=== PATIENT | male | born 1955 | race Caucasian/White ===

== ENCOUNTER → 2020-01-04 15:57 | Outpatient (BNVA) | payer BC, MEDICAID, SELFPAY | PROVIDERS: PCP Internal Medicine; Referring Provider Internal Medicine; Visit Provider Internal Medicine | DX: Z76.89 Persons encountering health services in other specified circumstances (principal) ==

== ENCOUNTER 2020-02-08 11:54 | Outpatient (REF) | payer BC, MEDICAID, SELFPAY ==
[2020-02-08 13:50] LABS: MANUAL DIFF FLAG NO
[2020-02-08 13:54] LABS: Eosinophils Percent Auto 0.4 % (0-4); Hematocrit 45.6 % (42-52); Hemoglobin 14.7 g/dl (14.0-18.0); Imm Gran Abs Auto 0.01 X10*3/uL (0.00-0.03); Imm Gran Pct Auto 0.2 % (0.0-0.4); Lymphocytes Absolute Auto 1.8 X10*3/uL (1.2-4.9); Lymphocytes Percent Auto 31.9 % (20-40); Mean Corpuscular HGB Conc 32.2 g/dl (31.0-36.0); Mean Corpuscular Hemoglobin 30.9 pg (27.0-33.0); Mean Corpuscular Volume 95.8 fL (80-98); Mean Platelet Volume 9.5 fL (9.4-12.4); Monocytes Absolute Auto 0.5 X10*3/uL (0.1-1.2); Neutrophils Absolute Auto 3.3 X10*3/uL (2.0-8.3); Neutrophils Percent Auto 58.5 % (45-73); Platelet Count 277 X10*3/uL (160-400); Red Blood Count 4.76 X10*6/uL (4.60-5.80); Red Cell Distribution Width 12.1 % (11.0-16.0); White Blood Count 5.6 X10*3/uL (4.8-10.8)
[2020-02-08 14:30] LABS: Alanine Aminotransferase 60 U/L (0-40); Albumin Level 3.8 g/dL (3.5-5.0); Alkaline Phosphatase 98 U/L (39-117); Anion Gap 10 (12-20); Aspartate Amino Transferase 35 U/L (5-37); Bilirubin Total 0.5 mg/dL (0.0-1.0); Blood Urea Nitrogen 17 mg/dL (9-16); Calcium 8.6 mg/dL (8.4-10.2); Carbon Dioxide 33 mmol/L (22-29); Chloride 102 mmol/L (96-108); Cholesterol 169 mg/dL; Estimated Glomerular Filt Rate > 60; Glucose Fasting 94 mg/dL (60-99); HDL Cholesterol 57 mg/dL; LDL Cholesterol Calculated 90 mg/dl; Lipase 32 U/L (8-78); Potassium 4.2 mmol/l (3.3-5.1); Sodium 141 mmol/L (135-145); Total Protein 6.3 g/dL (6.5-8.0); Triglycerides 112 mg/dL
[2020-02-09 21:48] LABS: Ceruloplasmin 18 mg/dL (18-36)
== END 2020-02-08 11:55 | disposition home or self-care (01) ==
LOC: HO.HMGCLDS 11:54
PROVIDERS: PCP Internal Medicine; Visit Provider Internal Medicine
DX: E83.01 Wilson's disease (principal); K21.9 Gastro-esophageal reflux disease without esophagitis; R35.0 Frequency of micturition
CPT/HCPCS: 36415; 80053; 80061; 82390; 82525; 83690; 84153; 85025

== ENCOUNTER 2020-02-22 12:42 | Outpatient (REF) | payer BC, MEDICAID, SELFPAY ==
[2020-02-26 15:07] LABS: Copper, serum 56 mcg/dL (70-175)
== END 2020-02-22 12:43 | disposition home or self-care (01) ==
LOC: HO.HMGCLDS 12:42
PROVIDERS: PCP Internal Medicine; Visit Provider Internal Medicine
DX: E83.01 Wilson's disease (principal); K21.9 Gastro-esophageal reflux disease without esophagitis; K86.2 Cyst of pancreas
CPT/HCPCS: 82525

== ENCOUNTER 2020-07-20 13:02 | Outpatient (REF) | payer BC, MEDICAID, SELFPAY ==
--- NOTE | 2020-07-20 16:53 | PFT_ITS ---
INDICATION: COPD. SPIROMETRY: The FEV1 to FVC 65% with an FEV1 of 2.97 L, which is 90% predicted, and an FVC of 4.59 L, which is 104% predicted. No significant response to bronchodilators noted. Maximum voluntary ventilation 78% predicted. LUNG VOLUMES: Total lung capacity 92% predicted with residual volume of 78% predicted. DIFFUSION CAPACITY: DLCO 82% predicted. COMPARISONS: None available. INTERPRETATION: There is an obstructive ventilatory defect consistent with mild COPD. No significant response to bronchodilators noted. There is a mild decrease in maximum voluntary ventilation secondary to deconditioning. Lung volumes within normal limits and also diffusion capacity within normal limits. Clinical correlation warranted. Ricki Escudero MD MR/MODL / [id number]
== END 2020-07-20 13:03 | disposition home or self-care (01) ==
LOC: HO.RESP 13:02
PROVIDERS: PCP Internal Medicine; Visit Provider Internal Medicine
DX: J44.9 Chronic obstructive pulmonary disease, unspecified (principal)
CPT/HCPCS: 94060; 94727; 94729

== ENCOUNTER 2020-10-02 11:55 | Outpatient (REF) | payer BC, MEDICAID, SELFPAY ==
[2020-10-02 13:12] LABS: MANUAL DIFF FLAG NO
[2020-10-02 13:15] LABS: Eosinophils Absolute Auto 0.1 X10*3/uL (0.0-0.4); Eosinophils Percent Auto 0.8 % (0-4); Hematocrit 43.6 % (42-52); Hemoglobin 14.8 g/dl (14.0-18.0); Imm Gran Abs Auto 0.02 X10*3/uL (0.00-0.03); Imm Gran Pct Auto 0.3 % (0.0-0.4); Lymphocytes Percent Auto 31.2 % (20-40); Mean Corpuscular HGB Conc 33.9 g/dl (31.0-36.0); Mean Corpuscular Hemoglobin 31.2 pg (27.0-33.0); Mean Platelet Volume 9.4 fL (9.4-12.4); Monocytes Absolute Auto 0.5 X10*3/uL (0.1-1.2); Monocytes Percent Auto 7.7 % (2-11); Neutrophils Absolute Auto 3.9 X10*3/uL (2.0-8.3); Platelet Count 257 X10*3/uL (160-400); Red Blood Count 4.74 X10*6/uL (4.60-5.80); Red Cell Distribution Width 12.7 % (11.0-16.0); White Blood Count 6.5 X10*3/uL (4.8-10.8)
[2020-10-02 13:46] LABS: Alanine Aminotransferase 31 U/L (0-40); Albumin Level 3.8 g/dL (3.5-5.0); Alkaline Phosphatase 109 U/L (39-117); Anion Gap 12 (12-20); Aspartate Amino Transferase 28 U/L (5-37); Bilirubin Total 0.8 mg/dL (0.0-1.0); Blood Urea Nitrogen 15 mg/dL (9-16); Calcium 9.2 mg/dL (8.4-10.2); Carbon Dioxide 27 mmol/L (22-29); Chloride 104 mmol/L (96-108); Cholesterol 162 mg/dL; Estimated Glomerular Filt Rate 59; Glucose Fasting 109 mg/dL (60-99); HDL Cholesterol 55 mg/dL; LDL Cholesterol Calculated 89 mg/dl; Potassium 4.4 mmol/L (3.3-5.1); Sodium 139 mmol/L (135-145); Total Protein 6.7 g/dL (6.5-8.0); Triglycerides 94 mg/dL
[2020-10-02 13:56] LABS: Glucose Urine UA NEG (NEG); Leukocyte Esterase Urine NEG (NEG); Nitrite Urine NEG (NEG); Specific Gravity - Urine <= 1.005 (1.005-1.025); Urine Blood NEG (NEG); Urine Ketones NEG (NEG); Urine Protein NEG (NEG-TRACE)
[2020-10-02 13:59] LABS: Appearance Urine CLEAR; Color Urine YELLOW
[2020-10-02 14:13] LABS: TSH reflex Free T4 1.03 uIU/mL (0.32-4.0); Vitamin D 25-OH Total 32.1 ng/mL (>30)
[2020-10-02 16:02] LABS: Prostate Specific Antigen 0.74 ng/mL (<0.05-4.0)
[2020-10-05 07:07] LABS: Copper, serum 72 mcg/dL (70-175)
[2020-10-05 22:11] LABS: Ceruloplasmin 19 mg/dL (18-36)
[2020-10-07 13:01] LABS: Copper RBC 0.67 mg/L (0.53-0.91)
[2020-10-13 16:26] LABS: Copper,Urine 24 Hr 275 mcg/24 h (15-60); Total Volume 24 Ur 2250 mL
== END 2020-10-02 11:56 | disposition home or self-care (01) ==
LOC: HO.LAB 11:55
PROVIDERS: PCP Internal Medicine; Visit Provider Internal Medicine
DX: E83.01 Wilson's disease (principal); J44.9 Chronic obstructive pulmonary disease, unspecified; R03.0 Elevated blood-pressure reading, without diagnosis of hypertension; R35.0 Frequency of micturition
CPT/HCPCS: 36415; 80053; 80061; 81003; 82306; 82390; 82525; 84153; 84443; 85025

== ENCOUNTER → 2021-01-23 13:25 | Outpatient (BNVA) | payer BC, MEDICAID, SELFPAY | PROVIDERS: PCP Internal Medicine; Visit Provider Internal Medicine ==

== ENCOUNTER 2021-05-07 10:57 | Outpatient (REF) | payer BC, MEDICAID, SELFPAY ==
[2021-05-07 13:44] LABS: MANUAL DIFF FLAG NO
[2021-05-07 13:48] LABS: Basophils Percent Auto 0.2 % (0-2); Eosinophils Absolute Auto 0.1 X10*3/uL (0.0-0.4); Eosinophils Percent Auto 2.1 % (0-4); Hematocrit 46.2 % (42.0-52.0); Hemoglobin 15.2 g/dl (14.0-18.0); Imm Gran Abs Auto 0.01 X10*3/uL (0.00-0.03); Imm Gran Pct Auto 0.2 % (0.0-0.4); Lymphocytes Absolute Auto 2.2 X10*3/uL (1.2-4.9); Lymphocytes Percent Auto 33.1 % (20-40); Mean Corpuscular HGB Conc 32.9 g/dl (31.0-36.0); Mean Corpuscular Hemoglobin 30.6 pg (27.0-33.0); Mean Corpuscular Volume 93.1 fL (80.0-98.0); Mean Platelet Volume 9.1 fL (9.4-12.4); Monocytes Absolute Auto 0.5 X10*3/uL (0.1-1.2); Monocytes Percent Auto 7.5 % (2-11); Neutrophils Absolute Auto 3.8 x10*3/uL (2.0-8.3); Neutrophils Percent Auto 56.9 % (45-73); Platelet Count 296 X10*3/uL (160-400); Red Blood Count 4.96 X10*6/uL (4.60-5.80); Red Cell Distribution Width 12.6 % (11.0-16.0); White Blood Count 6.7 X10*3/uL (4.8-10.8)
[2021-05-07 14:08] LABS: Alanine Aminotransferase 53 U/L (0-40); Alkaline Phosphatase 115 U/L (39-117); Anion Gap 12 (12-20); Aspartate Amino Transferase 39 U/L (5-37); Bilirubin Total 0.7 mg/dL (0.0-1.0); Blood Urea Nitrogen 15 mg/dL (9-16); Calcium 9.5 mg/dL (8.4-10.2); Carbon Dioxide 31 mmol/L (22-29); Chloride 103 mmol/L (96-108); Estimated Glomerular Filt Rate > 60; Glucose Fasting 102 mg/dL (60-99); Potassium 4.5 mmol/L (3.3-5.1); Sodium 141 mmol/L (135-145); Total Protein 7.1 g/dL (6.5-8.0)
[2021-05-08 11:36] LABS: Ceruloplasmin 17 mg/dL (18-36)
[2021-05-10 16:47] LABS: Copper, serum 59 mcg/dL (70-175)
== END 2021-05-07 10:58 | disposition home or self-care (01) ==
LOC: HO.HMGCLDS 10:57
PROVIDERS: Visit Provider Internal Medicine
DX: E83.01 Wilson's disease (principal); E78.00 Pure hypercholesterolemia, unspecified; I10 Essential (primary) hypertension
CPT/HCPCS: 36415; 80053; 82390; 82525; 85025

== ENCOUNTER → 2021-05-24 13:28 | Outpatient (BNVA) | payer BC, MEDICAID, SELFPAY | PROVIDERS: PCP Internal Medicine; Visit Provider Internal Medicine ==

== ENCOUNTER 2021-10-12 09:48 | Day surgery (SDC) | payer BC, MEDICAID, SELFPAY ==
--- NOTE | 2021-10-11 10:58 | P.CONAN_ITS ---
Documented by User: Linh Che NP 10/11/21 11:05 HPI - Anesthesia Eval Consult details Narrative: 66yo M for Upper Endoscopy and Colonoscopy Chronic opioids/Nucynta PMFSH Active Problems Active Problems: All Active Problems (Updated 05/24/21 @ 14:18 by Renata Francois MD) Benign essential hypertension (Acute) Annual physical exam (Acute) Urinary frequency (Acute) Anxiety (Acute) Pancreatic cyst (Acute) GERD without esophagitis (Acute) Primary osteoarthritis involving multiple joints (Acute) Lumbar degenerative disc disease (Acute) Tai's disease (Acute) COPD (chronic obstructive pulmonary disease) (Acute) Past Medical History Medical History Anxiety Benign essential hypertension COPD (chronic obstructive pulmonary disease) GERD without esophagitis Lumbar degenerative disc disease Pancreatic cyst Primary osteoarthritis involving multiple joints Urinary frequency Tai's disease Family History Family History Father No problems noted. Mother No problems noted. Surgical History Surgical History H/O hernia repair H/O nasal polypectomy H/O right knee surgery History of arthroscopy of left knee History of cholecystectomy History of right hip replacement History of tonsillectomy and adenoidectomy Social History Social History Housing: House Alcohol intake: never Patient Tobacco Use Status: Former Tobacco user e-Cigarette/Vaping Use: Never Used Second Hand Smoke Exposure: No Use of substances other than those prescribed or required for medical reasons: No Advance Directives: No Advance Directives Information Provided: Yes service: Yes ([employer]) Current occupational status: retired Cognitive needs: No Hearing needs: No Vision needs: No Meds Allergies Allergy/AdvReac Type Severity Reaction Status Date / Time duloxetine [From Cymbalta] Allergy Unknown increased Verified 05/24/21 13:57 hot flashes and leg cramps clavulanic acid [Augmentin] AdvReac Unknown upset Verified 05/24/21 13:41 stomach gabapentin AdvReac Unknown bilateral Verified 05/24/21 13:41 eye pains Home Medications Medication Instructions Recorded Confirmed Last Taken Type multivitamin (Daily Multi-Vitamin 1 tab PO DAILY 01/04/20 05/21/21 Unknown History tablet) pyridoxine (vitamin B6) 50 mg 25 mg PO DAILY 01/04/20 05/21/21 Unknown History tablet tiotropium bromide 2.5 2 puff inhalation DAILY 07/20/20 05/21/21 Unknown History mcg/actuation mist for inhalation losartan 25 mg tablet 25 mg PO DAILY 01/16/21 05/21/21 Unknown History amoxicillin 500 mg capsule 2,000 mg PO ONCE antibiotic 05/24/21 Unknown History prophylaxis Exam Exam Date and Time: October 11, 2021 1058 Pertinent Lab Results Pertinent Lab Results: Laboratory Tests 05/07/21 05/07/21 13:03 13:03 WBC 6.7 Hgb 15.2 Hct 46.2 Plt Count 296 Sodium 141 Potassium 4.5 Chloride 103 Carbon Dioxide 31 H BUN 15 Creatinine 1.17 Assessment and Plan Assessment Anesthesia Assessment: Chart Reviewed Documented by User: Veronica Eckert MD 10/12/21 10:29 [facility] Past Medical History Medical History Anxiety Benign essential hypertension COPD (chronic obstructive pulmonary disease) GERD without esophagitis Lumbar degenerative disc disease Pancreatic cyst Primary osteoarthritis involving multiple joints Urinary frequency Tai's disease Family History Family History Father No problems noted. Mother No problems noted. Family history of problems with anesthesia: No Surgical History Surgical History H/O hernia repair H/O nasal polypectomy H/O right knee surgery History of arthroscopy of left knee History of cholecystectomy History of right hip replacement History of tonsillectomy and adenoidectomy History of Problems with Anesthesia: No Social History Social History Housing: House Alcohol intake: never Patient Tobacco Use Status: Former Tobacco user e-Cigarette/Vaping Use: Never Used Second Hand Smoke Exposure: No Use of substances other than those prescribed or required for medical reasons: No Advance Directives: No Advance Directives Information Provided: Yes service: Yes ([employer]) Current occupational status: retired Cognitive needs: No Hearing needs: No Vision needs: No Meds Allergies Allergy/AdvReac Type Severity Reaction Status Date / Time duloxetine [From Cymbalta] Allergy Unknown increased Verified 05/24/21 13:57 hot flashes and leg cramps clavulanic acid [Augmentin] AdvReac Unknown upset Verified 05/24/21 13:41 stomach gabapentin AdvReac Unknown bilateral Verified 05/24/21 13:41 eye pains Home Medications Medication Instructions Recorded Confirmed Last Taken Type multivitamin (Daily Multi-Vitamin 1 tab PO DAILY 01/04/20 05/21/21 Unknown History tablet) pyridoxine (vitamin B6) 50 mg 25 mg PO DAILY 01/04/20 05/21/21 Unknown History tablet tiotropium bromide 2.5 2 puff inhalation DAILY 07/20/20 05/21/21 Unknown History mcg/actuation mist for inhalation losartan 25 mg tablet 25 mg PO DAILY 01/16/21 05/21/21 Unknown History amoxicillin 500 mg capsule 2,000 mg PO ONCE antibiotic 05/24/21 Unknown History prophylaxis Exam Height,Weight and Vital Signs: Height 5 ft 8 in Weight 68.039 kg Vital Signs Temp Pulse Resp BP Pulse Ox O2 Del Method 10/12/21 10:10 98.1 F 104 H 16 155/80 H 95 Room Air Airway Mallampati Class: II TM Dist: >3cm Neck ROM: Full Loose/Missing/Broken Teeth: Yes (Top front broken, small piece left in place. Some missing) Heart: RRR Lungs: Occasional wheeze Assessment and Plan Assessment Anesthesia Assessment: Anesthesia Plan Discussed Final Anesthetic Review Family History of Problems with Anesthesia: No History of Problems with Anesthesia: No NPO: Yes ASA Class: III Final Preanesthetic Review: No Changes in Pt Med Stat, Meds/Allgs Chart Reviewed, Consent Obtained/Reviewed and Anes Risks/Benef Reviewed Patient Risk: Intermediate Procedure Risk: Low Assessment/Block/Sedation in SS: Assess/Block/Sedation-SS Anesthetic Plan Anesthetic Plan: MAC: Disposition: Standard PACU
[2021-10-12 09:59] VITALS: BMI 22.8
[2021-10-12 10:10] VITALS: BP 155/80; PULSE 104; RESP 16; TEMP 36.7; O2SAT 95
--- NOTE | 2021-10-12 10:18 | MHC.SHP ---
Pre-Procedural Eval Section A Date of Service: 10/12/21 The patient is an INPATIENT: No Changes since office visit: No Cold of Flu in the past 2 weeks, No New Medical Problems, No Changes in Medication and No Patient answered all questions The History & Physical has been completed within 30 days and I have reviewed it.: Yes Section B Chief Complaint: screening,reflux,Epigastric pain Allergies: Allergies Allergy/AdvReac Type Severity Reaction Status Date / Time duloxetine [From Cymbalta] Allergy Unknown increased Verified 05/24/21 13:57 hot flashes and leg cramps clavulanic acid [Augmentin] AdvReac Unknown upset Verified 05/24/21 13:41 stomach gabapentin AdvReac Unknown bilateral Verified 05/24/21 13:41 eye pains Plan I have reviewed the history and physical and performed a pertinent physical examination on my patient. No changes have occurred unless specified.
[2021-10-12 11:05] VITALS: BP 89/48; PULSE 74; RESP 16; TEMP 36.6; O2SAT 95
--- NOTE | 2021-10-12 11:11 | P.BOP_ITS ---
Brief Operative Note Date of Service: 10/12/21 Pre-op diagnosis: epigastric pain, change in bowels Post-op diagnosis: same (gastritis, normal colonscopy) Procedure: egd, colonoscopy Surgeon: Juan Melara Anesthesia: MAC Was an Balance Wheel Arm Burnisher used for this Procedure?: No Estimated blood loss (mL): 2 Pathology: other Condition: stable Disposition: PACU
[2021-10-12 11:20] VITALS: BP 109/62; PULSE 80; RESP 16; O2SAT 97
[2021-10-12 11:35] VITALS: BP 116/67; PULSE 80; RESP 16; TEMP 36.6; O2SAT 97
--- NOTE | 2021-10-15 12:22 | OP_ITS ---
SURGEON: Juan Melara MD INDICATIONS: Epigastric pain and change in bowel habits. PREOPERATIVE DIAGNOSIS: POSTOPERATIVE DIAGNOSIS: PROCEDURE PERFORMED: ESTIMATED BLOOD LOSS: COMPLICATIONS: ANESTHESIA: ASSISTANTS: SPECIMENS: PROCEDURE: Upper endoscopy with biopsy, colonoscopy to the terminal ileum and biopsy. MEDICATIONS: Monitored anesthesia care. DESCRIPTION OF PROCEDURE: History and physical performed. The risks and benefits of the procedure were explained to the patient. Informed consent was obtained. The patient was placed in the left lateral decubitus position. The Olympus video gastroscope was introduced into the esophagus, stomach, and duodenum. Examination was performed. The scope was removed. He was repositioned for colonoscopy. A digital rectal exam was performed and was found to be normal. The Olympus pediatric video colonoscope was introduced into the rectum and advanced to the cecum without difficulty. The cecum was identified by transillumination, palpation, and identification of ileocecal valve. Examination was performed. The scope was removed. He tolerated both procedures well and was returned to recovery in stable condition. FINDINGS: Upper endoscopy: 1. Esophagus: Normal. There was no esophagitis. Biopsies were obtained from the EG junction. The upper esophageal sphincter seemed somewhat tight, but there was no mass lesion, and the scope passed into the esophagus with minimal resistance. 2. Stomach: Showed no evidence of masses or ulcers. There was gastritis with erythema throughout the body and antrum. Biopsies were obtained from the antrum. There were multiple benign-appearing less than 10 mm gastric polyps in the body and fundus consistent with fundic colon polyps. Two of these were biopsied. 3. Duodenum: The bulb and second portion were normal. Colonoscopy: The terminal ileum was examined and appeared normal. The visualized colonic mucosa was normal. There was a large amount of liquid stool and some small amounts formed stool that were present in the colon. This was washed and suctioned, but did limit sensitivity examination for detection of small polyps. No polyps were identified. Random sigmoid biopsies were obtained to rule out microscopic colitis. Retroflex examination showed moderately large internal hemorrhoids. IMPRESSION: 1. Gastritis. 2. Gastric polyps. 3. Normal colonoscopy. RECOMMENDATIONS: 1. Follow up the biopsy results. 2. Repeat colonoscopy is recommended in 10 years for average risk individuals. This would be optional based on the patient's age. MD RUCHI Herrera/JOHN / [id number]
== END 2021-10-12 12:22 | disposition home or self-care (01) ==
PROVIDERS: PCP Internal Medicine; Visit Provider Internal Medicine Gastroenterology
PROC: (CPT 45380; principal; 2021-10-12 11:20)
DX: Z12.11 Encounter for screening for malignant neoplasm of colon (principal); K21.9 Gastro-esophageal reflux disease without esophagitis; K29.70 Gastritis, unspecified, without bleeding; K31.7 Polyp of stomach and duodenum; E83.01 Wilson's disease; I10 Essential (primary) hypertension; J44.9 Chronic obstructive pulmonary disease, unspecified; M15.9 Polyosteoarthritis, unspecified; M51.36 Other intervertebral disc degeneration, lumbar region; F41.8 Other specified anxiety disorders; Z79.51 Long term (current) use of inhaled steroids; Z79.899 Other long term (current) drug therapy; Z90.49 Acquired absence of other specified parts of digestive tract; Z96.653 Presence of artificial knee joint, bilateral; Z96.641 Presence of right artificial hip joint; Z87.891 Personal history of nicotine dependence
CPT/HCPCS: 45380; 43239; 88305; 88342

== ENCOUNTER 2021-10-23 09:59 | Outpatient (REF) | payer BC, MEDICAID, SELFPAY ==
--- NOTE | ~2021-10-23 | US_ITS ---
EXAMINATION: US ABDOMEN COMPLETE CLINICAL INFORMATION: Tai's disease and epigastric pain. COMPARISON: Ultrasound abdomen complete 12/09/2018. CT abdomen 09/22/2013. TECHNIQUE: Real-time imaging of the abdominal viscera. FINDINGS: PANCREAS: A 6 mm cyst in the pancreatic uncinate process. Pancreatic duct is prominent measuring 3 mm. ABDOMINAL AORTA: Visualized portions of the aorta are normal in caliber. INFERIOR VENA CAVA: Visualized portions are normal. LIVER: The liver is normal in size. The liver contour is normal. Parenchymal echogenicity is normal. Few scattered benign-appearing hepatic cysts measuring up to 2.3 cm. Mild intrahepatic biliary duct dilatation. GALLBLADDER: Surgically absent. COMMON BILE DUCT: Dilated measuring 1.1 cm in diameter. RIGHT KIDNEY: 4 mm nonobstructing lower pole renal stone. A 2.7 cm left renal cyst with a thin internal septation, not significantly changed from 2019 where it measured 2.7 cm likely benign. No hydronephrosis The kidney measures 10.1 cm in maximum dimension. LEFT KIDNEY: A 8 mm echogenic focus in the left upper pole without shadowing or twinkle artifact may reflect a vascular reflector, with a stone considered less likely. No hydronephrosis or focal parenchymal lesions. The kidney measures 10.3 cm in maximum dimension. SPLEEN: Normal. The spleen measures 11.4 cm in maximum dimension. FREE FLUID: None. US/US abdomen complete IMPRESSION: Mild intrahepatic biliary duct dilatation and moderate extrahepatic biliary duct dilatation. Recommend further evaluation with contrast enhanced MR/MRCP abdomen. A 0.6 cm cystic lesion in the pancreatic uncinate process, with prominent pancreatic duct. As above, recommend contrast enhanced MR/MRCP for further evaluation. 4 mm nonobstructing right lower pole renal stone. An 8 mm echogenic focus in the left upper renal pole is favored to reflect a vascular reflector, with a stone considered less likely.
[2021-10-23 11:28] LABS: MANUAL DIFF FLAG NO
[2021-10-23 11:35] LABS: Eosinophils Absolute Auto 0.1 X10*3/uL (0.0-0.4); Eosinophils Percent Auto 1.4 % (0-4); Hematocrit 41.7 % (42.0-52.0); Hemoglobin 14.2 g/dl (14.0-18.0); Imm Gran Abs Auto 0.05 X10*3/uL (0.00-0.03); Imm Gran Pct Auto 0.6 % (0.0-0.4); Lymphocytes Absolute Auto 2.1 X10*3/uL (1.2-4.9); Lymphocytes Percent Auto 22.9 % (20-40); Mean Corpuscular HGB Conc 34.1 g/dl (31.0-36.0); Mean Corpuscular Hemoglobin 31.1 pg (27.0-33.0); Mean Corpuscular Volume 91.2 fL (80.0-98.0); Mean Platelet Volume 9.4 fL (9.4-12.4); Monocytes Absolute Auto 0.5 X10*3/uL (0.1-1.2); Monocytes Percent Auto 5.2 % (2-11); Neutrophils Absolute Auto 6.3 x10*3/uL (2.0-8.3); Neutrophils Percent Auto 69.9 % (45-73); Platelet Count 302 X10*3/uL (160-400); Red Blood Count 4.57 X10*6/uL (4.60-5.80); Red Cell Distribution Width 12.8 % (11.0-16.0)
[2021-10-23 11:47] LABS: Alanine Aminotransferase 38 U/L (0-40); Albumin Level 3.9 g/dL (3.5-5.0); Alkaline Phosphatase 120 U/L (39-117); Anion Gap 13 (12-20); Aspartate Amino Transferase 25 U/L (5-37); Bilirubin Total 0.7 mg/dL (0.0-1.0); Blood Urea Nitrogen 18 mg/dL (9-16); Carbon Dioxide 27 mmol/L (22-29); Chloride 104 mmol/L (96-108); Cholesterol 145 mg/dL; Estimated Glomerular Filt Rate 56; Glucose Fasting 111 mg/dL (60-99); HDL Cholesterol 51 mg/dL; LDL Cholesterol Calculated 77 mg/dl; Potassium 4.3 mmol/L (3.3-5.1); Sodium 140 mmol/L (135-145); Total Protein 6.8 g/dL (6.5-8.0); Triglycerides 89 mg/dL
[2021-10-23 12:14] LABS: TSH reflex Free T4 1.03 uIU/mL (0.32-4.0)
[2021-10-23 13:52] LABS: Appearance Urine CLEAR; Color Urine YELLOW; Glucose Urine UA NEG (NEG); Leukocyte Esterase Urine NEG (NEG); Nitrite Urine NEG (NEG); Specific Gravity - Urine 1.015 (1.005-1.025); Urine Blood NEG (NEG); Urine Ketones NEG (NEG); Urine Protein NEG (NEG-TRACE)
[2021-10-26 06:11] LABS: Copper, serum 66 mcg/dL (70-175)
== END 2021-10-23 10:00 | disposition home or self-care (01) ==
LOC: HO.HMGCX 09:59
PROVIDERS: PCP Internal Medicine; Visit Provider Internal Medicine Gastroenterology
DX: E83.01 Wilson's disease (principal); E78.00 Pure hypercholesterolemia, unspecified; I10 Essential (primary) hypertension
CPT/HCPCS: 36415; 76700; 80053; 80061; 81003; 82306; 82525; 84443; 85025

== ENCOUNTER → 2022-01-31 14:22 | Outpatient (BNVA) | payer BC, MEDICAID, SELFPAY | PROVIDERS: PCP Internal Medicine; Visit Provider Internal Medicine | DX: Z01.811 Encounter for preprocedural respiratory examination (principal); J44.9 Chronic obstructive pulmonary disease, unspecified; M16.12 Unilateral primary osteoarthritis, left hip; Z96.641 Presence of right artificial hip joint | CPT/HCPCS: 94010 ==

== ENCOUNTER → 2022-06-13 13:55 | Outpatient (BNVA) | payer BC, MEDICAID, SELFPAY | PROVIDERS: PCP Internal Medicine; Visit Provider Internal Medicine | DX: J44.9 Chronic obstructive pulmonary disease, unspecified (principal) ==

== ENCOUNTER 2022-10-08 14:03 | Outpatient (AMB) | payer BC, MEDICAID, SELFPAY ==
[2022-10-08 14:15] VITALS: BP 134/66; PULSE 82; O2SAT 94; BMI 24.1
--- NOTE | 2022-10-08 14:15 | A.OFFVIS_ITS ---
Intake Vital Signs 10/08/22 14:15 Height 5 ft 8 in Weight 158 lb 11.725 oz BMI 24.1 BP 134/66 Blood Pressure Location Rt brachial Position Sitting Pulse 82 Pulse Source Pulse Oximeter Pulse Oximetry (%) 94 Oxygen Delivery Method Room Air Intake Visit Reasons: COPD Intake Note: Pt presents for a f/u regardig his COPD. He reports everything is going the same, shortness of breathe on exertion. Meter Supervisor Required: No Allergies duloxetine [From Cymbalta] Allergy (Unknown, Verified 10/08/22 14:33) increased hot flashes and leg cramps clavulanic acid [Augmentin] Adverse Reaction (Unknown, Verified 10/08/22 14:33) upset stomach gabapentin Adverse Reaction (Unknown, Verified 10/08/22 14:33) bilateral eye pains Medication List - Last Reconciled 10/08/22 by Renata Francois MD albuterol sulfate 90 mcg/actuation 2 puffs inhalation Q6H PRN 30 days amoxicillin 2,000 mg (4 x 500 mg) PO ONCE losartan 25 mg PO DAILY multivitamin (Daily Multi-Vitamin tablet) 1 tab PO DAILY omeprazole 40 mg PO QAM PRN penicillamine 250 mg PO BID pyridoxine (vitamin B6) 25 mg PO DAILY Symbicort 160-4.5 mcg/actuation (budesonide-formoterol) 2 puffs inhalation BID 30 days NS tapentadol (Nucynta) 100 mg PO Q6H PRN 15 days Do you need a note to return to daycare/school/sports/work: No HPI COPD HPI Details 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 HE COMES FOR FOLLOW-UP AFTER 4 MONTHS. HIS BREATHING ISSUE IS UNDER CONTROL AND BACK TO HIS BASELINE. INFECT HE FREQUENTLY FORGETS TO USE SYMBICORT. HOWEVER HE DOES COMPLAIN OF GETTING SHORT OF BREATH ON EXERTION LIKE WALKING UP STAIRS, OR WALKING FAST OUTDOORS. HE ALSO HAS MILD INTERMITTENT COUGH. OVERALL HE FEELS BETTER THAN BEFORE. [facility] Medical History Anxiety Benign essential hypertension COPD (chronic obstructive pulmonary disease) GERD without esophagitis Lumbar degenerative disc disease Pancreatic cyst Primary osteoarthritis involving multiple joints Urinary frequency Tai's disease Surgical History H/O hernia repair H/O nasal polypectomy H/O right knee surgery History of arthroscopy of left knee History of cholecystectomy History of right hip replacement History of tonsillectomy and adenoidectomy Family History Father No problems noted. Mother No problems noted. Social History Housing: House Alcohol intake: never Patient Tobacco Use Status: Former Tobacco user e-Cigarette/Vaping Use: Never Used Second Hand Smoke Exposure: No service: Yes ([employer]) Current occupational status: retired Cognitive needs: No Hearing needs: No Vision needs: No Review of Systems Const Denies chills, Denies fatigue, Denies fever(s), Denies headache(s), Denies malaise and Denies weakness Eyes Denies blurry vision, Denies change in vision, Denies irritation and Denies itchy eyes ENT Denies dysphagia, Denies dizziness, Denies otalgia, Denies headache(s), Denies nasal congestion, Denies neck pain, Denies odynophagia and Denies sore throat Card Denies chest pain, Denies rapid heart rate, Denies irregular heart rhythm, Denies palpitations and Denies dyspnea Resp Denies chest congestion, Denies cough, Denies dyspnea and Denies wheezing GI Denies abdominal pain, Denies bloating, Denies constipation, Denies dysphagia, Denies heartburn, Denies diarrhea, Denies nausea, Denies odynophagia and Denies vomiting Denies hematuria, Denies difficulty urinating, Denies dysuria, Denies nocturia, Denies urinary frequency and Denies urinary urgency Musc Reports back pain (over the lower back - chronic), Reports arthralgias (involving multiple joints), Denies joint swelling, Denies muscle weakness and Denies neck pain Skin/Breast Denies change in pigmentation, Reports lesions (dark raised lesion on the left side of the neck), Denies rash and Denies unusual bruising Neuro Denies dizziness, Denies headache(s), Denies paresthesias and Denies weakness Endo Denies fatigue and Denies palpitations Aller/Immun Denies itchy eyes and Denies wheezing Physical Exam Vital Signs: Last Vital Signs Pulse 82 10/08/22 14:15 BP 134/66 10/08/22 14:15 Pulse Ox 94 10/08/22 14:15 Oxygen Delivery Method Room Air 10/08/22 14:15 BMI result Body Mass Index 24.1 Const General: comfortable (But short of breath during conversation), no acute distr ess, alert and awake Orientation/consciousness: patient oriented x3 HEENT Head: Yes normal to inspection General nose exam: No nasal polyps present and No nasal discharge present Face and sinus: Yes sinuses nontender Mouth: oropharynx normal Teeth and gingiva: other (Multiple decayed teeth) Throat: Yes posterior oropharynx normal Eyes General: appearance normal, both eyes and all related structures Neck Neck: Yes normal visual inspection, Yes no lymphadenopathy, Yes trachea midline and Yes no JVD Thyroid: Thyroid normal Chest Chest palpation & inspection: normal inspection of the chest, normal palpation of entire chest wall and no tenderness Resp Other: Percussion note is resonant, breath sounds are distant with prolonged expiratory phase but equal on both sides. No wheezes or crepitations are heard. Percussion: percussion normal Cardio Palpation: normal PMI Rate: regular rate Rhythm: regular rhythm Heart sounds: no gallops and no murmurs GI Palpation (GI): Soft to palpation, nontender, No hepatosplenomegaly present and no masses Auscultation: normal bowel sounds Back/Spine/Pelvis Thoracic/Lumbar Spine: thoracic and lumbar spine normal to inspection Skin General skin exam: no rashes or lesions noted Neuro General: patient oriented x3 and no focal motor deficits Cranial nerves: Yes CN's II-XII intact bilaterally Extrem General: Yes normal to inspection, Yes no clubbing, cyanosis or edema and Yes no calf tenderness Psych Appearance: grossly normal and well kempt Speech and movement: Normal speech and movement present Assessment & Plan Assessment & Plan (1) COPD (chronic obstructive pulmonary disease): Comment: CHRONIC OBSTRUCTIVE PULMONARY DISEASE, MILD TO MODERATE, WELL CONTROLLED AND STABLE, HE HAD INCREASED DYSPNEA ON EXERTION OR AFTER HIS HIP SURGERY, THAT HAS IMPROVED TO ALMOST HIS BASELINE. HE HAS MORE FREQUENT COUGH WHEN HE DOES NOT USE SYMBICORT, AND HE ADMITS THAT HE IS NOT USING SYMBICORT REGULARLY. TX: SPIRIVA RESPIMAT IS 2.5 MG 2 INHALATIONS DAILY. SYMBICORT 160-4.5 2 PUFFS B.I.D., DO USE IT REGULARLY , 2 PUFFS B.I.D.. ALSO ALBUTEROL HFA 2 PUFFS Q 6 HOURS ONLY P.R.N. ADVISED TO DO BREATHING EXERCISES DAILY THREE TIMES A DAY . Code(s): J44.9 - Chronic obstructive pulmonary disease, unspecified Qualifiers: COPD type: unspecified COPD Qualified Code(s): J44.9 - Chronic obstructive pulmonary disease, unspecified Coding Level of Care Code Est Pt Level 3 (73847) Diagnoses COPD (chronic obstructive pulmonary disease) J44.9 COPD type: unspecified COPD
== END 2022-10-08 14:46 | disposition home or self-care (01) ==
PROVIDERS: PCP Internal Medicine; Visit Provider Internal Medicine
DX: J44.9 Chronic obstructive pulmonary disease, unspecified (principal)
CPT/HCPCS: 99213

== ENCOUNTER → 2022-10-08 14:03 | Outpatient (BNVA) | payer BC, MEDICAID, SELFPAY | PROVIDERS: PCP Internal Medicine; Visit Provider Internal Medicine | DX: J44.9 Chronic obstructive pulmonary disease, unspecified (principal) ==

== ENCOUNTER 2022-10-14 11:20 | Outpatient (REF) | payer BC, MEDICAID, SELFPAY ==
[2022-10-14 12:20] LABS: MANUAL DIFF FLAG NO
[2022-10-14 14:10] LABS: Basophils Percent Auto 0.1 % (0-2); Eosinophils Absolute Auto 0.2 X10*3/uL (0.0-0.4); Hematocrit 43.4 % (42.0-52.0); Hemoglobin 14.1 g/dl (14.0-18.0); Imm Gran Abs Auto 0.02 X10*3/uL (0.00-0.03); Imm Gran Pct Auto 0.2 % (0.0-0.4); Lymphocytes Absolute Auto 1.9 X10*3/uL (1.2-4.9); Lymphocytes Percent Auto 22.3 % (20-40); Mean Corpuscular HGB Conc 32.5 g/dl (31.0-36.0); Mean Corpuscular Hemoglobin 30.3 pg (27.0-33.0); Mean Corpuscular Volume 93.3 fL (80.0-98.0); Mean Platelet Volume 9.2 fL (9.4-12.4); Monocytes Absolute Auto 0.5 X10*3/uL (0.1-1.2); Monocytes Percent Auto 6.4 % (2-11); Neutrophils Absolute Auto 5.8 x10*3/uL (2.0-8.3); Platelet Count 282 X10*3/uL (160-400); Red Blood Count 4.65 X10*6/uL (4.60-5.80); Red Cell Distribution Width 13.2 % (11.0-16.0); White Blood Count 8.4 X10*3/uL (4.8-10.8)
[2022-10-14 14:46] LABS: Appearance Urine Clear; Color Urine Yellow; Glucose Urine UA Negative (Negative); Leukocyte Esterase Urine Negative (Negative); Nitrite Urine Negative (Negative); PH 7.5 (5.0-9.0); Urine Blood Negative (Negative); Urine Ketones Negative (Negative); Urine Protein Negative (Neg-Trace)
[2022-10-14 14:52] LABS: Estimated Average Glucose 103 mg/dL; Hemoglobin A1c % 5.2 %
[2022-10-14 15:07] LABS: Alanine Aminotransferase 38 U/L (0-40); Albumin Level 3.5 g/dL (3.5-5.0); Alkaline Phosphatase 102 U/L (39-117); Anion Gap 15 (12-20); Aspartate Amino Transferase 28 U/L (5-37); Bilirubin Total 0.8 mg/dL (0.0-1.0); Blood Urea Nitrogen 19 mg/dL (9-16); Calcium 9.1 mg/dL (8.4-10.2); Carbon Dioxide 25 mmol/L (22-29); Chloride 107 mmol/L (96-108); Cholesterol 147 mg/dL; Estimated Glomerular Filt Rate > 60; Glucose Fasting 93 mg/dL (60-99); Glucose Random 92 mg/dL (60-115); HDL Cholesterol 53 mg/dL; LDL Cholesterol Calculated 73 mg/dl; Potassium 4.5 mmol/L (3.3-5.1); Sodium 142 mmol/L (135-145); Total Protein 6.6 g/dL (6.5-8.0); Triglycerides 107 mg/dL
[2022-10-14 15:13] LABS: TSH reflex Free T4 0.95 uIU/mL (0.32-4.0); Thyroid Stimulating Hormone 0.95 uIU/mL (0.32-4.0); Vitamin D 25-OH Total 48.8 ng/mL (>30)
[2022-10-14 15:20] LABS: Free T4 (Free Thyroxine) 0.91 ng/dL (0.71-1.85)
[2022-10-14 15:30] LABS: Folate 16.2 ng/mL (> or = 4.0); Prostate Specific Antigen Scr 1.07 ng/mL (<0.05-4.0); Vitamin B12 599 pg/mL (200-900)
[2022-10-17 01:58] LABS: Copper, serum 68 mcg/dL (70-175)
[2022-10-20 20:23] LABS: Ceruloplasmin 18 mg/dL (18-36)
== END 2022-10-14 11:21 | disposition home or self-care (01) ==
LOC: HO.HMGCLDS 11:20
PROVIDERS: Absent Provider Internal Medicine; PCP Internal Medicine; Visit Provider Internal Medicine
DX: Z12.5 Encounter for screening for malignant neoplasm of prostate (principal); E78.00 Pure hypercholesterolemia, unspecified; I10 Essential (primary) hypertension; E11.9 Type 2 diabetes mellitus without complications; R30.0 Dysuria; E55.9 Vitamin D deficiency, unspecified
CPT/HCPCS: 36415; 80053; 80061; 81003; 82306; 82390; 82525; 82607; 82746; 83036; 84153; 84439; 84443; 85025

== ENCOUNTER 2022-10-16 14:18 | Outpatient (REF) | payer BC, MEDICAID, SELFPAY ==
[2022-10-23 17:18] LABS: Copper,Urine 24 Hr 252 mcg/24 h (15-60); Total Volume 24 Ur 2250 mL
== END 2022-10-16 14:19 | disposition home or self-care (01) ==
LOC: HO.LNP 14:18
PROVIDERS: Visit Provider Internal Medicine
DX: I10 Essential (primary) hypertension (principal)
CPT/HCPCS: 82525

== ENCOUNTER 2022-12-11 13:09 | Outpatient (AMB) | payer BC, MEDICAID, SELFPAY ==
[2022-12-11 13:10] VITALS: BP 122/90; PULSE 83; O2SAT 95; BMI 24.3
--- NOTE | 2022-12-11 13:10 | MHC.PC.OV ---
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 Required: No Accompanied by: Self / Same As Patient Allergies duloxetine [From Cymbalta] Allergy (Unknown, Verified 12/11/22 13:44) increased hot flashes and leg cramps clavulanic acid [Augmentin] Adverse Reaction (Unknown, Verified 12/11/22 13:44) upset stomach gabapentin Adverse Reaction (Unknown, Verified 12/11/22 13:44) bilateral eye pains Medication List - Last Reconciled 12/11/22 by Brody Donohue MD albuterol sulfate 90 mcg/actuation 2 puffs inhalation Q6H PRN 30 days amoxicillin 2,000 mg (4 x 500 mg) PO ONCE losartan 25 mg PO DAILY multivitamin (Daily Multi-Vitamin tablet) 1 tab PO DAILY omeprazole 40 mg PO QAM PRN penicillamine 250 mg PO BID pyridoxine (vitamin B6) 25 mg PO DAILY Symbicort 160-4.5 mcg/actuation (budesonide-formoterol) 2 puffs inhalation BID 30 days NS tapentadol (Nucynta) 100 mg PO Q6H PRN 15 days Tobacco use date assessed: 12/11/22 Fall risk assessment: 1 Fall in past year Last assessed Fall Risk: 12/11/22 Dental Screening Dental Screen Date: 12/11/22 Did you have a dental visit in the last 12 months?: Yes Did you have a dental problem in the last 6 months where you did not have access to dental care?: No Was dental information given to patient?: Patient has dentist HPI 4 MONTH F/U HPI Details Patient comes in today for his follow up visit States that he still has increased pain over his lower back and multiple joints (chronic) due to his arthritis, but otherwise feels okay States that his current Rx help him manage his pain and thinks that his Nucynta will be requiring a PA to be done again sometime soon He denies any headaches or dizziness Denies any chest pains, no increased SOB - he continues to follow up with Dr. Francois regularly for his COPD management No nausea/vomiting, no abdominal pain No change in bowel habits noted Adds that he was recently diagnosed with basal cell carcinoma by [facility] when they took out the lesion from the side of his neck Will be seeing them in a week or two for follow up and to discuss further management of this Would like to know how he did on his labs done at the end of September 2022 [facility] Medical History (Updated 12/11/22 @ 14:45 by Brody Donohue MD) Benign essential hypertension Urinary frequency Anxiety Pancreatic cyst GERD without esophagitis Primary osteoarthritis involving multiple joints Lumbar degenerative disc disease Tai's disease COPD (chronic obstructive pulmonary disease) Surgical History (Updated 12/11/22 @ 14:48 by Brody Donohue MD) History of total left hip arthroplasty (~02/25/22) H/O right knee surgery History of arthroscopy of left knee History of right hip replacement History of tonsillectomy and adenoidectomy H/O hernia repair H/O nasal polypectomy History of cholecystectomy Family History Father No problems noted. Mother No problems noted. Social History Housing: House Alcohol intake: never Patient Tobacco Use Status: Former Tobacco user e-Cigarette/Vaping Use: Never Used Second Hand Smoke Exposure: No service: Yes ([employer] Current occupational status: retired Cognitive needs: No Hearing needs: No Vision needs: No Questionnaire PHQ-9 Over the last 2 weeks, how often have you been bothered by any of the following problems? 1. Little interest or pleasure in doing things: not at all 2. Feeling down, depressed, or hopeless: not at all 3. Trouble falling or staying asleep, or sleeping too much: not at all 4. Feeling tired or having little energy: not at all 5. Poor appetite or overeating: not at all 6. Feeling bad about yourself - or that you are a failure or have let yourself or your family down: not at all 7. Trouble concentrating on things, such as reading the newspaper or watching television: not at all 8. Moving or speaking so slowly that other people could have noticed. Or the opposite - being so fidgety or restless that you have been moving around a lot more than usual: not at all 9. Thoughts that you would be better off or of hurting yourself in some way: not at all Total score: 0 Depression Screening Interpretation: Negative [id number] - PHQ-9 Billing: Yes Source: Developed by Drs. Jacinto Fields, Abbie Villanueva, Reji Xavier and colleagues, with an educational celio from [employer]. Thrive Questionnaire Date Thrive assessed: 12/11/22 I am a: Patient What is your living situation today?: I have a steady place to live Within the past 12 months, did the food you bought not last and you didn't have the money to get more?: Never true Within the past 12 months, did you worry whether your food would run out before you got money to buy more?: Never true Do you have trouble paying for medicines?: No Do you have trouble getting transportation to medical appointments?: No Do you have trouble paying your heating and electricity bill?: No Do you have trouble taking care of your child, family member or friend?: No Do you have trouble with day-to-day activities such as bathing, preparing meals, shopping, managing finances, etc.?: No Are you currently unemployed and looking for a job?: No Are you interested in more education?: No Please select the resources that you would like help with: None Currently or been in a relationship where the following occur: no concerns reported AUDIT C Alcohol Use Questionnaire (AUDIT-C) 1. How often do you have a drink containing alcohol?: Never 3. How often do you have six or more drinks on one occasion?: Never Total Score: 0 Score Reviewed/Action Taken: Yes HARITHA-7 AMB Questionnaire HARITHA-7 Date HARITHA - 7 assessed: 12/11/22 Feeling nervous, anxious, or on edge: 0 = Not at all Not being able to stop or control worryin = Not at all Worrying too much about different things: 0 = Not at all Trouble relaxin = Not at all Being so restless that it is hard to sit still: 0 = Not at all Becoming easily annoyed or irritable: 0 = Not at all Feeling afraid as if something awful might happen: 0 = Not at all Total HARITHA-7 score (0-4 normal; 5-9 mild; 10-14 moderate; 15-21 severe): 0 Source: Developed by Drs. Jacinto Fields, Abbie Villanueva, Reji Xavier and colleagues, with an educational celio from [employer]. Review of Systems Const Denies chills, Denies fatigue, Denies fever(s) and Denies headache(s) ENT Denies dysphagia, Denies dizziness, Denies otalgia, Denies headache(s), Denies neck pain, Denies odynophagia and Denies sore throat Card Denies chest pain, Denies rapid heart rate, Denies irregular heart rhythm, Denies palpitations and Reports dyspnea on exertion (mild) Resp Denies chest congestion, Denies cough, Reports dyspnea on exertion (mild) and Denies wheezing GI Denies abdominal pain, Denies constipation, Denies dysphagia, Denies heartburn, Denies diarrhea, Denies nausea, Denies odynophagia and Denies vomiting Denies hematuria, Denies difficulty urinating, Denies dysuria, Denies nocturia and Denies urinary frequency Musc Reports back pain (over the lower back - chronic), Reports arthralgias (involving multiple joints), Denies joint swelling and Denies neck pain Skin/Breast Denies change in pigmentation and Denies rash Neuro Denies dizziness, Denies headache(s) and Denies paresthesias Endo Denies fatigue and Denies palpitations Aller/Immun Denies wheezing Physical exam (Primary Care) Vital Signs: Last Vital Signs Pulse 83 12/11/22 13:10 BP 122/90 H 12/11/22 13:10 Pulse Ox 95 12/11/22 13:10 Oxygen Delivery Method Room Air 12/11/22 13:10 BMI result Body Mass Index 24.3 Tobacco/Smoking Status: Tobacco use Status Tobacco use date assessed 12/11/22 12/11/22 13:17 Patient Tobacco Use Status Former Tobacco user 12/11/22 13:17 e-Cigarette/Vaping Use Never Used 12/11/22 13:17 PHQ-9: PHQ-9 Score PHQ-9: Total score 0 12/11/22 13:48 Depression Screening Interpretation: Negative Thrive Assessment: Date of Thrive Assessment Date Thrive assessed 12/11/22 12/11/22 13:17 Currently or been in a relationship where the following occur: no concerns reported Const General: no acute distress and alert HENMT Ears: TM's normal bilaterally and EAC's normal Throat: Yes posterior oropharynx normal and Yes tonsils normal (no TP congestion) Neck Neck: Yes no lymphadenopathy and Yes supple Thyroid: Thyroid normal Resp Auscultation: clear to auscultation bilaterally, no rales and no wheezes Cardio Rate: regular rate Rhythm: regular rhythm Heart sounds: no murmurs GI Palpation (GI): Soft to palpation and nontender Auscultation: normal bowel sounds Back/Spine/Pelvis Thoracic/Lumbar Spine: lumbar spinal tenderness Skin Rashes: no rashes Extrem General: Yes no clubbing, cyanosis or edema Results Reviewed Results Reviewed: Laboratory Tests 10/14/22 10/14/22 10/14/22 12:18 12:18 12:20 WBC 8.4 Hgb 14.1 Hct 43.4 Plt Count 282 Sodium 142 Potassium 4.5 Creatinine 1.20 Estimated GFR > 60 Fasting Glucose 93 Hemoglobin A1c % 5.2 Calcium 9.1 AST 28 ALT 38 Ceruloplasmin 18 Triglycerides 107 Cholesterol 147 LDL Cholesterol, Calc 73 HDL Cholesterol 53 PSA Screen 1.07 Vitamin B12 599 25-OH Vitamin D Total 48.8 TSH 0.95 Free T4 0.91 Ur Specific [place] 1.010 Urine Protein Negative Urine Glucose (UA) Negative Urine Blood Negative Serum Copper 68 L Ur Copper 24 Hr 10/16/22 Unknown WBC Hgb Hct Plt Count Sodium Potassium Creatinine Estimated GFR Fasting Glucose Hemoglobin A1c % Calcium AST ALT Ceruloplasmin Triglycerides Cholesterol LDL Cholesterol, Calc HDL Cholesterol PSA Screen Vitamin B12 25-OH Vitamin D Total TSH Free T4 Ur Specific [place] Urine Protein Urine Glucose (UA) Urine Blood Serum Copper Ur Copper 24 Hr 252 H Assessment and Plan Assessment & Plan (1) 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 HE HAS MORE FREQUENT COUGH WHEN HE DOES NOT USE SYMBICORT, AND HE ADMITS THAT HE IS NOT USING SYMBICORT REGULARLY. TX: SPIRIVA RESPIMAT IS 2.5 MG 2 INHALATIONS DAILY. SYMBICORT 160-4.5 2 PUFFS B.I.D., DO USE IT REGULARLY , 2 PUFFS B.I.D.. ALSO ALBUTEROL HFA 2 PUFFS Q 6 HOURS ONLY P.R.N. ADVISED TO DO BREATHING EXERCISES DAILY THREE TIMES A DAY . Code(s): J44.9 - Chronic obstructive pulmonary disease, unspecified Qualifiers: COPD type: unspecified COPD Qualified Code(s): J44.9 - Chronic obstructive pulmonary disease, unspecified Plan: Chest CT done on 06/10/2017 showed findings consistent with pulmonary emphysema Continue Spiriva Respimat Aerosol Solution, 2.5 mcg, 2 puffs Once a day, Symbicort Aerosol, 160-4.5 MCG/ACT, 2 inhalations Twice a day and ProAir HFA Aerosol Solution, 108 (90 Base) MCG/ACT, 2 puffs four times a day NEEDED Follow up with pulmonary (Dr. Francois) as scheduled (3) Lumbar degenerative disc disease: Comment: Has received lumbar spine injections from [facility] in the past with little relief Code(s): M51.36 - Other intervertebral disc degeneration, lumbar region Plan: Reinforced activity and weight lifting restrictions Continue Lidoderm Patch, 5 %, 1 patch to intact skin remove after 12 hours, Externally, Once a day as needed and Nucynta Tablet, 100 MG, 1 tablet, Orally, every 6 hrs as needed for pain, 15 days, # 60 Tablets Follow-up with [facility] (Dr. Woo) as scheduled Has been presented with options of a spinal cord stimulation, an intrathecal drug delivery system as well as a genicular block and radiofrequency ablation for pain relief (4) Primary osteoarthritis involving multiple joints: Code(s): M89.49 - Other hypertrophic osteoarthropathy, multiple sites Plan: Follow up with [facility] as scheduled (5) Benign essential hypertension: Code(s): I10 - Essential (primary) hypertension Plan: Reinforced low sodium diet Continue Losartan 25 mg QD Patient is reminded to continue monitoring his blood pressure regularly (6) GERD without esophagitis: Code(s): K21.9 - Gastro-esophageal reflux disease without esophagitis Plan: DIetary restrictions reinforced Continue Dexilant capsules 60 mg QD (7) Urinary frequency: Code(s): R35.0 - Frequency of micturition Plan: Follow up with urology as scheduled PSA was normal on his labs done back in September 2022 (8) Basal cell carcinoma (BCC): Code(s): C44.91 - Basal cell carcinoma of skin, unspecified Qualifiers: Basal cell carcinoma location: neck Qualified Code(s): C44.41 - Basal cell carcinoma of skin of scalp and neck Plan: States that he was just informed that the lesion dermatology removed from the left side of his neck was a basal cell carcinoma lesion but the margins were reportedly clear Follow up with [facility] as scheduled for further management/treatment (9) Anxiety: Code(s): F41.9 - Anxiety disorder, unspecified Plan: Continue Lorazepam 1 mg TID PRN (10) Glaucoma: Code(s): H40.9 - Unspecified glaucoma Qualifiers: Glaucoma type: unspecified Laterality: unspecified laterality Qualified Code(s): H40.9 - Unspecified glaucoma Plan: Follow up with ophthalmology as scheduled Plan Follow up in 4 months Orders: Orders Complete Blood Count Auto Diff 4 Months E83.01 - Tai's disease Comprehensive Met. Panel 4 Months E83.01 - Tai's disease Ceruloplasmin 4 Months E83.01 - Tai's disease Copper, Urine 4 Months E83.01 - Tai's disease Copper, serum 4 Months E83.01 - Tai's disease Coding Level of Care Code Est Pt Level 4 (47887) Diagnoses Tai's disease E83.01 Chronic obstructive pulmonary disease, unspecified COPD type J44.9 COPD type: unspecified COPD Lumbar degenerative disc disease M51.36 Primary osteoarthritis involving multiple joints M89.49 Benign essential hypertension I10 GERD without esophagitis K21.9 Urinary frequency R35.0 Basal cell carcinoma (BCC) of skin of neck C44.41 Basal cell carcinoma location: neck Anxiety F41.9 Glaucoma, unspecified glaucoma type, unspecified laterality H40.9 Glaucoma type: unspecified Laterality: unspecified laterality
== END 2022-12-11 14:04 | disposition home or self-care (01) ==
PROVIDERS: Visit Provider Internal Medicine
DX: E83.01 Wilson's disease (principal); J44.9 Chronic obstructive pulmonary disease, unspecified; M51.36 Other intervertebral disc degeneration, lumbar region; M89.49 Other hypertrophic osteoarthropathy, multiple sites; I10 Essential (primary) hypertension; K21.9 Gastro-esophageal reflux disease without esophagitis; R35.0 Frequency of micturition; C44.41 Basal cell carcinoma of skin of scalp and neck; F41.9 Anxiety disorder, unspecified; H40.9 Unspecified glaucoma
CPT/HCPCS: 99214

== ENCOUNTER 2023-01-23 14:51 | Outpatient (AMB) | payer BC, MEDICAID, SELFPAY ==
[2023-01-23 14:56] VITALS: BP 138/80; PULSE 98; TEMP 36.7; O2SAT 92; BMI 24.2
--- NOTE | 2023-01-23 14:56 | AM.OFFWIN_ITS ---
Intake Vital Signs 01/23/23 14:56 Height 5 ft 8 in Weight 159 lb BMI 24.2 BP 138/80 Blood Pressure Location Rt brachial Position Sitting Pulse 98 Pulse Source Pulse Oximeter Temp 98.0 F Temp Source Temporal Artery Scan Pulse Oximetry (%) 92 Oxygen Delivery Method Room Air Intake Visit Reasons: EST/chest congestion(lobby masked) Intake Note: pt is here for c/o chest congestion Patient Tobacco Use Status: Former Tobacco user Allergies duloxetine [From Cymbalta] Allergy (Unknown, Verified 01/23/23 14:57) increased hot flashes and leg cramps clavulanic acid [Augmentin] Adverse Reaction (Unknown, Verified 01/23/23 14:57) upset stomach gabapentin Adverse Reaction (Unknown, Verified 01/23/23 14:57) bilateral eye pains Do you need a note to return to daycare/school/sports/work: Yes HPI HPI Comments History of Present Illness Details the patient presents to urgent care for evaluation of cough and shortness of breath. His adds that he has been suffering with this for about 3 weeks since he had a cold. He has not had any fever chills but the cough seems to be getting much worse over the past week. He is having trouble coughing any sputum up. He denies chest pain but does admit to some shortness of breath no fever chills no nausea vomiting. [facility] Medical History (Updated 01/23/23 @ 15:17 by Winifred Yin DO) Cough Benign essential hypertension Urinary frequency Anxiety Pancreatic cyst GERD without esophagitis Primary osteoarthritis involving multiple joints Lumbar degenerative disc disease Tai's disease COPD (chronic obstructive pulmonary disease) Surgical History (Updated 12/11/22 @ 14:48 by Brody Donohue MD) History of total left hip arthroplasty (~02/25/22) H/O right knee surgery History of arthroscopy of left knee History of right hip replacement History of tonsillectomy and adenoidectomy H/O hernia repair H/O nasal polypectomy History of cholecystectomy Family History Father No problems noted. Mother No problems noted. Social History Housing: House Alcohol intake: never Patient Tobacco Use Status: Former Tobacco user e-Cigarette/Vaping Use: Never Used Second Hand Smoke Exposure: No service: Yes ([employer]) Current occupational status: retired Cognitive needs: No Hearing needs: No Vision needs: No Physical Exam Vital Signs: Last Vital Signs Temp 98.0 F 01/23/23 14:56 Pulse 98 01/23/23 14:56 BP 138/80 01/23/23 14:56 Pulse Ox 92 01/23/23 14:56 Oxygen Delivery Method Room Air 01/23/23 14:56 BMI result Body Mass Index 24.2 Const General: healthy appearing and no acute distress HEENT Mouth: Normal oral and palatal mucosa present Resp Other: Diminished air entry bilaterally with a slight expiratory wheeze bilaterally Effort & Inspection: normal respiratory effort and able to speak in complete sentences Cardio Rate: regular rate Rhythm: regular rhythm Assessment & Plan Assessment & Plan (1) Cough: Code(s): R05.9 - Cough, unspecified (2) COPD (chronic obstructive pulmonary disease): Comment: CHRONIC OBSTRUCTIVE PULMONARY DISEASE, MILD TO MODERATE, WELL CONTROLLED AND STABLE, HE HAD INCREASED DYSPNEA ON EXERTION OR AFTER HIS HIP SURGERY, THAT HAS IMPROVED TO ALMOST HIS BASELINE. HE HAS MORE FREQUENT COUGH WHEN HE DOES NOT USE SYMBICORT, AND HE ADMITS THAT HE IS NOT USING SYMBICORT REGULARLY. TX: SPIRIVA RESPIMAT IS 2.5 MG 2 INHALATIONS DAILY. SYMBICORT 160-4.5 2 PUFFS B.I.D., DO USE IT REGULARLY , 2 PUFFS B.I.D.. ALSO ALBUTEROL HFA 2 PUFFS Q 6 HOURS ONLY P.R.N. ADVISED TO DO BREATHING EXERCISES DAILY THREE TIMES A DAY . Code(s): J44.9 - Chronic obstructive pulmonary disease, unspecified Qualifiers: COPD type: unspecified COPD Qualified Code(s): J44.9 - Chronic obstructive pulmonary disease, unspecified Plan the patient presents to urgent care for evaluation cough and COPD exacerbation. Chest x-ray as interpreted by me appears to have a possible left lower lobe i nfiltrate. Patient will be started on azithromycin. In addition he will be treated for his COPD flare-up with prednisone and albuterol. He reports that he has a nebulizer machine at home and I think it is reasonable for him to use albuterol solution in the machine. In addition his request a cough suppressant which I will provide for him. Patient was instructed to follow up closely with his PCP or go to the ER if symptoms change or worsen in any way. Orders: Orders XR chest 2V Today J44.9 - Chronic obstructive pulmonary disease, unspecified, R05.9 - Cough, unspecified, R07.81 - Pleurodynia Medications: New azithromycin For 250 mg dose pack: take 500 mg today (day 1), then 250 mg for 4 days (days 2-5) PO 6 tabs 0RF prednisone 40 mg (2 x 20 mg) PO DAILY 8 tabs 0RF albuterol sulfate 0.63 mg (3 mL) inhalation QID PRN 75 mL 0RF shortness of breath or wheezing codeine-guaifenesin 10-100 mg/5 mL 5 mL PO Q6H PRN 120 mL 0RF allergy symptoms Coding Level of Care Code Est Pt Level 3 (89949) Diagnoses Cough R05.9 Chronic obstructive pulmonary disease, unspecified COPD type J44.9 COPD type: unspecified COPD
== END 2023-01-23 15:38 | disposition home or self-care (01) ==
PROVIDERS: PCP Internal Medicine; Visit Provider Emergency Medicine
DX: R05.9 Cough, unspecified (principal); J44.9 Chronic obstructive pulmonary disease, unspecified
CPT/HCPCS: 99213

== ENCOUNTER 2023-01-23 15:17 | Outpatient (REF) | payer BC, MEDICAID, SELFPAY ==
--- NOTE | ~2023-01-23 | XR_ITS ---
EXAMINATION: XR CHEST CLINICAL INFORMATION: Pleurodynia. COMPARISON: CT chest June 09, 2012 TECHNIQUE: 2 views of the chest were obtained. FINDINGS: Emphysematous change of lungs. No acute airspace disease. No focal consolidation. No pulmonary vascular congestion. There is no pleural effusion or pneumothorax. Heart size is normal. Cardiac mediastinal contours are normal. Multiple old healed right-sided rib fractures. No acute osseous abnormality. Surgical clips right upper quadrant of abdomen. XR/XR chest 2V IMPRESSION: No acute abnormality of the chest.
== END 2023-01-23 15:18 | disposition home or self-care (01) ==
LOC: HO.HMGCX 15:17
PROVIDERS: PCP Internal Medicine; Visit Provider Emergency Medicine
DX: R07.81 Pleurodynia (principal); R05.9 Cough, unspecified; J44.9 Chronic obstructive pulmonary disease, unspecified
CPT/HCPCS: 71046

== ENCOUNTER 2023-01-29 14:04 | Outpatient (AMB) | payer BC, MEDICAID, SELFPAY ==
--- NOTE | 2023-01-29 14:19 | A.OFFVIS_ITS ---
Intake Vital Signs 01/29/23 14:20 Height 5 ft 8 in Weight 156 lb 0.5 oz BMI 23.7 BP 120/62 Blood Pressure Location Lt brachial Position Sitting Pulse 117 H Pulse Source Pulse Oximeter Pulse Oximetry (%) 92 Oxygen Delivery Method Room Air Intake Visit Reasons: Sick visit (adolescent/adult) Intake Note: pt is here for sick visit, had urgent care visit last , this started about a month ago, but worsened the past 2 weeks, with shortness of breath and O2 up and down. Feels like a tickle in the chest, lightheaded. covid negative x2, but he has no taste and smell. And also frequent urination. His pulse has also been running high. 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 Allergies duloxetine [From Cymbalta] Allergy (Unknown, Verified 01/29/23 14:54) increased hot flashes and leg cramps clavulanic acid [Augmentin] Adverse Reaction (Unknown, Verified 01/29/23 14:54) upset stomach gabapentin Adverse Reaction (Unknown, Verified 01/29/23 14:54) bilateral eye pains Medication List - Last Reconciled 01/29/23 by Renata Francois MD albuterol sulfate 0.63 mg (3 mL) inhalation QID PRN albuterol sulfate 90 mcg/actuation 2 puffs inhalation Q6H PRN 30 days amlodipine 2.5 mg PO DAILY codeine-guaifenesin 10-100 mg/5 mL 5 mL PO Q6H PRN lorazepam 1 mg PO TID PRN 30 days losartan 25 mg PO DAILY losartan 50 mg PO BID multivitamin (Daily Multi-Vitamin tablet) 1 tab PO DAILY omeprazole 40 mg PO QAM PRN pyridoxine (vitamin B6) 25 mg PO DAILY Symbicort 160-4.5 mcg/actuation (budesonide-formoterol) 2 puffs inhalation BID 30 days NS tapentadol (Nucynta) 100 mg PO Q6H PRN 15 days Do you need a note to return to daycare/school/sports/work: No HPI Sick visit (adolescent/adult) HPI Details THIS 67 YEARS OLD VERY PLEASANT. 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 HAD CHEST X-RAY WHICH DID NOT SHOW ANY. IN PNEUMONIA HE WAS TREATED WITH A COURSE OF PREDNISONE 20 MG B.I.D. FOR 5 DAYS AND ALSO WITH Z-CHAKA. STILL HAVING LOT OF TICKLISH FEELING IN THE THROAT WHICH PRODUCES COUGH, HE STILL HAVING SHORTNESS, OF BREATH HAS INTERMITTENT SWEATING. HEART RATE TENDS. TO BE FAST. [facility] Medical History (Updated 01/29/23 @ 15:01 by Renata Francois MD) COPD exacerbation Bronchitis Cough Benign essential hypertension Urinary frequency Anxiety Pancreatic cyst GERD without esophagitis Primary osteoarthritis involving multiple joints Lumbar degenerative disc disease Tai's disease COPD (chronic obstructive pulmonary disease) Surgical History History of total left hip arthroplasty (~02/25/22) H/O right knee surgery History of arthroscopy of left knee History of right hip replacement History of tonsillectomy and adenoidectomy H/O hernia repair H/O nasal polypectomy History of cholecystectomy Family History Father No problems noted. Mother No problems noted. Social History Housing: House Alcohol intake: never Patient Tobacco Use Status: Former Tobacco user e-Cigarette/Vaping Use: Never Used Second Hand Smoke Exposure: No service: Yes ([employer]) Current occupational status: retired Cognitive needs: No Hearing needs: No Vision needs: No Review of Systems Const Denies chills, Denies fatigue, Denies fever(s), Denies headache(s), Denies malaise and Denies weakness Eyes Denies blurry vision, Denies change in vision, Denies irritation and Denies itchy eyes ENT Denies dysphagia, Denies dizziness, Denies otalgia, Denies headache(s), Denies nasal congestion, Denies neck pain, Denies odynophagia and Denies sore throat Card Denies chest pain, Denies rapid heart rate, Denies irregular heart rhythm, Denies palpitations and Denies dyspnea Resp Denies chest congestion, Denies cough, Denies dyspnea and Denies wheezing GI Denies abdominal pain, Denies bloating, Denies constipation, Denies dysphagia, Denies heartburn, Denies diarrhea, Denies nausea, Denies odynophagia and Denies vomiting Denies hematuria, Denies difficulty urinating, Denies dysuria, Denies nocturia, Denies urinary frequency and Denies urinary urgency Musc Reports back pain (over the lower back - chronic), Reports arthralgias (involving multiple joints), Denies joint swelling, Denies muscle weakness and Denies neck pain Skin/Breast Denies change in pigmentation, Reports lesions (dark raised lesion on the left side of the neck), Denies rash and Denies unusual bruising Neuro Denies dizziness, Denies headache(s), Denies paresthesias and Denies weakness Endo Denies fatigue and Denies palpitations Aller/Immun Denies itchy eyes and Denies wheezing Physical Exam Vital Signs: Last Vital Signs Pulse 117 H 01/29/23 14:20 BP 120/62 01/29/23 14:20 Pulse Ox 92 01/29/23 14:20 Oxygen Delivery Method Room Air 01/29/23 14:20 BMI result Body Mass Index 23.7 Const General: comfortable (But short of breath during conversation), no acute distress, alert and awake Orientation/consciousness: patient oriented x3 HEENT Head: Yes normal to inspection General nose exam: No nasal polyps present and No nasal discharge present Face and sinus: Yes sinuses nontender Mouth: oropharynx normal Teeth and gingiva: other (Multiple decayed teeth) Throat: Yes posterior oropharynx normal Eyes General: appearance normal, both eyes and all related structures Neck Neck: Yes normal visual inspection, Yes no lymphadenopathy, Yes trachea midline and Yes no JVD Thyroid: Thyroid normal Chest Chest palpation & inspection: normal inspection of the chest, normal palpation of entire chest wall and no tenderness Resp Other: Percussion note is resonant, breath sounds are distant with prolonged expiratory phase but equal on both sides. THE BREATH SOUNDS ARE HARSH, BUT HE DOES NOT HAVE ANY WHEEZES OR CREPITATIONS. Percussion: percussion normal Cardio Palpation: normal PMI Rate: regular rate Rhythm: regular rhythm Heart sounds: no gallops and no murmurs GI Palpation (GI): Soft to palpation, nontender, No hepatosplenomegaly present and no masses Auscultation: normal bowel sounds Back/Spine/Pelvis Thoracic/Lumbar Spine: thoracic and lumbar spine normal to inspection Skin General skin exam: no rashes or lesions noted Neuro General: patient oriented x3 and no focal motor deficits Cranial nerves: Yes CN's II-XII intact bilaterally Extrem General: Yes normal to inspection, Yes no clubbing, cyanosis or edema and Yes no calf tenderness Psych Appearance: grossly normal and well kempt Speech and movement: Normal speech and movement present Results Reviewed Results Reviewed: CHEST X-RAY REVIEWED AND IT DOES SHOW HYPERINFLATED, LUNGS ON BOTH SIDES BUT NO EVIDENCE OF PNEUMONIA. Assessment & Plan Assessment & Plan (1) COPD (chronic obstructive pulmonary disease): Comment: CHRONIC OBSTRUCTIVE PULMONARY DISEASE, MILD TO MODERATE, HAS BEEN STABLE UP UNTILL LAST WEEK . TX : SPIRIVA RESPIMAT IS 2.5 MG 2 INHALATIONS DAILY. SYMBICORT 160-4.5 2 PUFFS B.I.D., DO USE IT REGULARLY , 2 PUFFS B.I.D.. ALSO ALBUTEROL HFA 2 PUFFS Q 6 HOURS ONLY P.R.N. ADVISED TO DO BREATHING EXERCISES DAILY THREE TIMES A DAY . Code(s): J44.9 - Chronic obstructive pulmonary disease, unspecified Qualifiers: COPD type: unspecified COPD Qualified Code(s): J44.9 - Chronic obstructive pulmonary disease, unspecified (2) Bronchitis: Comment: HE HAS THE ACUTE BRONCHITIS STATUS POST ACUTE VIRAL ILLNESS. AND CONTINUES TO HAVE LOT OF COUGH WITH WHEEZING AND SHORTNESS OF BREATH. Code(s): J40 - Bronchitis, not specified as acute or chronic (3) COPD exacerbation: Comment: HE IS RECOVERING FROM ACUTE RESPIRATORY INFECTION, STILL HAS MODERATE DEGREE OF COPD EXACERBATION. TX: ADVISED PREDNISONE 5 MG 2 TABLETS A DAY FOR 1 WEEK AND THEN 1 TABLET A DAY FOR 2 MORE WEEKS. ALSO PRESCRIBED DOXYCYCLINE 100 B.I.D. FOR 10 DAYS. MAY USE ROBITUSSIN 2 TSP T.I.D. OF OR MUCINEX 600 MG B.I.D. FOR COUGH. Code(s): J44.1 - Chronic obstructive pulmonary disease with (acute) exacerbation Medications: New prednisone 5 mg PO BID 2 weeks 28 tabs 0RF COPD EXCERBATION doxycycline hyclate 100 mg PO BID 10 days 20 tabs 0RF BRONCHITIS Coding Level of Care Code Est Pt Level 3 (31145) Diagnoses Chronic obstructive pulmonary disease, unspecified COPD type J44.9 COPD type: unspecified COPD Bronchitis J40 COPD exacerbation J44.1
[2023-01-29 14:20] VITALS: BP 120/62; PULSE 117; O2SAT 92; BMI 23.7
== END 2023-01-29 14:55 | disposition home or self-care (01) ==
PROVIDERS: PCP Internal Medicine; Visit Provider Internal Medicine
DX: J44.9 Chronic obstructive pulmonary disease, unspecified (principal); J40 Bronchitis, not specified as acute or chronic; J44.1 Chronic obstructive pulmonary disease with (acute) exacerbation
CPT/HCPCS: 99213

== ENCOUNTER → 2023-01-29 14:04 | Outpatient (BNVA) | payer BC, MEDICAID, SELFPAY | PROVIDERS: PCP Internal Medicine; Visit Provider Internal Medicine ==

== ENCOUNTER 2023-02-13 15:07 | Outpatient (AMB) | payer BC, MEDICAID, SELFPAY ==
--- NOTE | 2023-02-13 15:15 | MHC.OFFVIS ---
Intake Vital Signs 02/13/23 15:17 Height 5 ft 8 in Weight 156 lb BMI 23.7 BP 124/58 L Blood Pressure Location Lt brachial Position Sitting Pulse 98 Pulse Source Pulse Oximeter Pulse Oximetry (%) 95 Oxygen Delivery Method Room Air Intake Visit Reasons: Sick visit (adolescent/adult) Intake Note: pt is here for follow up and states he is doing better than last visit. Allergies duloxetine [From Cymbalta] Allergy (Unknown, Verified 02/13/23 15:42) increased hot flashes and leg cramps clavulanic acid [Augmentin] Adverse Reaction (Unknown, Verified 02/13/23 15:42) upset stomach gabapentin Adverse Reaction (Unknown, Verified 02/13/23 15:42) bilateral eye pains Medication List - Last Reconciled 02/13/23 by Renata Francois MD albuterol sulfate 0.63 mg (3 mL) inhalation QID PRN albuterol sulfate 90 mcg/actuation 2 puffs inhalation Q6H PRN 30 days amlodipine 2.5 mg PO DAILY lorazepam 1 mg PO TID PRN 30 days losartan 25 mg PO DAILY losartan 50 mg PO BID multivitamin (Daily Multi-Vitamin tablet) 1 tab PO DAILY omeprazole 40 mg PO QAM PRN prednisone 5 mg PO DAILY pyridoxine (vitamin B6) 25 mg PO DAILY Symbicort 160-4.5 mcg/actuation (budesonide-formoterol) 2 puffs inhalation BID 30 days NS tapentadol (Nucynta) 100 mg PO Q6H PRN 15 days Do you need a note to return to daycare/school/sports/work: No HPI Sick visit (adolescent/adult) HPI Details 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 HE FEELS MUCH BETTER THAN HIS LAST VISIT 2 WEEKS AGO. HE IS STILL ON TAPERING SCHEDULE OF PREDNISONE NOW 5 MG A DAY, HE HAS MILD INTERMITTENT COUGH. HE GETS SHORT OF BREATH EASILY. ON WALKING AROUND EVEN IN THE HOUSE HE CHECKS HIS O2 SATS QUITE FREQUENTLY AND SOMETIMES O2 SAT IS DOWN TO 92 % . HE ALWAYS HAS MILD SINUS TACHYCARDIA [facility] Medical History (Updated 02/13/23 @ 15:48 by Renata Francois MD) COPD exacerbation Bronchitis Cough Benign essential hypertension Urinary frequency Anxiety Pancreatic cyst GERD without esophagitis Primary osteoarthritis involving multiple joints Lumbar degenerative disc disease Tai's disease COPD (chronic obstructive pulmonary disease) Surgical History History of total left hip arthroplasty (~02/25/22) H/O right knee surgery History of arthroscopy of left knee History of right hip replacement History of tonsillectomy and adenoidectomy H/O hernia repair H/O nasal polypectomy History of cholecystectomy Family History Father No problems noted. Mother No problems noted. Social History Housing: House Alcohol intake: never Patient Tobacco Use Status: Former Tobacco user e-Cigarette/Vaping Use: Never Used Second Hand Smoke Exposure: No service: Yes ([employer]) Current occupational status: retired Cognitive needs: No Hearing needs: No Vision needs: No Review of Systems Const Denies chills, Denies fatigue, Denies fever(s), Denies headache(s), Denies malaise and Denies weakness Eyes Denies blurry vision, Denies change in vision, Denies irritation and Denies itchy eyes ENT Denies dysphagia, Denies dizziness, Denies otalgia, Denies headache(s), Denies nasal congestion, Denies neck pain, Denies odynophagia and Denies sore throat Card Denies chest pain, Denies rapid heart rate, Denies irregular heart rhythm, Denies palpitations and Denies dyspnea Resp Denies chest congestion, Denies cough, Denies dyspnea and Denies wheezing GI Denies abdominal pain, Denies bloating, Denies constipation, Denies dysphagia, Denies heartburn, Denies diarrhea, Denies nausea, Denies odynophagia and Denies vomiting Denies hematuria, Denies difficulty urinating, Denies dysuria, Denies nocturia, Denies urinary frequency and Denies urinary urgency Musc Reports back pain (over the lower back - chronic), Reports arthralgias (involving multiple joints), Denies joint swelling, Denies muscle weakness and Denies neck pain Skin/Breast Denies change in pigmentation, Reports lesions (dark raised lesion on the left side of the neck), Denies rash and Denies unusual bruising Neuro Denies dizziness, Denies headache(s), Denies paresthesias and Denies weakness Endo Denies fatigue and Denies palpitations Aller/Immun Denies itchy eyes and Denies wheezing Physical Exam Vital Signs: Last Vital Signs Pulse 98 02/13/23 15:17 BP 124/58 L 02/13/23 15:17 Pulse Ox 95 02/13/23 15:17 Oxygen Delivery Method Room Air 02/13/23 15:17 BMI result Body Mass Index 23.7 Const General: comfortable (But short of breath during conversation), no acute distress, alert and awake Orientation/consciousness: patient oriented x3 HEENT Head: Yes normal to inspection General nose exam: No nasal polyps present and No nasal discharge present Face and sinus: Yes sinuses nontender Mouth: oropharynx normal Teeth and gingiva: other (Multiple decayed teeth) Throat: Yes posterior oropharynx normal Eyes General: appearance normal, both eyes and all related structures Neck Neck: Yes normal visual inspection, Yes no lymphadenopathy, Yes trachea midline and Yes no JVD Thyroid: Thyroid normal Chest Chest palpation & inspection: normal inspection of the chest, normal palpation of entire chest wall and no tenderness Resp Other: Percussion note is resonant, breath sounds are distant with prolonged expiratory phase but equal on both sides. Today he does not have any wheezes or rhonchi Cardio Palpation: normal PMI Rate: regular rate Rhythm: regular rhythm Heart sounds: no gallops and no murmurs GI Palpation (GI): Soft to palpation, nontender, No hepatosplenomegaly present and no masses Auscultation: normal bowel sounds Back/Spine/Pelvis Thoracic/Lumbar Spine: thoracic and lumbar spine normal to inspection Skin General skin exam: no rashes or lesions noted Neuro General: patient oriented x3 and no focal motor deficits Cranial nerves: Yes CN's II-XII intact bilaterally Extrem General: Yes normal to inspection, Yes no clubbing, cyanosis or edema and Yes no calf tenderness Psych Appearance: grossly normal and well kempt Speech and movement: Normal speech and movement present Assessment & Plan Assessment & Plan (1) COPD exacerbation: Comment: HE IS RECOVERING FROM ACUTE RESPIRATORY INFECTION, STILL HAS MODERATE DEGREE OF COPD EXACERBATION. TX: ADVISED PREDNISONE 5 MG 2 TABLETS A DAY FOR 1 WEEK AND THEN 1 TABLET A DAY FOR 2 MORE WEEKS. Code(s): J44.1 - Chronic obstructive pulmonary disease with (acute) exacerbation Plan: . He is better but not completely recovered TX : Advise that he should continue prednisone 5 mg on alternate days for the next 4 weeks. Continue Symbicort 160-4.52 puffs b.i.d.. Use albuterol HFA 2 puffs Q 4-6 hours p.r.n. or albuterol sulfate 0.63 mg Q 4 hours p.r.n.. ( half does because of his mild tachycardia ) (2) Bronchitis: Comment: HE HAS THE ACUTE BRONCHITIS STATUS POST ACUTE VIRAL ILLNESS. Finally he does not seem to have any active respiratory infection at this time. Code(s): J40 - Bronchitis, not specified as acute or chronic Plan: Use Robitussin 2 tsp t.i.d. p.r.n. Coding Level of Care Code Est Pt Level 3 (08817) Diagnoses COPD exacerbation J44.1 Bronchitis J40
[2023-02-13 15:17] VITALS: BP 124/58; PULSE 98; O2SAT 95; BMI 23.7
== END 2023-02-13 15:53 | disposition home or self-care (01) ==
PROVIDERS: PCP Internal Medicine; Visit Provider Internal Medicine
DX: J44.1 Chronic obstructive pulmonary disease with (acute) exacerbation (principal); J40 Bronchitis, not specified as acute or chronic
CPT/HCPCS: 99213

== ENCOUNTER → 2023-02-13 15:07 | Outpatient (BNVA) | payer BC, MEDICAID, SELFPAY | PROVIDERS: PCP Internal Medicine; Visit Provider Internal Medicine ==

== ENCOUNTER 2023-03-28 11:17 | Outpatient (REF) | payer BC, MEDICAID, SELFPAY ==
[2023-03-28 11:35] LABS: MANUAL DIFF FLAG NO
[2023-03-28 13:31] LABS: Eosinophils Absolute Auto 0.1 X10*3/uL (0.0-0.4); Eosinophils Percent Auto 1.5 % (0-4); Hematocrit 46.6 % (42.0-52.0); Hemoglobin 15.3 g/dl (14.0-18.0); Imm Gran Abs Auto 0.02 X10*3/uL (0.00-0.03); Imm Gran Pct Auto 0.3 % (0.0-0.4); Lymphocytes Absolute Auto 1.7 X10*3/uL (1.2-4.9); Lymphocytes Percent Auto 25.3 % (20-40); Mean Corpuscular HGB Conc 32.8 g/dl (31.0-36.0); Mean Corpuscular Hemoglobin 30.7 pg (27.0-33.0); Mean Corpuscular Volume 93.6 fL (80.0-98.0); Mean Platelet Volume 9.4 fL (9.4-12.4); Monocytes Absolute Auto 0.5 X10*3/uL (0.1-1.2); Monocytes Percent Auto 6.9 % (2-11); Neutrophils Absolute Auto 4.4 x10*3/uL (2.0-8.3); Platelet Count 307 X10*3/uL (160-400); Red Blood Count 4.98 X10*6/uL (4.60-5.80); White Blood Count 6.7 X10*3/uL (4.8-10.8)
[2023-03-28 14:37] LABS: Alanine Aminotransferase 45 U/L (0-40); Albumin Level 3.8 g/dL (3.5-5.0); Alkaline Phosphatase 98 U/L (39-117); Anion Gap 12 (12-20); Aspartate Amino Transferase 32 U/L (5-37); Bilirubin Total 0.5 mg/dL (0.0-1.0); Blood Urea Nitrogen 18 mg/dL (9-16); Calcium 9.3 mg/dL (8.4-10.2); Carbon Dioxide 28 mmol/L (22-29); Chloride 103 mmol/L (96-108); Estimated Glomerular Filt Rate 56; Glucose Random 123 mg/dL (60-115); Potassium 3.9 mmol/L (3.3-5.1); Sodium 139 mmol/L (135-145); Total Protein 7.2 g/dL (6.5-8.0)
[2023-03-31 15:49] LABS: Ceruloplasmin 18 mg/dL (18-36)
[2023-04-01 02:24] LABS: Copper, serum 74 mcg/dL (70-175)
== END 2023-03-28 11:18 | disposition home or self-care (01) ==
LOC: HO.LAB 11:17
PROVIDERS: PCP Internal Medicine; Visit Provider Internal Medicine
DX: E83.01 Wilson's disease (principal)
CPT/HCPCS: 36415; 80053; 82390; 82525; 85025

== ENCOUNTER 2023-04-02 11:57 | Outpatient (REF) | payer BC, MEDICAID, SELFPAY | END 2023-04-02 11:58 | disposition home or self-care (01) | LOC: HO.LNP 11:57 | PROVIDERS: Visit Provider Internal Medicine | DX: Z13.89 Encounter for screening for other disorder (principal) ==

== ENCOUNTER 2023-04-22 14:21 | Outpatient (AMB) | payer BC, MEDICAID, SELFPAY ==
[2023-04-22 14:35] VITALS: BP 110/70; PULSE 82; O2SAT 97; BMI 24.3
--- NOTE | 2023-04-22 14:35 | MHC.OFFVIS ---
Intake Vital Signs 04/22/23 14:35 Height 5 ft 8 in Weight 160 lb 0.94 oz BMI 24.3 BP 110/70 Blood Pressure Location Lt brachial Position Sitting Pulse 82 Pulse Source Pulse Oximeter Pulse Oximetry (%) 97 Oxygen Delivery Method Room Air Intake Visit Reasons: COPD Intake Note: pt is here for follow up and states he is feeling better and doing okay, sitting is okay but exerting is difficult. 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 Allergies duloxetine [From Cymbalta] Allergy (Unknown, Verified 04/22/23 15:17) increased hot flashes and leg cramps clavulanic acid [Augmentin] Adverse Reaction (Unknown, Verified 04/22/23 15:17) upset stomach gabapentin Adverse Reaction (Unknown, Verified 04/22/23 15:17) bilateral eye pains Medication List - Last Reconciled 04/22/23 by Renata Francois MD albuterol sulfate 0.63 mg (3 mL) inhalation QID PRN albuterol sulfate 90 mcg/actuation 2 puffs inhalation Q6H PRN 30 days amoxicillin 875 mg PO BID 10 days lorazepam 1 mg PO TID PRN 30 days losartan 50 mg PO BID multivitamin (Daily Multi-Vitamin tablet) 1 tab PO DAILY omeprazole 40 mg PO QAM PRN penicillamine 250 mg PO BID 90 days pyridoxine (vitamin B6) 25 mg PO DAILY Symbicort 160-4.5 mcg/actuation (budesonide-formoterol) 2 puffs inhalation BID 30 days NS tapentadol (Nucynta) 100 mg PO Q6H PRN 15 days Do you need a note to return to daycare/school/sports/work: No HPI COPD HPI Details MR. 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 CURRENTLY HE IS DOING VERY WELL WITH SYMBICORT 2 PUFFS B.I.D. AND USES VENTOLIN ONLY ONCE IN A WHILE. HE DOES GET SHORT OF BREATH IF HE WALKS UP HILL OR CLIMBS STAIRS BUT NOT ON LEVEL GROUND. HE HAS ONLY MINIMAL COUGH. HAD A LONG DISCUSSION ABOUT THE SYMBICORT, WHICH WILL NOT BE COVERED BY HIS INSURANCE. [facility] Medical History COPD exacerbation Bronchitis Cough Benign essential hypertension Urinary frequency Anxiety Pancreatic cyst GERD without esophagitis Primary osteoarthritis involving multiple joints Lumbar degenerative disc disease Tai's disease COPD (chronic obstructive pulmonary disease) Surgical History History of total left hip arthroplasty (~02/25/22) H/O right knee surgery History of arthroscopy of left knee History of right hip replacement History of tonsillectomy and adenoidectomy H/O hernia repair H/O nasal polypectomy History of cholecystectomy Family History Father No problems noted. Mother No problems noted. Social History Housing: House Alcohol intake: never Patient Tobacco Use Status: Former Tobacco user e-Cigarette/Vaping Use: Never Used Second Hand Smoke Exposure: No service: Yes ([employer]) Current occupational status: retired Cognitive needs: No Hearing needs: No Vision needs: No Review of Systems Const Denies chills, Denies fatigue, Denies fever(s), Denies headache(s), Denies malaise and Denies weakness Eyes Denies blurry vision, Denies change in vision, Denies irritation and Denies itchy eyes ENT Denies dysphagia, Denies dizziness, Denies otalgia, Denies headache(s), Denies nasal congestion, Denies neck pain, Denies odynophagia and Denies sore throat Card Denies chest pain, Denies rapid heart rate, Denies irregular heart rhythm, Denies palpitations and Denies dyspnea Resp Denies chest congestion, Denies cough, Denies dyspnea and Denies wheezing GI Denies abdominal pain, Denies bloating, Denies constipation, Denies dysphagia, Denies heartburn, Denies diarrhea, Denies nausea, Denies odynophagia and Denies vomiting Denies hematuria, Denies difficulty urinating, Denies dysuria, Denies nocturia, Denies urinary frequency and Denies urinary urgency Musc Reports back pain (over the lower back - chronic), Reports arthralgias (involving multiple joints), Denies joint swelling, Denies muscle weakness and Denies neck pain Skin/Breast Denies change in pigmentation, Reports lesions (dark raised lesion on the left side of the neck), Denies rash and Denies unusual bruising Neuro Denies dizziness, Denies headache(s), Denies paresthesias and Denies weakness Endo Denies fatigue and Denies palpitations Aller/Immun Denies itchy eyes and Denies wheezing Physical Exam Vital Signs: Last Vital Signs Pulse 82 04/22/23 14:35 BP 110/70 04/22/23 14:35 Pulse Ox 97 04/22/23 14:35 Oxygen Delivery Method Room Air 04/22/23 14:35 BMI result Body Mass Index 24.3 Const General: comfortable (But short of breath during conversation), no acute distress, alert and awake Orientation/consciousness: patient oriented x3 HEENT Head: Yes normal to inspection General nose exam: No nasal polyps present and No nasal discharge present Face and sinus: Yes sinuses nontender Mouth: oropharynx normal Teeth and gingiva: other (Multiple decayed teeth) Throat: Yes posterior oropharynx normal Eyes General: appearance normal, both eyes and all related structures Neck Neck: Yes normal visual inspection, Yes no lymphadenopathy, Yes trachea midline and Yes no JVD Thyroid: Thyroid normal Chest Chest palpation & inspection: normal inspection of the chest, normal palpation of entire chest wall and no tenderness Resp Other: Percussion note is resonant, breath sounds are distant with prolonged expiratory phase but equal on both sides. No wheezes rhonchi or crepitations are heard today. Cardio Palpation: normal PMI Rate: regular rate Rhythm: regular rhythm Heart sounds: no gallops and no murmurs GI Palpation (GI): Soft to palpation, nontender, No hepatosplenomegaly present and no masses Auscultation: normal bowel sounds Back/Spine/Pelvis Thoracic/Lumbar Spine: thoracic and lumbar spine normal to inspection Skin General skin exam: no rashes or lesions noted Neuro General: patient oriented x3 and no focal motor deficits Cranial nerves: Yes CN's II-XII intact bilaterally Extrem General: Yes normal to inspection, Yes no clubbing, cyanosis or edema and Yes no calf tenderness Psych Appearance: grossly normal and well kempt Speech and movement: Normal speech and movement present Assessment & Plan Assessment & Plan (1) COPD (chronic obstructive pulmonary disease): Comment: CHRONIC OBSTRUCTIVE PULMONARY DISEASE, MILD TO MODERATE, IS STABLE AT PRESENT. ACUTE BRONCHITIS AND ACUTE EXACERBATION FOR WHICH HE WAS SEEN LAST TIME COMPLETELY RESOLVED. HE WILL CONTINUE HIS MAINTENANCE TREATMENT. ADVISED TO DO BREATHING EXERCISES DAILY THREE TIMES A DAY . Code(s): J44.9 - Chronic obstructive pulmonary disease, unspecified Qualifiers: COPD type: unspecified COPD Qualified Code(s): J44.9 - Chronic obstructive pulmonary disease, unspecified Plan: SPIRIVA RESPIMAT IS 2.5 MG 2 INHALATIONS DAILY. SYMBICORT WILL BE CHANGED TO DULERA 200-5 2 PUFFS BID . ALSO ALBUTEROL HFA 2 PUFFS Q 6 HOURS ONLY P.R.N. * ADD A GOOD DISCUSSION TO EXPLAIN TO HIM ABOUT THE CHANGE IN MED DID. REASSURED THAT DULERA 200-5 2 PUFFS BID BE GOOD SYMBICORT. * SIN WOULD LIKE TO HAVE A REPEAT SAYS SPIROMETRY ON HIS NEXT VISIT. Coding Level of Care Code Est Pt Level 3 (13543) Diagnoses Chronic obstructive pulmonary disease, unspecified COPD type J44.9 COPD type: unspecified COPD
== END 2023-04-22 15:18 | disposition home or self-care (01) ==
PROVIDERS: PCP Internal Medicine; Referring Provider Internal Medicine; Visit Provider Internal Medicine
DX: J44.9 Chronic obstructive pulmonary disease, unspecified (principal)
CPT/HCPCS: 99213

== ENCOUNTER → 2023-04-22 14:21 | Outpatient (BNVA) | payer BC, MEDICAID, SELFPAY | PROVIDERS: PCP Internal Medicine; Visit Provider Internal Medicine | DX: J44.9 Chronic obstructive pulmonary disease, unspecified (principal) ==

== ENCOUNTER 2023-05-23 15:44 | Outpatient (AMB) | payer BC, MEDICAID, SELFPAY ==
--- NOTE | 2023-05-23 15:45 | A.OFFPC_ITS ---
Vital Signs 05/23/23 15:47 Height 5 ft 8 in Weight 164 lb 2 oz BMI 25.0 BP 130/62 Blood Pressure Location Lt brachial Position Sitting Pulse 95 Pulse Source Pulse Oximeter Pulse Oximetry (%) 92 Oxygen Delivery Method Room Air Intake Visit Reasons: Tai's disease, COPD, OA, lumbar DDD Intake Note: Patient is here to follow up on Tai's disease, COPD, OA, LDDD. 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 Reservation Manager: Not Required per policy Accompanied by: Self / Same As Patient Allergies duloxetine [From Cymbalta] Allergy (Unknown, Verified 05/23/23 16:09) increased hot flashes and leg cramps clavulanic acid [Augmentin] Adverse Reaction (Unknown, Verified 05/23/23 16:09) upset stomach gabapentin Adverse Reaction (Unknown, Verified 05/23/23 16:09) bilateral eye pains Medication List - Last Reconciled 05/23/23 by Brody Donohue MD albuterol sulfate 0.63 mg (3 mL) inhalation QID PRN albuterol sulfate 90 mcg/actuation 2 puffs inhalation Q6H PRN 30 days lorazepam 1 mg PO TID PRN 30 days losartan 50 mg PO BID multivitamin (Daily Multi-Vitamin tablet) 1 tab PO DAILY penicillamine 250 mg PO BID 90 days pyridoxine (vitamin B6) 25 mg PO DAILY Symbicort 160-4.5 mcg/actuation (budesonide-formoterol) 2 puffs inhalation BID 30 days NS tapentadol (Nucynta) 100 mg PO Q6H PRN 15 days Tobacco use date assessed: 05/23/23 Fall risk assessment: No Falls in past year Last assessed Fall Risk: 05/23/23 Dental Screening Dental Screen Date: 05/23/23 Did you have a dental visit in the last 12 months?: Yes Did you have a dental problem in the last 6 months where you did not have access to dental care?: No Was dental information given to patient?: Patient has dentist HPI Tai's disease, COPD, OA, lumbar DDD HPI Details Patient comes in today for his follow up visit States that he feels okay He denies any headaches or dizziness Denies any chest pains, no increased SOB No nausea/vomiting, no abdominal pain No change in bowel habits noted States that he still has increased pain over his lower back and multiple joints (chronic) due to his arthritis, but his current Rx help him manage his pain adequately Would like to know how he did on some labs that he had done back in March 2023 States that he was also supposed to get a 24 hour urine test done to check his copper level and he did his urine collection but for unclear reasons, the lab did not do the test and he would like to get this reordered right away [facility] Medical History COPD exacerbation Bronchitis Cough Benign essential hypertension Urinary frequency Anxiety Pancreatic cyst GERD without esophagitis Primary osteoarthritis involving multiple joints Lumbar degenerative disc disease Tai's disease COPD (chronic obstructive pulmonary disease) Surgical History History of total left hip arthroplasty (~02/25/22) H/O right knee surgery History of arthroscopy of left knee History of right hip replacement History of tonsillectomy and adenoidectomy H/O hernia repair H/O nasal polypectomy History of cholecystectomy Family History Father No problems noted. Mother No problems noted. Social History Housing: House Alcohol intake: never Patient Tobacco Use Status: Former Tobacco user e-Cigarette/Vaping Use: Never Used Second Hand Smoke Exposure: No service: Yes ([employer]) Current occupational status: retired Cognitive needs: No Hearing needs: Yes (hearing aide) Vision needs: Yes (Glasses) Questionnaire PHQ-9 Over the last 2 weeks, how often have you been bothered by any of the following problems? 1. Little interest or pleasure in doing things: not at all 2. Feeling down, depressed, or hopeless: not at all 3. Trouble falling or staying asleep, or sleeping too much: not at all 4. Feeling tired or having little energy: not at all 5. Poor appetite or overeating: not at all 6. Feeling bad about yourself - or that you are a failure or have let yourself or your family down: not at all 7. Trouble concentrating on things, such as reading the newspaper or watching television: not at all 8. Moving or speaking so slowly that other people could have noticed. Or the opposite - being so fidgety or restless that you have been moving around a lot more than usual: not at all 9. Thoughts that you would be better off or of hurting yourself in some way: not at all Total score: 0 Depression Screening Interpretation: Negative Depression Screening Done: Yes [id number] - PHQ-9 Billing: Yes Source: Developed by Drs. Jacinto Fields, Abbie Villanueva, Reji Xavier and colleagues, with an educational celio from [employer]. Thrive Questionnaire Date Thrive assessed: 05/23/23 I am a: Patient What is your living situation today?: I have a steady place to live Within the past 12 months, did the food you bought not last and you didn't have the money to get more?: Never true Within the past 12 months, did you worry whether your food would run out before you got money to buy more?: Never true Do you have trouble paying for medicines?: No Do you have trouble getting transportation to medical appointments?: No Do you have trouble paying your heating and electricity bill?: No Do you have trouble taking care of your child, family member or friend?: No Do you have trouble with day-to-day activities such as bathing, preparing meals, shopping, managing finances, etc.?: No Are you currently unemployed and looking for a job?: No Are you interested in more education?: No Currently or been in a relationship where the following occur: no concerns reported THRIVE Score: 0 AUDIT C Alcohol Use Questionnaire (AUDIT-C) 1. How often do you have a drink containing alcohol?: Never Total Score: 0 Score Reviewed/Action Taken: Yes HARITHA-7 AMB Questionnaire HARITHA-7 Date HARITHA - 7 assessed: 05/23/23 Feeling nervous, anxious, or on edge: 0 = Not at all Not being able to stop or control worryin = Not at all Worrying too much about different things: 0 = Not at all Trouble relaxin = Not at all Being so restless that it is hard to sit still: 0 = Not at all Becoming easily annoyed or irritable: 0 = Not at all Feeling afraid as if something awful might happen: 0 = Not at all Total HARITHA-7 score (0-4 normal; 5-9 mild; 10-14 moderate; 15-21 severe): 0 Source: Developed by Drs. Jacinto Fields, Abbie Villanueva, Reji Xavier and colleagues, with an educational celio from [employer]. Review of Systems Const Denies chills, Denies fatigue, Denies fever(s) and Denies headache(s) ENT Denies dysphagia, Denies dizziness, Denies otalgia, Denies headache(s), Denies neck pain, Denies odynophagia and Denies sore throat Card Denies chest pain, Denies rapid heart rate, Denies irregular heart rhythm, Denies palpitations and Reports dyspnea on exertion (mild) Resp Denies chest congestion, Denies cough, Reports dyspnea on exertion (mild) and Denies wheezing GI Denies abdominal pain, Denies constipation, Denies dysphagia, Denies heartburn, Denies diarrhea, Denies nausea, Denies odynophagia and Denies vomiting Denies hematuria, Denies difficulty urinating, Denies dysuria, Denies nocturia and Denies urinary frequency Musc Reports back pain (over the lower back - chronic), Reports arthralgias (involving multiple joints), Denies joint swelling and Denies neck pain Skin/Breast Denies rash Neuro Denies dizziness, Denies headache(s) and Denies paresthesias Endo Denies fatigue and Denies palpitations Aller/Immun Denies wheezing Physical exam (Primary Care) Vital Signs: Last Vital Signs Pulse 95 05/23/23 15:47 BP 130/62 05/23/23 15:47 Pulse Ox 92 05/23/23 15:47 Oxygen Delivery Method Room Air 05/23/23 15:47 BMI result Body Mass Index 25.0 Tobacco/Smoking Status: Tobacco use Status Tobacco use date assessed 05/23/23 05/23/23 15:53 Patient Tobacco Use Status Former Tobacco user 05/23/23 15:53 e-Cigarette/Vaping Use Never Used 05/23/23 15:53 PHQ-9: PHQ-9 Score PHQ-9: Total score 0 05/23/23 15:53 Depression Screening Interpretation: Negative Thrive Assessment: Date of Thrive Assessment Date Thrive assessed 05/23/23 05/23/23 15:53 Currently or been in a relationship where the following occur: no concerns repo rted Const General: no acute distress and alert HENMT Ears: TM's normal bilaterally and EAC's normal Throat: Yes posterior oropharynx normal and Yes tonsils normal (no TP congestion) Neck Neck: Yes no lymphadenopathy and Yes supple Thyroid: Thyroid normal Resp Auscultation: clear to auscultation bilaterally, no rales and no wheezes Cardio Rate: regular rate Rhythm: regular rhythm Heart sounds: no murmurs GI Palpation (GI): Soft to palpation and nontender Auscultation: normal bowel sounds Back/Spine/Pelvis Cervical Spine: Cervical spine tenderness Thoracic/Lumbar Spine: lumbar spinal tenderness Skin Rashes: no rashes Extrem General: Yes no clubbing, cyanosis or edema Results Reviewed Results Reviewed: Laboratory Tests 03/28/23 11:33 WBC 6.7 Hgb 15.3 Hct 46.6 Plt Count 307 Sodium 139 Potassium 3.9 Creatinine 1.28 Estimated GFR 56 Random Glucose 123 H Calcium 9.3 AST 32 ALT 45 H Ceruloplasmin 18 Assessment and Plan Assessment & Plan (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 ACUTE BRONCHITIS AND ACUTE EXACERBATION FOR WHICH HE WAS SEEN LAST TIME COMPLETELY RESOLVED. HE WILL CONTINUE HIS MAINTENANCE TREATMENT. ADVISED TO DO BREATHING EXERCISES DAILY THREE TIMES A DAY . Code(s): J44.9 - Chronic obstructive pulmonary disease, unspecified Qualifiers: COPD type: unspecified COPD Qualified Code(s): J44.9 - Chronic obstructive pulmonary disease, unspecified Plan: Chest CT done on 06/10/2017 showed findings consistent with pulmonary emphysema Continue Spiriva Respimat Aerosol Solution, 2.5 mcg, 2 puffs Once a day, Symbicort Aerosol, 160-4.5 MCG/ACT, 2 inhalations Twice a day and ProAir HFA Aerosol Solution, 108 (90 Base) MCG/ACT, 2 puffs four times a day NEEDED Follow up with pulmonary (Dr. Francois) as scheduled (3) Lumbar degenerative disc disease: Comment: Has received lumbar spine injections from [facility] in the past with little relief Code(s): M51.36 - Other intervertebral disc degeneration, lumbar region Plan: Reinforced activity and weight lifting restrictions Continue Lidoderm Patch, 5 %, 1 patch to intact skin remove after 12 hours, Externally, Once a day as needed and Nucynta Tablet, 100 MG, 1 tablet, Orally, every 6 hrs as needed for pain, 15 days, # 60 Tablets Follow-up with [facility] (Dr. Woo) as scheduled - he has been presented with the options of a spinal cord stimulation, an intrathecal drug delivery system as well as a genicular block and radiofrequency ablation for pain relief (4) Primary osteoarthritis involving multiple joints: Code(s): M89.49 - Other hypertrophic osteoarthropathy, multiple sites Plan: Follow up with [facility] as scheduled (5) Benign essential hypertension: Code(s): I10 - Essential (primary) hypertension Plan: Reinforced low sodium diet Continue Losartan 25 mg QD Patient is reminded to continue monitoring his blood pressure regularly (6) GERD without esophagitis: Code(s): K21.9 - Gastro-esophageal reflux disease without esophagitis Plan: DIetary restrictions reinforced Continue Dexilant capsules 60 mg QD (7) Urinary frequency: Code(s): R35.0 - Frequency of micturition Plan: Follow up with urology as scheduled PSA was normal on his labs done back in September 2022; will recheck again in 4 months for follow up (8) Basal cell carcinoma (BCC): Code(s): C44.91 - Basal cell carcinoma of skin, unspecified Qualifiers: Basal cell carcinoma location: neck Qualified Code(s): C44.41 - Basal cell carcinoma of skin of scalp and neck Plan: States that he was just informed that the lesion dermatology removed from the left side of his neck was a basal cell carcinoma lesion but the margins were reportedly clear Follow up with [facility] as scheduled for further management/treatment (9) Anxiety: Code(s): F41.9 - Anxiety disorder, unspecified Plan: Continue Lorazepam 1 mg TID PRN (10) Glaucoma: Code(s): H40.9 - Unspecified glaucoma Qualifiers: Glaucoma type: unspecified Laterality: unspecified laterality Qualified Code(s): H40.9 - Unspecified glaucoma Plan: Follow up with ophthalmology as scheduled Plan To return in 4 months for his annual physical examination Orders: Orders Complete Blood Count Auto Diff 09/15/23 D64.9 - Anemia, unspecified Prostate Specific Antigen 09/15/23 N40.0 - Benign prostatic hyperplasia without lower urinary tract symptoms Vitamin D 25-OH Total 09/15/23 E55.9 - Vitamin D deficiency, unspecified UA CC w/rflx Micro + Cult 09/15/23 R30.0 - Dysuria Lipid Panel 09/15/23 E78.00 - Pure hypercholesterolemia, unspecified Comprehensive [place]. Panel Fast 09/15/23 E78.00 - Pure hypercholesterolemia, unspecified Vitamin B12 and Folate 09/15/23 E53.8 - Deficiency of other specified B group vitamins TSH reflex Free T4 09/15/23 E78.00 - Pure hypercholesterolemia, unspecified Copper, serum 09/15/23 E83.01 - Tai's disease Ceruloplasmin 09/15/23 E83.01 - Tai's disease Coding Level of Care Code Est Pt Level 4 (07272) Diagnoses Tia's disease E83.01 Chronic obstructive pulmonary disease, unspecified COPD type J44.9 COPD type: unspecified COPD Lumbar degenerative disc disease M51.36 Primary osteoarthritis involving multiple joints M89.49 Benign essential hypertension I10 GERD without esophagitis K21.9 Urinary frequency R35.0 Basal cell carcinoma (BCC) of skin of neck C44.41 Basal cell carcinoma location: neck Anxiety F41.9 Glaucoma, unspecified glaucoma type, unspecified laterality H40.9 Glaucoma type: unspecified Laterality: unspecified laterality
[2023-05-23 15:47] VITALS: BP 130/62; PULSE 95; O2SAT 92; BMI 25.0
== END 2023-05-23 16:26 | disposition home or self-care (01) ==
PROVIDERS: PCP Internal Medicine; Visit Provider Internal Medicine
DX: E83.01 Wilson's disease (principal); J44.9 Chronic obstructive pulmonary disease, unspecified; M51.36 Other intervertebral disc degeneration, lumbar region; M89.49 Other hypertrophic osteoarthropathy, multiple sites; I10 Essential (primary) hypertension; K21.9 Gastro-esophageal reflux disease without esophagitis; R35.0 Frequency of micturition; C44.41 Basal cell carcinoma of skin of scalp and neck; F41.9 Anxiety disorder, unspecified; H40.9 Unspecified glaucoma
CPT/HCPCS: 99214

== ENCOUNTER 2023-09-09 12:18 | Outpatient (REF) | payer MEDICARE, SELFPAY ==
[2023-09-09 12:53] LABS: MANUAL DIFF FLAG NO
[2023-09-09 13:23] LABS: Eosinophils Percent Auto 0.5 % (0-4); Hematocrit 43.3 % (42.0-52.0); Hemoglobin 14.6 g/dl (14.0-18.0); Imm Gran Abs Auto 0.01 X10*3/uL (0.00-0.03); Imm Gran Pct Auto 0.2 % (0.0-0.4); Lymphocytes Percent Auto 33.8 % (20-40); Mean Corpuscular HGB Conc 33.7 g/dl (31.0-36.0); Mean Corpuscular Hemoglobin 31.3 pg (27.0-33.0); Mean Corpuscular Volume 92.7 fL (80.0-98.0); Mean Platelet Volume 9.1 fL (9.4-12.4); Monocytes Absolute Auto 0.5 X10*3/uL (0.1-1.2); Monocytes Percent Auto 8.1 % (2-11); Neutrophils Absolute Auto 3.3 x10*3/uL (2.0-8.3); Neutrophils Percent Auto 57.4 % (45-73); Platelet Count 261 X10*3/uL (160-400); Red Blood Count 4.67 X10*6/uL (4.60-5.80); Red Cell Distribution Width 13.2 % (11.0-16.0); White Blood Count 5.8 X10*3/uL (4.8-10.8)
[2023-09-09 13:46] LABS: Folate 11.2 ng/mL (> or = 4.0); Prostate Specific Antigen 1.34 ng/mL (<0.05-4.0); Vitamin B12 543 pg/mL (200-900)
[2023-09-09 14:39] LABS: Alanine Aminotransferase 67 U/L (0-40); Albumin Level 3.9 g/dL (3.5-5.0); Alkaline Phosphatase 102 U/L (39-117); Anion Gap 12 (12-20); Aspartate Amino Transferase 44 U/L (5-37); Bilirubin Total 0.6 mg/dL (0.0-1.0); Blood Urea Nitrogen 15 mg/dL (9-16); Calcium 9.4 mg/dL (8.4-10.2); Carbon Dioxide 28 mmol/L (22-29); Chloride 107 mmol/L (96-108); Cholesterol 150 mg/dL (<200); Estimated Glomerular Filt Rate 58; Glucose Fasting 99 mg/dL (60-99); HDL Cholesterol 54 mg/dL (>40); LDL Cholesterol Calculated 75 mg/dL (<100); Potassium 4.2 mmol/L (3.3-5.1); Sodium 143 mmol/L (135-145); Total Protein 7.1 g/dL (6.5-8.0); Triglycerides 106 mg/dL (<150)
[2023-09-09 14:53] LABS: Vitamin D 25-OH Total 47.1 ng/mL (>30)
[2023-09-11 08:57] LABS: Ceruloplasmin 14 mg/dL (14-30)
[2023-09-13 01:14] LABS: Copper, serum 63 mcg/dL (70-175)
[2023-09-13 17:53] LABS: Copper,Urine 24 Hr 377 mcg/24 h (15-60); Total Volume 24 Ur 1500 mL
== END 2023-09-09 12:19 | disposition home or self-care (01) ==
LOC: HO.LAB 12:18
PROVIDERS: Internal Medicine; PCP Internal Medicine; Referring Provider Family Medicine; Visit Provider Internal Medicine
DX: E78.00 Pure hypercholesterolemia, unspecified (principal); E83.01 Wilson's disease; Z12.5 Encounter for screening for malignant neoplasm of prostate; E55.9 Vitamin D deficiency, unspecified; D64.9 Anemia, unspecified; N40.0 Benign prostatic hyperplasia without lower urinary tract symptoms; E53.8 Deficiency of other specified B group vitamins; I10 Essential (primary) hypertension
CPT/HCPCS: 36415; 80053; 80061; 82306; 82390; 82525; 82607; 82746; 84153; 84443; 85025

== ENCOUNTER 2023-09-23 12:57 | Outpatient (AMB) | payer MEDICARE, MEDICAID, SELFPAY ==
[2023-09-23 13:00] VITALS: BP 158/72; PULSE 98; O2SAT 95; BMI 24.0
--- NOTE | 2023-09-23 13:00 | MHC.PC.OV ---
Vital Signs 09/23/23 13:00 Height 5 ft 8 in Weight 158 lb 0.8 oz BMI 24.0 BP 158/72 H Blood Pressure Location Lt brachial Position Sitting Pulse 98 Pulse Source Pulse Oximeter Pulse Oximetry (%) 95 Oxygen Delivery Method Room Air Intake Visit Reasons: Physical Allergies duloxetine [From Cymbalta] Allergy (Unknown, Verified 09/23/23 13:25) increased hot flashes and leg cramps clavulanic acid [Augmentin] Adverse Reaction (Unknown, Verified 09/23/23 13:25) upset stomach gabapentin Adverse Reaction (Unknown, Verified 09/23/23 13:25) bilateral eye pains Medication List - Last Reconciled 09/23/23 by Brody Donohue MD albuterol sulfate 0.63 mg (3 mL) inhalation QID PRN albuterol sulfate 90 mcg/actuation 2 puffs inhalation Q6H PRN 30 days lorazepam 1 mg PO TID PRN 30 days losartan 50 mg PO BID multivitamin (Daily Multi-Vitamin tablet) 1 tab PO DAILY penicillamine 250 mg PO BID 90 days pyridoxine (vitamin B6) 25 mg PO DAILY Symbicort 160-4.5 mcg/actuation (budesonide-formoterol) 2 puffs inhalation BID 30 days NS tapentadol (Nucynta) 100 mg PO Q6H PRN 15 days tizanidine 4 mg PO Q8H PRN 10 days Tobacco use date assessed: 05/23/23 Fall risk assessment: No Falls in past year Last assessed Fall Risk: 09/23/23 Dental Screening Dental Screen Date: 05/23/23 Did you have a dental visit in the last 12 months?: Yes Did you have a dental problem in the last 6 months where you did not have access to dental care?: No Was dental information given to patient?: Patient has dentist HPI Physical HPI Details Patient comes in today for his annual physical examination States that he feels okay He denies any headaches or dizziness Denies any chest pains, no increased SOB No nausea/vomiting, no abdominal pain No change in bowel habits noted He denies any acute urinary symptoms States that his chronic low back pain and joint pains remain adequately controlled on his current Rx Will need his Nucynta and Lorazepam Rx refilled He had his follow up labs done a couple of weeks ago - to discuss his results He had his screening colonoscopy (normal) last done on 10/15/[address] Melara - was advised that he will need repeat colonoscopy in 10 years (2031) [facility] Medical History (Updated 09/23/23 @ 13:36 by Brody Donohue MD) COPD exacerbation Bronchitis Cough Benign essential hypertension Urinary frequency Anxiety Pancreatic cyst GERD without esophagitis Primary osteoarthritis involving multiple joints Lumbar degenerative disc disease Tai's disease COPD (chronic obstructive pulmonary disease) Surgical History (Updated 09/23/23 @ 13:30 by Brody Donohue MD) Hx of colonoscopy History of total left hip arthroplasty (~02/25/22) H/O right knee surgery History of arthroscopy of left knee History of right hip replacement History of tonsillectomy and adenoidectomy H/O hernia repair H/O nasal polypectomy History of cholecystectomy Family History Father No problems noted. Mother No problems noted. Social History Housing: House Alcohol intake: never Patient Tobacco Use Status: Former Tobacco user e-Cigarette/Vaping Use: Never Used Second Hand Smoke Exposure: No service: Yes ([employer]) Current occupational status: retired Cognitive needs: No Hearing needs: Yes (hearing aide) Vision needs: Yes (Glasses) Questionnaire PHQ-9 Over the last 2 weeks, how often have you been bothered by any of the following problems? 1. Little interest or pleasure in doing things: not at all 2. Feeling down, depressed, or hopeless: not at all 3. Trouble falling or staying asleep, or sleeping too much: not at all 4. Feeling tired or having little energy: not at all 5. Poor appetite or overeating: not at all 6. Feeling bad about yourself - or that you are a failure or have let yourself or your family down: not at all 7. Trouble concentrating on things, such as reading the newspaper or watching television: not at all 8. Moving or speaking so slowly that other people could have noticed. Or the opposite - being so fidgety or restless that you have been moving around a lot more than usual: not at all 9. Thoughts that you would be better off or of hurting yourself in some way: not at all Total score: 0 Depression Screening Interpretation: Negative Depression Screening Done: Yes 58237 - PHQ-9 Billing: Yes Source: Developed by Drs. Jacinto Fields, Reji Severino and colleagues, with an educational celio from [employer]. Thrive Questionnaire Date Thrive assessed: 05/23/23 AUDIT C Alcohol Use Questionnaire (AUDIT-C) 1. How often do you have a drink containing alcohol?: Never 3. How often do you have six or more drinks on one occasion?: Never Total Score: 0 Score Reviewed/Action Taken: Yes HARITHA-7 AMB Questionnaire HARITHA-7 Date HARITHA - 7 assessed: 09/23/23 Feeling nervous, anxious, or on edge: 0 = Not at all Not being able to stop or control worryin = Not at all Worrying too much about different things: 0 = Not at all Trouble relaxin = Not at all Being so restless that it is hard to sit still: 0 = Not at all Becoming easily annoyed or irritable: 0 = Not at all Feeling afraid as if something awful might happen: 0 = Not at all Total HARITHA-7 score (0-4 normal; 5-9 mild; 10-14 moderate; 15-21 severe): 0 Source: Developed by Drs. Jacinto Fields, Abbie Villanueva, Reji Xavier and colleagues, with an educational celio from [employer]. Review of Systems Const Denies chills, Denies fatigue, Denies fever(s), Denies headache(s), Denies malaise and Denies weakness Eyes Denies blurry vision, Denies change in vision, Denies irritation and Denies itchy eyes ENT Denies dysphagia, Denies dizziness, Denies otalgia, Denies headache(s), Denies nasal congestion, Denies neck pain, Denies odynophagia and Denies sore throat Card Denies chest pain, Denies rapid heart rate, Denies irregular heart rhythm, Denies palpitations and Denies dyspnea Resp Denies chest congestion, Denies cough, Denies dyspnea and Denies wheezing GI Denies abdominal pain, Denies bloating, Denies constipation, Denies dysphagia, Denies heartburn, Denies diarrhea, Denies nausea, Denies odynophagia and Denies vomiting Denies hematuria, Denies difficulty urinating, Denies dysuria, Denies urinary frequency and Denies urinary urgency Musc Reports back pain (over the lower back - chronic), Reports arthralgias (involving multiple joints), Denies joint swelling, Denies muscle weakness and Denies neck pain Skin/Breast Denies change in pigmentation, Denies lesions, Denies rash and Denies unusual bruising Neuro Denies dizziness, Denies headache(s), Denies paresthesias and Denies weakness Endo Denies fatigue and Denies palpitations Aller/Immun Denies itchy eyes and Denies wheezing Physical exam (Primary Care) Vital Signs: Last Vital Signs Pulse 98 09/23/23 13:00 BP 158/72 H 09/23/23 13:00 Pulse Ox 95 09/23/23 13:00 Oxygen Delivery Method Room Air 09/23/23 13:00 BMI result Body Mass Index 24.0 Tobacco/Smoking Status: Tobacco use Status Tobacco use date assessed 05/23/23 09/23/23 13:00 Patient Tobacco Use Status Former Tobacco user 09/23/23 13:00 e-Cigarette/Vaping Use Never Used 09/23/23 13:00 PHQ-9: PHQ-9 Score PHQ-9: Total score 0 09/23/23 13:11 Depression Screening Interpretation: Negative Thrive Assessment: Date of Thrive Assessment Date Thrive assessed 05/23/23 09/23/23 13:00 Const General: no acute distress, alert and awake Orientation/consciousness: patient oriented x3 HENMT Head: Yes normocephalic and Yes atraumatic Ears: external ears normal, TM's normal bilaterally and EAC's normal General nose exam: No nasal discharge present Face and sinus: Yes normal facial exam and Yes sinuses nontender Teeth and gingiva: dentition normal Throat: Yes posterior oropharynx normal and Yes tonsils normal (no TP congestion) Eyes Eyelids: Yes eyelids normal Conjunctivae: conjunctivae normal Pupils: Equal, round and reactive pupils present EOM: EOMs intact bilaterally Neck Neck: Yes no lymphadenopathy and Yes tender Thyroid: Thyroid normal Resp Auscultation: clear to auscultation bilaterally, no rales and no wheezes Cardio Rate: regular rate Rhythm: regular rhythm Heart sounds: no murmurs GI Palpation (GI): Soft to palpation, nontender and No hepatosplenomegaly present Auscultation: normal bowel sounds General: Yes no CVA tenderness Back/Spine/Pelvis Back: no CVA tenderness Cervical Spine: Cervical spine tenderness Thoracic/Lumbar Spine: lumbar spinal tenderness Skin Lesions: no lesions Rashes: no rashes Neuro General: patient oriented x3, moves all extremities, no focal motor deficits and CN's II-XI intact bilaterally Cranial nerves: Yes Equal, round and reactive pupils present Cognition (Neuro): normal cognition Gait exam (Neuro): Normal gait present Extrem General: Yes no clubbing, cyanosis or edema Results Reviewed Results Reviewed: Laboratory Tests 09/09/23 09/09/23 06:00 12:50 WBC 5.8 Hgb 14.6 Hct 43.3 Plt Count 261 Sodium 143 Potassium 4.2 Creatinine 1.24 Estimated GFR 58 Fasting Glucose 99 Calcium 9.4 AST 44 H ALT 67 H Ceruloplasmin 14 Triglycerides 106 Cholesterol 150 LDL Cholesterol, Calc 75 HDL Cholesterol 54 Prostate Specific Ag 1.34 Vitamin B12 543 25-OH Vitamin D Total 47.1 TSH 1.40 Serum Copper 63 L Ur Copper 24 Hr 377 H Assessment and Plan Assessment & Plan (1) Annual physical exam: Code(s): Z00.00 - Encounter for general adult medical examination without abnormal findings Plan: Results of his labs done a couple of weeks ago reviewed and discussed with patient He is up-to-date with his screening colonoscopy - is not due for repeat colonoscopy until 2031 (2) Benign essential hypertension: Code(s): I10 - Essential (primary) hypertension Plan: Reinforced low sodium diet Continue Losartan 25 mg QD Patient is reminded to continue monitoring his blood pressure regularly (3) 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 Plan: Results of his labs done last week reviewed and discussed with patient Continue Cuprimine Capsule 250 MG 1 capsule on an empty stomach BID Follow up with GI / hepatology as scheduled Will recheck his labs in 4 months for follow up (4) Elevated LFTs: Code(s): R79.89 - Other specified abnormal findings of blood chemistry Plan: He is advised that his LFTs were elevated on his recent labs They were slightly elevated a few months ago but have increased slightly since Will send him for abdominal US for further evaluation (5) COPD (chronic obstructive pulmonary disease): Comment: CHRONIC OBSTRUCTIVE PULMONARY DISEASE, MILD TO MODERATE, IS STABLE AT PRESENT. ACUTE BRONCHITIS AND ACUTE EXACERBATION FOR WHICH HE WAS SEEN LAST TIME COMPLETELY RESOLVED. HE WILL CONTINUE HIS MAINTENANCE TREATMENT. ADVISED TO DO BREATHING EXERCISES DAILY THREE TIMES A DAY . Code(s): J44.9 - Chronic obstructive pulmonary disease, unspecified Qualifiers: COPD type: unspecified COPD Qualified Code(s): J44.9 - Chronic obstructive pulmonary disease, unspecified Plan: Chest CT done on 06/10/2017 showed findings consistent with pulmonary emphysema Continue Spiriva Respimat Aerosol Solution, 2.5 mcg, 2 puffs Once a day, Symbicort Aerosol, 160-4.5 MCG/ACT, 2 inhalations Twice a day and ProAir HFA Aerosol Solution, 108 (90 Base) MCG/ACT, 2 puffs four times a day NEEDED Follow up with pulmonary (Dr. Francois) as scheduled (6) Lumbar degenerative disc disease: Comment: Has received lumbar spine injections from [facility] in the past with little relief Code(s): M51.36 - Other intervertebral disc degeneration, lumbar region Plan: Reinforced activity and weight lifting restrictions Continue Lidoderm Patch, 5 %, 1 patch to intact skin remove after 12 hours, Externally, Once a day as needed and Nucynta Tablet, 100 MG, 1 tablet, Orally, every 6 hrs as needed for pain, 15 days, # 60 Tablets Follow[place] [facility] [place] [place] [facility] (Dr. Woo) as scheduled - he has been presented with the options of a spinal cord stimulation, an intrathecal drug delivery system as well as a genicular block and radiofrequency ablation for pain relief (7) Primary osteoarthritis involving multiple joints: Code(s): M89.49 - Other hypertrophic osteoarthropathy, multiple sites Plan: Follow up with [facility] as scheduled (8) GERD without esophagitis: Code(s): K21.9 - Gastro-esophageal reflux disease without esophagitis Plan: DIetary restrictions reinforced Continue Dexilant capsules 60 mg QD (9) Urinary frequency: Code(s): R35.0 - Frequency of micturition Plan: PSA was normal on his labs done a couple of weeks ago Follow up with urology as scheduled (10) Basal cell carcinoma (BCC): Code(s): C44.91 - Basal cell carcinoma of skin, unspecified Qualifiers: Basal cell carcinoma location: neck Qualified Code(s): C44.41 - Basal cell carcinoma of skin of scalp and neck Plan: States that he was informed by dermatology that the lesion they removed from the left side of his neck was a basal cell carcinoma lesion but the margins were reportedly clear Follow up with [facility] as scheduled for further management/treatment (11) Anxiety: Code(s): F41.9 - Anxiety disorder, unspecified Plan: Continue Lorazepam 1 mg TID PRN (12) Glaucoma: Code(s): H40.9 - Unspecified glaucoma Qualifiers: Glaucoma type: unspecified Laterality: unspecified laterality Qualified Code(s): H40.9 - Unspecified glaucoma Plan: Follow up with ophthalmology as scheduled Plan Follow up in 4 months Orders: Orders US abdomen complete Today E83.01 - Tai's disease, R79.89 - Other specified abnormal findings of blood chemistry Lipid Panel 4 Months E78.00 - Pure hypercholesterolemia, unspecified Comprehensive [place]. Panel Fast 4 Months E78.00 - Pure hypercholesterolemia, unspecified UA CC w/rflx Micro + Cult 4 Months E83.01 - Tai's disease, R30.0 - Dysuria Complete Blood Count Auto Diff 4 Months D64.9 - Anemia, unspecified Ceruloplasmin 4 Months E83.01 - Tai's disease Copper, serum 4 Months E83.01 - Tai's disease Medications: Refilled tapentadol (Nucynta) 100 mg PO Q6H 15 days PRN 60 tabs 0RF pain M51.36 - Other intervertebral disc degeneration, lumbar region, M89.49 - Other hypertrophic osteoarthropathy, multiple sites lorazepam 1 mg PO TID 30 days PRN 90 tabs 1RF anxiety Coding Level of Care Code Est Pt Prev Care 40-64y(07707) Diagnoses Annual physical exam Z00.00 Benign essential hypertension I10 Tai's disease E83.01 Elevated LFTs R79.89 Chronic obstructive pulmonary disease, unspecified COPD type J44.9 COPD type: unspecified COPD Lumbar degenerative disc disease M51.36 Primary osteoarthritis involving multiple joints M89.49 GERD without esophagitis K21.9 Urinary frequency R35.0 Basal cell carcinoma (BCC) of skin of neck C44.41 Basal cell carcinoma location: neck Anxiety F41.9 Glaucoma, unspecified glaucoma type, unspecified laterality H40.9 Glaucoma type: unspecified Laterality: unspecified laterality
== END 2023-09-23 13:55 | disposition home or self-care (01) ==
PROVIDERS: PCP Internal Medicine; Visit Provider Internal Medicine
DX: Z00.00 Encounter for general adult medical examination without abnormal findings (principal); E83.01 Wilson's disease; J44.9 Chronic obstructive pulmonary disease, unspecified; I10 Essential (primary) hypertension; R79.89 Other specified abnormal findings of blood chemistry; M51.36 Other intervertebral disc degeneration, lumbar region; M89.49 Other hypertrophic osteoarthropathy, multiple sites; K21.9 Gastro-esophageal reflux disease without esophagitis; R35.0 Frequency of micturition; C44.41 Basal cell carcinoma of skin of scalp and neck; F41.9 Anxiety disorder, unspecified; H40.9 Unspecified glaucoma
CPT/HCPCS: 99397

== ENCOUNTER 2023-09-25 09:59 | Outpatient (REF) | payer MEDICARE, MEDICAID, SELFPAY ==
--- NOTE | ~2023-09-25 | US_ITS ---
EXAMINATION: US ABDOMEN COMPLETE CLINICAL INFORMATION: Other specified abnormal findings of blood chemistry. COMPARISON: MRI abdomen without and with contrast 10/30/2021. Ultrasound abdomen complete 10/23/2021 and 12/09/2018. CT abdomen without and with contrast 09/22/2013. TECHNIQUE: Real-time imaging of the abdominal viscera. Technically limited study secondary to bowel gas. FINDINGS: PANCREAS: Limited visualization. Pancreas appears mildly heterogeneous where imaged. Pancreatic duct measures 0.3 cm in diameter were imaged in the body of the pancreas. Previously identified 6 mm cyst in the uncinate process of the pancreas noted on exam of 10/23/2021 cannot be evaluated due to visualization. ABDOMINAL AORTA: Limited visualization. INFERIOR VENA CAVA: Visualized portions are normal. LIVER: Borderline mildly increased hepatic parenchymal heterogeneity and echogenicity could be associated with hepatocellular disease/hepatic steatosis and substantially limits visualization. Limited visualization. Previously identified hepatic cysts and mild intrahepatic biliary ductal dilatation are less well characterized on the current exam due to limited visualization. GALLBLADDER: Surgically absent. COMMON BILE DUCT: Common duct measures 1.2 cm in diameter, previously 1.1 cm on 10/23/2021 ultrasound. RIGHT KIDNEY: 0.8 cm upper pole cyst with benign features. There is no indication for follow-up imaging. Limited visualization. No hydronephrosis or focal parenchymal lesions. The kidney measures 9.2 cm in maximum dimension. LEFT KIDNEY: No hydronephrosis. No renal calculi. Limited visualization. The kidney measures 8.6 cm in maximum dimension. SPLEEN: Normal. The spleen measures 10.0 cm in maximum dimension. FREE FLUID: Possible trace amount of free fluid adjacent to the substantial superior aspect of the left hepatic lobe. US/US abdomen complete IMPRESSION: 1. Borderline mildly increased hepatic parenchymal heterogeneity and echogenicity could be associated with hepatocellular disease/hepatic steatosis and substantially limits visualization. 2. Previously identified hepatic cysts and mild intrahepatic biliary ductal dilatation are less well characterized on the current exam due to limited visualization. 3. Gallbladder surgically absent. Common duct measures 1.2 cm in diameter, previously 1.1 cm on 10/23/2021 ultrasound. 4. Pancreas appears mildly heterogeneous where imaged. Pancreatic duct measures 0.3 cm in diameter were imaged in the body of the pancreas. Previously identified 6 mm cyst in the uncinate process of the pancreas noted on exam of 10/23/2021 cannot be evaluated due to visualization. 5. Possible trace amount of free fluid adjacent to the substantial superior aspect of the left hepatic lobe.
== END 2023-09-25 10:00 | disposition home or self-care (01) ==
LOC: HO.HMGCX 09:59
PROVIDERS: PCP Internal Medicine; Visit Provider Internal Medicine
DX: R79.89 Other specified abnormal findings of blood chemistry (principal); E83.01 Wilson's disease
CPT/HCPCS: 76700

== ENCOUNTER 2023-10-28 13:54 | Outpatient (AMB) | payer MEDICARE, MEDICAID, SELFPAY ==
--- NOTE | 2023-10-28 14:05 | MHC.OFFVIS ---
Vital Signs 10/28/23 14:07 Height 5 ft 8 in Weight 159 lb 13.362 oz BMI 24.3 BP 134/62 Blood Pressure Location Lt brachial Position Sitting Respiration 14 Pulse 102 H Pulse Source Pulse Oximeter Pulse Oximetry (%) 95 Oxygen Delivery Method Room Air Intake Visit Reasons: COPD Intake Note: Patient comes in for COPD follow up. Allergies duloxetine [From Cymbalta] Allergy (Unknown, Verified 10/28/23 14:23) increased hot flashes and leg cramps clavulanic acid [Augmentin] Adverse Reaction (Unknown, Verified 10/28/23 14:23) upset stomach gabapentin Adverse Reaction (Unknown, Verified 10/28/23 14:23) bilateral eye pains Medication List - Last Reconciled 10/28/23 by Renata Francois MD albuterol sulfate 0.63 mg (3 mL) inhalation QID PRN albuterol sulfate 90 mcg/actuation 2 puffs inhalation Q6H PRN 30 days lorazepam 1 mg PO TID PRN 30 days losartan 50 mg PO BID mometasone-formoterol 200-5 mcg/actuation (Dulera) 2 puffs inhalation BID 30 days multivitamin (Daily Multi-Vitamin tablet) 1 tab PO DAILY penicillamine 250 mg PO BID 90 days pyridoxine (vitamin B6) 25 mg PO DAILY tapentadol (Nucynta) 100 mg PO Q6H PRN 15 days tizanidine 4 mg PO Q8H PRN 10 days Do you need a note to return to daycare/school/sports/work: No HPI HPI COPD: Details: MR. SNOWDEN IS HERE FOR HIS 6 MONTHS FOLLOW-UP. HIS BREATHING REMAINS STABLE BUT HE DOES COMPLAIN OF GETTING SHORT OF BREATH ON MINIMAL EXERTION. HE REMAINS AMBITIOUS AND WANTS TO DO LOT OF WORK IN AND AROUND THE HOUSE . ON A DAILY BASIS HE HAS VERY LITTLE COUGH OR WHEEZING. CONTINUES TO USE HIS INHALERS REGULARLY PFSH Medical History COPD exacerbation Bronchitis Cough Benign essential hypertension Urinary frequency Anxiety Pancreatic cyst GERD without esophagitis Primary osteoarthritis involving multiple joints Lumbar degenerative disc disease Tai's disease COPD (chronic obstructive pulmonary disease) Surgical History Hx of colonoscopy History of total left hip arthroplasty (~12/12/22) H/O right knee surgery History of arthroscopy of left knee History of right hip replacement History of tonsillectomy and adenoidectomy H/O hernia repair H/O nasal polypectomy History of cholecystectomy Family History Father No problems noted. Mother No problems noted. Social History Housing: House Alcohol intake: never Patient Tobacco Use Status: Former Tobacco user e-Cigarette/Vaping Use: Never Used Second Hand Smoke Exposure: No service: Yes ([employer]) Current occupational status: retired Cognitive needs: No Hearing needs: Yes (hearing aide) Vision needs: Yes (Glasses) Review of Systems Const Denies chills, Denies fatigue, Denies fever(s), Denies headache(s), Denies malaise and Denies weakness Eyes Denies blurry vision, Denies change in vision, Denies irritation and Denies itchy eyes ENT Denies dysphagia, Denies dizziness, Denies otalgia, Denies headache(s), Denies nasal congestion, Denies neck pain, Denies odynophagia and Denies sore throat Card Denies chest pain, Denies rapid heart rate, Denies irregular heart rhythm, Denies palpitations and Denies dyspnea Resp Denies chest congestion, Denies cough, Denies dyspnea and Denies wheezing GI Denies abdominal pain, Denies bloating, Denies constipation, Denies dysphagia, Denies heartburn, Denies diarrhea, Denies nausea, Denies odynophagia and Denies vomiting Denies hematuria, Denies difficulty urinating, Denies dysuria, Denies nocturia, Denies urinary frequency and Denies urinary urgency Musc Reports back pain (over the lower back - chronic), Reports arthralgias (involving multiple joints), Denies joint swelling, Denies muscle weakness and Denies neck pain Skin/Breast Denies change in pigmentation, Reports lesions (dark raised lesion on the left side of the neck), Denies rash and Denies unusual bruising Neuro Denies dizziness, Denies headache(s), Denies paresthesias and Denies weakness Endo Denies fatigue and Denies palpitations Aller/Immun Denies itchy eyes and Denies wheezing Physical Exam Vital Signs: Last Vital Signs Pulse 102 H 10/28/23 14:07 Resp 14 10/28/23 14:07 BP 134/62 10/28/23 14:07 Pulse Ox 95 10/28/23 14:07 Oxygen Delivery Method Room Air 10/28/23 14:07 BMI result Body Mass Index 24.3 Const General: comfortable (But short of breath during conversation), no acute distress, alert and awake Orientation/consciousness: patient oriented x3 HEENT Head: Yes normal to inspection General nose exam: No nasal polyps present and No nasal discharge present Face and sinus: Yes sinuses nontender Mouth: oropharynx normal Teeth and gingiva: other (Multiple decayed teeth) Throat: Yes posterior oropharynx normal Eyes General: appearance normal, both eyes and all related structures Neck Neck: Yes normal visual inspection, Yes no lymphadenopathy, Yes trachea midline and Yes no JVD Thyroid: Thyroid normal Chest Chest palpation & inspection: normal inspection of the chest, normal palpation of entire chest wall and no tenderness Resp Other: Percussion note is resonant, breath sounds are distant with prolonged expiratory phase but equal on both sides. No wheezes rhonchi or crepitations are heard today. Cardio Palpation: normal PMI Rate: regular rate Rhythm: regular rhythm Heart sounds: no gallops and no murmurs GI Palpation (GI): Soft to palpation, nontender, No hepatosplenomegaly present and no masses Auscultation: normal bowel sounds Back/Spine/Pelvis Thoracic/Lumbar Spine: thoracic and lumbar spine normal to inspection Skin General skin exam: no rashes or lesions noted Neuro General: patient oriented x3 and no focal motor deficits Cranial nerves: Yes CN's II-XII intact bilaterally Extrem General: Yes normal to inspection, Yes no clubbing, cyanosis or edema and Yes no calf tenderness Psych Appearance: grossly normal and well kempt Speech and movement: Normal speech and movement present Assessment & Plan Assessment & Plan (1) COPD (chronic obstructive pulmonary disease): Comment: CHRONIC OBSTRUCTIVE PULMONARY DISEASE, MILD TO MODERATE, IS STABLE AT PRESENT. Code(s): J44.9 - Chronic obstructive pulmonary disease, unspecified Category: Medical Qualifiers: COPD type: unspecified COPD Qualified Code(s): J44.9 - Chronic obstructive pulmonary disease, unspecified Plan: HE IS ADVISED TO CONTINUE PRESENT MEDICAL REGIMEN WHICH IS FOLLOWS: DULERA 200-5 2 PUFFS B.I.D.. ALBUTEROL INHALATION SOLUTION 0.63 MG IN NEBULIZER Q 4-6 HOURS P.R.N. ALTERNATIVELY MAY USE ALBUTEROL HFA 2 PUFFS Q 4-6 HOURS P.R.N. WHEN OUTDOORS Coding Level of Care Code Est Pt Level 3 (73039) Diagnoses Chronic obstructive pulmonary disease, unspecified COPD type J44.9 COPD type: unspecified COPD
[2023-10-28 14:07] VITALS: BP 134/62; PULSE 102; RESP 14; O2SAT 95; BMI 24.3
== END 2023-10-28 14:25 | disposition home or self-care (01) ==
PROVIDERS: PCP Internal Medicine; Visit Provider Internal Medicine
DX: J44.9 Chronic obstructive pulmonary disease, unspecified (principal)
CPT/HCPCS: 99213

== ENCOUNTER → 2023-10-28 13:54 | Outpatient (BNVA) | payer MEDICARE, SELFPAY | PROVIDERS: PCP Internal Medicine; Visit Provider Internal Medicine | DX: J44.9 Chronic obstructive pulmonary disease, unspecified (principal) | CPT/HCPCS: 99212 ==

== ENCOUNTER 2024-01-19 11:56 | Outpatient (REF) | payer MEDICARE, MEDICAID, SELFPAY ==
[2024-01-19 13:35] LABS: MANUAL DIFF FLAG NO
[2024-01-19 13:51] LABS: Eosinophils Percent Auto 0.8 % (0-4); Hematocrit 43.2 % (42.0-52.0); Hemoglobin 14.1 g/dl (14.0-18.0); Imm Gran Abs Auto 0.02 X10*3/uL (0.00-0.03); Imm Gran Pct Auto 0.4 % (0.0-0.4); Lymphocytes Absolute Auto 1.6 X10*3/uL (1.2-4.9); Lymphocytes Percent Auto 32.2 % (20-40); Mean Corpuscular HGB Conc 32.6 g/dl (31.0-36.0); Mean Corpuscular Hemoglobin 30.9 pg (27.0-33.0); Mean Corpuscular Volume 94.7 fL (80.0-98.0); Mean Platelet Volume 9.5 fL (9.4-12.4); Monocytes Absolute Auto 0.4 X10*3/uL (0.1-1.2); Monocytes Percent Auto 8.2 % (2-11); Neutrophils Percent Auto 58.4 % (45-73); Platelet Count 247 X10*3/uL (160-400); Red Blood Count 4.56 X10*6/uL (4.60-5.80); Red Cell Distribution Width 12.6 % (11.0-16.0); White Blood Count 5.1 X10*3/uL (4.8-10.8)
[2024-01-19 14:15] LABS: Appearance Urine Clear; Color Urine Yellow; Glucose Urine UA Negative (Negative); Leukocyte Esterase Urine Negative (Negative); Nitrite Urine Negative (Negative); PH 5.5 (5.0-9.0); Specific Gravity - Urine 1.025 (1.005-1.025); Urine Blood Negative (Negative); Urine Ketones Negative (Negative); Urine Protein Trace mg/dL (Neg-Trace)
[2024-01-19 14:38] LABS: Alanine Aminotransferase 71 U/L (0-40); Albumin Level 3.6 g/dL (3.5-5.0); Anion Gap 11 (12-20); Aspartate Amino Transferase 52 U/L (5-37); Bilirubin Total 0.6 mg/dL (0.0-1.0); Blood Urea Nitrogen 22 mg/dL (9-16); Calcium 9.2 mg/dL (8.4-10.2); Carbon Dioxide 26 mmol/L (22-29); Chloride 109 mmol/L (96-108); Cholesterol 132 mg/dL (<200); Estimated Glomerular Filt Rate > 60; Glucose Fasting 98 mg/dL (60-99); HDL Cholesterol 50 mg/dL (>40); LDL Cholesterol Calculated 61 mg/dL (<100); Potassium 4.4 mmol/L (3.3-5.1); Sodium 142 mmol/L (135-145); Total Protein 6.6 g/dL (6.5-8.0); Triglycerides 108 mg/dL (<150)
[2024-01-19 14:58] LABS: Alkaline Phosphatase 97 U/L (39-117)
[2024-01-20 11:24] LABS: Ceruloplasmin 14 mg/dL (14-30)
[2024-01-23 00:18] LABS: Copper, serum 57 mcg/dL (70-175)
== END 2024-01-19 11:57 | disposition home or self-care (01) ==
LOC: HO.HMGCLDS 11:56
PROVIDERS: PCP Internal Medicine; Visit Provider Internal Medicine
DX: R30.0 Dysuria (principal); E83.01 Wilson's disease; E78.00 Pure hypercholesterolemia, unspecified; D64.9 Anemia, unspecified
CPT/HCPCS: 36415; 80053; 80061; 81003; 82390; 82525; 85025

== ENCOUNTER 2024-01-26 13:09 | Outpatient (AMB) | payer MEDICARE, MEDICAID, SELFPAY ==
[2024-01-26 13:12] VITALS: BP 150/70; PULSE 84; O2SAT 95; BMI 24.5
--- NOTE | 2024-01-26 13:12 | MHC.PC.OV ---
Vital Signs 01/26/24 13:12 Height 5 ft 8 in Weight 161 lb BMI 24.5 BP 150/70 H Blood Pressure Location Lt brachial Position Sitting Pulse 84 Pulse Source Pulse Oximeter Pulse Oximetry (%) 95 Oxygen Delivery Method Room Air Intake Visit Reasons: Tai's disease, hyperlipidemia, HTN, lumbar DDD [employer] Required: No Accompanied by: Self / Same As Patient Allergies duloxetine [From Cymbalta] Allergy (Unknown, Verified 02/02/24 03:01) increased hot flashes and leg cramps clavulanic acid [Augmentin] Adverse Reaction (Unknown, Verified 02/02/24 03:01) upset stomach gabapentin Adverse Reaction (Unknown, Verified 02/02/24 03:01) bilateral eye pains Medication List - Last Reconciled 01/26/24 by Brody Donohue MD albuterol sulfate 0.63 mg (3 mL) inhalation QID PRN albuterol sulfate 90 mcg/actuation 2 puffs inhalation Q6H PRN 30 days lorazepam 1 mg PO TID PRN 30 days losartan 50 mg PO BID mometasone-formoterol 200-5 mcg/actuation (Dulera) 2 puffs inhalation BID 30 days multivitamin (Daily Multi-Vitamin tablet) 1 tab PO DAILY penicillamine 250 mg PO BID 90 days pyridoxine (vitamin B6) 25 mg PO DAILY tapentadol (Nucynta) 100 mg PO Q6H PRN 15 days tizanidine 4 mg PO Q8H PRN 10 days Tobacco use date assessed: 01/26/24 Fall risk assessment: 1 Fall in past year Last assessed Fall Risk: 01/26/24 Dental Screening Dental Screen Date: 01/26/24 Did you have a dental visit in the last 12 months?: No Did you have a dental problem in the last 6 months where you did not have access to dental care?: No Was dental information given to patient?: Patient has dentist HPI Tai's disease, hyperlipidemia, HTN, lumbar DDD HPI Details Patient comes in today for his follow up visit States that he feels okay He denies any headaches or dizziness Denies any chest pains, no increased SOB No nausea/vomiting, no abdominal pain but relates (+) on and off burning sensation in his stomach (epigastric area) for years States that this is not associated with oral intake / eating or drinking No change in bowel habits noted He had his follow up labs done last week - to discuss his results [facility] Medical History COPD exacerbation Bronchitis Cough Benign essential hypertension Urinary frequency Anxiety Pancreatic cyst GERD without esophagitis Primary osteoarthritis involving multiple joints Lumbar degenerative disc disease Tai's disease COPD (chronic obstructive pulmonary disease) Surgical History Hx of colonoscopy History of total left hip arthroplasty (~02/25/22) H/O right knee surgery History of arthroscopy of left knee History of right hip replacement History of tonsillectomy and adenoidectomy H/O hernia repair H/O nasal polypectomy History of cholecystectomy Family History Father No problems noted. Mother No problems noted. Social History Housing: House Alcohol intake: never Patient Tobacco Use Status: Former Tobacco user e-Cigarette/Vaping Use: Never Used Second Hand Smoke Exposure: No service: Yes ([employer]) Current occupational status: retired Cognitive needs: No Hearing needs: Yes (hearing aide) Vision needs: Yes (Glasses) Questionnaire PHQ-9 Over the last 2 weeks, how often have you been bothered by any of the following problems? 1. Little interest or pleasure in doing things: not at all 2. Feeling down, depressed, or hopeless: not at all 3. Trouble falling or staying asleep, or sleeping too much: not at all 4. Feeling tired or having little energy: not at all 5. Poor appetite or overeating: not at all 6. Feeling bad about yourself - or that you are a failure or have let yourself or your family down: not at all 7. Trouble concentrating on things, such as reading the newspaper or watching television: not at all 8. Moving or speaking so slowly that other people could have noticed. Or the opposite - being so fidgety or restless that you have been moving around a lot more than usual: not at all 9. Thoughts that you would be better off or of hurting yourself in some way: not at all Total score: 0 Depression Screening Interpretation: Negative Depression Screening Done: Yes 11381 - PHQ-9 Billing: Yes Source: Developed by Drs. Jacinto Fields, Abbie Villanueva, Reji Xavier and colleagues, with an educational celio from [employer]. Thrive Questionnaire Date Thrive assessed: 01/26/24 I am a: Patient What is your living situation today?: I have a steady place to live Within the past 12 months, did the food you bought not last and you didn't have the money to get more?: Never true Within the past 12 months, did you worry whether your food would run out before you got money to buy more?: Never true Do you have trouble paying for medicines?: No Do you have trouble getting transportation to medical appointments?: No Do you have trouble paying your heating and electricity bill?: No Do you have trouble taking care of your child, family member or friend?: No Do you have trouble with day-to-day activities such as bathing, preparing meals, shopping, managing finances, etc.?: No Are you currently unemployed and looking for a job?: No Are you interested in more education?: No Please select the resources that you would like help with: None Currently or been in a relationship where the following occur: No concerns reported THRIVE Score: 0 AUDIT C Alcohol Use Questionnaire (AUDIT-C) 1. How often do you have a drink containing alcohol?: Never 3. How often do you have six or more drinks on one occasion?: Never Total Score: 0 Score Reviewed/Action Taken: Yes HARITHA-7 AMB Questionnaire HARITHA-7 Date HARITHA - 7 assessed: 01/26/24 Feeling nervous, anxious, or on edge: 0 = Not at all Not being able to stop or control worryin = Not at all Worrying too much about different things: 0 = Not at all Trouble relaxin = Not at all Being so restless that it is hard to sit still: 0 = Not at all Becoming easily annoyed or irritable: 0 = Not at all Feeling afraid as if something awful might happen: 0 = Not at all Total HARITHA-7 score (0-4 normal; 5-9 mild; 10-14 moderate; 15-21 severe): 0 Source: Developed by Abbie RiosW. Rich, Reji Xavier and colleagues, with an educational celio from [employer]. Review of Systems Const Denies chills, Denies difficulty sleeping, Reports fatigue (at times), Denies fever(s) and Denies headache(s) ENT Denies dysphagia, Denies dizziness, Denies otalgia, Denies headache(s), Denies neck pain, Denies odynophagia and Denies sore throat Card Denies chest pain, Denies irregular heart rhythm, Denies palpitations and Denies dyspnea Resp Denies chest congestion, Denies cough and Denies dyspnea GI Denies abdominal pain, Denies constipation, Denies dysphagia, Denies heartburn, Denies diarrhea, Denies nausea, Denies odynophagia and Denies vomiting Denies difficulty urinating, Denies dysuria and Denies urinary frequency Musc Reports back pain (over the lower back - chronic), Reports arthralgias (involving multiple joints) and Denies neck pain Skin/Breast Denies rash Neuro Denies dizziness, Denies headache(s) and Denies paresthesias Endo Reports fatigue (at times) and Denies palpitations Physical exam (Primary Care) Vital Signs: Last Vital Signs Pulse 84 01/26/24 13:12 BP 150/70 H 01/26/24 13:12 Pulse Ox 95 01/26/24 13:12 Oxygen Delivery Method Room Air 01/26/24 13:12 BMI result Body Mass Index 24.5 Tobacco/Smoking Status: Tobacco use Status Tobacco use date assessed 01/26/24 01/26/24 13:13 Patient Tobacco Use Status Former Tobacco user 01/26/24 13:13 e-Cigarette/Vaping Use Never Used 01/26/24 13:13 PHQ-9: PHQ-9 Score PHQ-9: Total score 0 01/26/24 13:59 Depression Screening Interpretation: Negative Thrive Assessment: Date of Thrive Assessment Date Thrive assessed 01/26/24 01/26/24 13:13 Currently or been in a relationship where the following occur: No concerns reported Const General: no acute distress and alert HENMT Ears: TM's normal bilaterally and EAC's normal Throat: Yes posterior oropharynx normal and Yes tonsils normal (no TP congestion) Neck Neck: Yes no lymphadenopathy and Yes tender Thyroid: Thyroid normal Resp Auscultation: clear to auscultation bilaterally, no rales and no wheezes Cardio Rate: regular rate Rhythm: regular rhythm Heart sounds: no murmurs GI Palpation (GI): Soft to palpation and nontender Auscultation: normal bowel sounds General: Yes no CVA tenderness Back/Spine/Pelvis Back: no CVA tenderness Cervical Spine: Cervical spine tenderness Thoracic/Lumbar Spine: lumbar spinal tenderness Skin Rashes: no rashes Extrem General: Yes no clubbing, cyanosis or edema Results Reviewed Results Reviewed: Laboratory Tests 09/09/23 01/19/24 01/19/24 06:00 12:09 12:15 WBC 5.1 Hgb 14.1 Hct 43.2 Plt Count 247 Sodium 142 Potassium 4.4 Creatinine 1.16 Estimated GFR > 60 Fasting Glucose 98 Calcium 9.2 AST 52 H ALT 71 H Ceruloplasmin 14 Triglycerides 108 Cholesterol 132 LDL Cholesterol, Calc 61 HDL Cholesterol 50 Ur Specific [place] 1.025 Urine Protein Trace Urine Glucose (UA) Negative Urine Blood Negative Urine Nitrite Negative Ur Leukocyte Esterase Negative Serum Copper 57 L Ur Copper 24 Hr 377 H Coding Level of Care Code Est Pt Level 4 (95423) Diagnoses Benign essential hypertension I10 Tai's disease E83.01 Elevated LFTs R79.89 Chronic obstructive pulmonary disease, unspecified COPD type J44.9 COPD type: unspecified COPD Degeneration of intervertebral disc of lumbar region with discogenic back pain M51.360 Disc-related pain type: discogenic back pain only Primary osteoarthritis involving multiple joints M89.49 GERD without esophagitis K21.9 Urinary frequency R35.0 Basal cell carcinoma (BCC) of skin of neck C44.41 Basal cell carcinoma location: neck Glaucoma, unspecified glaucoma type, unspecified laterality H40.9 Glaucoma type: unspecified Laterality: unspecified laterality Anxiety F41.9 Additional Codes PHQ-9 - 02208 - PHQ-9 Billing: Yes ([id number]) Assessment & Plan Assessment & Plan (1) Benign essential hypertension: Code(s): I10 - Essential (primary) hypertension Category: Medical Plan: Reinforced low sodium diet Continue Losartan 50 mg BID Patient is reminded to continue monitoring his blood pressure regularly (2) 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 Melara for GI/hepatology follow up but has not seen him in a while now - will refer him back to Dr. Melara for continuing follow up and management Will recheck his labs in 4 months for follow up (3) Elevated LFTs: Code(s): R79.89 - Other specified abnormal findings of blood chemistry Category: Medical Plan: He is advised that his LFTs remain elevated on his recent labs and have increased slightly from previous Abdominal US done back in September 2023 revealed borderline mildly increased hepatic parenchymal heterogeneity and echogenicity could be associated with hepatocellular disease/hepatic steatosis and substantially limits visualization The gall bladder is surgically absent and the pancreas appears mildly heterogeneous and the pancreatic duct measures 0.3 cm in diameter. There is also possible trace amount of free fluid adjacent to the substantial superior aspect of the left hepatic lobe Will continue to monitor his LFTs regularly He is also currently being referred back to Dr. Melara (4) COPD (chronic obstructive pulmonary disease): Comment: CHRONIC OBSTRUCTIVE PULMONARY DISEASE, MILD TO MODERATE, IS STABLE AT PRESENT. Code(s): J44.9 - Chronic obstructive pulmonary disease, unspecified Category: Medical Qualifiers: COPD type: unspecified COPD Qualified Code(s): J44.9 - Chronic obstructive pulmonary disease, unspecified Plan: Chest CT done on 06/10/2017 showed findings consistent with pulmonary emphysema Continue Spiriva Respimat Aerosol Solution, 2.5 mcg, 2 puffs Once a day, Symbicort Aerosol, 160-4.5 MCG/ACT, 2 inhalations Twice a day and ProAir HFA Aerosol Solution, 108 (90 Base) MCG/ACT, 2 puffs four times a day NEEDED Follow up with pulmonary (Dr. Francois) as scheduled (5) Lumbar degenerative disc disease: Comment: Has received lumbar spine injections from [facility] in the past with little relief Code(s): M51.36 - Other intervertebral disc degeneration, lumbar region Category: Medical Qualifiers: Disc-related pain type: discogenic back pain only Qualified Code(s): M51.360 - Other intervertebral disc degeneration, lumbar region with discogenic back pain only Plan: Reinforced activity and weight lifting restrictions Continue Lidoderm Patch, 5 %, 1 patch to intact skin remove after 12 hours, Externally, Once a day as needed and Nucynta Tablet, 100 MG, 1 tablet, Orally, every 6 hrs as needed for pain, 15 days, # 60 Tablets Follow-up with [facility] Pain Management (Dr. Woo) as scheduled - he has been presented with the options of a spinal cord stimulation, an intrathecal drug delivery system as well as a genicular block and radiofrequency ablation for pain relief (6) Primary osteoarthritis involving multiple joints: Code(s): M89.49 - Other hypertrophic osteoarthropathy, multiple sites Category: Medical Plan: Follow up with [facility] as scheduled (7) GERD without esophagitis: Code(s): K21.9 - Gastro-esophageal reflux disease without esophagitis Category: Medical Plan: Dietary restrictions reinforced Continue Dexilant capsules 60 mg QD (8) Urinary frequency: Code(s): R35.0 - Frequency of micturition Category: Medical Plan: His PSA was normal on his labs done a few months ago Follow up with urology as scheduled (9) Basal cell carcinoma (BCC): Code(s): C44.91 - Basal cell carcinoma of skin, unspecified Category: Medical Qualifiers: Basal cell carcinoma location: neck Qualified Code(s): C44.41 - Basal cell carcinoma of skin of scalp and neck Plan: He was supposedly informed by dermatology that the lesion they removed from the left side of his neck a few months ago was a basal cell carcinoma lesion but the margins were reportedly clear Follow up with [facility] as scheduled for further management/treatment (10) Glaucoma: Code(s): H40.9 - Unspecified glaucoma Category: Medical Qualifiers: Glaucoma type: unspecified Laterality: unspecified laterality Qualified Code(s): H40.9 - Unspecified glaucoma Plan: Follow up with ophthalmology as scheduled (11) Anxiety: Code(s): F41.9 - Anxiety disorder, unspecified Category: Medical Plan: Continue Lorazepam 1 mg TID PRN Plan Follow up in 4 months Orders: Orders UA CC w/rflx Micro + Cult 4 Months R30.0 - Dysuria Complete Blood Count Auto Diff 4 Months D64.9 - Anemia, unspecified Comprehensive [place]. Panel Fast 4 Months E78.00 - Pure hypercholesterolemia, unspecified Lipid Panel 4 Months E78.00 - Pure hypercholesterolemia, unspecified TSH reflex Free T4 4 Months E78.00 - Pure hypercholesterolemia, unspecified Vitamin D 25-OH Total 4 Months E55.9 - Vitamin D deficiency, unspecified Copper, serum 4 Months E83.01 - Tai's disease Referrals Gastroenterology Referral E83.01 - Tai's disease, R79.89 - Other specified abnormal findings of blood chemistry
== END 2024-01-26 14:18 | disposition home or self-care (01) ==
PROVIDERS: PCP Internal Medicine; Visit Provider Internal Medicine
DX: I10 Essential (primary) hypertension (principal); E83.01 Wilson's disease; R79.89 Other specified abnormal findings of blood chemistry; J44.9 Chronic obstructive pulmonary disease, unspecified; M51.360 Other intervertebral disc degeneration, lumbar region with discogenic back pain only; M89.49 Other hypertrophic osteoarthropathy, multiple sites; K21.9 Gastro-esophageal reflux disease without esophagitis; R35.0 Frequency of micturition; C44.41 Basal cell carcinoma of skin of scalp and neck; H40.9 Unspecified glaucoma; F41.9 Anxiety disorder, unspecified

== ENCOUNTER → 2024-01-26 13:09 | Outpatient (BNVA) | payer MEDICARE, MEDICAID, SELFPAY | PROVIDERS: PCP Internal Medicine; Visit Provider Internal Medicine | DX: I10 Essential (primary) hypertension (principal); E83.01 Wilson's disease; R79.89 Other specified abnormal findings of blood chemistry; J44.9 Chronic obstructive pulmonary disease, unspecified; M51.360 Other intervertebral disc degeneration, lumbar region with discogenic back pain only; M89.49 Other hypertrophic osteoarthropathy, multiple sites; K21.9 Gastro-esophageal reflux disease without esophagitis; R35.0 Frequency of micturition; C44.41 Basal cell carcinoma of skin of scalp and neck; H40.9 Unspecified glaucoma; F41.9 Anxiety disorder, unspecified | CPT/HCPCS: 96127; 99212 ==

== ENCOUNTER 2024-04-27 13:59 | Outpatient (AMB) | payer MEDICARE, MEDICAID, SELFPAY ==
--- NOTE | 2024-04-27 14:09 | MHC.OFFVIS ---
Vital Signs 04/27/24 14:10 Height 5 ft 8 in Weight 160 lb 14.999 oz BMI 24.5 BP 120/70 Blood Pressure Location Lt brachial Position Sitting Pulse 92 Pulse Source Pulse Oximeter Pulse Oximetry (%) 96 Oxygen Delivery Method Room Air Intake Visit Reasons: COPD Intake Note: pt is here for follow up and states he does have the bad short of breath with any exertion, congestion, even getting into bed at night he has a hard time catching his breath. he notices not much of a change with dulura, pt would like his own nebulizer and needs a refill on albuterol. 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 Allergies duloxetine [From Cymbalta] Allergy (Unknown, Verified 04/27/24 14:18) increased hot flashes and leg cramps clavulanic acid [Augmentin] Adverse Reaction (Unknown, Verified 04/27/24 14:18) upset stomach gabapentin Adverse Reaction (Unknown, Verified 04/27/24 14:18) bilateral eye pains Medication List - Last Reconciled 04/27/24 by Renata Francois MD albuterol sulfate 0.63 mg (3 mL) inhalation QID PRN albuterol sulfate 90 mcg/actuation 2 puffs inhalation Q6H PRN 30 days lorazepam 1 mg PO TID PRN 30 days losartan 50 mg PO BID mometasone-formoterol 200-5 mcg/actuation (Dulera) 2 puffs inhalation BID 30 days multivitamin (Daily Multi-Vitamin tablet) 1 tab PO DAILY penicillamine 250 mg PO BID 90 days pyridoxine (vitamin B6) 25 mg PO DAILY tapentadol (Nucynta) 100 mg PO Q6H PRN 15 days tizanidine 4 mg PO Q8H PRN 10 days Do you need a note to return to daycare/school/sports/work: No HPI HPI COPD: Details: Mr. Lewis, 68 years old gentleman is here for his 6 months follow-up for COPD. He has been using Dulera 2 puffs in the morning 2 in the evening., after further conversation he express that may be sometime he uses only 1 puff in the morning. He has had no recent respiratory infection. He complains that now by doing some work at home, or walking outside he gets short of breath more easily than before. Then he has to stop and use albuterol quite frequently. I made him walk in the hallway with me and he was visibly short of breath after walking a few minutes, but O2 sat did not drop below 93%. [facility] Medical History COPD exacerbation Bronchitis Cough Benign essential hypertension Urinary frequency Anxiety Pancreatic cyst GERD without esophagitis Primary osteoarthritis involving multiple joints Lumbar degenerative disc disease Tai's disease COPD (chronic obstructive pulmonary disease) Surgical History Hx of colonoscopy History of total left hip arthroplasty (~02/25/22) H/O right knee surgery History of arthroscopy of left knee History of right hip replacement History of tonsillectomy and adenoidectomy H/O hernia repair H/O nasal polypectomy History of cholecystectomy Family History Father No problems noted. Mother No problems noted. Social History Housing: House Alcohol intake: never Patient Tobacco Use Status: Former Tobacco user e-Cigarette/Vaping Use: Never Used Second Hand Smoke Exposure: No service: Yes ([employer]) Current occupational status: retired Cognitive needs: No Hearing needs: Yes (hearing aide) Vision needs: Yes (Glasses) Review of Systems Const All systems reviewed & are unremarkable except as noted in HPI and below Denies body aches, Reports fatigue (Mild generalized), Denies headache(s) and Denies snoring Eyes Reports no additional complaints ENT Reports no additional complaints, Denies headache(s), Denies nasal discharge and Denies post nasal drip Card Denies chest pain, Denies syncope, Denies pedal edema, Denies irregular heart rhythm and Reports dyspnea on exertion Resp Denies cough, Denies hemoptysis, Denies excessive phlegm production, Reports dyspnea on exertion, Denies snoring and Denies stridor GI Reports no additional complaints Reports no additional complaints Musc Reports back pain (over the lower back - chronic) and Reports arthralgias (involving multiple joints) Skin/Breast Reports system reviewed and no additional complaints, except as documented Neuro Reports no additional complaints, Denies syncope and Denies headache(s) Psych Reports anxiety (Mild off and on) Endo Reports no additional complaints and Reports fatigue (Mild generalized) West/Lymph Reports no additional complaints Physical Exam Vital Signs: Last Vital Signs Pulse 92 04/27/24 14:10 BP 120/70 04/27/24 14:10 Pulse Ox 96 04/27/24 14:10 Oxygen Delivery Method Room Air 04/27/24 14:10 BMI result Body Mass Index 24.5 Const General: comfortable (But short of breath during conversation), no acute distress, alert and awake Orientation/consciousness: patient oriented x3 HEENT Head: Yes normal to inspection General nose exam: No nasal polyps present and No nasal discharge present Face and sinus: Yes sinuses nontender Mouth: oropharynx normal Teeth and gingiva: other (Multiple decayed teeth) Throat: Yes posterior oropharynx normal Eyes General: appearance normal, both eyes and all related structures Neck Neck: Yes normal visual inspection, Yes no lymphadenopathy, Yes trachea midline and Yes no JVD Thyroid: Thyroid normal Chest Chest palpation & inspection: normal inspection of the chest, normal palpation of entire chest wall and no tenderness Resp Other: Percussion note is resonant, breath sounds are distant with prolonged expiratory phase but equal on both sides. No wheezes rhonchi or crepitations are heard today. Cardio Palpation: normal PMI Rate: regular rate Rhythm: regular rhythm Heart sounds: no gallops and no murmurs GI Palpation (GI): Soft to palpation, nontender, No hepatosplenomegaly present and no masses Auscultation: normal bowel sounds Back/Spine/Pelvis Thoracic/Lumbar Spine: thoracic and lumbar spine normal to inspection Skin General skin exam: no rashes or lesions noted Neuro General: patient oriented x3 and no focal motor deficits Cranial nerves: Yes CN's II-XII intact bilaterally Extrem General: Yes normal to inspection, Yes no clubbing, cyanosis or edema and Yes no calf tenderness Psych Appearance: grossly normal and well kempt Speech and movement: Normal speech and movement present Assessment & Plan Assessment & Plan (1) COPD (chronic obstructive pulmonary disease): Comment: CHRONIC OBSTRUCTIVE PULMONARY DISEASE, MILD TO MODERATE, IS GETTING SOMEWHAT WORSE. THE SPIROMETRY IS INDICATING THAT THE FLOW VOLUMES HAVE DECREASED COMPARED TO SPIROMETRY IN 2021. Code(s): J44.9 - Chronic obstructive pulmonary disease, unspecified Category: Medical Qualifiers: COPD type: unspecified COPD Qualified Code(s): J44.9 - Chronic obstructive pulmonary disease, unspecified Plan: EXPLAINED THE FINDINGS OF SPIROMETRY TO THE PATIENT AND HIS . WALKED IN THE HALLWAY AND THE O2 SAT REMAINED ABOVE 93%. Plan CONTINUE TO USE DULERA 200-5 2 PUFFS B.I.D. REGULARLY. ADD SPIRIVA RESPIMAT 2.5 2 INHALATIONS DAILY. ADVISED TO DO SOME BREATHING EXERCISES . 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 HE WILL BE CHECKED IN 2 MONTHS. Medications: New tiotropium bromide 2.5 mcg/actuation (Spiriva Respimat) 2 puffs inhalation QAM 30 days 4 grams 4RF COPD Coding Level of Care Code Est Pt Level 4 (58049) Diagnoses Chronic obstructive pulmonary disease, unspecified COPD type J44.9 COPD type: unspecified COPD
[2024-04-27 14:10] VITALS: BP 120/70; PULSE 92; O2SAT 96; BMI 24.5
== END 2024-04-27 15:09 | disposition home or self-care (01) ==
PROVIDERS: PCP Internal Medicine; Visit Provider Internal Medicine
DX: J44.9 Chronic obstructive pulmonary disease, unspecified (principal)
CPT/HCPCS: 99214

== ENCOUNTER → 2024-04-27 13:59 | Outpatient (BNVA) | payer MEDICARE, MEDICAID, SELFPAY | PROVIDERS: PCP Internal Medicine; Visit Provider Internal Medicine | DX: J44.9 Chronic obstructive pulmonary disease, unspecified (principal); Z87.891 Personal history of nicotine dependence | CPT/HCPCS: 99212 ==

== ENCOUNTER 2024-05-10 11:15 | Outpatient (REF) | payer MEDICARE, MEDICAID, SELFPAY ==
--- OUTSIDE RECORDS SUMMARY | 2024-05-10 12:56 | XMS_ITS | Clinical Summary ---
Author Organization [address] [address] Care Team Providers Care Orthotist Name Role Phone Unavailable Primary Care Provider Unavailabl e Encounters Date Type Department Care Team Description 03/15/2024 Scanned Document Transplantation & Immunology at [address] [place] [id number] Provider, Historical from Last 3 Months Social History Tobacco Use Types Packs/Day Years Used Date Smoking Tobacco: Never Assessed Sex and Gender Information Value Date Recorded Sex Assigned at Not on file Legal Sex Male 7:02 AM EST Gender Identity Not on file Sexual Orientation Not on file Last Filed Vital Signs Vital Sign Reading Time Taken Comments Blood Pressure - - Pulse - - Temperature - - Respiratory Rate - - Oxygen Saturation - - Inhaled Oxygen Concentration - - Weight 69.8 kg (153 lb 13 oz) 12/06/2009 12:01 A M EDT Height 172.7 cm (5' 8 ) 12/06/2009 12:01 AM EDT Body Mass Index 23.39 12/06/2009 12:01 AM EDT Plan of Treatment Upcoming Encounters Date Type Department Care Team (Late st Contact Info) Description 05/18/2024 11:30 AM EST Initial consult Transplantation & Immunology at [address] [place] [address], [place] [address] Bryon Mayorga MD [address] [place] [phone] Health Maintenance Due Date Last Done Comments HIV screening 06/05/1967 Hepatitis C screening 1972 Tetanus adult (Td q 10,TDAP once) 1974 Lipid disorder screening 1994 Colon cancer screening, Colonoscopy 06/05/1999 Diabetes screening 06/05/1999 Shingles vaccine (Shingrix) (1 of 2 - Shingrix (RZV) 2 Dose Standard Series) 2004 Pneumococcal Vaccine (50+ ye ars) (1 of 1 - PCV) 06/05/2019 Influenza vaccine 10/16/2023 Covid-19 vaccine series (1 - 2023- season) 2023 RSV Discussion (1 - 1-dose 7 5+ series) 2029 Meningococcal Vaccine Aged Out No daniel zeus eligible based on patient's age to complete this topic Procedures Procedure Name Priority Date/Time Associated Diagnosis Comments US ABDOMEN COMPLETE Routine 03/15/2024 10:01 AM EST LAB SCAN Routine 03/15/2024 9:59 AM EST from Last 3 Months Results * US Abdomen Complete (03/15/2024 10:01 AM EST) Anatomical Region Laterality Modality Abdomen, RCC Abdomen/Pelvis Ultr asound Historical Provider IMG US ORDERABLES Final Resu lt * Lab Scan (03/15/2024 9:59 AM EST) Historical Provider LAB BLOOD ORDERABLES Final R esult from Last 3 Months Insurance MEDICARE MEDICARE MEDICARE
--- OUTSIDE RECORDS SUMMARY | 2024-05-10 12:56 | XMS_ITS | Clinical Summary ---
Author Organization [employer] Address [address] [facility] 7 [place] [address] Care Team Providers Care Magnetic Tape Typewriter Operator Name Role Phone Unavailable Primary Care Provider Unavailabl e Encounters Date Type Department Care Team Description 03/11/2024 Telephone [facility] [address] [place] [address] [phone] Kasandra Alvarez BDS from Last 3 Months Social History Tobacco Use Types Packs/Day Years Used Date Smoking Tobacco: Never Assessed Sex and Gender Information Value Date Recorded Sex Assigned at Male 03/11/2024 2:34 PM EST Legal Sex Male 2:21 PM EST Gender Identity Male 03/11/2024 2:34 PM EST Sexual Orientation Straight 03/11/2024 2: 34 PM EST Plan of Treatment Health Maintenance Due Date Last Done Comments CT Colonography 1954 Colonoscopy 1954 Colorectal Cancer Screening 1954 Depression Screening 1954 FIT DNA/Cologuard 1954 FIT 1954 FOBT 1954 Lipid Panel 1954 SDOH Screening 1954 Sigmoidoscopy 1954 Alcohol/Substance Use Screening 1966 Tobacco Screening 1966 Hepatitis C Screening 1972 DTaP/Tdap/Td Vaccines (1 - Tdap) 1973 Pneumococcal Vaccine: 50+ Ye ars (1 of 1 - PCV) 2004 Zoster Vaccines (1 of 2) 2004 COVID-19 Vaccine (2023-2 5 season) 2023 Influenza Vaccine (#1) 2023 RSV Patients and Pa tients Aged 60 years or older (1 - 1-dose 75+ series) 2029 HIB Vaccines Aged Out No longer eligi ble based on patient's age to complete this topic HPV Vaccines Aged Out No longer eligi ble based on patient's age to complete this topic Hepatitis A Vaccines Aged Out No long er eligible based on patient's age to complete this topic Hepatitis B Vaccines Aged Out No long er eligible based on patient's age to complete this topic IPV Vaccines Aged Out No longer eligi ble based on patient's age to complete this topic Meningococcal Vaccine Aged Out No daniel zeus eligible based on patient's age to complete this topic RSV under 20 months Aged Out No longe r eligible based on patient's age to complete this topic Rotavirus Vaccines Aged Out No longer eligible based on patient's age to complete this topic Insurance [facility] MEDICAID STAND ADULT
--- OUTSIDE RECORDS SUMMARY | 2024-05-10 12:56 | XMS_ITS | Encounter Summary ---
Author Organization [facility] Address [address] [place] [phone] Care Team Providers Care Internet Sales Manager Name Role Phone Unavailable Primary Care Provider Unavailabl e Encounter Details Date Type Department Care Team (Late st Contact Info) Description 04/03/2012 Abstract [facility] Health Information Management [address] [place] [phone] [place], Primary Care [address] [place] [address] [place] [address] Social History Tobacco Use Types Packs/Day Years Used Date Smoking Tobacco: Never Assessed Sex and Gender Information Value Date Recorded Sex Assigned at Not on file Legal Sex Male 7:02 AM EST Gender Identity Not on file Sexual Orientation Not on file documented as of this encounter Last Filed Vital Signs Vital Sign Reading Time Taken Comments Blood Pressure - - Pulse - - Temperature - - Respiratory Rate - - Oxygen Saturation - - Inhaled Oxygen Concentration - - Weight 69.8 kg (153 lb 13 oz) 12/06/2009 12:01 A M EDT Height 172.7 cm (5' 8 ) 12/06/2009 12:01 AM EDT Body Mass Index 23.39 12/06/2009 12:01 AM EDT documented in this encounter Plan of Treatment Upcoming Encounters Date Type Department Care Team (Late st Contact Info) Description 05/18/2024 11:30 AM EST Initial consult [facility] at [address] [place] [address] Bryon Mayorga MD [address] [place], [place] [address]j[address] [address] [phone] documented as of this encounter Visit Diagnoses Not on filedocumented in this encounter
--- OUTSIDE RECORDS SUMMARY | 2024-05-10 12:56 | XMS_ITS | Patient Health Record ---
Author Organization [facility] Address [address] [place] [address] Care Team Providers Care Trim Mechanic Name Role Phone Deven Donohue MDneth Primary Care Provider Chasity borja Dalia Mcclendon Unavailable [phone] Allergies Allergen (clinical drug ingredient) Drug/Non Drug Allergy documented on EMR Reaction Allergy Type Onset Date Status Aleve burning in stomach Drug Allergy Active Ceftin upset stomach Drug Allergy Act joel ciprofloxacin Cipro upset stomach Drug Allergy Active erythromycin Erythromycin upset stomach Drug Allergy Active Levaquin Unknown Drug Allergy Active Motrin burning in stomach Drug Allergy Active Reason For Referral No Information Medications Medication SIG (Take, Route, Frequency, Duration) Notes Start Date End Date Status Dexilant 60 MG 1 capsule Orally Onc e a day Not-Taking Ventolin HFA 108 (90 Base) MCG/ACT 2 puffs as needed Inhalation every 6 hrs Active Vitamin B6 50 1 tablet Orally Once a day Active Nucynta 100 MG Orally Activ e Symbicort 160-4.5 MCG/ACT 2 puffs Inhalation Twice a day Active Cuprimine 250 MG 1 capsule on an empt y stomach Orally Once a day Active LORazepam 1 MG 1 tablet at bedtime as needed Orally Once a day Active Social History Tobacco Use: Social History Observation Description Date Details (start date - stop date) Former Smoker NA - NA Tobacco Use/Smoking Question Answer Notes Are you a: former smoker Additional Findings: Tobacco Non-User Current no n-smoker Alcohol Screen Question Answer Notes Did you have a drink containing alcohol in the p ast year? No Points 0 Interpretation Negative Tobacco use other than smoking: Question Answer Notes Are you an other tobacco user? No Problems Problem Type SNOMED Code ICD Code Onset Dates Problem Status W/U Status Risk Notes Problem Localized, primary osteoarthritis of the ankle and/or foot (046749634) Primary osteoarthrit is, left ankle and foot (M19.072) Active confirmed Problem Acquired hammer toe of right foot (1492772891654598) Other hammer toe(s) (acquired), right foot (M20.41) Active confirmed Problem Acquired hammer toe of left foot (0881058389521819) Other hammer toe(s) (acquired), left foot (M20.42) Active confirmed Plan Of Treatment Pending Test Test Name Order Date [id number] Destruction, 03-3005/03/2021 [id number]-Qcel Destruction, 03-3005/31/2021 [id number]-Hhfrkvzv Plate 10/18/2019 [id number] Plate 05/26/2017 [id number] Plate 06/19/2017 11255- Debride <25 sq cm 06/19/2017 87628 I&D ABSCESS- SIMPLE,SINGLE 020 17344, G1534-OINFC/INJECT, JOINT/BURSA 0 05/31/2021 Insurance Providers Payer Name Payer Address Payer Phone Subscriber Number Group Number Insured Name Patient Relationship to Insured Coverage Start Date Coverage End Date [employer] [address] [place] [address] [id number] Seb Lewis Self - patient is the insured Medical (General) History Medical History History ICD Code Anxiety Arthritis Back,Hip,and Knee pain Broken bones Sinus headaches COPD Reflux ( GERD) chronic sinusitis Stomach ulcer Measles Chicken pox Joint implants/screws Transfusions Tai's Disease Surgical History Surgery Date(Month/Year) sinus surgery x2 gall bladder left knee - total joint replacement right hip - total joint replacement
--- OUTSIDE RECORDS SUMMARY | 2024-05-10 12:56 | XMS_ITS | Clinical Summary ---
Author Organization [facility] Address [address] [place] [address] Care Team Providers Care Wood Veneer Taper Name Role Phone Unavailable Primary Care Provider Unavailabl e Social History Tobacco Use Types Packs/Day Years Used Date Smoking Tobacco: Never Assessed Sex and Gender Information Value Date Recorded Sex Assigned at Not on file Legal Sex Male 6:40 PM EST Gender Identity Not on file Sexual Orientation Not on file Plan of Treatment Health Maintenance Due Date Last Done Comments DTaP,Tdap,and Td Vaccines (1 - Tdap) 1973 Pneumococcal Vaccine: 50+ Ye ars (1 of 1 - PCV) 2004 Zoster Vaccines (1 of 2) 2004 COVID-19 Vaccine ( - 2023-2 5 season) 2023 Influenza Vaccine (#1) 2023 RSV Immunization Patients 60 + Years Old (1 - 1-dose 75+ series) 2029 HIB [...] on patient's age to complete this topic MMR Vaccines Aged Out No longer eligi ble based on patient's age to complete this topic Meningococcal ACWY Vaccine Aged Out N o longer eligible based on patient's age to complete this topic Meningococcal B Vacine Aged Out No lo nger eligible based on patient's age to complete this topic RSV Immunization Patients Un flory 20 months Aged Out No longer eligible b ased on patient's age to complete this topic Varicella Vaccines Aged Out No longer eligible based on patient's age to complete this topic
--- OUTSIDE RECORDS SUMMARY | 2024-05-10 12:56 | XMS_ITS | Encounter Summary ---
Author Organization [facility] Address [address] [place] [phone] Care Team Providers Care Carbon Rod Inserter Name Role Phone Unavailable Primary Care Provider Unavailabl e Encounter Details Date Type Department Care Team (Late st Contact Info) Description 10/02/2023 Scanned Document [facility] at [address] [address] Provider, Historical . Social History Tobacco Use Types Packs/Day Years Used Date Smoking Tobacco: Never Assessed Sex and Gender Information Value Date Recorded Sex Assigned at Not on file Legal Sex Male 7:02 AM EST Gender Identity Not on file Sexual Orientation Not on file documented as of this encounter Plan of Treatment Upcoming Encounters Date Type Department Care Team (Late st Contact Info) Description 05/18/2024 11:30 AM EST Initial consult Transplantation & Immunology at [address] [address] Bryon Mayorga MD [address] [phone] documented as of this encounter Procedures Procedure Name Priority Date/Time Associated Diagnosis Comments LAB SCAN Routine 09/09/2023 2:53 PM EDT documented in this encounter Results * Lab Scan (09/09/2023 2:53 PM EDT) us Historical Provider LAB BLOOD ORDERABLES Final R esult documented in this encounter Visit Diagnoses Not on filedocumented in this encounter
--- OUTSIDE RECORDS SUMMARY | 2024-05-10 12:56 | XMS_ITS | Encounter Summary ---
Author Organization [facility] Address [address] [place] [phone] Care Team Providers Care Manufacturing Mechanic Name Role Phone Unavailable Primary Care Provider Unavailabl e Reason for Referral * Imaging (Routine) - Authorized Specialty Diagnoses / Procedures Referred By Contact Referred To Contact Diagnostic Radiology Procedures US Abdomen Complete Transplantation & Immunology at [address] [address] Phone: tel: fax: Referral ID Status Reason Start Date Expiration Date V isits Requested Visits Authorized [id number] Authorized 03/15/2024 03/15/2025 1 1 Encounter Details Date Type Department Care Team (Late st Contact Info) Description 03/15/2024 Scanned Document [facility] at [address] [address] ProviderDaisy . Social History Tobacco Use Types Packs/Day [...] consult [facility] at [address] [address] Bryon Mayorga MD [address] [phone] documented as of this encounter Procedures Procedure Name Priority Date/Time Associated Diagnosis Comments US ABDOMEN COMPLETE Routine 03/15/2024 10:01 AM EST LAB SCAN Routine 03/15/2024 9:59 AM EST documented in this encounter Results * US Abdomen Complete (03/15/2024 10:01 AM EST) Anatomical Region Laterality Modality Abdomen, RCC Abdomen/Pelvis Ultr asound us Historical Provider IMG US ORDERABLES Final Resu lt * Lab Scan (03/15/2024 9:59 AM EST) us Historical Provider LAB BLOOD ORDERABLES Final R esult documented in this encounter Visit Diagnoses Not on filedocumented in this encounter
--- OUTSIDE RECORDS SUMMARY | 2024-05-10 12:56 | XMS_ITS ---
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 Inhalation for 25 as needed Active LORazepam 1 MG Oral for 30 as needed Act joel Cuprimine 250 MG 1 capsule on an empt y stomach Orally Once a day for 30 day(s) Active Vitamin B6 50 MG 1 tablet Orally for 30 day(s) Active Ventolin HFA 108 (90 Base) MCG/ACT 1 puff as needed Inhalation every 4 hrs Active Losartan Potassium 100 MG 1 tablet Orally Once a day Active Nucynta 100 MG Oral for 15 Act joel IMMUNIZATIONS Vaccine Route Administration Date Status Comme nts Influenza Unknown 04/26/2024 Refused SOCIAL HISTORY Tobacco Use: Social History Observation Description Date Details (start date - stop date) Never Smoker NA - NA Sex Assigned At : Social History Observation Description Sex Assigned At Unknown Tobacco Use/Smoking Question Answer Notes Patient is a nonsmoker Alcohol Screen Question Answer Notes Did you have a drink containing alcohol in the p ast year? No Points 0 Interpretation Negative PROBLEMS Problem Type ICD Code Onset Dates Problem Status W/U Status Risk SNOMED Code Notes Problem Pancreatic cyst (K86.2) Active confirmed 29165038 Problem Elevated LFTs (R79.89) Active confirmed 884692859 VITAL SIGNS Temperature 97.9 degrees Fahrenheit 04/26/19 25 Blood pressure systolic 000 mm Hg 04/26/19 25 Blood pressure diastolic 00 mm Hg 025 Height 66 in 04/26/2024 Weight 160 lbs 04/26/2024 BMI 25.82 kg/m2 04/26/2024 Encounters Encounter Location Date Provider Diagnosis [facility] [address] [place] [address] 04/26/2024 Juan Melara Jr Pancreatic cyst K86.2 ; Elevated LFTs R79.89 ; Change in bowel function R19.8 and 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 ASSESSMENTS Encounter Date Diagnosis Assessment Notes Treatment Notes Treatment Clinical Notes 04/26/2024 Pancreatic cyst (ICD-10 - K86.2) 04/26/2024 Elevated LFTs (ICD-10 - R79.89) 04/26/2024 Change in bowel function (ICD-10 - R19.8) 04/26/2024 Wilsons disease (ICD-10 - E83.01) PLAN OF TREATMENT Pending Test Test Name Order Date LIVER PROFILE 04/26/2024 CBC w/o DIFF 04/26/2024 HEPATITIS A,B,C PROFILE 04/26/2024 CERULOPLASMIN 04/26/2024 MITOCHONDRIAL AB 04/26/2024 SMOOTH MUSCLE ANTIBODIES 04/26/2024 MRI ABD W&WO CONTRAST 04/26/2024 Liver Fibrosis Pnl 04/26/2024 SAMANTHA Reflex Titer and Pattern 04/26/2024 Next Appt Details Follow Up: 1 Year, Reason: Provider Name:Juan hickman Jr, 04/28/2025 01:15:00 PM, [address], [address], [place], [address],
--- OUTSIDE RECORDS SUMMARY | 2024-05-10 12:57 | XMS_ITS | Patient Health Record ---
Author Organization [facility] Address [address] [place] [address] Care Team Providers Care Wardrobe Coordinator Name Role Phone Charanjit MONROE, [place] Primary Care Provider Juan Kraus Jr Unavailable [phone] ALLERGIES Allergen (clinical drug ingredient) Drug/Non Drug Allergy documented on EMR Reaction Allergy Type Onset Date Status Non-steroidal anti-inflammatory agent (FN) NSAIDs sensitvity to stomach Drug Allergy Active ciprofloxacin Cipro sensitivity to stomach Drug Allergy Active REASON FOR REFERRAL No Information MEDICATIONS Medication SIG (Take, Route, Frequency, Duration) Notes Start Date End Date Status Cuprimine 250 MG 1 capsule on an empt y stomach Orally Once a day for 30 day(s) Active Vitamin B6 50 MG 1 tablet Orally for 30 day(s) Active Ventolin HFA 108 (90 Base) MCG/ACT 1 puff as needed Inhalation every 4 hrs Active Albuterol Sulfate HFA 108 (90 Base) MCG/ACT INHALE 2 PUFFS INTO THE LUNGS EVERY 6 HOURS NEEDED FOR SHORTNESS OF BREATH OR WHEEZING. Inhalation for 25 as needed Active LORazepam 1 MG Oral for 30 as needed Act joel Losartan Potassium 100 MG 1 tablet Orally Once a day Active Nucynta 100 MG Oral for 15 Act joel IMMUNIZATIONS Vaccine Route Administration Date Status Comme nts Influenza Unknown 09/20/2021 Refused Influenza Unknown 04/26/2024 Refused SOCIAL HISTORY Tobacco [...] W/U Status Risk SNOMED Code Notes Problem Epigastric pain (R10.13) Active confirmed 00867446 Problem Elevated LFTs (R79.89) Active confirmed 104139970 Problem Gastric polyps (K31.7) Active confirmed Benign neoplasm of stomach (32827478) Problem Pancreatic cyst (K86.2) Active confirmed 40000642 Problem Gastritis (K29.70) Active confirmed Gastritis (5211675) Problem Change in bowel function (R19.8) Active confirmed 35063531 Problem 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 85781951 VITAL SIGNS Temperature 97.9 degrees Fahrenheit 04/26/2024 Blood pressure diastolic 00 mm Hg 04/26/2024 Height 66 in 04/26/2024 Blood pressure systolic 000 mm Hg 04/26/2024 Weight 160 lbs 04/26/2024 BMI 25.82 kg/m2 04/26/2024 Encounters Encounter Location Date Provider Diagnosis [facility] [address] [place] [address] 04/26/2024 Juan Melara Jr Pancreatic cyst K86.2 ; Elevated LFTs R79.89 ; Change in bowel function R19.8 and 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 ASSESSMENTS Encounter Date Diagnosis Assessment Notes Treatment Notes Treatment Clinical Notes 04/26/2024 Elevated LFTs (ICD-10 - R79.89) 04/26/2024 Pancreatic cyst (ICD-10 - K86.2) 04/26/2024 Change in bowel function (ICD-10 - R19.8) 04/26/2024 Wilsons disease (ICD-10 - E83.01) PLAN OF TREATMENT Pending Test Test Name Order Date LIVER PROFILE 04/26/2024 CBC w/o DIFF 04/26/2024 HEPATITIS A,B,C PROFILE 04/26/2024 CERULOPLASMIN 04/26/2024 MITOCHONDRIAL AB 04/26/2024 SMOOTH MUSCLE ANTIBODIES 04/26/2024 MRI ABD W&WO CONTRAST 10/25/2021 MRI ABD W&WO CONTRAST 04/26/2024 US ABD 09/20/2021 Liver Fibrosis Pnl 04/26/2024 SAMANTHA Reflex Titer and Pattern 04/26/2024 Future Test Test Name Order Date UPPER GI ENDOSCOPY 09/20/2021 COLONOSCOPY 09/20/2021 Next Appt Details Provider Name:Juan Elizabeth hickman Jr, 04/28/2025 01:15:00 PM, [address] [facility], [address], [place], [address], Insurance Providers Payer Name Payer Address Payer Phone Subscriber Number Group Number Insured Name Patient Relationship to Insured Coverage Start Date Coverage End Date MEDICARE OF [place] [address] [place] [id number] [place] Self - patient is the insured MED[employer] ATT[employer] CLAIMS [address] [place] [address] [phone] [id number] [place] Self - patient is the insured MEDICAID OF [facility] [address] [place] [phone] [id number] [place] Self - patient is the insured MEDICAL (GENERAL) HISTORY Medical History History ICD Code hypertension Pneumothorax COPD Anxiety/depression Gastroesophageal reflux dise ase, EGD 11/05, no Cortes's esophagus or H. pylori Disc disease/osteoarthritis Colonoscopy 11/05, normal including biops ies, ten-year followup Surgical History Surgery Date(Month/Year) T&A Left inguinal hernia repair x2 cholecystectomy Sinus surgery total right hip replacement total left and right knee replacements basal cell removal
[2024-05-10 13:46] LABS: MANUAL DIFF FLAG NO
[2024-05-10 13:58] LABS: Eosinophils Absolute Auto 0.1 X10*3/uL (0.0-0.4); Eosinophils Percent Auto 1.4 % (0-4); Hematocrit 43.4 % (42.0-52.0); Hemoglobin 14.4 g/dl (14.0-18.0); Imm Gran Abs Auto 0.02 X10*3/uL (0.00-0.03); Imm Gran Pct Auto 0.3 % (0.0-0.4); Lymphocytes Absolute Auto 1.8 X10*3/uL (1.2-4.9); Mean Corpuscular HGB Conc 33.2 g/dl (31.0-36.0); Mean Corpuscular Hemoglobin 31.2 pg (27.0-33.0); Mean Corpuscular Volume 93.9 fL (80.0-98.0); Mean Platelet Volume 9.5 fL (9.4-12.4); Monocytes Absolute Auto 0.6 X10*3/uL (0.1-1.2); Monocytes Percent Auto 8.8 % (2-11); Neutrophils Absolute Auto 3.8 x10*3/uL (2.0-8.3); Neutrophils Percent Auto 60.5 % (45-73); Platelet Count 262 X10*3/uL (160-400); Red Blood Count 4.62 X10*6/uL (4.60-5.80); Red Cell Distribution Width 13.2 % (11.0-16.0); White Blood Count 6.2 X10*3/uL (4.8-10.8)
[2024-05-10 14:01] LABS: Appearance Urine Clear; Color Urine Yellow; Glucose Urine UA Negative (Negative); Leukocyte Esterase Urine Negative (Negative); Nitrite Urine Negative (Negative); Urine Blood Negative (Negative); Urine Ketones Negative (Negative); Urine Protein Trace mg/dL (Neg-Trace)
[2024-05-10 14:23] LABS: TSH reflex Free T4 1.21 uIU/mL (0.32-4.0); Vitamin D 25-OH Total 60.7 ng/mL (>30)
[2024-05-10 14:27] LABS: HBc Num1 0.46 S/CO (0.00-0.79); HBsAGNum1 0.42 S/CO (0.00-0.99); Hepatitis A Antibody IgM 0.22 Index (0-0.79); Hepatitis B Core Antibody Nonreactive (Nonreactive); Hepatitis B Surface Antigen Negative (Negative); ~HepC Num1 0.36 S/CO (0.00-0.79); ~Hepatitis A Antibody IgM Nonreactive (Nonreactive); ~Hepatitis B Surface Antibody NONREACTIVE (Nonreactive); ~Hepatitis C Antibody Nonreactive (Nonreactive)
[2024-05-10 17:11] LABS: Alanine Aminotransferase 64 U/L (0-40); Albumin Level 3.7 g/dL (3.5-5.0); Anion Gap 11 (12-20); Aspartate Amino Transferase 42 U/L (5-37); Bilirubin Direct 0.2 mg/dL (0.0-0.5); Bilirubin Total 0.7 mg/dL (0.0-1.0); Blood Urea Nitrogen 22 mg/dL (9-16); Calcium 9.2 mg/dL (8.4-10.2); Carbon Dioxide 27 mmol/L (22-29); Chloride 108 mmol/L (96-108); Cholesterol 143 mg/dL (<200); Estimated Glomerular Filt Rate 53; Glucose Fasting 101 mg/dL (60-99); HDL Cholesterol 53 mg/dL (>40); LDL Cholesterol Calculated 72 mg/dL (<100); Potassium 4.4 mmol/L (3.3-5.1); Sodium 142 mmol/L (135-145); Total Protein 7.2 g/dL (6.5-8.0); Triglycerides 91 mg/dL (<150)
[2024-05-10 17:12] LABS: Alkaline Phosphatase 101 U/L (39-117)
[2024-05-11 10:04] LABS: Ceruloplasmin 14 mg/dL (14-30)
[2024-05-12 22:49] LABS: Smooth Muscle Antibody <20 U (<20)
[2024-05-12 23:03] LABS: Copper, serum 68 mcg/dL (70-175)
[2024-05-13 10:58] LABS: Anti Nuclear Antibody Screen NEGATIVE (NEGATIVE)
[2024-05-13 12:13] LABS: Mitochondrial Antibodies NEGATIVE (NEGATIVE)
[2024-05-15 20:49] LABS: FIB-ALT 42 U/L (9-46); FIB-Alpha-2-Macroglobulin 387 mg/dL (106-279); FIB-Apolipoprotein A1 162 mg/dL (94-176); FIB-GGT 61 U/L (3-70); FIB-Haptoglobin 139 mg/dL (43-212); FIB-Total Bilirubin 0.6 mg/dL (0.2-1.2); Liver Fibrosis Score 0.69; Liver Fibrosis Stage F3; Nec Inflam Act Grade A1; Nec Inflam Act Score 0.36; Reference ID 5361894
== END 2024-05-10 11:16 | disposition home or self-care (01) ==
LOC: HO.HMGCLDS 11:15
PROVIDERS: PCP Internal Medicine; Referring Provider Internal Medicine Gastroenterology; Visit Provider Internal Medicine
DX: R30.0 Dysuria (principal); E78.00 Pure hypercholesterolemia, unspecified; E55.9 Vitamin D deficiency, unspecified; E83.01 Wilson's disease; K86.2 Cyst of pancreas; R79.89 Other specified abnormal findings of blood chemistry
CPT/HCPCS: 36415; 80053; 80061; 80076; 81003; 81596; 82248; 82306; 82390; 82525; 84443; 85025; 86015; 86038; 86381; 86704; 86706; 86709; 86803; 87340

== ENCOUNTER 2024-05-31 15:56 | Outpatient (AMB) | payer MEDICARE, MEDICAID, SELFPAY ==
[2024-05-31 15:57] VITALS: BP 126/84; PULSE 92; O2SAT 92; BMI 24.2
--- NOTE | 2024-05-31 15:57 | A.OFFPC_ITS ---
Vital Signs 05/31/24 15:57 Height 5 ft 8 in Weight 159 lb 4 oz BMI 24.2 BP 126/84 Blood Pressure Location Lt brachial Position Sitting Pulse 92 Pulse Source Pulse Oximeter Pulse Oximetry (%) 92 Oxygen Delivery Method Room Air Intake Visit Reasons: Tai's Disease, COPD, OA Sidehand Required: No Accompanied by: Self / Same As Patient Allergies duloxetine [From Cymbalta] Allergy (Unknown, Verified 05/31/24 16:17) increased hot flashes and leg cramps clavulanic acid [Augmentin] Adverse Reaction (Unknown, Verified 05/31/24 16:17) upset stomach gabapentin Adverse Reaction (Unknown, Verified 05/31/24 16:17) bilateral eye pains Medication List - Last Reconciled 05/31/24 by VIGNESH Potter albuterol sulfate 0.63 mg (3 mL) inhalation QID PRN albuterol sulfate 90 mcg/actuation 2 puffs inhalation Q6H PRN 30 days lorazepam 1 mg PO TID PRN 30 days losartan 50 mg PO BID mometasone-formoterol 200-5 mcg/actuation (Dulera) 2 puffs inhalation BID 30 days multivitamin (Daily Multi-Vitamin tablet) 1 tab PO DAILY penicillamine 250 mg PO BID 90 days pyridoxine (vitamin B6) 25 mg PO DAILY tapentadol (Nucynta) 100 mg PO Q6H PRN 15 days tiotropium bromide 2.5 mcg/actuation (Spiriva Respimat) 2 puffs inhalation QAM 30 days tizanidine 4 mg PO Q8H PRN 10 days Tobacco use date assessed: 05/31/24 Fall risk assessment: No Falls in past year Last assessed Fall Risk: 05/31/24 Dental Screening Dental Screen Date: 05/31/24 Did you have a dental visit in the last 12 months?: Yes Did you have a dental problem in the last 6 months where you did not have access to dental care?: No Was dental information given to patient?: Patient has dentist HPI Tai's Disease, COPD, OA HPI Details The patient is a 68-year-old male is presenting follow up of chronic conditions Patient reports that overall he is feeling okay Reports that he would like his right ear checked because he lost the tip of his hearing aide and after going to the urgent care for ear impaction and they used a Q-tip in his ears, he wants to make sure that the tip of his hearing aide was not stuck in his ear-and was pushed in farther The patient reports that he is seeing a specialist in [facility] for his Tai's Disease and is requesting that the labs that this specialist recommended be ordered due to insurance constraints-theses labs might not be able to be ordered in [place] The patient reports that the tip of his left nipple feels like a paper cut sensation . Reports that he had this in the past a long time ago and they did a mammogram with benign findings but he is not sure of what they said the diagnosis was-historical visits are not loading at the time The patient also reports that he went to [facility] and they found basal cell carcinoma on his right mid back and left neck area-these areas were removed. Recent labs were reviewed with patient. Reports ongoing shortness of breath but no different from his regular COPD He denies chest pain, heart palpitation, or dizziness He denies any change in his bowels habits or urinary symptoms [facility] Medical History COPD exacerbation Bronchitis Cough Benign essential hypertension Urinary frequency Anxiety Pancreatic cyst GERD without esophagitis Primary osteoarthritis involving multiple joints Lumbar degenerative disc disease Tai's disease COPD (chronic obstructive pulmonary disease) Surgical History Hx of colonoscopy History of total left hip arthroplasty (~02/25/22) H/O right knee surgery History of arthroscopy of left knee History of right hip replacement History of tonsillectomy and adenoidectomy H/O hernia repair H/O nasal polypectomy History of cholecystectomy Family History Father No problems noted. Mother No problems noted. Social History Housing: House Alcohol intake: never Patient Tobacco Use Status: Former Tobacco user e-Cigarette/Vaping Use: Never Used Second Hand Smoke Exposure: No service: Yes ([employer]) Current occupational status: retired Cognitive needs: No Hearing needs: Yes (hearing aide) Vision needs: Yes (Glasses) Questionnaire PHQ-9 Over the last 2 weeks, how often have you been bothered by any of the following problems? 1. Little interest or pleasure in doing things: not at all 2. Feeling down, depressed, or hopeless: not at all 3. Trouble falling or staying asleep, or sleeping too much: not at all 4. Feeling tired or having little energy: not at all 5. Poor appetite or overeating: not at all 6. Feeling bad about yourself - or that you are a failure or have let yourself or your family down: not at all 7. Trouble concentrating on things, such as reading the newspaper or watching television: not at all 8. Moving or speaking so slowly that other people could have noticed. Or the opposite - being so fidgety or restless that you have been moving around a lot more than usual: not at all 9. Thoughts that you would be better off or of hurting yourself in some way: not at all Total score: 0 Depression Screening Interpretation: Negative Depression Screening Done: Yes 95460 - PHQ-9 Billing: Yes Source: Developed by Drs. Jacinto Fields, Abbie Villanueva, Reji Xavier and colleagues, with an educational celio from [employer]. Thrive Questionnaire Date Thrive assessed: 05/31/24 I am a: Patient What is your living situation today?: I have a steady place to live Within the past 12 months, did the food you bought not last and you didn't have the money to get more?: Never true Within the past 12 months, did you worry whether your food would run out before you got money to buy more?: Never true Do you have trouble paying for medicines?: No Do you have trouble getting transportation to medical appointments?: No Do you have trouble paying your heating and electricity bill?: No Do you have trouble taking care of your child, family member or friend?: No Do you have trouble with day-to-day activities such as bathing, preparing meals, shopping, managing finances, etc.?: No Are you currently unemployed and looking for a job?: No Are you interested in more education?: No Please select the resources that you would like help with: None Currently or been in a relationship where the following occur: No concerns reported THRIVE Score: 0 AUDIT C Alcohol Use Questionnaire (AUDIT-C) 1. How often do you have a drink containing alcohol?: Never 3. How often do you have six or more drinks on one occasion?: Never Total Score: 0 Score Reviewed/Action Taken: Yes HARITHA-7 AMB Questionnaire HARITHA-7 Date HARITHA - 7 assessed: 05/31/24 Feeling nervous, anxious, or on edge: 0 = Not at all Not being able to stop or control worryin = Not at all Worrying too much about different things: 0 = Not at all Trouble relaxin = Not at all Being so restless that it is hard to sit still: 0 = Not at all Becoming easily annoyed or irritable: 0 = Not at all Feeling afraid as if something awful might happen: 0 = Not at all Total HARITHA-7 score (0-4 normal; 5-9 mild; 10-14 moderate; 15-21 severe): 0 Source: Developed by Drs. Jacinto Fields, Abbie Villanueva, Reji Xavier and colleagues, with an educational celio from [employer]. HARITHA-7 Assessment Billing HARITHA-7 Assessment Tool: HARITHA-7 Assessment 19839 Review of Systems Const Denies headache(s) Eyes Denies loss of vision ENT Denies vertigo, Denies dizziness, Denies headache(s) and Denies sore throat Card Denies chest pain, Denies leg edema, Denies lightheadedness and Reports dyspnea on exertion (chronic) Resp Denies cough, Denies hemoptysis, Reports dyspnea on exertion (chronic) and Denies wheezing GI Denies abdominal pain, Denies melena, Denies constipation, Denies diarrhea and Denies vomiting Denies dysuria, Denies urinary frequency and Denies urinary urgency Musc Reports back pain, Reports arthralgias (multiple joints), Denies joint swelling, Denies numbness and Denies tingling Neuro Denies Abnormal speech present, Denies behavioral changes, Denies vertigo, Denies dizziness, Denies headache(s), Denies loss of vision, Denies memory loss, Denies numbness and Denies tingling Psych Denies anxiety, Denies behavioral changes, Denies depression, Denies memory loss and Denies panic attacks West/Lymph Denies easy bleeding and Denies easy bruising Aller/Immun Denies wheezing Physical exam (Primary Care) Vital Signs: Last Vital Signs Pulse 92 05/31/24 15:57 BP 126/84 05/31/24 15:57 Pulse Ox 92 05/31/24 15:57 Oxygen Delivery Method Room Air 05/31/24 15:57 BMI result Body Mass Index 24.2 Tobacco/Smoking Status: Tobacco use Status Tobacco use date assessed 05/31/24 05/31/24 16:07 Patient Tobacco Use Status Former Tobacco user 05/31/24 16:07 e-Cigarette/Vaping Use Never Used 05/31/24 16:07 PHQ-9: PHQ-9 Score PHQ-9: Total score 0 05/31/24 16:35 Depression Screening Interpretation: Negative Thrive Assessment: Date of Thrive Assessment Date Thrive assessed 05/31/24 05/31/24 16:07 Currently or been in a relationship where the following occur: No concerns reported Const General: healthy appearing, no acute distress, alert and awake Nutritional Appearance: well nourished Orientation/consciousness: oriented to person, oriented to place and oriented to time HENMT Ears: TM's normal bilaterally General nose exam: Normal nasal mucous membranes and turbinates present Eyes Conjunctivae: conjunctivae normal Sclerae: sclerae normal Pupils: Equal, round and reactive pupils present Neck Neck: Yes no lymphadenopathy and Yes no JVD Thyroid: Thyroid normal Carotids: no bruits Resp Effort & Inspection: normal respiratory effort and not tachypneic Auscultation: no crackles, no rales, no rhonchi and no wheezes Cardio Rate: regular rate Rhythm: regular rhythm Heart sounds: no murmurs and normal S1 and S2 GI Palpation (GI): Soft to palpation, nontender, no hepatomegaly and no splenomegaly Auscultation: normal bowel sounds Back/Spine/Pelvis Cervical Spine: Cervical spine tenderness Thoracic/Lumbar Spine: lumbar spinal tenderness Skin General skin exam: no rashes or lesions noted and dry skin Neuro General: oriented to person, oriented to place and oriented to time Cranial nerves: Yes Equal, round and reactive pupils present Speech: No Abnormal speech present Gait exam (Neuro): Normal gait present Motor exam (neuro): no tremor noted Extrem Right upper extremity: full ROM Left upper extremity: full ROM Right lower extremity: full ROM; no edema Left lower extremity: full ROM; no edema Psych Mental Status: mental status grossly normal Speech and movement: Normal speech and movement present Affect: normal affect Attitude: cooperative Thought process: Normal thought process present Results Reviewed Results Reviewed: Laboratory Tests 05/10/24 05/10/24 05/10/24 11:25 11:28 11:38 WBC 6.2 RBC 4.62 Hgb 14.4 Hct 43.4 Plt Count 262 Sodium 142 Potassium 4.4 Chloride 108 BUN 22 H Creatinine 1.33 Estimated GFR 53 Fasting Glucose 101 H Total Bilirubin 0.7 Direct Bilirubin 0.2 AST 42 H ALT 64 H Alkaline Phosphatase 101 Liver GGT 61 Liver Total Bilirubin 0.6 Liver Apolipoprotein A1 162 Liver Fibrosis ALT 42 Liver x-4-[id number] 387 H Liver Haptoglobin 139 Liver Fibrosis Score 0.69 Ceruloplasmin 14 Triglycerides 91 Cholesterol 143 LDL Cholesterol, Calc 72 HDL Cholesterol 53 25-OH Vitamin D Total 60.7 TSH 1.21 Urine Color Yellow Urine Appearance Clear Urine pH 6.0 Ur Specific [place] 1.020 Urine Protein Trace Urine Glucose (UA) Negative Urine Ketones Negative Urine Blood Negative Urine Nitrite Negative Ur Leukocyte Esterase Negative Coding Level of Care Code Est Pt Level 4 (78148) Diagnoses Elevated LFTs R79.89 Basal cell carcinoma (BCC) of skin of neck C44.41 Basal cell carcinoma location: neck Benign essential hypertension I10 GERD without esophagitis K21.9 Primary osteoarthritis involving multiple joints M89.49 Degeneration of intervertebral disc of lumbar region with discogenic back pain M51.360 Disc-related pain type: discogenic back pain only Tai's disease E83.01 Chronic obstructive pulmonary disease, unspecified COPD type J44.9 COPD type: unspecified COPD Additional Codes PHQ-9 - 53250 - PHQ-9 Billing: Yes ([id number]) HARITHA-7 Assessment Billing - HARITHA-7 Assessment Tool: HARITHA-7 Assessment 30687 ([id number]) Time Spent (min) 45 Assessment & Plan Assessment & Plan (1) Elevated LFTs: Code(s): R79.89 - Other specified abnormal findings of blood chemistry Category: Medical Plan: Discussed the patient the slightly elevated liver enzymes. Reinforced the patient to stay away from things that are going to add more stress to the liver, Alcohol, tylenol etc,. Will recheck LFTs in 3 months (2) Basal cell carcinoma (BCC): Code(s): C44.91 - Basal cell carcinoma of skin, unspecified Category: Medical Qualifiers: Basal cell carcinoma location: neck Qualified Code(s): C44.41 - Basal cell carcinoma of skin of scalp and neck Plan: Reports that basal cell carcinoma was found on his right mid back and left neck area. These areas were removed at [facility]. Follow up with Dermatology as scheduled (3) Benign essential hypertension: Code(s): I10 - Essential (primary) hypertension Category: Medical Plan: Encouraged DASH diet and activity as tolerated. Refrain from alcohol use and if you smoke, smoking cessation is strongly advised Continue on Losartan 50 bid (4) GERD without esophagitis: Code(s): K21.9 - Gastro-esophageal reflux disease without esophagitis Category: Medical Plan: Do not eat meals or drink carbonated beverages within 3 hr of bedtime Decrease the amount of fried, fatty, and spicy foods to decrease gastric acid production Raise the head of the bed using 4 to 6-inch blocks, especially if nocturnal symptoms are present Lose weight if indicated; avoid tight-fitting clothing, especially around the waist Avoid foods that relax the Lower esophageal sphincter (chocolate, peppermint, high-fat foods etc.,) (5) Primary osteoarthritis involving multiple joints: Code(s): M89.49 - Other hypertrophic osteoarthropathy, multiple sites Category: Medical Plan: Set realistic goals (e.g., start walking 10 min 3 times a wk with eventual goal to be 30 min 3 times a wk Weight loss of at 10%, if indicated Rest joint 12 to 24 hr with acute pain, then resume ROM and exercise (especially aquatic exercise) Consider PT for suggestion of specific aerobic and strengthening exercises and OT for help with ADLs May use of items such as cane, knee brace, thumb splint (6) Lumbar degenerative disc disease: Comment: Has received lumbar spine injections from [facility] in the past with little relief Code(s): M51.36 - Other intervertebral disc degeneration, lumbar region Category: Medical Qualifiers: Disc-related pain type: discogenic back pain only Qualified Code(s): M51.360 - Other intervertebral disc degeneration, lumbar region with discogenic back pain only Plan: Reinforced activity and weight-lifting restrictions Avoid aggravating activities that worsens symptoms Balance activity with rest to allow the spine to heal Apply heat or cold pack to reduce pain and inflammation (7) 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 Reports that he is seeing a specialist in [facility]. He requested for the labs the specialist recommended be ordered. (8) COPD (chronic obstructive pulmonary disease): Comment: CHRONIC OBSTRUCTIVE PULMONARY DISEASE, MILD TO MODERATE, IS GETTING SOMEWHAT WORSE. THE SPIROMETRY IS INDICATING THAT THE FLOW VOLUMES HAVE DECREASED COMPARED TO SPIROMETRY IN 2021. Code(s): J44.9 - Chronic obstructive pulmonary disease, unspecified Category: Medical Qualifiers: COPD type: unspecified COPD Qualified Code(s): J44.9 - Chronic obstructive pulmonary disease, unspecified Plan: Lifestyle modifications like smoking cessation. Wear a mask when around irritants, fumes, or particulate matter (e.g., painting, lawn mowing). Increase humidification at home, especially in the winter. Annual flu shots and the p neumonia shot can mitigate exacerbation. Increase fluids if not contraindicated because of heart failure. continues albuterol sulfate 0.63 mg inhalation q.i.d. p.r.n., albuterol sulfate 90 mcg/actuation 2 puffs inhalation q.6H p.r.n., Mometasone-Formoterol 200- 5mcg/actuation 2 puffs inhalation BID, tiotropium bromide 2.5 mcg/actuation 2 puffs inhalation Qam Plan Patient follow up in 4 months. Labs were ordered for 3 months in order to be completed in time before his appt with the specialist Orders: Orders Ceruloplasmin 3 Months E83.01 - Tai's disease, F41.9 - Anxiety disorder, unspecified, H40.9 - Unspecified glaucoma, J44.1 - Chronic obstructive pulmonary disease with (acute) exacerbation, K21.9 - Gastro-esophageal reflux disease without esophagitis, R79.89 - Other specified abnormal findings of blood chemistry Copper, serum 3 Months E83.01 - Tai's disease, F41.9 - Anxiety disorder, unspecified, H40.9 - Unspecified glaucoma, J44.1 - Chronic obstructive pulmonary disease with (acute) exacerbation, K21.9 - Gastro-esophageal reflux disease without esophagitis, R79.89 - Other specified abnormal findings of blood chemistry PSA,Total (Free>4and<10) 3 Months Z00.00 - Encounter for general adult medical examination without abnormal findings Copper, 24hr Urine Today E83.01 - Tai's disease Complete Blood Count Auto Diff 3 Months E83.01 - Tai's disease, F41.9 - Anxiety disorder, unspecified, H40.9 - Unspecified glaucoma, J44.1 - Chronic obstructive pulmonary disease with (acute) exacerbation, K21.9 - Gastro- esophageal reflux disease without esophagitis, R79.89 - Other specified abnormal findings of blood chemistry Comprehensive [place]. Panel Fast 3 Months E83.01 - Tai's disease, F41.9 - Anxiety disorder, unspecified, H40.9 - Unspecified glaucoma, J44.1 - Chronic obstructive pulmonary disease with (acute) exacerbation, K21.9 - Gastro- esophageal reflux disease without esophagitis, R79.89 - Other specified abnormal findings of blood chemistry Lipid Panel 3 Months E83.01 - Tai's disease, F41.9 - Anxiety disorder, unspecified, H40.9 - Unspecified glaucoma, J44.1 - Chronic obstructive pulmonary disease with (acute) exacerbation, K21.9 - Gastro-esophageal reflux disease without esophagitis, R79.89 - Other specified abnormal findings of blood chemistry UA CC w/rflx Micro + Cult 3 Months E83.01 - Tai's disease, F41.9 - Anxiety disorder, unspecified, H40.9 - Unspecified glaucoma, J44.1 - Chronic obstructive pulmonary disease with (acute) exacerbation, K21.9 - Gastro-esophageal reflux disease without esophagitis, R79.89 - Other specified abnormal findings of blood chemistry TSH reflex Free T4 3 Months E83.01 - Tai's disease, F41.9 - Anxiety disorder, unspecified, H40.9 - Unspecified glaucoma, J44.1 - Chronic obstructive pulmonary disease with (acute) exacerbation, K21.9 - Gastro-esophageal reflux disease without esophagitis, R79.89 - Other specified abnormal findings of blood chemistry Vitamin D 25-OH Total 3 Months E83.01 - Tai's disease, F41.9 - Anxiety disorder, unspecified, H40.9 - Unspecified glaucoma, J44.1 - Chronic obstructive pulmonary disease with (acute) exacerbation, K21.9 - Gastro-esophageal reflux disease without esophagitis, R79.89 - Other specified abnormal findings of blood chemistry Prothrombin Time INR 3 Months E83.01 - Tai's disease
--- OUTSIDE RECORDS SUMMARY | 2024-05-31 18:19 | XMS_ITS | Encounter Summary ---
Author Organization [facility] and [facility] Address [address] [place] [address] Care Team Providers Care Collection Systems Modeler Name Role Phone Unavailable Primary Care Provider Unavailabl e Encounter Details Date Type Department Care Team (Late st Contact Info) Description 10/02/2023 Scanned Document [facility] at [address] [place] [id number] Provider, [facility] . Social History Tobacco Use Types Packs/Day Years Used Date Smoking Tobacco: Never Assessed Sex and Gender Information Value Date Recorded Sex Assigned at Not on file Legal Sex Male 7:02 AM EST Gender Identity Not on file Sexual Orientation Not on file documented as of this encounter Plan of Treatment Upcoming Encounters Date Type Department Care Team (Late st Contact Info) Description 11/23/2024 1:30 PM EDT Office Visit [facility] at [address] [place] [id number] Bryon Mayorga MD [address] [place] [phone] documented as of this encounter Procedures Procedure Name Priority Date/Time Associated Diagnosis Comments LAB SCAN Routine 09/09/2023 2:53 PM EDT documented in this encounter Results * Lab Scan (09/09/2023 2:53 PM EDT) us Historical Provider LAB BLOOD ORDERABLES Final R esult documented in this encounter Visit Diagnoses Not on filedocumented in this encounter
--- OUTSIDE RECORDS SUMMARY | 2024-05-31 18:19 | XMS_ITS | Clinical Summary ---
Author Organization [address] Address [address] [place] [phone] Care Team Providers Care Alignment Technician Name Role Phone Unavailable Primary Care Provider Unavailabl e Medications pyridoxine, vitamin B6, (VITAMIN B-6) 50 mg tablet Take 1 tablet (50 mg total) by mouth daily. Active NUCYNTA 100 mg tablet TAKE 1 TABLET ORALLY EVERY 6 HOURS NEEDED FOR PAIN FOR 15 DAYS Active DULERA 200-5 mcg/actuation inhaler Inhale 2 puffs into the lungs. 11/21/2023 Active albuterol sulfate 90 mcg/actuation HFA aerosol inhaler Inhale 2 puffs into the lungs every 6 (six) hours as needed. Active penicillAMINE (CUPRIMINE) 250 mg capsule Take 1 capsule (250 mg total) by mouth daily. Active SPIRIVA RESPIMAT 2.5 mcg/actuation mist for inhalation INHALE 2 PUFFS EVERY MORNING FOR COPD FOR 30 DAYS 05/05/2024 Active losartan (COZAAR) 50 mg tablet Take 1 tablet (50 mg total) by mouth. 02/16/2024 Active Encounters Date Type Department Care Team Description 05/18/2024 11:30 AM EST Initial consult Trans[facility] & [facility]ology at [address] [place] [address], [place] [address] Bryon Mayorga MD Tai's disease (HC Code) (Primary Dx); Disorder of copper metabolism, unspecified (HC Code) 03/15/2024 Scanned Document [facility] at [address] [place] [id number] Provider, Historical from Last 3 Months Social History Tobacco Use Types Packs/Day Years Used Date Smoking Tobacco: Former Pipe Smokeless Tobacco: Never Alcohol Use Standard Drinks/Week Comments Never 0 (1 standard drink = 0.6 oz pur e alcohol) Interpersonal Safety Answer Date Record ed Is there anyone in your life that is hurting or threatening you in anyway? Not on file 05/18/2024 Physical Indicators of Abuse No evidence of phys ical abuse 05/18/2024 Sex and Gender Information Value Date Recorded Sex Assigned at Not on file Legal Sex Male 7:02 AM EST Gender Identity Not on file Sexual Orientation Not on file Last Filed Vital Signs Vital Sign Reading Time Taken Comments Blood Pressure 177/77 05/18/2024 11:20 AM EST Pulse 86 05/18/2024 11:20 AM EST Temperature 36.1 ??C (97 ??F) 05/18/2024 11: 20 AM EST Respiratory Rate 18 05/18/2024 11:2 0 AM EST Oxygen Saturation 97% 05/18/2024 11: 20 AM EST Inhaled Oxygen Concentration - - Weight 72.9 kg (160 lb 11.5 oz) 025 11:20 AM EST Height 172.7 cm (5' 8 ) 12/06/2009 12:0 1 AM EDT Body Mass Index - - Plan of Treatment Upcoming Encounters Date Type Department Care Team (Late st Contact Info) Description 11/23/2024 1:30 PM EDT Office Visit [facility] at [address] [place] [address] Bryon Mayorga MD [address] [place] [phone] Health Maintenance Due Date Last Done Comments HIV screening 06/05/1967 Hepatitis C screening 1972 Tetanus adult (Td q 10,TDAP once) 1974 Lipid disorder screening 1994 Colon cancer screening, Colonoscopy 06/05/1999 Diabetes screening 06/05/1999 Shingles vaccine (Shingrix) (1 of 2 - Shingrix (RZV) 2 Dose Standard Series) 2004 Pneumococcal Vaccine (50+ ye ars) (2 of 2 - PCV) 06/05/2019 01/27/2017 Influenza vaccine 10/16/2023 01/27/2017 Covid-19 vaccine series (2 - 2023- season) 2023 06/07/2020 RSV Discussion (1 - 1-dose 7 5+ [...]
--- OUTSIDE RECORDS SUMMARY | 2024-05-31 18:19 | XMS_ITS | Patient Health Record ---
[facility] Organization [facility] Address [address] [place] [address] Care Team Providers Care Event Crew Technician Name Role Phone Deven Donohue MDneth Primary Care Provider Chasity borja Dalia Mcclendon Unavailable [phone] Allergies Allergen (clinical drug ingredient) Drug/Non Drug [...] primary osteoarthritis of the ankle and/or foot (608943064) Primary osteoarthrit is, left ankle and foot (M19.072) Active confirmed Problem Acquired hammer toe of right foot (4800082271337067) Other hammer toe(s) (acquired), right foot (M20.41) Active confirmed Problem Acquired hammer toe of left foot (6564960441652115) Other hammer toe(s) (acquired), left foot (M20.42) Active confirmed Plan Of Treatment Pending Test Test Name Order Date [id number] Destruction, 03-3005/03/2021 98037-Wvkz Destruction, 03-3005/31/2021 53916-Jtwxdnir Plate 10/18/2019 32773-Wdagmbfp Plate 05/26/2017 78525-Bztrmsxi Plate 06/19/2017 35848- Debride <25 sq cm 06/19/2017 74021 I&D ABSCESS- SIMPLE,SINGLE 020 07671, J6713-YTVOL/INJECT, JOINT/BURSA 0 05/31/2021 Insurance Providers Payer Name Payer Address Payer Phone Subscriber Number Group Number Insured Name Patient Relationship to Insured Coverage Start Date Coverage End Date [facility] [address] [place] [address] [id number] Seb Lewis Self - patient is [...]
--- OUTSIDE RECORDS SUMMARY | 2024-05-31 18:19 | XMS_ITS | Encounter Summary ---
Author Organization [facility] Address [address] [place] [phone] Care Team Providers Care Customer Service Technician Name Role Phone Unavailable Primary Care Provider Unavailabl e Reason for Visit * Reason Comments Follow-up Tai's Disease Encounter Details Date Type Department Care Team (Latest Contact Info) Description 05/18/2024 11:30 AM EST Initial consult [facility] [address] [place] [address] Bryon Mayorga MD [address] [phone] Tai's disease (HC Code) (Primary Dx); Disorder of copper metabolism, unspecified (HC Code) Social History Tobacco Use Types Packs/Day Years [...] 11.5 oz) 025 11:20 AM EST Height - - Body Mass Index - - documented in this encounter Progress Notes * Bryon Mayorga MD - 05/18/2024 11:30 AM EST [facility] HPI: The patient is a 68 y.o. 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 His initial presentation was neurological, bad tremors and dysarthria. 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 He was treated with d-penicillamine from the time of diagnosis. He has remained on the medication throughout. He had tried zinc at one time but did not tolerate this treatment due to dyspepsia. No complications from the d penicillamine other than some progeric change. Other medical issues: Nephritis, sinusitis, joint replacements, back problems due to disc disease and spinal stenosis, HTN, arthritis hands and shoulders (also past bursitis and rotator cuff tear) Surgery for left inguinal hernia, basal cell cancer removed back and neck. Patient History Problem List: He does not have a problem list on file. Past Surgical History: He has no past surgical history on file. Past Medical History: He has no past medical history on file. Allergies: He has no allergies on file. Medications: No current outpatient medications on file. Social History: He Review of Systems: Review of Systems See HPI BP (!) 177/77 (Site: r a, Position: Sitting, Cuff Size: Medium) Pulse 86 Temp 97 ??F (36.1 ??C)(Temporal) Resp 18 Wt 72.9 kg SpO2 97% Wt Readings from Last 3 Encounters: 05/18/24 72.9 kg 12/06/09 69.8 kg Physical Exam Constitutional: Appearance: He is well-developed. HENT: Head: Normocephalic and atraumatic. Eyes: Conjunctiva/sclera: Conjunctivae normal. Pupils: Pupils are equal, round, and reactive to light. Cardiovascular: Rate and Rhythm: Normal rate and regular rhythm. Heart sounds: Normal heart sounds. Pulmonary: Effort: Pulmonary effort is normal. Breath sounds: Normal breath sounds. Abdominal: General: Bowel sounds are normal. Palpations: Abdomen is soft. There is splenomegaly. There is no fluid wave. Musculoskeletal: General: Normal range of motion. Cervical back: Normal range of motion and neck supple. Skin: General: Skin is warm and dry. Comments: Progeric change skin on neck Tubbs angiomata Neurological: Mental Status: He is alert and oriented to person, place, and time. Cranial Nerves: No cranial nerve deficit. Gait: Gait abnormal (tandem gait mildly abnormal). Deep Tendon Reflexes: Reflexes are normal and symmetric. Comments: Mild tremor on finger to nose bilateral Mild abnormal fine motor for both hands, good strength Romberg normal Tandem gain with mild abnormality Psychiatric: Behavior: Behavior normal. Thought Content: Thought content normal. Judgment: Judgment normal. Immunization History Administered Date(s) Administered COVID-19, MODERNA 12Y+, 0.5 mL 06/07/2020 05/10/24 Na 142 K 4.4 BUN 22 Cr 1.33 T bili 0.7 AST 42 ALT 64 TP 7.2 alb 3.7 alk phos 101 Chol 143 LKD 72 TG 91 WBC 6.2 HgB 14.4 plt 262k MCV 93.9 HBsAB non reactive HBsAg negative HCV negative HAV IgM non reactive March 2023 Ceruloplasmin 18 serum copper January Ceruloplasmin 14 serum copper 63 24 h urine for copper Ultrasound 10/13/23 Some hepatic heterogeneity Gallbladder surgically absent Pancreas with mild heterogeneity, unable to visualize cyst seen before Assessment / Plan: The patient is a 68 y.o. male with Tai disease with initial neurologic symptomatology that responded to treatment with d penicillamine. Over the years his dosages were adjusted and other than a brief trial of zinc that was not tolerated, he has remained on this medication. Other than the progeric skin change, he has not had significant long-term issues with the treatment. Recently he did have some mild elevation in his aminotransferases after he has reduced the dosage of the d-penicillamine to 250 mg daily. He is cognizant of the high copper foods and for the most part is careful with dietary copper intake and also water supply and copper. Recommend: Tai disease - continue penicillamine but change to 500 mg daily and stay at this dosage pending repeat 24 h urine copper on this higher dosage Continue measured intake of copper in diet and water Await MRI results to review changes in liver and pancreas where cysts were noted. Patient Education: Barriers to learning:none identified Specific topics reviewed: disease diagnosis and management, monitoring and adjustment in therapy Follow-Up: Follow-Up in 6 months. documented in this encounter Plan of Treatment Upcoming Encounters Date Type Department Care Team (Late st Contact Info) Description 11/23/2024 1:30 PM EDT Office Visit [facility] [address] [place] [address] Bryon Mayorga MD [address] [phone] Scheduled Orders Name Type Priority Associated Diagnoses Orde r Schedule Copper, timed urine Lab Routine Tai's disease (HC Code) Disorder of copper metabolism, unspecified (HC Code) Expected: 05/18/2024, Expires: 07/18/2025 documented as of this encounter Visit Diagnoses Diagnosis Tai's disease (HC Code)- Primary 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
--- OUTSIDE RECORDS SUMMARY | 2024-05-31 18:19 | XMS_ITS | Clinical Summary ---
Author Organization [facility] Address [address] [place] [address] Care Team Providers Care Payloader Operator Name Role Phone Unavailable Primary Care [...]
--- OUTSIDE RECORDS SUMMARY | 2024-05-31 18:19 | XMS_ITS | Clinical Summary ---
Author Organization [employer] Address [address] [facility] 7 [place] [address] Care Team Providers Care Cover Marker Name Role Phone Unavailable Primary Care Provider Unavailabl e Encounters Date Type Department Care Team Description 03/11/[address] [facility] [address] [place] [address] [phone] Kasandra Alvarez BDLaney from Last 3 Months Social History Tobacco [...] patient's age to complete this topic Insurance [facility] MEDICAID STAND ADULT
--- OUTSIDE RECORDS SUMMARY | 2024-05-31 18:19 | XMS_ITS ---
Author Organization [facility] Address [address] [place] [address] Care Team Providers Care Crusher Assembler Name Role Phone Charanjit MONROE [place] Primary Care Provider Unava ilmadalyn Melara Jr, Juan Wiseman REASON FOR VISIT results Encounters Encounter Location Date Provider Diagnosis [facility] [address] [place] [address] 05/27/2024 Juan Melara Jr Plan Of Treatment Next Appt Details Provider Name:Juan hickman Jr, 04/28/2025 01:15:00 PM, [address] [facility], [address], [place], [address], Progress Notes * SIN SNOWDENDOB: (68 yo M)Acc No.[id number]:05/27/2024 Patient:?SIN SNOWDEN :1955???Age:68 Y???Sex:Male Address:[address] [place], [place] [address] [address] * true * Date:? Generated for Debbie spring/Rafa/eTransmitting on:?05/31/2024 06:19 PM EDT
--- OUTSIDE RECORDS SUMMARY | 2024-05-31 18:19 | XMS_ITS | Encounter Summary ---
Author Organization [facility] Address [address] [place] [address] Care Team Providers Care Process Coordinator Name Role Phone Unavailable Primary Care Provider Unavailabl e Reason for Referral * Imaging (Routine) - Authorized Specialty Diagnoses / Procedures Referred By Contact Referred To Contact Diagnostic Radiology Procedures US Abdomen [facility] at [address] [place] [address] Phone: tel: fax: Referral ID Status Reason Start Date Expiration Date V isits Requested Visits Authorized [id number] Authorized 03/15/2024 03/15/2025 1 1 Encounter Details Date Type Department Care Team (Late st Contact Info) Description 03/15/2024 Scanned Document [facility] at [address] [place] [phone] ProviderDaisy . Social History Tobacco Use Types [...] Visit [facility] [address] [address] Bryon Mayorga MD [address] [place] [address] [place] [phone] documented as of this encounter Procedures Procedure [...]
--- OUTSIDE RECORDS SUMMARY | 2024-05-31 18:19 | XMS_ITS | Encounter Summary ---
Author Organization [facility] Address [address] [place] [phone] Care Team Providers Care Commercial Manager Name Role Phone Unavailable Primary Care Provider Unavailabl e Encounter Details Date Type Department Care Team (Late st Contact Info) Description 04/03/2012 Abstract [facility] Health Information Management [address] [place] [phone] [place], Primary Care [address] [place] [id number] Social History Tobacco Use Types Packs/Day Years [...] Visit [facility] [address] [place] [address] Bryon Mayorga MD [address] [place] [phone] documented as of this encounter Visit Diagnoses Not on filedocumented in this encounter
--- OUTSIDE RECORDS SUMMARY | 2024-05-31 18:19 | XMS_ITS ---
Author Organization [facility] Address [address] [place] [address] Care Team Providers Care Director Of Corporate Real Estate Name Role Phone Charanjit MONROE [place] Primary Care Provider Unava ilmadalyn Melara Jr, Juan Wiseman Encounters Encounter Location Date Provider Diagnosis [facility] [address] [place] [address] 05/12/2024 Juan Melara Jr Plan Of Treatment Next Appt Details Provider Name:Juan hickman Jr, 04/28/2025 01:15:00 PM, [address], [address], [place], [address], Progress Notes * SIN SNOWDENDOB: (68 yo M)Acc No.[id number]:05/12/2024 Patient:?SIN SNOWDEN :1955???Age:68 Y???Sex:Male Address:[address] [place], [place] [address] [address] * true * Date:? Generated for Justini clementine/Rafa/eTransmitting on:?05/31/2024 06:18 PM EDT
--- OUTSIDE RECORDS SUMMARY | 2024-05-31 18:20 | XMS_ITS | Patient Health Record ---
Author Organization [facility] Address [address] [place] [address] Care Team Providers Care Inspector Experimental Assembly Name Role Phone Charanjit MONROE, [place] Primary Care Provider Juan Kraus Jr Unavailable [phone] Allergies Allergen (clinical drug ingredient) Drug/Non Drug Allergy documented on EMR Reaction Allergy Type Onset Date Status Non-steroidal anti-inflammatory agent (FN) NSAIDs sensitvity to stomach Drug Allergy Active ciprofloxacin Cipro sensitivity to stomach Drug Allergy Active Results Component Value Reference Range Notes Complete Blood Count Auto Di ff Reviewed date:05/11/2024 08:33:02 PM Interpretation: Performing Lab:[facility], [address] [place] [phone] Notes/Report: White Blood Count 6.2 4.8-10.8 X10*3/uL Red Blood Count 4.62 4.60-5.80 X10*6/uL Hemoglobin 14.4 14.0-18.0 g/dl Hematocrit 43.4 42.0-52.0 % Mean Corpuscular Volume 93.9 80.0-98.0 fL Mean Corpuscular Hemoglobin 31.2 27.0-33.0 pg Mean Corpuscular HGB Conc 33.2 31.0-36.0 g/dl Red Cell Distribution Width 13.2 11.0-16.0 % Platelet Count 262 160-400 X10*3/uL Mean Platelet Volume 9.5 9.4-12.4 fL Neutrophils Percent Auto 60.5 45-73 % Imm Gran Pct Auto 0.3 0.0-0.4 % Lymphocytes Percent Auto 29.0 20-40 % Monocytes Percent Auto 8.8 2-11 % Eosinophils Percent Auto 1.4 0-4 % Basophils Percent Auto 0.0 0-2 % NRBC Pct Auto 0.0 0.0-0.2 /100WBC Neutrophils Absolute Auto 3.8 2.0-8.3 x10*3/u L Imm Gran Abs Auto 0.02 0.00-0.03 X10*3/uL Lymphocytes Absolute Auto 1.8 1.2-4.9 X10*3/u L Monocytes Absolute Auto 0.6 0.1-1.2 X10*3/uL Eosinophils Absolute Auto 0.1 0.0-0.4 X10*3/u L Basophils Absolute Auto 0.0 0.0-0.2 X10*3/uL NRBC Abs Auto 0.000 0.0-0.012 X10*3/uL Comprehensive [place]. Panel Fa st Reviewed date:05/11/2024 08:33:33 PM Interpretation: Performing Lab:[address] [phone] Notes/Report: Sodium 142 135-145 mmol/L Potassium 4.4 3.3-5.1 mmol/L Chloride 108 96-108 mmol/L Carbon Dioxide 27 22-29 mmol/L Anion Gap 11 12-20 Blood Urea Nitrogen 22 9-16 mg/dL Creatinine 1.33 0.5-1.4 mg/dL Estimated Glomerular Filt Rate 53 Chronic Kidney Disease: Estimated GFR < 60 mL/min/1.73m2 Severe Kidney Disease: Estimated GFR < 15 mL/min/1.73m2 Glucose Fasting 101 60-99 mg/dL A fasting glucose from 100-125 mg/dl is considered impaired (pre-diabetes). Calcium 9.2 8.4-10.2 mg/dL Bilirubin Total 0.7 0.0-1.0 mg/dL Aspartate Amino Transferase 42 5-37 U/L Alanine Aminotransferase 64 0-40 U/L Total Protein 7.2 6.5-8.0 g/dL Albumin Level 3.7 3.5-5.0 g/dL Alkaline Phosphatase 101 39-117 U/L Liver Panel Reviewed date:05/11/2024 08:33:19 PM Interpretation: Performing Lab:[address] [place] [address] Notes/Report: Bilirubin Direct 0.2 0.0-0.5 mg/dL Lipid Panel Reviewed date:05/11/2024 08:33:10 PM Interpretation: Performing Lab:[facility], [address] [place] [phone] Notes/Report: Triglycerides 91 <150 mg/dL Desirable Triglyceride: less than 150 mg/dL Borderline High Triglyceride 150-199 mg/dL High Triglyceride: 200-499 mg/dL Very High Triglyceride: greater than or equal to 5OO mg/dL Cholesterol 143 <200 mg/dL Desirable Cholesterol: less than 200 mg/dL Borderline High Cholesterol: 200-239 mg/dL High Cholesterol: greater than 239 mg/dL LDL Cholesterol Calculated 72 <100 mg/dL Desirable LDL: less than 100 mg/dL Near Optimal/Above Optimal LDL: 110-129 mg/dL Borderline High LDL: 130-159 mg/dL High LDL: 160-189 mg/dL Very High LDL: greater than or equal to 190 mg/dL HDL Cholesterol 53 >40 mg/dL Desirable HDL: greater than 40 mg/dL Note: This HDL assay may give artificially low results in patients with liver disease. SAMANTHA Reflex Titer and Pattern Reviewed date:05/26/2024 11:10:55 PM Interpretation: Performing Lab:[facility], [address] [place] [phone] Notes/Report: Anti Nuclear Antibody Screen NEGATIVE NEGATIVE SAMANTHA IFA is a first line screen for detecting the presence of up to approximately 150 autoantibodies in various autoimmune diseases. A negative SAMANTHA IFA result suggests an SAMANTHA-associated autoimmune disease is not present at this time, but is not definitive. If there is high clinical suspicion for Sjogren's syndrome, testing for anti-SS-A/Ro antibody should be considered. Anti-Kaitlyn-1 antibody should be considered for clinically suspected inflammatory myopathies. AC-0: Negative International Consensus on SAMANTHA Patterns (https://doi.org/10.1515/c kkx-3641-3229) For additional information, please refer to http://education.Positive Networks.Do It Original/faq/VBN236 (This link is being provided for informational/ educational purposes only.) THIS TEST WAS PERFORMED AT: [facility] [address] [place] [phone] PAT STILES MD Anti Nuclear Antibody Titer TNP Anti Nuclear Antibody Pattern TNP SAMANTHA Titer 2 TNP SAMANTHA Pattern 2 TNP SAMANTHA Titer 3 TNP SAMANTHA Pattern 3 TNP Mitochondrial Antibody Reviewed date:05/26/2024 04:43:55 PM Interpretation: Performing Lab:[address] [phone] Notes/Report: Mitochondrial Antibodies NEGATIVE NEGATIVE THIS TEST WAS PERFORMED AT: [facility] [address] [phone] PAT STILES MD Mitochondrial Ab Titer TNP Smooth Muscle Antibody Reviewed date:05/26/2024 04:43:43 PM Interpretation: Performing Lab:[address] [phone] Notes/Report: Smooth Muscle Antibody <20 <20 U Reference Range: <20 U: Negative >or=20 U: Positive Antibodies recognizing actin are the main component of smooth muscle antibodies associated with auto- immune liver disease. Actin antibodies are found in approximately 75% of patients with autoimmune hepatitis (AIH) type 1, approximately 65% of patients with autoimmune cholangitis, approximately 30% of patients with primary biliary cirrhosis and approximately 2% of healthy controls. High values are closely correlated with AIH type 1. THIS TEST WAS PERFORMED AT: [facility]/[address] [phone] SAVANNA MORRISON MD,PHD Hepatitis A,B,C Profile Reviewed date:05/11/2024 08:33:43 PM Interpretation: Performing Lab:[address] [phone] Notes/Report: Hepatitis A Antibody IgM Nonreactive Nonreactive IgM antibodies to HAV not detected; does not exclude early acute or recovered HAV infection. Hepatitis B Surface Antibody NONREACTIVE Nonreactive Nonreactive: < 8.00 mIU/mL Hepatitis B Core Antibody Nonreactive Nonreactive Hepatitis C Antibody Nonreactive Nonreactive Antibodies to HCV not detected; does not exclude early acute HCV infection. Hepatitis B Surface Antigen Negative Negative Reason For Referral No Information Medications Medication [...] 100 MG Oral for 15 Act joel Immunizations Vaccine Route Administration Date Status Comme nts Influenza Unknown 09/20/2021 Refused Influenza Unknown 04/26/2024 Refused Social History Tobacco Use: Social History Observation Description Date Details (start date - stop date) Never Smoker NA - NA Tobacco Use/Smoking Question Answer Notes Patient is a nonsmoker Alcohol Screen Question Answer Notes Did you have a drink containing alcohol in the p ast year? 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 Vital Signs Temperature 97.9 degrees Fahrenheit 04/26/2024 Blood pressure diastolic 00 mm Hg 04/26/2024 Height 66 in 04/26/2024 Blood pressure systolic 000 mm Hg 04/26/2024 Weight 160 lbs 04/26/2024 BMI 25.82 kg/m2 04/26/2024 Encounters Encounter Location Date Provider Diagnosis [facility] [address] [place] [address] 04/26/2024 Juan Melara Jr Pancreatic cyst K86.2 ; Elevated LFTs R79.89 ; Change in bowel function R19.8 and 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 [facility] [address] [place] [address] 05/11/2024 Juan Melara Jr Elevated liver enzymes R74.8 [facility] [address] [place] [address] 05/12/2024 Juan Melara Jr [facility] [address] [place] [address] 05/27/2024 Juan Melara Jr Assessments Encounter Date Diagnosis (ICD Code) Assessment Notes Treatment Notes Treatment Clinical Notes Section Notes 04/26/2024 Elevated LFTs (ICD-10 - R79.89) We reviewed his endoscopy and colonoscopy reports, biopsy reports, and clinical course in detail today. We reviewed his recent laboratory studies, and ultrasound report. We recommended further evaluation. MRI will be scheduled for further evaluation of his liver and pancreatic cysts. Autoimmune and metabolic testing will be obtained for his elevated liver function tests. We recommended fiber supplementation and anti-gas agents for his abdominal complaints. Followup will be in 6-12 months. He requested a prescription for Magic mouthwash which has helped him in the past with some of his upper GI complaints. Today's visit was 40 minutes. 04/26/2024 Pancreatic cyst (ICD-10 - K86.2) We reviewed his endoscopy and colonoscopy reports, biopsy reports, and clinical course in detail today. We reviewed his recent laboratory studies, and ultrasound report. We recommended further evaluation. MRI will be scheduled for further evaluation of his liver and pancreatic cysts. Autoimmune and metabolic testing will be obtained for his elevated liver function tests. We recommended fiber supplementation and anti-gas agents for his abdominal complaints. Followup will be in 6-12 months. He requested a prescription for Magic mouthwash which has helped him in the past with some of his upper GI complaints. Today's visit was 40 minutes. 05/11/2024 Elevated liver enzymes (ICD-10 - R74.8) 04/26/2024 Change in bowel function (ICD-10 - R19.8) We reviewed his endoscopy and colonoscopy reports, biopsy reports, and clinical course in detail today. We reviewed his recent laboratory studies, and ultrasound report. We recommended further evaluation. MRI will be scheduled for further evaluation of his liver and pancreatic cysts. Autoimmune and metabolic testing will be obtained for his elevated liver function tests. We recommended fiber supplementation and anti-gas agents for his abdominal complaints. Followup will be in 6-12 months. He requested a prescription for Magic mouthwash which has helped him in the past with some of his upper GI complaints. Today's visit was 40 minutes. 04/26/2024 Wilsons disease (ICD-10 - E83.01) We reviewed his endoscopy and colonoscopy reports, biopsy reports, and clinical course in detail today. We reviewed his recent laboratory studies, and ultrasound report. We recommended further evaluation. MRI will be scheduled for further evaluation of his liver and pancreatic cysts. Autoimmune and metabolic testing will be obtained for his elevated liver function tests. We recommended fiber supplementation and anti-gas agents for his abdominal complaints. Followup will be in 6-12 months. He requested a prescription for Magic mouthwash which has helped him in the past with some of his upper GI complaints. Today's visit was 40 minutes. Plan Of Treatment Pending Test Test Name Order Date LIVER PROFILE 04/26/2024 LIVER PROFILE 05/11/2024 CBC w/o DIFF 04/26/2024 HEPATITIS A,B,C PROFILE 04/26/2024 CERULOPLASMIN 04/26/2024 MITOCHONDRIAL AB 04/26/2024 SMOOTH MUSCLE ANTIBODIES 04/26/2024 MRI ABD W&WO CONTRAST 10/25/2021 MRI ABD W&WO CONTRAST 04/26/2024 US ABD 09/20/2021 Liver Fibrosis Pnl 04/26/2024 SAMANTHA Reflex Titer and Pattern 04/26/2024 Future Test Test Name Order Date UPPER GI ENDOSCOPY 09/20/2021 COLONOSCOPY 09/20/2021 Next Appt Details Provider Name:Juan hickman , 04/28/2025 01:15:00 PM, [address] [place] [address], [address], [place], [address], Insurance Providers Payer Name Payer Address Payer Phone Subscriber Number Group Number Insured Name Patient Relationship to Insured Coverage Start Date Coverage End Date MEDICARE OF [place] [address] [place] [id number] SIN SNOWDEN Self - patient is the insured MEDEX ATTN CLAIMS [address] [place] [phone] [id number] SIN SNOWDEN Self - patient is the insured MEDICAID OF [facility] [address] [place] [address] [id number] SIN SNOWDEN Self - patient is the insured Medical (General) History Medical History History ICD Code hypertension Pneumothorax [...]
--- OUTSIDE RECORDS SUMMARY | 2024-05-31 18:20 | XMS_ITS ---
Author Organization [facility] Address [address] [place] [address] Care Team Providers Care Spanish Speaking Babysitter Name Role Phone Charanjit MONROE [place] Primary Care Provider Unava jonh Melara Jr, Juan Wiseman [phone] REASON FOR VISIT labs Encounters Encounter Location Date Provider Diagnosis [facility] [address] [facility] [address] [place] [address] 05/11/2024 Juan Melara Jr Elevated liver enzymes R74.8 Assessments Encounter Date Diagnosis (ICD Code) Assessment Notes Treatment Notes Treatment Clinical Notes Section Notes 05/11/2024 Elevated liver enzymes (ICD-10 - R74.8) Plan Of Treatment Pending Test Test Name Order Date LIVER PROFILE 05/11/2024 Next Appt Details Provider Name:Juan hickman Jr, 04/28/2025 01:15:00 PM, [address] [facility], [address], [place], [address], Progress Notes * SIN SNOWDENDOB: 5 (68 yo M)Acc No.[id number]:05/11/2024 Patient:?SIN SNOWDEN :1955???Age:68 Y???Sex:Male Address:[address] [place] [address] [place] [address] Subjective: * Chief Complaints: * ???Labs * Medical History:? * Surgical History:? * Hospitalization/Major Diagno stic Procedure:? * Medications:? Objective: Assessment: * Assessment: 1.?Elevated liver enzymes - R74.8 (Primary)? Plan: * Treatment: * Procedure Codes:? * true * Date:? Generated for Debbie spring/Rafa/Keisha on:?05/31/2024 06:19 PM EDT
== END 2024-05-31 17:04 | disposition home or self-care (01) ==
LOC: HO.HMCH 15:56
PROVIDERS: PCP Internal Medicine
DX: R79.89 Other specified abnormal findings of blood chemistry (principal); J44.9 Chronic obstructive pulmonary disease, unspecified; E83.01 Wilson's disease; C44.41 Basal cell carcinoma of skin of scalp and neck; I10 Essential (primary) hypertension; K21.9 Gastro-esophageal reflux disease without esophagitis; M89.49 Other hypertrophic osteoarthropathy, multiple sites; M51.360 Other intervertebral disc degeneration, lumbar region with discogenic back pain only

== ENCOUNTER → 2024-05-31 15:56 | Outpatient (BNVA) | payer MEDICARE, MEDICAID, SELFPAY | PROVIDERS: PCP Internal Medicine | DX: R79.89 Other specified abnormal findings of blood chemistry (principal); C44.41 Basal cell carcinoma of skin of scalp and neck; I10 Essential (primary) hypertension; K21.9 Gastro-esophageal reflux disease without esophagitis; M89.49 Other hypertrophic osteoarthropathy, multiple sites; M51.360 Other intervertebral disc degeneration, lumbar region with discogenic back pain only; E83.01 Wilson's disease; J44.9 Chronic obstructive pulmonary disease, unspecified | CPT/HCPCS: 96127; 99212 ==

== ENCOUNTER 2024-06-24 14:08 | Outpatient (AMB) | payer MEDICARE, MEDICAID, SELFPAY ==
--- NOTE | 2024-06-24 14:14 | MHC.OFFVIS ---
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 Assistant Athletic Trainer Required: No Allergies duloxetine [From Cymbalta] Allergy (Unknown, Verified 06/24/24 14:47) increased hot flashes and leg cramps clavulanic acid [Augmentin] Adverse Reaction (Unknown, Verified 06/24/24 14:47) upset stomach gabapentin Adverse Reaction (Unknown, Verified 06/24/24 14:47) bilateral eye pains Medication List - Last Reconciled 06/24/24 by Renata Francois MD albuterol sulfate 0.63 mg (3 mL) inhalation QID PRN albuterol sulfate 90 mcg/actuation (Ventolin HFA) 2 puffs PO Q6H PRN lorazepam 1 mg PO TID PRN 30 days losartan 50 mg PO BID mometasone-formoterol 200-5 mcg/actuation (Dulera) 2 puffs inhalation BID 30 days multivitamin (Daily Multi-Vitamin tablet) 1 tab PO DAILY penicillamine 250 mg PO BID 90 days pyridoxine (vitamin B6) 25 mg PO DAILY tapentadol (Nucynta) 100 mg PO Q6H PRN 15 days tiotropium bromide 2.5 mcg/actuation (Spiriva Respimat) 2 puffs inhalation QAM 30 days tizanidine 4 mg PO Q8H PRN 10 days Do you need a note to return to daycare/school/sports/work: No HPI HPI COPD: Details: THIS 69 YEARS OLD GENTLEMAN WITH CHRONIC OBSTRUCTIVE PULMONARY DISEASE IS HERE FOR FOLLOW-UP. WITH THE ADDITION OF SPIRIVA RESPIMAT HIS BREATHING HAS BEEN BETTER THAN BEFORE. HE HAS MILD INTERMITTENT COUGH, AND ACCORDING TO HIS HE HAS SOME SNORING. HE REMAINS PHYSICALLY ACTIVE AND DENIES ANY EXCESSIVE SHORTNESS OF BREATH. HE ALSO DENIES DAYTIME SLEEPINESS. HIS BODY HABITUS IS NORMAL WITH BMI OF 24 , AND DOES NOT HAVE FEATURES OF SLEEP APNEA. [facility] Medical History COPD exacerbation Bronchitis Cough Benign essential hypertension Urinary frequency Anxiety Pancreatic cyst GERD without esophagitis Primary osteoarthritis involving multiple joints Lumbar degenerative disc disease Tai's disease COPD (chronic obstructive pulmonary disease) Surgical History Hx of colonoscopy History of total left hip arthroplasty (~02/25/22) H/O right knee surgery History of arthroscopy of left knee History of right hip replacement History of tonsillectomy and adenoidectomy H/O hernia repair H/O nasal polypectomy History of cholecystectomy Family History Father No problems noted. Mother No problems noted. Social History Housing: House Alcohol intake: never Patient Tobacco Use Status: Former Tobacco user e-Cigarette/Vaping Use: Never Used Second Hand Smoke Exposure: No service: Yes ([employer]) Current occupational status: retired Cognitive needs: No Hearing needs: Yes (hearing aide) Vision needs: Yes (Glasses) Review of Systems Const All systems reviewed & are unremarkable except as noted in HPI and below Denies body aches, Reports fatigue (Mild generalized), Denies headache(s) and Denies snoring Eyes Reports no additional complaints ENT Reports no additional complaints, Denies headache(s), Denies nasal discharge and Denies post nasal drip Card Denies chest pain, Denies syncope, Denies pedal edema, Denies irregular heart rhythm and Reports dyspnea on exertion Resp Denies cough, Denies hemoptysis, Denies excessive phlegm production, Reports dyspnea on exertion, Denies snoring and Denies stridor GI Reports no additional complaints Reports no additional complaints Musc Reports back pain (over the lower back - chronic) and Reports arthralgias (involving multiple joints) Skin/Breast Reports system reviewed and no additional complaints, except as documented Neuro Reports no additional complaints, Denies syncope and Denies headache(s) Psych Reports anxiety (Mild off and on) Endo Reports no additional complaints and Reports fatigue (Mild generalized) West/Lymph Reports no additional complaints Physical Exam Vital Signs: Last Vital Signs Pulse 97 06/24/24 14:15 BP 130/70 06/24/24 14:15 Pulse Ox 94 06/24/24 14:15 Oxygen Delivery Method Room Air 06/24/24 14:15 BMI result Body Mass Index 24.5 Const General: comfortable (But short of breath during conversation), no acute distress, alert and awake Orientation/consciousness: patient oriented x3 HEENT Head: Yes normal to inspection General nose exam: No nasal polyps present and No nasal discharge present Face and sinus: Yes sinuses nontender Mouth: oropharynx normal Teeth and gingiva: other (Multiple decayed teeth) Throat: Yes posterior oropharynx normal Eyes General: appearance normal, both eyes and all related structures Neck Neck: Yes normal visual inspection, Yes no lymphadenopathy, Yes trachea midline and Yes no JVD Thyroid: Thyroid normal Chest Chest palpation & inspection: normal inspection of the chest, normal palpation of entire chest wall and no tenderness Resp Other: Percussion note is resonant, breath sounds are distant with prolonged expiratory phase but equal on both sides. No wheezes rhonchi or crepitations are heard today. Cardio Palpation: normal PMI Rate: regular rate Rhythm: regular rhythm Heart sounds: no gallops and no murmurs GI Palpation (GI): Soft to palpation, nontender, No hepatosplenomegaly present and no masses Auscultation: normal bowel sounds Back/Spine/Pelvis Thoracic/Lumbar Spine: thoracic and lumbar spine normal to inspection Skin General skin exam: no rashes or lesions noted Neuro General: patient oriented x3 and no focal motor deficits Cranial nerves: Yes CN's II-XII intact bilaterally Extrem General: Yes normal to inspection, Yes no clubbing, cyanosis or edema and Yes no calf tenderness Psych Appearance: grossly normal and well kempt Speech and movement: Normal speech and movement present Assessment & Plan Assessment & Plan (1) COPD (chronic obstructive pulmonary disease): Comment: CHRONIC OBSTRUCTIVE PULMONARY DISEASE, MILD TO MODERATE, IS GETTING SOMEWHAT WORSE. THE SPIROMETRY ON THE LAST VISIT INDICATED THAT THE FLOW VOLUMES HAVE DECREASED COMPARED TO SPIROMETRY IN 2021. SO SPIRIVA RESPIMAT WAS ADDED, AND HE DEFINITELY FEELS BETTER WITH THAT. Code(s): J44.9 - Chronic obstructive pulmonary disease, unspecified Category: Medical Qualifiers: COPD type: unspecified COPD Qualified Code(s): J44.9 - Chronic obstructive pulmonary disease, unspecified Plan: CONTINUE TO USE DULERA 200-5 2 PUFFS B.I.D. SPIRIVA RESPIMAT 2.5 MG 2 INHALATIONS DAILY ALBUTEROL HFA 2 PUFFS Q 6 HOURS P.R.N.. REVISIT Q 6 MONTHS AND NEEDED. Coding Level of Care Code Est Pt Level 3 (07204) Diagnoses Chronic obstructive pulmonary disease, unspecified COPD type J44.9 COPD type: unspecified COPD
[2024-06-24 14:15] VITALS: BP 130/70; PULSE 97; O2SAT 94; BMI 24.5
--- OUTSIDE RECORDS SUMMARY | 2024-06-24 16:55 | XMS_ITS | Clinical Summary ---
Author Organization [facility] Address [address] [place] [address] Care Team Providers Care Sheetmetal Worker Name Role Phone Unavailable Primary Care Provider [...] - 2023-2 5 season) 2023 Influenza Vaccine (Season Ended) 2024 RSV Immunization Adult Patie nts (1 - 1-dose 75+ series) 2029 HIB [...] age to complete this topic Meningococcal B Vaccine Aged Out No l onger eligible based on patient's age to complete this topic RSV Immunization Patients Un flory 20 months Aged Out No longer eligible b ased on patient's age to complete this topic Varicella Vaccines Aged Out No longer eligible based on patient's age to complete this topic
--- OUTSIDE RECORDS SUMMARY | 2024-06-24 16:55 | XMS_ITS | Clinical Summary ---
Author Organization [address] Address [address] [place] [address] Care Team Providers Care Silk Screen Processor Name Role Phone Unavailable Primary Care Provider [...] Initial consult [facility] at [address] [place] [address] [address] [place] [address] Bryon Mayorga MD Tai's disease (HC Code) (Primary Dx); Disorder of copper metabolism, unspecified (HC Code) from Last 3 Months Social History Tobacco [...] Visit [facility] at [address] [place] [address] Bryon Mayorga MD [address] [place] [phone] Health Maintenance Due Date Last Done Comments HIV screening 06/05/1967 Hepatitis C screening 1972 Tetanus adult (Td q 10,TDAP once) 1974 Lipid disorder screening 1994 Colon cancer screening, Colonoscopy 06/05/1999 Diabetes screening 06/05/1999 Shingles vaccine (Shingrix) (1 of 2 - Shingrix (RZV) 2 Dose Standard Series) 2004 Pneumococcal Vaccine (50+ ye ars) (2 of 2 - PCV) 01/27/2018 01/27/2017 Covid-19 vaccine series (2 - season) 2023 06/07/2020 Influenza vaccine 11/15/2024 01/27/2017 RSV Immunization (1 - 1-dose 75+ series) 2029 Meningococcal Vaccine Aged Out No daniel zeus eligible based on patient's age to complete this topic Insurance MEDICARE [facility] [id number] MEDICAID MEDICARE [facility] [id number] MEDICAID MEDICARE [facility] [id number] MEDICAID
--- OUTSIDE RECORDS SUMMARY | 2024-06-24 16:55 | XMS_ITS ---
Author Organization [facility] Address [address] [place] [address] Care Team Providers Care Rawhide Trimmer Name Role Phone Charanjit MONROE [place] Primary Care Provider Unava ilmadalyn Melara Jr, Juan Wiseman Encounters Encounter Location Date Provider Diagnosis [facility] [address] [place] [address] 05/12/2024 Juan Melara Jr Plan Of Treatment Next Appt Details Provider Name:Juan hickman Jr, 04/28/2025 01:15:00 PM, [address], [address], [place], [address], Progress Notes * SIN SNOWDENDOB: (68 yo M)Acc No.[id number]:05/12/2024 Patient:?SIN SNOWDEN :1955???Age:68 Y???Sex:Male Address:[address] [place], [place] [address] [address] * true * Date:? Generated for Justini clementine/Rafa/eTransmitting on:?06/24/2024 04:54 PM EDT
--- OUTSIDE RECORDS SUMMARY | 2024-06-24 16:55 | XMS_ITS | Clinical Summary ---
Author Organization [facility] Address [address] 7t [place] [address] Care Team Providers Care Residential Housekeeper Name Role Phone Unavailable Primary Care Provider [...] patient's age to complete this topic Insurance [facility] MEDICAID STAND ADULT
--- OUTSIDE RECORDS SUMMARY | 2024-06-24 16:55 | XMS_ITS | Patient Health Record ---
Author Organization [facility] [place] Address [address] [place] [address] Care Team Providers Care Mental Health Program Manager Name Role Phone Deven Donohue MDneth Primary Care Provider Chasity borja Dalia Mcclendon Unavailable [phone] Allergies Allergen (clinical drug ingredient) Drug/Non Drug [...] primary osteoarthritis of the ankle and/or foot (819326262) Primary osteoarthrit is, left ankle and foot (M19.072) Active confirmed Problem Acquired hammer toe of right foot (8577550397940854) Other hammer toe(s) (acquired), right foot (M20.41) Active confirmed Problem Acquired hammer toe of left foot (6910324991697559) Other hammer toe(s) (acquired), left foot (M20.42) Active confirmed Plan Of Treatment Pending Test Test Name Order Date 25638-Pxnm Destruction, 03-3005/03/2021 75275-Qfmf Destruction, 03-3005/31/2021 53639-Bnbfpttq Plate 10/18/2019 66817-Cemdkutw Plate 05/26/2017 80175-Tvsfzncc Plate 06/19/2017 75867- Debride <25 sq cm 06/19/2017 82456 I&D ABSCESS- SIMPLE,SINGLE 020 70304, K5331-IYUCB/INJECT, JOINT/BURSA 0 05/31/2021 Insurance Providers Payer Name Payer Address Payer Phone Subscriber Number Group Number Insured Name Patient Relationship to Insured Coverage Start Date Coverage End Date [employer] [address] [place] [address] [phone] [id number] 5 Seb Lewis Self - patient is [...]
--- OUTSIDE RECORDS SUMMARY | 2024-06-24 16:55 | XMS_ITS | Encounter Summary ---
Author Organization [facility] Address [address] [place] [address] Care Team Providers Care Store Cashier Name Role Phone Unavailable Primary Care Provider Unavailabl e Reason for Referral * Imaging (Routine) - Pending Review Specialty Diagnoses / Procedures Referred By Contact Referred To Contact Diagnostic Radiology Procedures US Abdomen Complete [facility] [address] [place] [address] Phone: tel: fax: Referral ID Status Reason Start Date Expiration Date V isits Requested Visits Authorized [id number] Pending Review 03/15/2024 03/15/2025 1 1 Encounter Details Date Type Department Care Team (Late st Contact Info) Description 03/15/2024 Scanned Document [facility] [address] [place] [address] Daisy Ryan . Social History Tobacco Use Types Packs/Day [...] Office Visit [facility] [address] [place] [address] Bryon Mayorga MD [address] [place], [place] [address]e [address] [place] [phone] documented as of this encounter Procedures Procedure [...]
--- OUTSIDE RECORDS SUMMARY | 2024-06-24 16:55 | XMS_ITS | Encounter Summary ---
Author Organization [facility] Address [address] [place] [address] Care Team Providers Care Pond Scaler Name Role Phone Unavailable Primary Care Provider Unavailabl e Encounter Details Date Type Department Care Team (Late st Contact Info) Description 04/03/2012 Abstract [facility] Information Management [address] [place] [address] [place], Primary Care [address] [place] [address] Social History Tobacco Use Types Packs/Day Years [...] Visit [facility] [address] 4th [place] [address] Bryon Mayorga MD [address] [place] [phone] documented as of this encounter Visit Diagnoses Not on filedocumented in this encounter
--- OUTSIDE RECORDS SUMMARY | 2024-06-24 16:55 | XMS_ITS | Patient Health Record ---
Author Organization [facility] Address [address] [place] [address] Care Team Providers Care Manager Personal Name Role Phone Charanjit MONROE, [place] Primary Care Provider Juan Kraus Jr Unavailable Allergies Allergen (clinical drug ingredient) Drug/Non Drug Allergy documented on EMR Reaction Allergy Type Onset Date Status Non-steroidal anti-inflammatory agent (FN) NSAIDs sensitvity to stomach Drug Allergy Active ciprofloxacin Cipro sensitivity to stomach Drug Allergy Active Results Component Value Reference Range Notes Complete Blood Count Auto Di ff Reviewed date:05/11/2024 08:33:02 PM Interpretation: Performing Lab:[facility], [address] [place] [address] Notes/Report: White Blood Count 6.2 4.8-10.8 X10*3/uL [...] NRBC Abs Auto 0.000 0.0-0.012 X10*3/uL Comprehensive [place]. Panel Fa st Reviewed date:05/11/2024 08:33:33 PM Interpretation: Performing Lab:[address] [address] Notes/Report: Sodium 142 135-145 mmol/L Potassium 4.4 [...] Panel Reviewed date:05/11/2024 08:33:19 PM Interpretation: Performing Lab:[address] [place] [address] Notes/Report: Bilirubin Direct 0.2 0.0-0.5 mg/dL Lipid Panel Reviewed date:05/11/2024 08:33:10 PM Interpretation: Performing Lab:[facility], [address] [place] [phone] Notes/Report: Triglycerides 91 <150 mg/dL Desirable Triglyceride: [...] Pattern Reviewed date:05/26/2024 11:10:55 PM Interpretation: Performing Lab:[facility], [address] [place] [address] Notes/Report: Anti Nuclear Antibody Screen NEGATIVE NEGATIVE [...] Negative International Consensus on SAMANTHA Patterns (https://doi.org/10.1515/c ieo-7538-1429) For additional information, please refer to http://education.Schmoozer.Biometric Security/faq/CYX318 (This link is being provided for informational/ educational purposes only.) THIS TEST WAS PERFORMED AT: [employer] [address] [place] [address] PAT STILES MD Anti Nuclear Antibody Titer TNP Anti Nuclear Antibody Pattern TNP SAMANTHA Titer 2 TNP SAMANTHA Pattern 2 TNP SAMANTHA Titer 3 TNP SAMANTHA Pattern 3 TNP Mitochondrial Antibody Reviewed date:05/26/2024 04:43:55 PM Interpretation: Performing Lab:[address] [address] Notes/Report: Mitochondrial Antibodies NEGATIVE NEGATIVE THIS TEST WAS PERFORMED AT: [facility] [address] [address] PAT STILES MD Mitochondrial Ab Titer TNP Smooth Muscle Antibody Reviewed date:05/26/2024 04:43:43 PM Interpretation: Performing Lab:[address] [address] Notes/Report: Smooth Muscle Antibody <20 <20 U [...] type 1. 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) Active confirmed Problem 61498009 Pancreatic cyst (K86.2) Active confirmed Problem Gastritis (1519449) Gastritis (K29.70) Active confirmed Problem 47361097 Change in bowel function (R19.8) Active confirmed Problem 01098246 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 Vital Signs Temperature 97.9 degrees Fahrenheit 04/26/2024 Blood pressure diastolic 00 mm Hg 04/26/2024 Height 66 in 04/26/2024 Blood pressure systolic 000 mm Hg 04/26/2024 Weight 160 lbs 04/26/2024 BMI 25.82 kg/m2 04/26/2024 Encounters Encounter Location Date Provider Diagnosis [facility] [address] [place] [address] 04/26/2024 Juan Melara Jr Pancreatic cyst K86.2 ; Elevated LFTs R79.89 ; Change in bowel function R19.8 and 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 [facility] [address] [place] [address] 05/11/2024 Juan Melara Jr Elevated liver enzymes R74.8 [facility] [address] [place] [address] 05/12/2024 Juan Melara Jr [facility] [address] [place] [address] 05/27/2024 Juan Melara Jr Assessments Encounter Date [...] Provider Name:Juan hickman , 04/28/2025 01:15:00 PM, [address] [place] [address], [address], [place], [address], Insurance Providers Payer Name Payer Address Payer Phone Subscriber Number Group Number Insured Name Patient Relationship to Insured Coverage Start Date Coverage End Date [place] [address] [place] [id number] [phone] [id number] SIN SNOWDEN Self - patient is the insured MEDEX ATTN CLAIMS [address] [place] [phone] [id number] SIN SNOWDEN Self - patient is the insured MEDICAID OF [facility] [address] [place] [address] [id number] SIN SNOWDEN Self - patient is the [...]
--- OUTSIDE RECORDS SUMMARY | 2024-06-24 16:55 | XMS_ITS ---
Author Organization [facility] Address [address] [place] [address] Care Team Providers Care Blade Operator Name Role Phone Charanjit MONROE [place] Primary Care Provider Unava ilmadalyn Melara Jr, Juan Wiseman [phone] REASON FOR VISIT results Encounters Encounter Location Date Provider Diagnosis [facility] [address] [place] [address] 05/27/2024 Juan Mealra Jr Plan Of Treatment Next Appt Details Provider Name:Juan hickman Jr, 04/28/2025 01:15:00 PM, [address], [address], [place], [address], Progress Notes * SIN SNOWDENDOB: (68 yo M)Acc No.[id number]:05/27/2024 Patient:?SIN SNOWDEN :1955???Age:68 Y???Sex:Male Address:[address] [place], [place] [address] [address] * true * Date:? Generated for Debbie spring/Rafa/eTransmitting on:?06/24/2024 04:55 PM EDT
--- OUTSIDE RECORDS SUMMARY | 2024-06-24 16:55 | XMS_ITS ---
Author Organization [facility] Address [address] [place] [address] Care Team Providers Care Slat Grader Name Role Phone Charanjit MONROE [place] Primary Care Provider Unava jonh Melara Jr, Juan Wiseman [phone] REASON FOR VISIT labs Encounters Encounter Location Date Provider Diagnosis [facility] [address] [place] [address] 05/11/2024 Juan Melara Jr Elevated liver enzymes R74.8 Assessments Encounter Date Diagnosis (ICD Code) Assessment Notes Treatment Notes Treatment Clinical Notes Section Notes 05/11/2024 Elevated liver enzymes (ICD-10 - R74.8) Plan Of Treatment Pending Test Test Name Order Date LIVER PROFILE 05/11/2024 Next Appt Details Provider Name:Juan hickman Jr, 04/28/2025 01:15:00 PM, [address] [facility], [address], [place], [address], Progress Notes * SIN SNOWDENDOB: 5 (68 yo M)Acc No.[id number]:05/11/2024 Patient:?SIN SNOWDEN :1955???Age:68 Y???Sex:Male Address:[address] [place] [address] [place] [address] Subjective: * Chief Complaints: * ???Labs * Medical History:? * Surgical History:? * Hospitalization/Major Diagno stic Procedure:? * Medications:? Objective: Assessment: * Assessment: 1.?Elevated liver enzymes - R74.8 (Primary)? Plan: * Treatment: * Procedure Codes:? * true * Date:? Generated for Debbie spring/Rafa/Keisha on:?06/24/2024 04:55 PM EDT
--- OUTSIDE RECORDS SUMMARY | 2024-06-24 16:55 | XMS_ITS | Encounter Summary ---
Author Organization [facility] Address [address] [place] [address] Care Team Providers Care Wood Floor Refinisher Name Role Phone Unavailable Primary Care Provider Unavailabl e Encounter Details Date Type Department Care Team (Late st Contact Info) Description 10/02/2023 Scanned Document [facility] [address] [place] [address] Provider, [facility] . Social History Tobacco Use Types Packs/Day [...] EDT Office Visit Transplantation & Immunology at [address] [place] [address] Bryon Mayorga MD [address] [place] [phone] documented as of this encounter Procedures Procedure Name Priority Date/Time Associated Diagnosis Comments LAB SCAN Routine 09/09/2023 2:53 PM EDT documented in this encounter Results * Lab Scan (09/09/2023 2:53 PM EDT) us Historical Provider LAB BLOOD ORDERABLES Final R esult documented in this encounter Visit Diagnoses Not on filedocumented in this encounter
== END 2024-06-24 14:51 | disposition home or self-care (01) ==
LOC: HO.HPS 14:09
PROVIDERS: PCP Internal Medicine; Visit Provider Internal Medicine
DX: J44.9 Chronic obstructive pulmonary disease, unspecified (principal)
CPT/HCPCS: 99213

== ENCOUNTER → 2024-06-24 14:08 | Outpatient (BNVA) | payer MEDICARE, MEDICAID, SELFPAY | PROVIDERS: PCP Internal Medicine; Visit Provider Internal Medicine | DX: J44.9 Chronic obstructive pulmonary disease, unspecified (principal); Z79.899 Other long term (current) drug therapy | CPT/HCPCS: 99212 ==

== ENCOUNTER 2024-09-21 11:56 | Outpatient (REF) | payer MEDICARE, MEDICAID, SELFPAY ==
[2024-09-21 12:39] LABS: INTERNATIONAL NORM RATIO 1.0 (0.9-1.1); Prothrombin Time 11.4 SEC (10.9-12.4)
[2024-09-21 12:40] LABS: Appearance Urine Clear; Glucose Urine UA Negative (Negative); PH 7.0 (5.0-9.0); Specific Gravity - Urine 1.010 (1.005-1.025)
--- OUTSIDE RECORDS SUMMARY | 2024-09-21 12:54 | XMS_ITS | Clinical Summary ---
Author Organization [facility] Address [address] [place] [address] Care Team Providers Care Mortician Supplies Sales Representative Name Role Phone Unavailable Primary Care Provider [...] Vaccines (1 of 2) 2004 COVID-19 Vaccine (1 - 2023-2 5 season) 2023 Influenza Vaccine (#1) 2024 RSV Immunization Adult Patie nts (1 [...]
--- OUTSIDE RECORDS SUMMARY | 2024-09-21 12:54 | XMS_ITS | Encounter Summary ---
Author Organization [facility] Address [address] [place] [address] Care Team Providers Care Ammonium Hydroxide Operator Name Role Phone Unavailable Primary Care Provider Unavailabl e Reason for Referral * Imaging (Routine) - Pending Review Specialty Diagnoses / Procedures Referred By Contact Referred To Contact Diagnostic Radiology Procedures US Abdomen Complete [facility] [address] [place] [address] Phone: tel: fax: Referral ID Status Reason Start Date Expiration Date V isits Requested Visits Authorized [id number] Pending Review 03/15/2024 03/15/2025 1 1 Encounter Details Date Type Department Care Team (Late st Contact Info) Description 03/15/2024 Scanned Document [facility] [address] [place] [address] Daisy Ryan . Social History Tobacco Use [...] Office Visit [facility] [address] [place] [address] Bryon Mayorga MD [address] [place], [place] [address] [address] [place] [address] documented as of this encounter Procedures Procedure [...]
--- OUTSIDE RECORDS SUMMARY | 2024-09-21 12:54 | XMS_ITS | Patient Health Record ---
Author Organization [facility] Address [address] [place] [address] Care Team Providers Care Wildlife Conservation Officer Name Role Phone Charanjit MONROE, [place] Primary Care Provider Juan Kraus Jr Unavailable Allergies Allergen (clinical drug ingredient) Drug/Non Drug Allergy documented on EMR Reaction Allergy Type Onset Date Status Non-steroidal anti-inflammatory agent (FN) NSAIDs sensitvity to stomach Drug Allergy Active ciprofloxacin Cipro sensitivity to stomach Drug Allergy Active Results Component Value Reference Range Notes Complete Blood Count Auto Di ff Reviewed date:05/11/2024 08:33:02 PM Interpretation: Performing Lab:[facility], [address] [place] [phone] Notes/Report: White Blood Count 6.2 4.8-10.8 X10*3/uL [...] NRBC Abs Auto 0.000 0.0-0.012 X10*3/uL Comprehensive [place]. Panel Fa st Reviewed date:05/11/2024 08:33:33 PM Interpretation: Performing Lab:[address] [address] Notes/Report: Sodium 142 135-145 mmol/L Potassium 4.4 [...] Panel Reviewed date:05/11/2024 08:33:19 PM Interpretation: Performing Lab:[address] [place] [address] Notes/Report: Bilirubin Direct 0.2 0.0-0.5 mg/dL Lipid Panel Reviewed date:05/11/2024 08:33:10 PM Interpretation: Performing Lab:[facility], [address] [place] [address] Notes/Report: Triglycerides 91 <150 mg/dL Desirable Triglyceride: [...] Pattern Reviewed date:05/26/2024 11:10:55 PM Interpretation: Performing Lab:[facility], [address] [place] [address] Notes/Report: Anti Nuclear Antibody Screen NEGATIVE NEGATIVE [...] Negative International Consensus on SAMANTHA Patterns (https://doi.org/10.1515/c fqq-5671-3385) For additional information, please refer to http://education.TrabajoPanel.Nexway/faq/MVN051 (This link is being provided for informational/ educational purposes only.) THIS TEST WAS PERFORMED AT: [facility] [address] [place] [address] PAT STILES MD Anti Nuclear Antibody Titer TNP Anti Nuclear Antibody Pattern TNP SAMANTHA Titer 2 TNP SAMANTHA Pattern 2 TNP SAMANTHA Titer 3 TNP SAMANTHA Pattern 3 TNP Mitochondrial Antibody Reviewed date:05/26/2024 04:43:55 PM Interpretation: Performing Lab:[address] [address] Notes/Report: Mitochondrial Antibodies NEGATIVE NEGATIVE THIS TEST WAS PERFORMED AT: [facility] [address] [address] PAT STILES MD Mitochondrial Ab Titer TNP Smooth Muscle Antibody Reviewed date:05/26/2024 04:43:43 PM Interpretation: Performing Lab:[address] [address] Notes/Report: Smooth Muscle Antibody <20 <20 U [...] type 1. THIS TEST WAS PERFORMED AT: [facility]/[address] [address] SAAVNNA MORRISON MD,PHD Hepatitis A,B,C Profile Reviewed date:05/11/2024 08:33:43 PM Interpretation: Performing Lab:[address] [address] Notes/Report: Hepatitis A Antibody IgM Nonreactive Nonreactive [...] Problem Status W/U Status Risk Notes Problem 57585175 Epigastric pain (R10.13) Active confirmed Problem 535218324 Elevated LFTs (R79.89) Active confirmed Problem Gastric polyps (K31.7) Active confirmed Problem 76813662 Pancreatic cyst (K86.2) Active confirmed Problem Gastritis (9091475) Gastritis (K29.70) Active confirmed Problem 10723172 Change in bowel function (R19.8) Active confirmed Problem 36936299 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 Vital Signs Temperature 97.9 degrees Fahrenheit 04/26/2024 Blood pressure diastolic 00 mm Hg 04/26/2024 Height 66 in 04/26/2024 Blood pressure systolic 000 mm Hg 04/26/2024 Weight 160 lbs 04/26/2024 BMI 25.82 kg/m2 04/26/2024 Encounters Encounter Location Date Provider Diagnosis [facility] [address] [place] [address] 04/26/2024 Juan Melara Jr Pancreatic cyst K86.2 ; Elevated LFTs R79.89 ; Change in bowel function R19.8 and 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 [facility] [address] [place] [address] 05/11/2024 Juan Melara Jr Elevated liver enzymes R74.8 [facility] [address] [place] [address] 05/12/2024 Juan Melara Jr [facility] [address] [place] [address] 05/27/2024 Juan Melara Jr Assessments Encounter Date [...] Provider Name:Juan hickman , 04/28/2025 01:15:00 PM, [address] [place] [address], [address], [place], [address], Insurance Providers Payer Name Payer Address Payer Phone Subscriber Number Group Number Insured Name Patient Relationship to Insured Coverage Start Date Coverage End Date MED[place] [address] [place] [address] [id number] SIN SNOWDEN Self - patient is the insured MEDEX ATTN CLAIMS [address] [place] [phone] [id number] SIN SNOWDEN Self - patient is the insured MEDICAID OF [facility] [address] [place] [address] [phone] [id number] SIN SNOWDEN Self - patient is the [...]
--- OUTSIDE RECORDS SUMMARY | 2024-09-21 12:54 | XMS_ITS | Patient Health Record ---
Author Organization [facility] [place] Address [address] [place] [address] Care Team Providers Care Nitriles Lab Technician Name Role Phone Deven Donohue MDneth Primary Care Provider Chasity borja Dalia Mcclendon Unavailable [phone] Allergies Allergen (clinical drug ingredient) Drug/Non Drug [...] primary osteoarthritis of the ankle and/or foot (413599255) Primary osteoarthrit is, left ankle and foot (M19.072) Active confirmed Problem Acquired hammer toe of right foot (8220645542488910) Other hammer toe(s) (acquired), right foot (M20.41) Active confirmed Problem Acquired hammer toe of left foot (4791791999345057) Other hammer toe(s) (acquired), left foot (M20.42) Active confirmed Plan Of Treatment Pending Test Test Name Order Date 90485-Wjog Destruction, 03-3005/03/2021 70363-Dgoa Destruction, 03-3005/31/2021 72112-Kpbbaxsi Plate 10/18/2019 51946-Sumihmvd Plate 05/26/2017 00471-Dsmcfwhs Plate 06/19/2017 76837- Debride <25 sq cm 06/19/2017 76324 I&D ABSCESS- SIMPLE,SINGLE 020 42689, [id number]-CNNPG/INJECT, JOINT/BURSA 0 05/31/2021 Insurance Providers Payer Name Payer Address Payer Phone Subscriber Number Group Number Insured Name Patient Relationship to Insured Coverage Start Date Coverage End Date [facility] [address] [place] [address] [id number] 5 Seb Lewis Self - patient is [...]
--- OUTSIDE RECORDS SUMMARY | 2024-09-21 12:54 | XMS_ITS | Clinical Summary ---
Author Organization [facility] Address [address] [facility] 7t [place] [address] Care Team Providers Care Oil Field Roustabout Name Role Phone Unavailable Primary Care Provider [...] season) 2023 Influenza Vaccine (#1) 2024 RSV Patients and Pa tients Aged 60 [...] patient's age to complete this topic Insurance [place] STAND ADULT
[2024-09-21 13:00] LABS: Alanine Aminotransferase 43 U/L (0-40); Albumin Level 4.0 g/dL (3.5-5.0); Alkaline Phosphatase 84 U/L (39-117); Anion Gap 11 (12-20); Aspartate Amino Transferase 30 U/L (5-37); Blood Urea Nitrogen 19 mg/dL (9-16); Calcium 9.2 mg/dL (8.4-10.2); Carbon Dioxide 27 mmol/L (22-29); Chloride 105 mmol/L (96-108); Cholesterol 146 mg/dL (<200); Estimated Glomerular Filt Rate 55; HDL Cholesterol 53 mg/dL (>40); Potassium 4.2 mmol/L (3.3-5.1); Sodium 139 mmol/L (135-145); Total Protein 6.9 g/dL (6.5-8.0); Triglycerides 78 mg/dL (<150)
[2024-09-21 13:11] LABS: PSA,Total (Free>4and<10) 1.43 ng/mL (0.00-4.00)
== END 2024-09-21 11:57 | disposition home or self-care (01) ==
LOC: HO.LAB 11:56
PROVIDERS: PCP Internal Medicine
DX: Z00.00 Encounter for general adult medical examination without abnormal findings (principal); J44.1 Chronic obstructive pulmonary disease with (acute) exacerbation; K21.9 Gastro-esophageal reflux disease without esophagitis; R79.89 Other specified abnormal findings of blood chemistry; H40.9 Unspecified glaucoma; E83.01 Wilson's disease
CPT/HCPCS: 36415; 80053; 80061; 81003; 82306; 82390; 82525; 84153; 84443; 85610

== ENCOUNTER 2024-09-27 13:43 | Outpatient (REF) | payer MEDICARE, MEDICAID, SELFPAY ==
--- OUTSIDE RECORDS SUMMARY | 2024-09-27 14:56 | XMS_ITS | Patient Health Record ---
Author Organization [facility] Address [address] [place] [address] Care Team Providers Care Budget Technician Name Role Phone Charanjit MONROE, [place] Primary Care Provider Juan Kraus Jr Unavailable Allergies Allergen (clinical drug ingredient) Drug/Non Drug Allergy documented on EMR Reaction Allergy Type Onset Date Status Non-steroidal anti-inflammatory agent (FN) NSAIDs sensitvity to stomach Drug Allergy Active ciprofloxacin Cipro sensitivity to stomach Drug Allergy Active Results Component Value Reference Range Notes Complete Blood Count Auto Di ff Reviewed date:05/11/2024 08:33:02 PM Interpretation: Performing Lab:[facility], [address] [place] [address] Notes/Report: White Blood Count 6.2 4.8-10.8 X10*3/uL [...] NRBC Abs Auto 0.000 0.0-0.012 X10*3/uL Comprehensive [place]. Panel Fa st Reviewed date:05/11/2024 08:33:33 PM Interpretation: Performing Lab:[address] [address] Notes/Report: Sodium 142 135-145 mmol/L Potassium 4.4 [...] Panel Reviewed date:05/11/2024 08:33:19 PM Interpretation: Performing Lab:[address] [place] [address] Notes/Report: Bilirubin Direct 0.2 0.0-0.5 mg/dL Lipid Panel Reviewed date:05/11/2024 08:33:10 PM Interpretation: Performing Lab:[facility], [address] [place] [address] Notes/Report: Triglycerides 91 <150 mg/dL Desirable Triglyceride: [...] Pattern Reviewed date:05/26/2024 11:10:55 PM Interpretation: Performing Lab:[facility], [address] [place] [address] Notes/Report: Anti Nuclear Antibody Screen NEGATIVE NEGATIVE [...] Negative International Consensus on SAMANTHA Patterns (https://doi.org/10.1515/c xoj-5962-6199) For additional information, please refer to http://education.HealthLinkNow.WeAreHolidays/faq/LBK502 (This link is being provided for informational/ educational purposes only.) THIS TEST WAS PERFORMED AT: [facility] [address] [place] [address] PAT STILES MD Anti Nuclear Antibody Titer TNP Anti Nuclear Antibody Pattern TNP SAMANTHA Titer 2 TNP SAMANTHA Pattern 2 TNP SAMANTHA Titer 3 TNP SAMANTHA Pattern 3 TNP Mitochondrial Antibody Reviewed date:05/26/2024 04:43:55 PM Interpretation: Performing Lab:[address] [address] Notes/Report: Mitochondrial Antibodies NEGATIVE NEGATIVE THIS TEST WAS PERFORMED AT: [facility] [address] [address] PAT STILES MD Mitochondrial Ab Titer TNP Smooth Muscle Antibody Reviewed date:05/26/2024 04:43:43 PM Interpretation: Performing Lab:[address] [address] Notes/Report: Smooth Muscle Antibody <20 <20 U [...] type 1. THIS TEST WAS PERFORMED AT: [facility]/[address] [address] SAVANNA MORRISON MD,PHD Hepatitis A,B,C Profile Reviewed date:05/11/2024 08:33:43 PM Interpretation: Performing Lab:[address] [address] Notes/Report: Hepatitis A Antibody IgM Nonreactive Nonreactive [...] Problem Status W/U Status Risk Notes Problem 41010146 Epigastric pain (R10.13) Active confirmed Problem 207514130 Elevated LFTs (R79.89) Active confirmed Problem Gastric polyps (K31.7) Active confirmed Problem 53084539 Pancreatic cyst (K86.2) Active confirmed Problem Gastritis (8931615) Gastritis (K29.70) Active confirmed Problem 12552795 Change in bowel function (R19.8) Active confirmed Problem 97763377 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 Vital Signs Temperature 97.9 degrees Fahrenheit 04/26/2024 Blood pressure diastolic 00 mm Hg 04/26/2024 Height 66 in 04/26/2024 Blood pressure systolic 000 mm Hg 04/26/2024 Weight 160 lbs 04/26/2024 BMI 25.82 kg/m2 04/26/2024 Encounters Encounter Location Date Provider Diagnosis [facility] [address] [place] [address] 04/26/2024 Juan Melara Jr Pancreatic cyst K86.2 ; Elevated LFTs R79.89 ; Change in bowel function R19.8 and 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 [facility] [address] [place] [address] 05/11/2024 Juan Melara Jr Elevated liver enzymes R74.8 [facility] [address] [place] [address] 05/12/2024 Juan Melara Jr [facility] [address] [place] [address] 05/27/2024 Juan Melara Jr Assessments Encounter Date [...] Provider Name:Juan hickman , 04/28/2025 01:15:00 PM, [address] [place] [address], [address], [place], [address], Insurance Providers Payer Name Payer Address Payer Phone Subscriber Number Group Number Insured Name Patient Relationship to Insured Coverage Start Date Coverage End Date MED[place]ARE [place] [address] [place] [address] [phone] [id number] SIN SNOWDEN Self - patient is the insured MEDEX ATTN CLAIMS [address] [place] [phone] [id number] SIN SNOW[place] Self - patient is the insured MEDICAID OF [facility] [address] [place] [address] [phone] [id number] SIN SNOWDEN Self - patient is the [...]
--- OUTSIDE RECORDS SUMMARY | 2024-09-27 14:56 | XMS_ITS | Clinical Summary ---
Author Organization [employer] Address [address] [place] [address] Care Team Providers Care Nib Assembler Name Role Phone Unavailable Primary Care Provider [...]
--- OUTSIDE RECORDS SUMMARY | 2024-09-27 14:56 | XMS_ITS | Data Portability ---
Author Organization [facility] - Sae[facility], [facility] Address [address] [place] [address] Care Team Providers Care Cold Type Composing Machine Operator Name Role Phone MIKEY MARLOW Primary Care Provider [phone] Assessment No assessment recorded. Plan of Treatment Reminders Order Date Submit Date Provider Last Modified By Organization Details Last Modified Time Details Appointments TOTAL TRIAGE ONLY 2024 02:00P M Karan Morrison PA-C Not available Not available Not available POST OP 15 2024 09:30A M Malgorzata Reese PA-C Not available Not available Not available RECHECK 15 2024 02:00P M Kd Doe PA-C Not available Not available Not available Lab None recorded. Referral None recorded. Procedures None recorded. Surgeries None recorded. Imaging XR, shoulder, 2 or more view - 4v bilateral shoulders . room 216 2024 025 [facility], [address], [facility] [address], [address], 09/23/2024 14:21:27 XR, cervical spine, 1 view - cspine. room 216 2024 025 [facility], [address], [address], [place], [address], 09/23/2024 14:21:27 Medication Orders None recorded. Patient TargetsNo targets recorded. Patient InstructionsNo instructions recorded. Reason for Referral None Reported. Results Created Date Observation Date Name Description Value Unit Range Abnormal Flag Note LastModifiedBy Organization Detail LastModifiedTime 09/23/1909/22/2024 XR, cervi jamaal spine , 1 view [email or web address] ?Encry pted=s hAaTro YD8dLq bEUv6g %2BXZw aYqtaq 0bqfl% 2Fg9IQ a4ajBk vP9nXo QUaueC m3YtLR FvZlg JJ8mAn HZtai3 0q9594 AC0Kla XmNWKC nKiQtr MwF INTERFACE [facility] [address], [place], [address], 09/22/2024 13:57:48 09/23/19 25 09/22/2024 XR, cervi jamaal spine , 1 view [email or web address] ?Encry pted=s hAaTro YD8dLq bEUv6g %2BXZw aYqtaq 0bqfl% 2Fg9IQ a4ajBk vP9nXo QUaueC m3YtLR Zl JJ8Koosharem HZtai3 7v3518 AC0Kla XmNWKC nKiQtr MwF INTERFACE [facility] [address] [facility], [place], [address], 09/22/2024 13:57:49 09/23/19 25 09/22/2024 XR, shoul flory, 2 or more view http:/ [email or web address] ?Encry pted=s hAaTro YD8dLq bEUv6g %2BXZw aYqtaq 0bqfl% 2Fg9IQ a4ajBk vP9nXo QUaueC m3YtLR FvZl JJ8Koosharem HZtai3 0n5731 AC0Kla X%2BFV aGjKiQ trMwF INTERFACE [facility] [address], [place], [address], 09/22/2024 14:03:39 09/23/19 25 09/22/2024 XR, shoul flory, 2 or more view http:/ [email or web address] ?Encry pted=s hAaTro YD8dLq bEUv6g %2BXZw aYqtaq 0bqfl% 2Fg9IQ a4ajBk vP9nXo QUaueC m3YtLR FvZlgJ JJ8mAn HZtai3 1g5667 AC0Kla X%2BFV aGjKiQ trMwF INTERFACE [facility] [address] [facility] [address], [place], [address], 09/22/2024 14:03:41 Result Notes Documentation Provider Name and Address Organization Details Recorded Time Xr, Cervical Spine, 1 View : [email or web address] Encrypted=aoMtYprQR8bEajP Uv6g%2ICYbbJlqcs9ttsk%2Fg 0CVc2imTkvQ4dJiFBzvyQs0Bw CNMdXueVQT5tOzMAcsv91x094 9ZL3TyfLnYQKXsGhDdtKwW Not Available [facility] 09/22/2024 13:57: 48 Xr, Cervical Spine, 1 View : [email or web address] Encrypted=zyEsBszZR7hDjtB Uv6g%3KQTayZtunm9rzdk%2Fg 3ETd6rdBdhK0hNoGBbrhTa3Qu BAYkAtjVVP6bNoYCatq89t764 6FC7ZzgFaBZXKyJuSrqHrD Not Available [facility] 09/22/2024 13:57: 50 Xr, Shoulder, 2 Or More View : [email or web address]? Encrypted=kgJbMvoPV5nWpqN Uv6g%9IAVbcDegjr4hgin%2Fg 0PDm9szNgkL9gMmSJzauSl7An TSVnQbuMJN7kWlQNzlu38d196 9RJ4UshM%2BFVaGjKiQtrMwF Not Available [facility] 09/22/2024 14:0 3:39 Xr, Shoulder, 2 Or More View : [email or web address]? 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 Procedures Surgical History Date Name Laterality Status Provider Name and Address Organization Details Recorded Time 5 Sports Shoulder completed Macey Wright MD [address] [place] [address] [address], [place], [address], [facility] 09/22/2024 14:45:15 Imaging Results None recorded. Procedure Notes None recorded. Medical Equipment None Reported. Allergies No known drug allergies Medications Name Sig Start Date Stop Date Status Note LastModified by Organization Details LastModified Time losartan 50 mg tablet TAKE 1 TABLET (50 MG TOTAL) BY MOUTH 2 (TWO) TIMES A DAY. 50 MG IN THE MORNING AND 50 MG AT NIGHT active Not Available Not Available No t Available amoxicillin 500 mg capsule TAKE 4 CAPSULES BY MOUTH 1 HOUR PRIOR TO DENTAL APPOINTME NT active Not Available Not Available No t Available tizanidine 4 mg tablet TAKE 1 TABLET BY MOUTH EVERY 8 HOURS NEEDED FOR MUSCLE SPASTICIT Y FOR 10 DAYS 09/22 completed Not Available Not Available Not Available prednisone 5 mg tablet TAKE 1 TABLET BY MOUTH EVERY OTHER DAY FOR 90 DAYS 09/22 completed Not Available Not Available Not Available pseudoephed rine-guaife nesin ER 80-700 mg tablet,exte nded release 1-2 TABS EVERY 4-6 HRS PRN PAIN. DO NOT DRIVE WHILE ON THIS MEDICATIO N. 03/13 completed Statu s: 'Disc ontin ued'; Not Available Not Available Not Available Cuprimine 250 mg capsule Take 1 capsule every day by oral route. active Not Available Not Available No t Available mupirocin 2 % topical ointment APPLY THIN LAYER TO BIOPSY SITE ONCE DAILY THEN COVER WITH BANDAID UNTIL HEALED active Not Available Not Available No t Available lorazepam 1 mg tablet TAKE 1 TABLET BY MOUTH UP TO 3 TIMES A DAY NEEDED FOR ANXIETY FOR 30 DAYS. active Not Available Not Available No t Available cefuroxime axetil 500 mg tablet TAKE 1 TABLET ORALLY 2 TIMES A DAY FOR 7 DAYS 09/22 completed Not Available Not Available Not Available albuterol sulfate HFA 90 mcg/actuati on aerosol inhaler INHALE 2 PUFFS BY MOUTH EVERY 6 HOURS NEEDED FOR WHEEZING active Not Available Not Available No t Available Nucynta 100 mg tablet TAKE 1 TABLET ORALLY EVERY 6 HOURS NEEDED FOR PAIN FOR 15 DAYS active Not Available Not Available No t Available Dulera 200 mcg-5 mcg/actuati on HFA aerosol inhaler INHALE 2 PUFFS BY MOUTH TWICE A DAY FOR COPD active Not Available Not Available No t Available Vitamin B-6 50 mg capsule Take by oral route. active Not Available Not Available No t Available Spiriva Respimat 2.5 mcg/actuati on solution for inhalation INHALE 2 PUFFS EVERY MORNING FOR COPD FOR 30 DAYS active Not Available Not Available No t Available Vitals Date Recorded Body height Body mass index (BMI) Body weight Provider Name and Address Organization Details Last Updated DateTime 09/22/2024 172.72 cm 23.6 kg/m2 23502.82 g Susy Castillo [place] - [facility] 09/22/2024 13:46:37 Social History None recorded. Functional Status None recorded. Mental Status None recorded. Family History Nothing Reported. Medical History Condition Response Breathing or lung disorders Y Headaches Y Arthritis Y Hypertension Y Past Encounters Encounter ID Performer Location Encounter Start Date Encounter Closed Date Diagnosis/Indication Diagnosis SNOMED-CT Code Diagnosis ICD10 Code Diagnosis Note [id number] MD MANASA Peterson [address] [place] [address] 09/22/2024 13:35:41 09/22/2024 14:45:33 Bilateral shoulder joint pain 2171439125 1623254 M25.511 M25.512 Health Concerns Section Related Observation LastModified by Organization Detai ls LastModified Time None Recorded Concern Status LastModified by Organization Details LastModified Time None Recorded Advance Directives Directive None Recorded Payers Insurance Date Sequence Insurance Name Policy Number Policy Morejon Covered Member ID Morejon Member ID Guarantor Name 09/23/2024 2 [place] [id number] Seb Lewis [id number] Seb Lewis 09/23/2024 1 [place] [employer] Seb Lewis [id number] Seb Finch Joshua Notes Date Note Type Note Provider Name and Address Organization Details Recorded Time 09/22/2024 text/html Issue: Left > Ri ght glenohumeral arthritis, possible Right rotator cuff tear Interval History: This is a 69-year-old qjfkm-rldk-svjanbdh 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 Notes chronic pain in bilateral shoulders over the past 10 years, getting gradually worse over time. In the past several months, right shoulder has been particularly symptomatic. Pain is felt over the lateral brachium. Radiate down the arm, rarely to the hand. Denies crepitus, but aware of decreased range of motion bilaterally. Pain most exacerbated by abduction and overhead reach. After cortisone injection for the left shoulder back in 2022, though cannot recall whether or not this helped. Past family, medical, social history and review of systems have been reviewed and updated on the medical history sheet saved to the patient's chart. A 12-point review of systems is negative x12 except as noted above and/or on the medical history sheet. Examination: Pleasant 69-year-old gentleman in no acute distress. 5 feet 8 inches, 157 pounds. On exam of the right upper extremity, skin over the shoulder intact. No pain, no gross atrophy. No point tenderness palpation. Active and passive forward elevation 160 with subacromial crepitus noted. Passive external rotation 60 with negative ER lag. Internal rotation L5. 5/5 strength with empty can, 5/5 in internal and external rotation. Pain with both resisted ER empty can test negative Yergason's. Sensation intact in an axillary distribution. Fires EPL, FPL and intrinsics. Hand is warm and well-perfused. On exam of the left upper extremity, skin over the shoulder is intact. No effusion, no gross atrophy. No point tenderness to palpation. Active and passive forward elevation 165, external rotation 65, internal rotation back pocket. 5/5 strength with scaption, IR, ER. No pain with cuff testing. Negative Yergason's. Motor and sensation grossly tact distally. Imagin views of the Left shoulder ordered and obtained at [facility] today were reviewed during the visit. These demonstrate narrowing of glenohumeral joint space with moderate to severe arthritis appreciated humeral head centered on axillary view, no significant glenoid retroversion. Subchondral cyst within the central glenoid suspected. Type II acromion. AC joint space well-preserved. No proximal migration humeral head. Right shoulder ordered and obtained at [facility] today reviewed during visit. Demonstrate near glenohumeral joint space. Acromiohumeral interval distance well-maintained. No anterior posterior translation of the humeral head relative to central glenoid. Mild to moderate AC arthrosis. Type II acromion. Impression: 69-year-old fblon-ragg-jysjumms retired/disabled gentleman Wilsons disease with bilateral shoulder complaints. Right more symptomatic than the left. Diagnosis on the right of at least moderate glenohumeral arthritis with likely rotator cuff tear. On the left, more advanced glenohumeral arthritis. Plan: Findings and options for management reviewed with the patient. Definitive management would entail shoulder replacement operation. Given concerns about rotator cuff pathology, would likely pursue a reverse total shoulder arthroplasty, at least on the right. Technical details, risks and benefits, typical downtime from surgery reviewed or considering moving forward with surgical intervention, would recommend starting with his at least brief course of conservative treatment. To that end, we will go forward with intra-articular/suba cromial cortisone injection for the right shoulder today. Will plan to have him return to the office in 3 months to see how this works for him. He may opt to continue with cortisone injections if this has worked well for him, at this point seems to be leaning toward surgical intervention. [facility] speech recognition services engineer software was used to create portions of this document. An attempt at proofreading has been made to minimize errors. Please call for corrections. Macey Wright MD [facility] [address], [place], [address], [facility] [place] [facility] 09/22/2024 14:45:32
--- OUTSIDE RECORDS SUMMARY | 2024-09-27 14:56 | XMS_ITS | Clinical Summary ---
Author Organization [facility] ity Address [address] [place] [address] Care Team Providers Care Air Bag Builder Name Role Phone Unavailable Primary Care Provider [...]
--- OUTSIDE RECORDS SUMMARY | 2024-09-27 14:56 | XMS_ITS | Encounter Summary ---
Author Organization [facility] Address [address] [place] [address] Care Team Providers Care Substation Engineer Name Role Phone Unavailable Primary Care Provider Unavailabl e Reason for Referral * Imaging (Routine) - Pending Review Specialty Diagnoses / Procedures Referred By Contact Referred To Contact Diagnostic Radiology Procedures US Abdomen Complete [facility] [address] [place] [address] Phone: tel: fax: Referral ID Status Reason Start Date Expiration Date V isits Requested Visits Authorized [id number] Pending Review 03/15/2024 03/15/2025 1 1 Encounter Details Date Type Department Care Team (Late st Contact Info) Description 03/15/2024 Scanned Document [facility] [address] [place] [address] Daisy Ryan . Social History Tobacco Use [...] Office Visit [facility] [address] [place] [address] Bryon Mayorga MD [address] [place], [place] [address] [address] [address] [place] [address] documented as of this encounter Procedures Procedure [...]
--- OUTSIDE RECORDS SUMMARY | 2024-09-27 14:56 | XMS_ITS | Patient Health Record ---
Author Organization [facility] Address [address] [place] [address] Care Team Providers Care Powder Blender Name Role Phone Deven Donohue MDneth Primary Care Provider Chasity borja Dalia Mcclendon Unavailable [phone] Allergies Allergen (clinical drug ingredient) Drug/Non Drug [...] primary osteoarthritis of the ankle and/or foot (120266275) Primary osteoarthrit is, left ankle and foot (M19.072) Active confirmed Problem Acquired hammer toe of right foot (7408204542662933) Other hammer toe(s) (acquired), right foot (M20.41) Active confirmed Problem Acquired hammer toe of left foot (5504989490962990) Other hammer toe(s) (acquired), left foot (M20.42) Active confirmed Plan Of Treatment Pending Test Test Name Order Date 27017-Mfbj Destruction, 03-3005/03/2021 23900-Tcar Destruction, 03-3005/31/2021 94928-Xeohehgh Plate 10/18/2019 93632-Vigfojfw Plate 05/26/2017 41518-Hedoggpx Plate 06/19/2017 52059- Debride <25 sq cm 06/19/2017 44815 I&D ABSCESS- SIMPLE,SINGLE 020 42268, L9821-PQHYD/INJECT, JOINT/BURSA 0 05/31/2021 Insurance Providers Payer Name Payer Address Payer Phone Subscriber Number Group Number Insured Name Patient Relationship to Insured Coverage Start Date Coverage End Date [facility] [address] [place] [address] [id number] Seb Lewis Self - patient is [...]
[2024-10-01 18:39] LABS: Copper,Urine 24 Hr 339 mcg/24 h (15-60); Total Volume 24 Ur 1500 mL
== END 2024-09-27 13:44 | disposition home or self-care (01) ==
LOC: HO.LNP 13:43
DX: E83.01 Wilson's disease (principal)
CPT/HCPCS: 82525

== ENCOUNTER 2024-09-29 15:11 | Outpatient (AMB) | payer MEDICARE, MEDICAID, SELFPAY ==
--- NOTE | 2024-09-29 15:16 | MHC.PC.OV ---
Vital Signs 09/29/24 15:17 Height 5 ft 8 in Weight 154 lb 8 oz BMI 23.5 BP 122/70 Blood Pressure Location Lt brachial Position Sitting Pulse 91 Pulse Source Pulse Oximeter Pulse Oximetry (%) 94 Oxygen Delivery Method Room Air Intake Visit Reasons: 4M follow UP Branch Director Required: No Accompanied by: Self / Same As Patient Allergies duloxetine (From Cymbalta) Allergy (Unknown, Verified 09/29/24 15:38) increased hot flashes and leg cramps clavulanic acid (Augmentin) Adverse Reaction (Unknown, Verified 09/29/24 15:38) upset stomach gabapentin Adverse Reaction (Unknown, Verified 09/29/24 15:38) bilateral eye pains Medication List - Last Reconciled 09/29/24 by Brody Donohue MD albuterol sulfate 0.63 mg (3 mL) inhalation QID PRN albuterol sulfate 90 mcg/actuation (Ventolin HFA) 2 puffs PO Q6H PRN lorazepam 1 mg PO TID PRN 30 days losartan 50 mg PO BID mometasone-formoterol 200-5 mcg/actuation (Dulera) 2 puffs inhalation BID 30 days multivitamin (Daily Multi-Vitamin tablet) 1 tab PO DAILY penicillamine 250 mg PO BID 90 days pyridoxine (vitamin B6) 25 mg PO DAILY tapentadol (Nucynta) 100 mg PO Q6H PRN 15 days tiotropium bromide 2.5 mcg/actuation (Spiriva Respimat) 2 puffs inhalation QAM 30 days tizanidine 4 mg PO Q8H PRN 10 days Tobacco use date assessed: 09/29/24 Fall risk assessment: 1 Fall in past year Last assessed Fall Risk: 09/29/24 Dental Screening Dental Screen Date: 09/29/24 Did you have a dental visit in the last 12 months?: Yes Did you have a dental problem in the last 6 months where you did not have access to dental care?: No Was dental information given to patient?: Patient has dentist HPI 4M follow UP HPI Details Patient comes in today for his follow up visit States that he feels okay He denies any headaches or dizziness Denies any chest pains, no increased SOB No nausea/vomiting, no abdominal pain No change in bowel habits noted States that his chronic low back pain and joint pains remain adequately controlled on his current Rx He had his follow up labs done last week - to discuss his results [facility] Medical History COPD exacerbation Bronchitis Cough Benign essential hypertension Urinary frequency Anxiety Pancreatic cyst GERD without esophagitis Primary osteoarthritis involving multiple joints Lumbar degenerative disc disease Tai's disease COPD (chronic obstructive pulmonary disease) Surgical History Hx of colonoscopy History of total left hip arthroplasty (~02/25/22) H/O right knee surgery History of arthroscopy of left knee History of right hip replacement History of tonsillectomy and adenoidectomy H/O hernia repair H/O nasal polypectomy History of cholecystectomy Family History Father No problems noted. Mother No problems noted. Social History Housing: House Alcohol intake: never Patient Tobacco Use Status: Former Tobacco user e-Cigarette/Vaping Use: Never Used Second Hand Smoke Exposure: No service: Yes ([employer]) Current occupational status: retired Cognitive needs: No Hearing needs: Yes (hearing aide) Vision needs: Yes (Glasses) Questionnaire PHQ-9 Over the last 2 weeks, how often have you been bothered by any of the following problems? 1. Little interest or pleasure in doing things: not at all 2. Feeling down, depressed, or hopeless: not at all 3. Trouble falling or staying asleep, or sleeping too much: not at all 4. Feeling tired or having little energy: not at all 5. Poor appetite or overeating: not at all 6. Feeling bad about yourself - or that you are a failure or have let yourself or your family down: not at all 7. Trouble concentrating on things, such as reading the newspaper or watching television: not at all 8. Moving or speaking so slowly that other people could have noticed. Or the opposite - being so fidgety or restless that you have been moving around a lot more than usual: not at all 9. Thoughts that you would be better off or of hurting yourself in some way: not at all Total score: 0 Depression Screening Interpretation: Negative Depression Screening Done: Yes 25788 - PHQ-9 Billing: Yes Source: Developed by Drs. Jacinto Fields, Abbie Villanueva, Reji Xavier and colleagues, with an educational celio from [employer]. Thrive Questionnaire Date Thrive assessed: 09/29/24 I am a: Patient What is your living situation today?: I have a steady place to live Within the past 12 months, did the food you bought not last and you didn't have the money to get more?: Never true Within the past 12 months, did you worry whether your food would run out before you got money to buy more?: Never true Do you have trouble paying for medicines?: No Do you have trouble getting transportation to medical appointments?: No Do you have trouble paying your heating and electricity bill?: No Do you have trouble taking care of your child, family member or friend?: No Do you have trouble with day-to-day activities such as bathing, preparing meals, shopping, managing finances, etc.?: No Are you currently unemployed and looking for a job?: No Are you interested in more education?: No Please select the resources that you would like help with: None Currently or been in a relationship where the following occur: No concerns reported THRIVE Score: 0 AUDIT C Alcohol Use Questionnaire (AUDIT-C) 1. How often do you have a drink containing alcohol?: Never 3. How often do you have six or more drinks on one occasion?: Never Total Score: 0 Score Reviewed/Action Taken: Yes HARITHA-7 AMB Questionnaire HARITHA-7 Date HARITHA - 7 assessed: 09/29/24 Feeling nervous, anxious, or on edge: 0 = Not at all Not being able to stop or control worryin = Not at all Worrying too much about different things: 0 = Not at all Trouble relaxin = Not at all Being so restless that it is hard to sit still: 0 = Not at all Becoming easily annoyed or irritable: 0 = Not at all Feeling afraid as if something awful might happen: 0 = Not at all Total HARITHA-7 score (0-4 normal; 5-9 mild; 10-14 moderate; 15-21 severe): 0 Source: Developed by Abbie Rios B.W. Rich, Reji Xavier and colleagues, with an educational celio from [employer]. Review of Systems Const Denies chills, Denies difficulty sleeping, Reports fatigue (at times), Denies fever(s) and Denies headache(s) ENT Denies dysphagia, Denies dizziness, Denies otalgia, Denies headache(s), Denies neck pain, Denies odynophagia and Denies sore throat Card Denies chest pain, Denies irregular heart rhythm, Denies palpitations and Denies dyspnea Resp Denies chest congestion, Denies cough and Denies dyspnea GI Denies abdominal pain, Denies constipation, Denies dysphagia, Denies heartburn, Denies diarrhea, Denies nausea, Denies odynophagia and Denies vomiting Denies difficulty urinating, Denies dysuria and Denies urinary frequency Musc Reports back pain (over the lower back - chronic), Reports arthralgias (involving multiple joints) and Denies neck pain Skin/Breast Denies rash Neuro Denies dizziness, Denies headache(s) and Denies paresthesias Endo Reports fatigue (at times) and Denies palpitations Physical exam (Primary Care) Vital Signs: Last Vital Signs Pulse 91 09/29/24 15:17 BP 122/70 09/29/24 15:17 Pulse Ox 94 09/29/24 15:17 Oxygen Delivery Method Room Air 09/29/24 15:17 BMI result Body Mass Index 23.5 Tobacco/Smoking Status: Tobacco use Status Tobacco use date assessed 09/29/24 09/29/24 15:24 Patient Tobacco Use Status Former Tobacco user 09/29/24 15:24 e-Cigarette/Vaping Use Never Used 09/29/24 15:24 PHQ-9: PHQ-9 Score PHQ-9: Total score 0 09/29/24 15:41 Depression Screening Interpretation: Negative Thrive Assessment: Date of Thrive Assessment Date Thrive assessed 09/29/24 09/29/24 15:24 Currently or been in a relationship where the following occur: No concerns reported Const General: no acute distress and alert HENMT Ears: TM's normal bilaterally and EAC's normal Throat: Yes posterior oropharynx normal and Yes tonsils normal (no TP congestion) Neck Neck: No lymphadenopathy and Yes tender Thyroid: Thyroid normal Resp Auscultation: clear to auscultation bilaterally, no rales and no wheezes Cardio Rate: regular rate Rhythm: regular rhythm Heart sounds: no murmurs GI Palpation (GI): Soft to palpation and nontender Auscultation: normal bowel sounds General: Yes no CVA tenderness Back/Spine/Pelvis Back: no CVA tenderness Cervical Spine: Cervical spine tenderness Thoracic/Lumbar Spine: lumbar spinal tenderness Skin Rashes: no rashes Extrem General: Yes no clubbing, cyanosis or edema Results Reviewed Results Reviewed: Laboratory Tests 09/21/24 09/21/24 12:13 12:20 Sodium 139 Potassium 4.2 Creatinine 1.30 Estimated GFR 55 Fasting Glucose 109 H Calcium 9.2 AST 30 ALT 43 H Triglycerides 78 Cholesterol 146 LDL Cholesterol, Calc 78 HDL Cholesterol 53 Total PSA 1.43 25-OH Vitamin D Total 47.4 TSH 1.10 Ur Specific [place] 1.010 Urine Protein Negative Urine Glucose (UA) Negative Urine Blood Negative Urine Nitrite Negative Ur Leukocyte Esterase Negative Serum Copper 59 L Coding Level of Care Code Est Pt Level 4 (48200) Diagnoses Benign essential hypertension I10 Tai's disease E83.01 Elevated LFTs R79.89 Chronic obstructive pulmonary disease, unspecified COPD type J44.9 COPD type: unspecified COPD Degeneration of intervertebral disc of lumbar region with discogenic back pain M51.360 Disc-related pain type: discogenic back pain only Primary osteoarthritis involving multiple joints M89.49 GERD without esophagitis K21.9 Urinary frequency R35.0 Basal cell carcinoma (BCC) of skin of neck C44.41 Basal cell carcinoma location: neck Glaucoma, unspecified glaucoma type, unspecified laterality H40.9 Glaucoma type: unspecified Laterality: unspecified laterality Anxiety F41.9 Additional Codes PHQ-9 - 03832 - PHQ-9 Billing: Yes ([id number]) Assessment & Plan Assessment & Plan (1) Benign essential hypertension: Code(s): I10 - Essential (primary) hypertension Category: Medical Plan: Reinforced low sodium diet - goal is systolic BP of 130 to 140 mm or less Continue Losartan 50 mg BID Patient is reminded to continue monitoring his blood pressure regularly (2) 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 Melara) as scheduled Will recheck his labs in 4 months for follow up (3) Elevated LFTs: Code(s): R79.89 - Other specified abnormal findings of blood chemistry Category: Medical Plan: He is advised that his LFTs have improved on his recent labs Abdominal US done back in September 2023 revealed borderline mildly increased hepatic parenchymal heterogeneity and echogenicity could be associated with hepatocellular disease/hepatic steatosis and substantially limits visualization The gall bladder is surgically absent and the pancreas appears mildly heterogeneous and the pancreatic duct measures 0.3 cm in diameter. There is also possible trace amount of free fluid adjacent to the substantial superior aspect of the left hepatic lobe Will continue to monitor his LFTs regularly Follow up with GI (Dr. Melara) as scheduled (4) COPD (chronic obstructive pulmonary disease): Comment: CHRONIC OBSTRUCTIVE PULMONARY DISEASE, MILD TO MODERATE, IS GETTING SOMEWHAT WORSE. THE SPIROMETRY ON THE LAST VISIT INDICATED THAT THE FLOW VOLUMES HAVE DECREASED COMPARED TO SPIROMETRY IN 2021. SO SPIRIVA RESPIMAT WAS ADDED, AND HE DEFINITELY FEELS BETTER WITH THAT. Code(s): J44.9 - Chronic obstructive pulmonary disease, unspecified Category: Medical Qualifiers: COPD type: unspecified COPD Qualified Code(s): J44.9 - Chronic obstructive pulmonary disease, unspecified Plan: Chest CT done on 06/10/2017 showed findings consistent with pulmonary emphysema Continue Spiriva Respimat Aerosol Solution, 2.5 mcg, 2 puffs Once a day, Symbicort Aerosol, 160-4.5 MCG/ACT, 2 inhalations Twice a day and ProAir HFA Aerosol Solution, 108 (90 Base) MCG/ACT, 2 puffs four times a day NEEDED Follow up with pulmonary (Dr. Francois) as scheduled (5) Lumbar degenerative disc disease: Comment: Has received lumbar spine injections from [facility] in the past with little relief Code(s): M51.36 - Other intervertebral disc degeneration, lumbar region Category: Medical Qualifiers: Disc-related pain type: discogenic back pain only Qualified Code(s): M51.360 - Other intervertebral disc degeneration, lumbar region with discogenic back pain only Plan: Reinforced activity and weight lifting restrictions Continue Lidoderm Patch, 5 %, 1 patch to intact skin remove after 12 hours, Externally, Once a day as needed and Nucynta Tablet, 100 MG, 1 tablet, Orally, every 6 hrs as needed for pain, 15 days, # 60 Tablets Follow-up with [facility] (Dr. Woo) as scheduled - he has been presented with the options of a spinal cord stimulation, an intrathecal drug delivery system as well as a genicular block and radiofrequency ablation for pain relief (6) Primary osteoarthritis involving multiple joints: Code(s): M89.49 - Other hypertrophic osteoarthropathy, multiple sites Category: Medical Plan: Follow up with [facility] as scheduled (7) GERD without esophagitis: Code(s): K21.9 - Gastro-esophageal reflux disease without esophagitis Category: Medical Plan: Dietary restrictions reinforced Continue Dexilant capsules 60 mg QD (8) Urinary frequency: Code(s): R35.0 - Frequency of micturition Category: Medical Plan: His PSA was normal on his labs done a few months ago Follow up with urology as scheduled (9) Basal cell carcinoma (BCC): Code(s): C44.91 - Basal cell carcinoma of skin, unspecified Category: Medical Qualifiers: Basal cell carcinoma location: neck Qualified Code(s): C44.41 - Basal cell carcinoma of skin of scalp and neck Plan: He was supposedly informed by dermatology that the lesion they removed from the left side of his neck a few months ago was a basal cell carcinoma lesion but the margins were reportedly clear Follow up with [facility] as scheduled for further management/treatment (10) Glaucoma: Code(s): H40.9 - Unspecified glaucoma Category: Medical Qualifiers: Glaucoma type: unspecified Laterality: unspecified laterality Qualified Code(s): H40.9 - Unspecified glaucoma Plan: Follow up with ophthalmology as scheduled (11) Anxiety: Code(s): F41.9 - Anxiety disorder, unspecified Category: Medical Plan: Continue Lorazepam 1 mg TID PRN Plan Follow up in 4 months Orders: Orders Comprehensive [place]. Panel Fast 4 Months E78.00 - Pure hypercholesterolemia, unspecified TSH reflex Free T4 4 Months E78.00 - Pure hypercholesterolemia, unspecified Vitamin D 25-OH Total 4 Months E55.9 - Vitamin D deficiency, unspecified Ceruloplasmin 4 Months E83.01 - Tai's disease Complete Blood Count Auto Diff 4 Months D64.9 - Anemia, unspecified Lipid Panel 4 Months E78.00 - Pure hypercholesterolemia, unspecified Hemoglobin A1c 4 Months R73.9 - Hyperglycemia, unspecified UA CC w/rflx Micro + Cult 4 Months R30.0 - Dysuria Copper, serum 4 Months E83.01 - Tai's disease
[2024-09-29 15:17] VITALS: BP 122/70; PULSE 91; O2SAT 94; BMI 23.5
--- OUTSIDE RECORDS SUMMARY | 2024-09-29 15:33 | XMS_ITS | Clinical Summary ---
Author Organization [employer] Address [address] [place] [address] Care Team Providers Care Medical Physics Teacher Name Role Phone Unavailable Primary Care Provider [...]
--- OUTSIDE RECORDS SUMMARY | 2024-09-29 15:33 | XMS_ITS | Data Portability ---
Author Organization SANDRA - Saeed Harris [facility], [facility] Address [address] [place] [address] Care Team Providers Care Clinical Rehabilitation Specialist Name Role Phone MIKEY MARLOW Primary Care Provider [phone] Assessment No assessment recorded. Plan of Treatment [...] bilateral shoulders . room 216 2024 025 [facility] center[facility]ds[facility] Office, [address], [facility] [address], [address], 09/23/2024 14:21:27 XR, cervical spine, 1 view - cspine. room 216 2024 025 [facility]pag[facility] centerMultiPON Networksd[facility] Office, [address], [address], [place], [address], 09/23/2024 14:21:27 Medication Orders None recorded. Patient [...] a4ajBk vP9nXo QUaueC m3YtLR FvZlg JJ8mAn HZtai3 8c3114 AC0Kla XmNWKC nKiQtr MwF INTERFACE [facility] [address], [place], [address], 09/22/2024 13:57:48 09/23/19 25 09/22/2024 XR, cervi jamaal spine , 1 view [email or web address] ?Encry pted=s hAaTro YD8dLq bEUv6g %2BXZw aYqtaq 0bqfl% 2Fg9IQ a4ajBk vP9nXo QUaueC m3YtLR Zl JJ8[place] HZtai3 6l6200 AC0Kla XmNWKC nKiQtr MwF INTERFACE [facility] [address], [place], [address], 09/22/2024 13:57:49 09/23/19 25 09/22/2024 XR, shoul flory, 2 or more view [email or web address] ?Encry pted=s hAaTro YD8dLq bEUv6g %2BXZw aYqtaq 0bqfl% 2Fg9IQ a4ajBk vP9nXo QUaueC m3YtLR FvZl JJ8[place] HZtai3 2n6114 AC0Kla X%2BFV aGjKiQ trMwF INTERFACE [facility] [address], [place], [address], 09/22/2024 14:03:39 09/23/19 25 09/22/2024 XR, shoul flory, 2 or more view [email or web address] ?Encry pted=s hAaTro YD8dLq bEUv6g %2BXZw aYqtaq 0bqfl% 2Fg9IQ a4ajBk vP9nXo QUaueC m3YtLR FvZlgJ JJ8mAn HZtai3 6h6432 AC0Kla X%2BFV aGjKiQ trMwF INTERFACE [facility] [address] [facility] [address], [place], [address], 09/22/2024 14:03:41 Result Notes Documentation Provider Name and Address Organization Details Recorded Time Xr, Cervical Spine, 1 View : [email or web address] Encrypted=fyQwOndIV6wRljE Uv6g%7XGPmzDdaiq9snfd%2Fg 5PIt0eqMoaL8mYkEPtdzQd4Ho JHHmRwzCLT4fOfVXmtw84h777 6PP3AdyNpATMQgCbUbmPuA Not Available [facility] 09/22/2024 13:57: 48 Xr, Cervical Spine, 1 View : [email or web address] Encrypted=szUjCirMM0tWdhL Uv6g%2BXQnnVqcqi1wfqd%2Fg 5UXb9dqGavY3mQhJGngmBb5Td IPUnYprLSS2iSaFCdhu43r139 2XL9RvsBvWIEOiIvAwuJtM Not Available [facility] 09/22/2024 13:57: 50 Xr, Shoulder, 2 Or More View : [email or web address] Encrypted=zzRcYsgCG7wYenX Uv6g%5DHVhdBwebb5azzl%2Fg 4HVf0czNseZ3nPrNWuxxIu1Lm FVFxIkoFYP8qFnEAqoo77g472 8MZ5JhoS%2BFVaGjKiQtrMwF Not Available [facility] 09/22/2024 14:0 3:39 Xr, Shoulder, 2 Or More View : [email or web address] Encrypted=kzVgRdpPV2eQufH Uv6g%5VWOaeIzmup6dzax%2Fg 1KOu3zfGdnM9nImWOedxKk2Ln XHZgKemOVB6fUrRUntc66v012 4SV2ActK%2BFVaGjKiQtrMwF Not Available [facility] 09/22/2024 14:0 3:41 Problems Name Problem SNOMED Code Status Onset Date Resolution Date Notes Provider Name and Address Organization Details Recorded Time Knee joint prosthesi s present 909199211678 Active 2018 Problem Code: Z96.652; Problem Code Type: ICD-10; Status: 'A'; Not Available [facility] 4 10:56:22 Implantat ion of joint prosthesi s Active 2011 Status: 'A'; Not Available [facility] 4 10:56:23 Problem Notes None recorded. Procedures Surgical History Date Name Laterality Status Provider Name and Address Organization Details Recorded Time 5 Sports Shoulder completed Macey Wright MD [address] [place] [address] [address], [place], [address], [facility] 09/22/2024 14:45:15 Imaging Results None recorded. [...] Updated DateTime 09/22/2024 172.72 cm 23.6 kg/m2 01757.82 g Susy Castillo [place] - [facility] 09/22/2024 13:46:37 Social History None recorded. Functional Status None recorded. Mental Status None recorded. Family History Nothing Reported. Medical History Condition Response Breathing or lung disorders Y Arthritis Y Headaches Y Hypertension Y Past Encounters Encounter ID Performer Location Encounter Start Date Encounter Closed Date Diagnosis/Indication Diagnosis SNOMED-CT Code Diagnosis ICD10 Code Diagnosis Note [id number] MD MANASA Peterson [address] [place] [address] 09/22/2024 13:35:41 09/22/2024 14:45:33 Bilateral shoulder joint pain [id number] M25.511 M25.512 Health Concerns Section Related Observation LastModified by Organization Detai ls LastModified Time None Recorded Concern Status LastModified by Organization Details LastModified Time None Recorded Advance Directives Directive None Recorded Payers Insurance Date Sequence Insurance Name Policy Number Policy Morejon Covered Member ID Morejon Member ID Guarantor Name 09/23/2024 2 [place] [id number] Seb Lewis [id number] Seb Lewis 09/23/2024 1 [place] [employer] Seb Lewis [id number] Seb Finch Joshua Notes Date Note Type Note Provider Name and Address Organization Details Recorded Time 09/22/2024 text/html Issue: Left > Ri ght glenohumeral arthritis, possible Right rotator cuff tear Interval History: This is a 69-year-old dmewy-kidu-wmxszmgm gentleman with Tai's disease who presents to [...] the Left shoulder ordered and obtained at [facility] today were reviewed during the visit. These demonstrate narrowing of glenohumeral joint space with moderate to severe arthritis appreciated humeral head centered on axillary view, no significant glenoid retroversion. Subchondral cyst within the central glenoid suspected. Type II acromion. AC joint space well-preserved. No proximal migration humeral head. Right shoulder ordered and obtained at [facility] today reviewed during visit. Demonstrate near glenohumeral joint space. Acromiohumeral interval distance well-maintained. No anterior posterior translation of the humeral head relative to central glenoid. Mild to moderate AC arthrosis. Type II acromion. Impression: 69-year-old uvcmr-eytp-fgdjpjxs retired/disabled gentleman Wilsons disease with bilateral shoulder [...] seems to be leaning toward surgical intervention. [employer] [facility] speech recognition systems lead software was used to create portions of this document. An attempt at proofreading has been made to minimize errors. Please call for corrections. Macey Wright MD [facility] [address], [place], [address], [facility] - [facility] 09/22/2024 14:45:32
--- OUTSIDE RECORDS SUMMARY | 2024-09-29 15:33 | XMS_ITS | Clinical Summary ---
Author Organization [facility] ity Address [address] [place] [address] Care Team Providers Care Field Service Rep Name Role Phone Unavailable Primary Care Provider [...]
--- OUTSIDE RECORDS SUMMARY | 2024-09-29 15:33 | XMS_ITS | Patient Health Record ---
Author Organization [facility] [place] Address [address] [place] [address] Care Team Providers Care Ferry Operator Name Role Phone Deven Donohue MDneth Primary Care Provider Chasity borja Dalia Mcclendon Unavailable [phone] Allergies Allergen (clinical drug ingredient) Drug/Non Drug [...] primary osteoarthritis of the ankle and/or foot (363887843) Primary osteoarthrit is, left ankle and foot (M19.072) Active confirmed Problem Acquired hammer toe of right foot (5538900823420062) Other hammer toe(s) (acquired), right foot (M20.41) Active confirmed Problem Acquired hammer toe of left foot (0697892367243913) Other hammer toe(s) (acquired), left foot (M20.42) Active confirmed Plan Of Treatment Pending Test Test Name Order Date 60326-Uuov Destruction, 03-3005/03/2021 64592-Vddr Destruction, 03-3005/31/2021 23422-Zgmdhslu Plate 10/18/2019 28501-Tlcdzoei Plate 05/26/2017 28494-Bbgrzbre Plate 06/19/2017 52897- Debride <25 sq cm 06/19/2017 08283 I&D ABSCESS- SIMPLE,SINGLE 020 45366, K2257-CIHVN/INJECT, JOINT/BURSA 0 05/31/2021 Insurance Providers Payer Name Payer Address Payer Phone Subscriber Number Group Number Insured Name Patient Relationship to Insured Coverage Start Date Coverage End Date [facility] [address] [place] [address] [phone] [id number] Seb Lewis Self - patient is [...]
--- OUTSIDE RECORDS SUMMARY | 2024-09-29 15:33 | XMS_ITS | Patient Health Record ---
Author Organization [facility] Address [address] [place] [address] Care Team Providers Care Utilization Management Nurse Name Role Phone Charanjit MONROE, [place] Primary Care Provider Juan Kraus Jr Unavailable Allergies Allergen (clinical drug ingredient) Drug/Non Drug Allergy documented on EMR Reaction Allergy Type Onset Date Status Non-steroidal anti-inflammatory agent (FN) NSAIDs sensitvity to stomach Drug Allergy Active ciprofloxacin Cipro sensitivity to stomach Drug Allergy Active Results Component Value Reference Range Notes Complete Blood Count Auto Di ff Reviewed date:05/11/2024 08:33:02 PM Interpretation: Performing Lab:[facility], [address] [place] [phone] Notes/Report: White Blood Count 6.2 4.8-10.8 X10*3/uL [...] NRBC Abs Auto 0.000 0.0-0.012 X10*3/uL Comprehensive [place]. Panel Fa st Reviewed date:05/11/2024 08:33:33 PM Interpretation: Performing Lab:[address] [address] Notes/Report: Sodium 142 135-145 mmol/L Potassium 4.4 [...] Panel Reviewed date:05/11/2024 08:33:19 PM Interpretation: Performing Lab:[address] [place] [address] Notes/Report: Bilirubin Direct 0.2 0.0-0.5 mg/dL Lipid Panel Reviewed date:05/11/2024 08:33:10 PM Interpretation: Performing Lab:[facility], [address] [place] [phone] Notes/Report: Triglycerides 91 <150 mg/dL Desirable Triglyceride: [...] Pattern Reviewed date:05/26/2024 11:10:55 PM Interpretation: Performing Lab:[facility], [address] [place] [phone] Notes/Report: Anti Nuclear Antibody Screen NEGATIVE NEGATIVE [...] Negative International Consensus on SAMANTHA Patterns (https://doi.org/10.1515/c emi-2428-7085) For additional information, please refer to http://education.[employer].BioVex/faq/CKQ705 (This link is being provided for informational/ educational purposes only.) THIS TEST WAS PERFORMED AT: [employer] [address] [place] [phone] PAT STILES MD Anti Nuclear Antibody Titer TNP Anti Nuclear Antibody Pattern TNP SAMANTHA Titer 2 TNP SAMANTHA Pattern 2 TNP SAMANTHA Titer 3 TNP SAMANTHA Pattern 3 TNP Mitochondrial Antibody Reviewed date:05/26/2024 04:43:55 PM Interpretation: Performing Lab:[address] [address] Notes/Report: Mitochondrial Antibodies NEGATIVE NEGATIVE THIS TEST WAS PERFORMED AT: [facility] [address] [address] PAT STILES MD Mitochondrial Ab Titer TNP Smooth Muscle Antibody Reviewed date:05/26/2024 04:43:43 PM Interpretation: Performing Lab:[address] [address] Notes/Report: Smooth Muscle Antibody <20 <20 U [...] type 1. THIS TEST WAS PERFORMED AT: [facility]/[address] [address] SAVANNA MORRISON MD,PHD Hepatitis A,B,C Profile Reviewed date:05/11/2024 08:33:43 PM Interpretation: Performing Lab:[address] [address] Notes/Report: Hepatitis A Antibody IgM Nonreactive Nonreactive [...] Problem Status W/U Status Risk Notes Problem 79337357 Epigastric pain (R10.13) Active confirmed Problem 151054485 Elevated LFTs (R79.89) Active confirmed Problem Gastric polyps (K31.7) Active confirmed Problem 46178746 Pancreatic cyst (K86.2) Active confirmed Problem Gastritis (6718436) Gastritis (K29.70) Active confirmed Problem 39154455 Change in bowel function (R19.8) Active confirmed Problem 05792697 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 Vital Signs Temperature 97.9 degrees Fahrenheit 04/26/2024 Blood pressure diastolic 00 mm Hg 04/26/2024 Height 66 in 04/26/2024 Blood pressure systolic 000 mm Hg 04/26/2024 Weight 160 lbs 04/26/2024 BMI 25.82 kg/m2 04/26/2024 Encounters Encounter Location Date Provider Diagnosis [facility] [address] [place] [address] 04/26/2024 Juan Melara Jr Pancreatic cyst K86.2 ; Elevated LFTs R79.89 ; Change in bowel function R19.8 and 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 [facility] [address] [place] [address] 05/11/2024 Juan Melara Jr Elevated liver enzymes R74.8 [facility] [address] [place] [address] 05/12/2024 Juan Melara Jr [facility] [address] [place] [address] 05/27/2024 Juan Melara Jr Assessments Encounter Date [...] Provider Name:Juan hickman , 04/28/2025 01:15:00 PM, [address] [place] [address], [address], [place], [address], Insurance Providers Payer Name Payer Address Payer Phone Subscriber Number Group Number Insured Name Patient Relationship to Insured Coverage Start Date Coverage End Date [place] [address] [place] [address] [id number] SIN SNOWDEN Self - patient is the insured [employer] CLAIMS [address] [place] [address] [phone] [id number] SIN SNOWDEN Self - patient is the insured MEDICAID OF [facility] [address] [place] [address] [phone] [id number] SIN SNOWDEN Self - patient is the [...]
== END 2024-09-29 15:52 | disposition home or self-care (01) ==
LOC: HO.HMCH 15:12
PROVIDERS: PCP Internal Medicine; Visit Provider Internal Medicine
DX: I10 Essential (primary) hypertension (principal); E83.01 Wilson's disease; R79.89 Other specified abnormal findings of blood chemistry; J44.9 Chronic obstructive pulmonary disease, unspecified; M51.360 Other intervertebral disc degeneration, lumbar region with discogenic back pain only; M89.49 Other hypertrophic osteoarthropathy, multiple sites; K21.9 Gastro-esophageal reflux disease without esophagitis; R35.0 Frequency of micturition; C44.41 Basal cell carcinoma of skin of scalp and neck; H40.9 Unspecified glaucoma; F41.9 Anxiety disorder, unspecified

== ENCOUNTER → 2024-09-29 15:11 | Outpatient (BNVA) | payer MEDICARE, MEDICAID, SELFPAY | PROVIDERS: PCP Internal Medicine; Visit Provider Internal Medicine | DX: I10 Essential (primary) hypertension (principal); E83.01 Wilson's disease; R79.89 Other specified abnormal findings of blood chemistry; J44.9 Chronic obstructive pulmonary disease, unspecified; M51.360 Other intervertebral disc degeneration, lumbar region with discogenic back pain only; M89.49 Other hypertrophic osteoarthropathy, multiple sites; K21.9 Gastro-esophageal reflux disease without esophagitis; R35.0 Frequency of micturition; C44.41 Basal cell carcinoma of skin of scalp and neck; H40.9 Unspecified glaucoma; F41.9 Anxiety disorder, unspecified | CPT/HCPCS: 96127; 99212 ==

== ENCOUNTER 2024-12-23 14:16 | Outpatient (AMB) | payer MEDICARE, MEDICAID, SELFPAY ==
[2024-12-23 14:21] VITALS: BP 148/70; PULSE 103; O2SAT 95; BMI 24.0
--- NOTE | 2024-12-23 14:21 | A.OFFVIS_ITS ---
Vital Signs 12/23/24 14:21 Height 5 ft 8 in Weight 157 lb 10.088 oz BMI 24.0 BP 148/70 H Blood Pressure Location Rt brachial Position Sitting Pulse 103 H Pulse Source Pulse Oximeter Pulse Oximetry (%) 95 Oxygen Delivery Method Room Air Intake Visit Reasons: COPD Allergies duloxetine (From Cymbalta) Allergy (Unknown, Verified 12/23/24 14:58) increased hot flashes and leg cramps clavulanic acid (Augmentin) Adverse Reaction (Unknown, Verified 12/23/24 14:58) upset stomach gabapentin Adverse Reaction (Unknown, Verified 12/23/24 14:58) bilateral eye pains Medication List - Last Reconciled 12/23/24 by Renata Francois MD albuterol sulfate 0.63 mg (3 mL) inhalation QID PRN albuterol sulfate 90 mcg/actuation (Ventolin HFA) 2 puffs PO Q6H PRN lorazepam 1 mg PO TID PRN 30 days losartan 50 mg PO BID mometasone-formoterol 200-5 mcg/actuation (Dulera) 2 puffs inhalation BID 30 days multivitamin (Daily Multi-Vitamin tablet) 1 tab PO DAILY penicillamine 250 mg PO BID 90 days pyridoxine (vitamin B6) 25 mg PO DAILY tapentadol (Nucynta) 100 mg PO Q6H PRN 15 days tiotropium bromide 2.5 mcg/actuation (Spiriva Respimat) 2 puffs inhalation QAM tizanidine 4 mg PO Q8H PRN 10 days Do you need a note to return to daycare/school/sports/work: No HPI HPI COPD: Details: SIN IS 69 YEARS OLD 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 HE IS HERE FOR 6 MONTHS FOLLOW-UP. CONDITION HAS REMAINED VERY STABLE. HE CONTINUES TO USE DULERA 2 PUFFS IN THE MORNING 2 IN THE EVENING WITH ADDITION OF SPIRIVA RESPIMAT HIS CONDITION HAS SOMEWHAT IMPROVED. HE HAS HAD VERY LITTLE COUGH OR EXPECTORATION. HIS MAIN COMPLAINT IS THAT WHEN HE DOES OUTSIDE YD WORK HE GETS SHORT OF BREATH AFTER WORKING FOR A FEW MINUTES. I HAD A LONG SESSION OF DISCUSSION AND EDUCATION WITH HIM AND HIS . [facility] Medical History COPD exacerbation Bronchitis Cough Benign essential hypertension Urinary frequency Anxiety Pancreatic cyst GERD without esophagitis Primary osteoarthritis involving multiple joints Lumbar degenerative disc disease Tai's disease COPD (chronic obstructive pulmonary disease) Surgical History Hx of colonoscopy History of total left hip arthroplasty (~02/25/22) H/O right knee surgery History of arthroscopy of left knee History of right hip replacement History of tonsillectomy and adenoidectomy H/O hernia repair H/O nasal polypectomy History of cholecystectomy Family History Father No problems noted. Mother No problems noted. Social History Housing: House Alcohol intake: never Patient Tobacco Use Status: Former Tobacco user e-Cigarette/Vaping Use: Never Used Second Hand Smoke Exposure: No service: Yes ([employer]) Current occupational status: retired Cognitive needs: No Hearing needs: Yes (hearing aide) Vision needs: Yes (Glasses) Review of Systems Const All systems reviewed & are unremarkable except as noted in HPI and below Denies body aches, Reports fatigue (Mild generalized), Denies headache(s) and Denies snoring Eyes Reports no additional complaints ENT Reports no additional complaints, Denies headache(s), Denies nasal discharge and Denies post nasal drip Card Denies chest pain, Denies syncope, Denies pedal edema, Denies irregular heart rh ythm and Reports dyspnea on exertion Resp Denies cough, Denies hemoptysis, Denies excessive phlegm production, Reports dyspnea on exertion, Denies snoring and Denies stridor GI Reports no additional complaints Reports no additional complaints Musc Reports back pain (over the lower back - chronic) and Reports arthralgias (involving multiple joints) Skin/Breast Reports system reviewed and no additional complaints, except as documented Neuro Reports no additional complaints, Denies syncope and Denies headache(s) Psych Reports anxiety (Mild off and on) Endo Reports no additional complaints and Reports fatigue (Mild generalized) West/Lymph Reports no additional complaints Physical Exam Vital Signs: Last Vital Signs Pulse 103 H 12/23/24 14:21 BP 148/70 H 12/23/24 14:21 Pulse Ox 95 12/23/24 14:21 Oxygen Delivery Method Room Air 12/23/24 14:21 BMI result Body Mass Index 24.0 Const General: comfortable (But short of breath during conversation), no acute distress, alert and awake Orientation/consciousness: patient oriented x3 HEENT Head: Yes normal to inspection General nose exam: No nasal polyps present and No nasal discharge present Face and sinus: Yes sinuses nontender Mouth: oropharynx normal Teeth and gingiva: other (Multiple decayed teeth) Throat: Yes posterior oropharynx normal Eyes General: appearance normal, both eyes and all related structures Neck Neck: Yes normal visual inspection, Yes no lymphadenopathy, Yes trachea midline and Yes no JVD Thyroid: Thyroid normal Chest Chest palpation & inspection: normal inspection of the chest, normal palpation of entire chest wall and no tenderness Resp Other: Percussion note is resonant, breath sounds are distant with prolonged expiratory phase but equal on both sides. No wheezes rhonchi or crepitations are heard today. Cardio Palpation: normal PMI Rate: regular rate Rhythm: regular rhythm Heart sounds: no gallops and no murmurs GI Palpation (GI): Soft to palpation, nontender, No hepatosplenomegaly present and no masses Auscultation: normal bowel sounds Back/Spine/Pelvis Thoracic/Lumbar Spine: thoracic and lumbar spine normal to inspection Skin General skin exam: no rashes or lesions noted Neuro General: patient oriented x3 and no focal motor deficits Cranial nerves: Yes CN's II-XII intact bilaterally Extrem General: Yes normal to inspection, Yes no clubbing, cyanosis or edema and Yes no calf tenderness Psych Appearance: grossly normal and well kempt Speech and movement: Normal speech and movement present Assessment & Plan Assessment & Plan (1) COPD (chronic obstructive pulmonary disease): Comment: CHRONIC OBSTRUCTIVE PULMONARY DISEASE, MILD TO MODERATE. SLIGHTLY IMPROVED WITH USE OF SPIRIVA RESPIMAT AND IS STABLE AT THIS TIME. I EXPLAINED TO HIM THAT SHORTNESS OF BREATH WHEN HE DOES PHYSICAL WORK IS EXPECTED AND PART OF COPD. Code(s): J44.9 - Chronic obstructive pulmonary disease, unspecified Category: Medical Qualifiers: COPD type: unspecified COPD Qualified Code(s): J44.9 - Chronic obstructive pulmonary disease, unspecified Plan: CONTINUE DULERA 200-5 2 PUFFS B.I.D. SPIRIVA RESPIMAT 2 INHALATIONS DAILY IN THE MORNING ALBUTEROL HFA 2 PUFFS Q 4-6 HOURS P.R.N.. HE SHOULD DO DEEP BREATHING EXERCISES TO IMPROVE HIS LUNGS . Q.2 HOURS DURING THE DAYTIME. Coding Level of Care Code Est Pt Level 3 (35223) Diagnoses Chronic obstructive pulmonary disease, unspecified COPD type J44.9 COPD type: unspecified COPD
== END 2024-12-23 14:59 | disposition home or self-care (01) ==
LOC: HO.HPS 14:16
PROVIDERS: PCP Internal Medicine; Visit Provider Internal Medicine
DX: J44.9 Chronic obstructive pulmonary disease, unspecified (principal)
CPT/HCPCS: 99213

== ENCOUNTER → 2024-12-23 14:16 | Outpatient (BNVA) | payer MEDICARE, MEDICAID, SELFPAY | PROVIDERS: PCP Internal Medicine; Visit Provider Internal Medicine | DX: J44.9 Chronic obstructive pulmonary disease, unspecified (principal); Z87.891 Personal history of nicotine dependence | CPT/HCPCS: 99212 ==

== ENCOUNTER 2025-01-25 10:25 | Outpatient (REF) | payer MEDICARE, MEDICAID, SELFPAY ==
--- OUTSIDE RECORDS SUMMARY | 2025-01-25 12:00 | XMS_ITS | Clinical Summary ---
Author Organization [facility] Address [address] [place] [address] Care Team Providers Care Counter Top Assembler Name Role Phone Unavailable Primary Care [...] 2004 Zoster Vaccines (1 of 2) 2004 Depression Screening 03/17/2024 COVID-19 Vaccine (1 - 2024-2 6 season) 2024 Influenza Vaccine (#1) 2024 RSV Immunization Adult [...]
--- OUTSIDE RECORDS SUMMARY | 2025-01-25 12:00 | XMS_ITS | Encounter Summary ---
Author Organization [facility] Address [address] [place] [address] Care Team Providers Care Aircraft Structural Design Engineer Name Role Phone Unavailable Primary Care Provider Unavailabl e Reason for Referral * Imaging (Routine) - Pending Review Specialty Diagnoses / Procedures Referred By Contact Referred To Contact Diagnostic Radiology Procedures US Abdomen Complete [facility] [address] [place] [address] Phone: tel: fax: Referral ID Status Reason Start Date Expiration Date V isits Requested Visits Authorized [id number] Pending Review 03/15/2024 03/15/2025 1 1 Encounter Details Date Type Department Care Team (Late st Contact Info) Description 03/15/2024 Scanned Document [facility] [address] [place] [address] Daisy Ryan . Social History Tobacco Use [...] Care Team (Late st Contact Info) Description 06/21/2025 10:30 AM EDT Office Visit [facility] [address] [place] [address] Bryon Mayorga MD [address] [place], [place] [address]e [address] [place] [address] documented as of this encounter Procedures Procedure [...]
--- OUTSIDE RECORDS SUMMARY | 2025-01-25 12:00 | XMS_ITS | Clinical Summary ---
Author Organization [employer] Address [address] [facility] 7t [place] [address] Care Team Providers Care Scraper Burrer Name Role Phone Unavailable Primary Care Provider [...] COVID-19 Vaccine (1 - 2023-2 5 season) 2024 Influenza Vaccine (#1) 2024 RSV Patients and [...]
--- OUTSIDE RECORDS SUMMARY | 2025-01-25 12:00 | XMS_ITS | Encounter Summary ---
Author Organization [facility] Address [address] [place] [address] Care Team Providers Care Health Sciences Department Chair Name Role Phone Unavailable Primary Care Provider Unavailabl e Encounter Details Date Type Department Care Team (Late st Contact Info) Description 04/03/2012 Abstract [facility] Health Information Management [address] [place] [address] [place], [facility] Care [address] [place] [address] Social History Tobacco Use Types Packs/Day Years [...] Visit [facility] [address] [place] [address] Bryon Mayorga MD [address] [place] [phone] documented as of this encounter Visit Diagnoses Not on filedocumented in this encounter
--- OUTSIDE RECORDS SUMMARY | 2025-01-25 12:00 | XMS_ITS | Encounter Summary ---
Author Organization [facility] Address [address] [place] [address] Care Team Providers Care Account Director Name Role Phone Unavailable Primary Care Provider Unavailabl e Encounter Details Date Type Department Care Team (Late st Contact Info) Description 09/22/2024 Scanned Document [facility] [address] [place] [address] Provider, Historical . Social History Tobacco Use [...] Office Visit [facility] [address] [place] [address] Bryon Mayorga MD [address] [place] [phone] documented as of this encounter Procedures Procedure Name Priority Date/Time Associated Diagnosis Comments LAB SCAN Routine 09/21/2024 8:23 AM EDT documented in this encounter Results * Lab Scan (09/21/2024 8:23 AM EDT) us Historical Provider LAB BLOOD ORDERABLES Final R esult documented in this encounter Visit Diagnoses Not on filedocumented in this encounter
--- OUTSIDE RECORDS SUMMARY | 2025-01-25 12:00 | XMS_ITS | Encounter Summary ---
Author Organization [facility] Address [address] [place] [address] Care Team Providers Care Motorboat Mechanic Helper Name Role Phone Unavailable Primary Care Provider Unavailabl e Encounter Details Date Type Department Care Team (Late st Contact Info) Description 09/24/2024 Scanned Document [facility] [address] [place] [address] Provider, Historical . Social History Tobacco Use [...] Office Visit [facility] [address] [place] [address] Bryon Mayorga MD [address] [place] [phone] documented as of this encounter Procedures Procedure Name Priority Date/Time Associated Diagnosis Comments LAB SCAN Routine 09/21/2024 3:42 PM EDT documented in this encounter Results * Lab Scan (09/21/2024 3:42 PM EDT) us Historical Provider LAB BLOOD ORDERABLES Final R esult documented in this encounter Visit Diagnoses Not on filedocumented in this encounter
--- OUTSIDE RECORDS SUMMARY | 2025-01-25 12:00 | XMS_ITS | Clinical Summary ---
Author Organization [address] Address [address] [place] [address] Care Team Providers Care Timber Incisor Operator Name Role Phone Unavailable Primary Care Provider Unavailabl e Allergies No known active allergies Medications pyridoxine, vitamin B6, (VITAMIN B-6) 50 [...] Encounters Date Type Department Care Team Description 11/30/2024 11:30 AM EDT Office Visit [facility] at [address] [place] [address] Bryon Mayorga MD Tai's disease (Primary Dx) 11/17/2024 Scanned Document [facility] at [address] [place] [address] Provider, Historical from Last 3 Months Social History Tobacco Use Types Packs/Day Years Used Date Smoking Tobacco: Former Pipe Smokeless Tobacco: Never Tobacco Cessation:Counseling Given: Not Answered Alcohol Use Standard Drinks/Week Comments Never 0 (1 standard drink = 0.6 oz pur e alcohol) Interpersonal Safety Answer Date Record ed Is there anyone in your life that is hurting or threatening you in anyway? Not on file 11/30/2024 Physical Indicators of Abuse No evidence of phys ical abuse 11/30/2024 Sex and Gender Information Value Date Recorded Sex Assigned at Not on file Legal Sex Male 7:02 AM EST Gender Identity Not on file Sexual Orientation Not on file Last Filed Vital Signs Vital Sign Reading Time Taken Comments Blood Pressure 168/75 11/30/2024 11:33 AM EDT Informed MD Pulse 80 11/30/2024 11:32 AM EDT Temperature 36.1 C (97 F) 11/30/2024 11:32 AM EDT Respiratory Rate 18 05/18/2024 11:2 0 AM EST Oxygen Saturation 95% 11/30/2024 11: 32 AM EDT Inhaled Oxygen Concentration - - Weight 72.8 kg (160 lb 7.9 oz) 12/01/19 25 11:32 AM EDT Height 172.7 cm (5' 8 ) 11/30/2024 11:3 2 AM EDT Body Mass Index 24.4 11/30/2024 11:32 AM EDT Plan of Treatment Upcoming Encounters Date Type Department Care Team (Late st Contact Info) Description 06/21/2025 10:30 AM EDT Office Visit [facility] [address] [place] [address] [address]th [place] [address] Bryon Mayorga MD [address] [place] [phone] Health Maintenance Due Date Last Done Comments HIV screening 06/05/1967 Hepatitis C screening 1972 Tetanus adult (Td q 10,TDAP once) 1974 Lipid disorder screening 1994 Colon cancer screening, Colonoscopy 06/05/1999 Diabetes screening 06/05/1999 RSV Immunization (1 - Risk 5 0-74 years 1-dose series) 2004 Shingles vaccine (Shingrix) (1 of 2 - Shingrix (RZV) 2 Dose Standard Series) 2004 Pneumococcal Vaccine (50+ ye ars) (2 of 2 - PCV) 01/27/2018 01/27/2017 Influenza vaccine 10/15/2024 01/27/2017 Covid-19 vaccine series (2 - season) 2024 06/07/2020 Meningococcal B Vaccine Aged Out No l onger eligible based on patient's age to complete this topic Meningococcal Vaccine Aged Out No daniel zeus eligible based on patient's age to complete this topic Procedures Procedure Name Priority Date/Time Associated Diagnosis Comments LAB SCAN Routine 11/11/2024 2:11 PM EDT from Last 3 Months Results * Lab Scan (11/11/2024 2:11 PM EDT) [facility] Provider LAB BLOOD ORDERABLES Final R esult from Last 3 Months Insurance MEDICARE [facility] [id number] MEDICAID MEDICARE [facility] [id number] MEDICAID MEDICARE [facility] [id number] MEDICAID
--- OUTSIDE RECORDS SUMMARY | 2025-01-25 12:00 | XMS_ITS | Encounter Summary ---
Author Organization [facility] Address [address] [place] [address] Care Team Providers Care Nanotechnology Technician Name Role Phone Unavailable Primary Care Provider Unavailabl e Encounter Details Date Type Department Care Team (Late st Contact Info) Description 10/02/2023 Scanned Document [facility] [address] [place] [phone] Provider, [facility] . Social History Tobacco Use Types Packs/Day [...] Description 06/21/2025 10:30 AM EDT Office Visit [facility] at [address] [place] [address] Bryon Mayorga MD [address] [place] [phone] documented as of this encounter Procedures Procedure Name Priority Date/Time Associated Diagnosis Comments LAB SCAN Routine 09/09/2023 2:53 PM EDT documented in this encounter Results * Lab Scan (09/09/2023 2:53 PM EDT) us Historical Provider LAB BLOOD ORDERABLES Final R esult documented in this encounter Visit Diagnoses Not on filedocumented in this encounter
--- OUTSIDE RECORDS SUMMARY | 2025-01-25 12:01 | XMS_ITS | Patient Health Record ---
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 Name Role Phone Charanjit MONROE, [place] Primary Care Provider Juan Kraus Jr Unavailable Allergies Allergen (clinical drug ingredient) Drug/Non Drug Allergy documented on EMR Reaction Allergy Type Onset Date Status Non-steroidal anti-inflammatory agent (FN) NSAIDs sensitvity to stomach Drug Allergy Active ciprofloxacin Cipro sensitivity to stomach Drug Allergy Active Results Component Value Reference Range Notes Complete Blood Count Auto Di ff Reviewed date:05/11/2024 08:33:02 PM Interpretation: Performing Lab:[facility], [address] [place] [phone] Notes/Report: White Blood Count 6.2 4.8-10.8 X10*3/uL [...] NRBC Abs Auto 0.000 0.0-0.012 X10*3/uL Comprehensive [place]. Panel Fa st Reviewed date:05/11/2024 08:33:33 PM Interpretation: Performing Lab:[address] [address] Notes/Report: Sodium 142 135-145 mmol/L Potassium 4.4 [...] Panel Reviewed date:05/11/2024 08:33:19 PM Interpretation: Performing Lab:[address] [place] [address] Notes/Report: Bilirubin Direct 0.2 0.0-0.5 mg/dL Lipid Panel Reviewed date:05/11/2024 08:33:10 PM Interpretation: Performing Lab:[facility], [address] [place] [address] Notes/Report: Triglycerides 91 <150 mg/dL Desirable Triglyceride: [...] Pattern Reviewed date:05/26/2024 11:10:55 PM Interpretation: Performing Lab:[facility], [address] [place] [phone] Notes/Report: Anti Nuclear Antibody Screen NEGATIVE NEGATIVE [...] Negative International Consensus on SAMANTHA Patterns (https://doi.org/10.1515/c wwl-6280-9761) For additional information, please refer to http://education.[employer]/faq/UEM696 (This link is being provided for informational/ educational purposes only.) THIS TEST WAS PERFORMED AT: [facility] [address] [place] [id number] PAT STILES MD Anti Nuclear Antibody Titer TNP Anti Nuclear Antibody Pattern TNP SAMANTHA Titer 2 TNP SAMANTHA Pattern 2 TNP SAMANTHA Titer 3 TNP SAMANTHA Pattern 3 TNP Mitochondrial Antibody Reviewed date:05/26/2024 04:43:55 PM Interpretation: Performing Lab:[address] [address] Notes/Report: Mitochondrial Antibodies NEGATIVE NEGATIVE THIS TEST WAS PERFORMED AT: [facility] [address] [address] PAT STILES MD Mitochondrial Ab Titer TNP Smooth Muscle Antibody Reviewed date:05/26/2024 04:43:43 PM Interpretation: Performing Lab:[address] [address] Notes/Report: Smooth Muscle Antibody <20 <20 U [...] type 1. THIS TEST WAS PERFORMED AT: [facility]/[address] [address] SAVANNA MORRISON MD,PHD Hepatitis A,B,C Profile Reviewed date:05/11/2024 08:33:43 PM Interpretation: Performing Lab:[address] [address] Notes/Report: Hepatitis A Antibody IgM Nonreactive Nonreactive [...] an empt y stomach Orally Once a day; Duration: 30 day(s) Active Vitamin B6 50 MG 1 tablet Orally; Duration: 30 day(s) Active Ventolin HFA 108 (90 Base) MCG/ACT 1 puff as needed Inhalation every 4 hrs Active Albuterol Sulfate HFA 108 (90 Base) MCG/ACT INHALE 2 PUFFS INTO THE LUNGS EVERY 6 HOURS NEEDED FOR SHORTNESS OF BREATH OR WHEEZING. 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) Gastric polyps (K31.7) Active confirmed Problem Pancreatic cyst (74121290) Pancreatic cyst (K86.2) Active confirmed Problem Gastritis (6232830) Gastritis (K29.70) Active confirmed Problem Altered bowel function (79595276) Change in bowel function (R19.8) Active confirmed Problem 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 Vital Signs Temperature 97.9 degrees Fahrenheit 04/26/2024 Blood pressure diastolic 00 mm Hg 04/26/2024 Height 66 in 04/26/2024 Blood pressure systolic 000 mm Hg 04/26/2024 Weight 160 lbs 04/26/2024 BMI 25.82 kg/m2 04/26/2024 Encounters Encounter Location Date Provider Diagnosis [facility] [address] [place] [address] 04/26/2024 Juan Melara Jr Pancreatic cyst K86.2 ; Elevated LFTs R79.89 ; Change in bowel function R19.8 and 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 [facility] [address] [place] [address] 04/26/2024 Juan Kelton Jr [facility] [address] [place] [address] 05/11/2024 Juan Melara Jr Elevated liver enzymes R74.8 [facility] [address] [place] [address] 05/12/2024 Juan Melara Jr [facility] [address] [place] [address], [place] [address] 05/27/2024 Juan Melara Jr [facility] [address] [place] [address], [place] [address] 10/11/2024 Juan Durhamord Assessments Encounter Date Diagnosis (ICD Code) Assessment [...] 09/20/2021 Next Appt Details Provider Name:Juan hickman Jr, 04/28/2025 01:15:00 PM, [address] [place] [address], [place] [address], [place], [address], Insurance Providers Payer Name Payer Address Payer Phone Subscriber Number Group Number Insured Name Patient Relationship to Insured Coverage Start Date Coverage End Date MEDICARE OF [place] [address] [place] [phone] [id number] [place] Self - patient is the insured [employer] CLAIMS [address] [place] [address] [phone] [id number] [place] Self - patient is the insured MEDICAID OF [facility] [address] [place] [address] [phone] [id number] [place] Self - patient is the [...]
--- OUTSIDE RECORDS SUMMARY | 2025-01-25 12:01 | XMS_ITS | Patient Health Record ---
Author Organization [facility] Address [address] [place] [address] Care Team Providers Care Appliance Mechanic Name Role Phone Deven Donohue MDneth Primary Care Provider Chasity borja Dalia Mcclendon Unavailable [phone] Allergies Allergen (clinical drug ingredient) Drug/Non Drug [...] primary osteoarthritis of the ankle and/or foot (344683566) Primary osteoarthrit is, left ankle and foot (M19.072) Active confirmed Problem Acquired hammer toe of right foot (9327836113469833) Other hammer toe(s) (acquired), right foot (M20.41) Active confirmed Problem Acquired hammer toe of left foot (4151403046894032) Other hammer toe(s) (acquired), left foot (M20.42) Active confirmed Plan Of Treatment Pending Test Test Name Order Date 65274-Sywg Destruction, 03-3005/03/2021 30734-Yint Destruction, 03-3005/31/2021 40706-Ocbuehot Plate 10/18/2019 65365-Zpkwerfd Plate 05/26/2017 05535-Oacjrdeb Plate 06/19/2017 29916- Debride <25 sq cm 06/19/2017 20199 I&D ABSCESS- SIMPLE,SINGLE 020 [id number], M4845-KWEBS/INJECT, JOINT/BURSA 0 05/31/2021 Insurance Providers Payer Name Payer Address Payer Phone Subscriber Number Group Number Insured Name Patient Relationship to Insured Coverage Start Date Coverage End Date [facility] [address] [place] [address] [phone] [id number] Seb Lewis Self - patient is [...]
--- OUTSIDE RECORDS SUMMARY | 2025-01-25 12:01 | XMS_ITS | Clinical Summary ---
Author Organization [facility] Address [address] [place] [id number] Phone Care Team Providers Care Pound Keeper Name Role Phone Brody Donohue MD Primary Care Provider [phone] Allergies Active Allergy Reactions Criticality Noted Date Comments Cefuroxime Axetil GI Upset 05/31/2021 Ciprofloxacin GI Upset 05/31/2021 Erythromycin GI Upset 05/31/2021 Gabapentin 09/13/2021 Eye pain Ibuprofen GI Upset 05/31/2021 Levofloxacin GI Upset 05/31/2021 Morphine 09/09/2022 Other reaction(s): abdominal pain Naproxen Sodium GI Upset 05/31/2021 Oxycodone-Acetaminophen 09/09/2022 Tramadol 09/09/2022 Other reaction(s): Pruritus Medications pyridoxine, vitamin B6, (B-6) 50 MG tablet Take 50 mg by mouth daily. Active LORazepam (ATIVAN) 1 MG tablet Take 1 mg by mouth every 6 (six) hours as needed for anxiety. Active albuterol 90 mcg/actuation inhaler Inhale 2 puffs into the lungs every 6 (six) hours as needed for wheezing. Active penicillAMINE (CUPRIMINE) 250 MG capsule Take 250 mg by mouth 2 (two) times a day. Active therapeutic multivitamin tablet Take 1 tablet by mouth daily. Active tapentadoL (NUCYNTA) 100 mg tablet Take 100 mg by mouth 2 (two) times a day. 11/02/202 2 Active DULERA 200-5 mcg/actuation HFAA Inhale 2 puffs into the lungs 2 (two) times a day. 4 Active SPIRIVA RESPIMAT 2.5 mcg/actuation mist for inhalation Inhale 2 puffs into the lungs daily. 5 Active tiZANidine (ZANAFLEX) 4 MG tablet Take 4 mg by mouth as needed. 5 Active losartan (COZAAR) 50 MG tabletIndications :Benign essential hypertension Take 1 tablet (50 mg total) by mouth 2 (two) times a day. 50 mg in the morning and 50 mg at night 180 tablet 5 02/15/20 25 Active Active Problems Problem Noted Date Diagnosed Date Benign essential hypertension 02/27/2021 Assessment & Plan (12/13/2024 2:01 PM EDT): Blood pressure mildly elevated here in the office today however blood pressure readings at times over 108 systolic. He is taking losartan 100 mg at 11 PM. He was asked to go ahead and space this about 12 hours apart however he prefers to take them at 1 time. He is encouraged to reduce his sodium in his diet. He is also encouraged to exercise more however he is limited due to back pain that is chronic and ongoing. Assessment & Plan (06/02/2024 2:04 PM EDT): Blood pressure is normal here in the office today. At home looks like is having elevated morning blood pressure readings, in the evening prior to taking his losartan his blood pressure is usually normal/low. Due to some prior high blood pressure readings that were taken in the middle of the night after he woke up he started taking all of his losartan at 11 PM. He does snore, his STOP-BANG score is 4 which is high risk for moderate to severe SINA although he is not really having any symptoms such as daytime fatigue or sleepiness. he has never been evaluated for SINA before. He can start splitting up his losartan dosing, can take 50 mg in the morning and 50 mg in the evening spaced 12 hours apart. Given the low evening blood pressures will not add any additional antihypertensives at this time. Encouraged him to reduce sodium intake, he is still having more than he should. I recommend he start engage in regular cardiovascular exercise as tolerated although he is limited due to some significant back discomfort Will place a referral for SINA evaluation as untreated SINA can contribute to elevated blood pressure and based on his score he is at risk Assessment & Plan (11/27/2023 1:50 PM EDT): Blood pressure is elevated today here in office at 148/86. He did have coffee and he noticed that when he does this his blood pressure goes up. He is on losartan 50 mg twice daily. His states that his blood pressures in the morning are more elevated prior to him taking his blood pressure medication ranging from 150-160 systolic. For the most part but time he goes to bed his blood pressures in the 120s 130 area. He does eat a lot of sodium and I have asked him to cut back on this and he has been unable to do this. Does appear that when he eats a lot of sodium it does affect his blood pressure in a negative way rising his blood pressures to the 160s 170s systolic. We did discuss that he could take his losartan 100 mg once a day or continue to split into doses taking 50 mg twice daily. SBP goal less than 130/80. Assessment & Plan (05/27/2023 1:43 PM EDT): Pressure is mildly elevated today 156/84. He does report at home his blood pressures are running 130s over 140s at home prior to taking his medications. He is on losartan 50 mg twice daily. He reports he did check his blood pressure in the evening and got a systolic blood pressure of 114. He denies any episodes of lightheadedness or syncope. He does continue to eat foods that are higher in sodium which she was asked to try to reduce. He has tried lisinopril and amlodipine in the past which made him feel worse. For now we will hold off on changing any blood pressure medications as it appears his blood pressures at home are improved. He is encouraged to continue exercising and reducing his sodium in his diet. Assessment & Plan (03/26/2023 3:15 PM EST): He is here today for blood pressure check due to some medication changes during his last visit. He was asked to start taking amlodipine 2.5 mg daily however he stopped taking this as this did not make an impact on his blood pressure. Currently he is on losartan 50 mg in the morning and 25 mg at night. He has been intolerant of lisinopril in the past. He does consume quite a bit of sodium in his diet and I have asked him to really cut back on this to taking and no more than 2500 mg daily. I have asked him to continue monitoring his blood pressure to see if this does not help improve his numbers. He still has some higher readings in the 160s and 170s at nighttime. A lot of times his blood pressures in the morning are still quite elevated. He did have spaghetti with spaghetti sauce last night and then had a plate of peanut butter salted crackers before bed. We did discuss at great length today sodium content in food and how to avoid this. He is in agreement to try to reduce his sodium to see if this does not help improve his blood pressure. SBP goal less than 130/80. If blood pressure continues to be elevated we will need to reintroduce amlodipine likely at a higher dose of 5 mg daily. He does complain of frequent urination however he is not on any diuretics that would be causing this. I did ask him to seek out with his PCP for further workup on this. Assessment & Plan (12/24/2022 2:49 PM EDT): His blood pressure continues to be elevated despite being prescribed losartan 50 mg in the evening and 25 mg in the morning. He was on 50 mg twice daily however this was too much causing him lightheadedness. He has been on lisinopril in the past however this caused him a sore throat and dry cough and was discontinued. He has not been on amlodipine and we will add 2.5 mg daily to his regimen today in an effort to bring down his blood pressure. I have put in for a BMP to monitor his kidney function. I have asked him to continue checking his blood pressures at home with an SBP goal less than 130/80. If his blood pressure is not controlled on the 2.5 mg of amlodipine we can increase this to 5 mg daily Assessment & Plan (09/09/2022 2:05 PM EDT): Blood pressure in the office today is a little bit on the high side. His readings at home, though, have been elevated typically 150+ systolic. I suggested that he increase his losartan further to 50 mg twice daily. I will follow-up with him in 3 months. Assessment & Plan (02/14/2022 3:44 PM EST): His initial blood pressure reading today here in office was elevated at 170 systolic however he was rechecked for 144/80. He does bring in his blood pressure log and prior to taking his medications in the morning his systolic blood pressure ranges 150-160. After taking his medications his blood pressure reduces to 109/140 at highest with diastolic 60-77. He is on losartan 25 mg twice daily for his blood pressure which she will remain on. He is encouraged to continue following a heart healthy diet including low sodium and to exercise. He is to undergo hip surgery next week. He is here today for cardiac clearance. EKG shows sinus rhythm, 90 bpm. He has no known coronary artery disease. Per NSQIP he is a low surgical candidate for low risk surgery. There is no further cardiac testing needed prior to surgery. Assessment & Plan (09/05/2021 2:06 PM EDT): Blood pressure when he first got to the office was 164/70. He was rechecked 442/80. He is on losartan 25 mg which we will increase today because his blood pressures at home vary and are higher in the morning when he gets up after taking losartan 25 mg at night. We will increase his losartan to 25 mg twice daily to get him to have a more stabilized blood pressure with SBP goal less than 130/80. He is always encouraged to follow a low-sodium diet. I have asked him to continue checking his blood pressures at home and letting us know if his blood pressures continue to be elevated requiring medication changes. He tells me he has been having a difficult time keeping his weight despite eating multiple times a day. He does tell me he has had changes in his bowel movements with diarrhea and constipation. He is scheduled to see the doctor next week and I have asked him to discuss this with his PCP. He is also strongly encouraged to get a colonoscopy as his father had colon cancer per patient report. I have ordered a BMP to monitor his potassium level after increasing his losartan next week. Assessment & Plan (02/27/2021 1:33 PM EST): Blood pressure has been elevated and he was discontinued on lisinopril and started on losartan 25 mg daily. This medication has helped his blood pressure improved. He brings in a blood pressure log today which shows a systolic blood pressure between 120-130s. He has been checking his blood pressures at night and notices that they are higher in the evening. He takes his blood pressure medications in the morning. He does not watch how much sodium he is consuming. He was asked to follow a low- sodium diet and to exercise as tolerated. He is limited in his exercise due to a back injury. Was asked to continue checking his blood pressures at home and to bring those here with him to his next appointment. Otherwise he will continue on losartan 25 mg daily. If he notices his blood pressures are increasing greater than 140/80 then we may need to increase his losartan at that time. Otherwise blood pressures have been better controlled on losartan 25 mg daily which he should continue. Intercostal pain 02/13/2017 Chronic obstructive pulmonary disease 02/13/2017 Overview (09/13/2021): Ex-pipe smoker, quit 20yrs ago. Not on O2. [place] [facility] [place] Assessment & Plan (12/13/2024 2:01 PM EDT): Has known COPD and is chronically short of breath however that is chronic and ongoing. He does follow at [facility] for this. He does not use oxygen. 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 I will place a referral. 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 Has been to [facility], has had Rhonda. Relies on Tapentadol 100mg daily, has been tried on many other medications. No back surgery. Had eval with Dr Parry, not a surgerical candidate Anxiety state Encounters Date Type Department Care Team Description 12/13/2024 1:30 PM EDT Office Visit [facility] [address], [address] [place] [address] Lilian Valdivia DNP Benign essential hypertension (Primary Dx) 11/16/2024 Refill [facility] [address], [address] [place] [address] Chiara Alexandra MA Medication Refill from Last 3 Months Immunizations Immunization Administration Dates Next Due COVID-19 (Pre-01/06) Moderna Vaccine, mRNA, PF 0 06/07/2020 Influenza Quadrivalent w/ Preservative IM 2016 Pneumococcal polysaccharide PPSV23 01/27/2017 Family History Medical History Relation Comments CV disease Father Cancer Father Diabetes Father Heart disease Father Hypertension Father Melanoma Father CV disease Mother Heart attack Mother Hypertension Mother Tai's disease Sister Relation Status Comments Father Mother Sister Social History Tobacco Use Types Packs/Day Years Used Date Smoking Tobacco: Former Pipe Q uit: 2001 Smokeless Tobacco: Never Tobacco Cessation:Counseling Given: Not Answered Alcohol Use Standard Drinks/Week Comments Yes 0 (1 standard drink = 0.6 oz pur e alcohol) Rarely Child or Family Care Answer Date Record ed Do you have problems with on e of the following making it difficult for you to work, study, or receive health care? No 09/10/2021 Education Answer Date Recorded Are you interested in more education? Not on dell e 10/01/2023 Are you concerned about learning? Not on file 10/01/2023 No 10/01/2023 No 10/01/2023 Food Answer Date Recorded Within the past 6 months we worried whether our food would run out before we got money to buy more. Never True 09/10/2021 Within the past 6 months the food we bought just didn't last and we didn't have enough money to get more. Never True Residential Stability Answer Date Recor ded What is your housing situation today? I have umer sing 09/10/2021 How many times have you move d in the past 12 months? Zero (I did not move) 09/10/2021 Paying for Meds Answer Date Recorded Do you have trouble paying for medicines? No 09/10/2021 Paying Utility Bills Answer Date Record ed Do you have trouble paying your heating or elect ricity bill? No 09/10/2021 Transportation Answer Date Recorded Has the lack of transportati on kept you from medical appointments or from getting medications? No 09/10/2021 Unemployment Answer Date Recorded Are you currently unemployed or working on a part-time or temporary basis, and looking for work? No 09/10/2021 Digital Access Answer Date Recorded No 08/10/2022 No 08/10/2022 Reliable internet access at home? Not on file 08/10/2022 Device with a working camera? Not on file Sex and Gender Information Value Date Recorded Sex Assigned at Not on file Legal Sex Male 10:35 PM EDT Gender Identity Male 09/10/2021 8:07 PM EDT Sexual Orientation Straight 09/10/2021 8: 07 PM EDT Last Filed Vital Signs Vital Sign Reading Time Taken Comments Blood Pressure 152/74 12/13/2024 1:33 PM EDT Pulse 95 12/13/2024 1:33 PM EDT Temperature 36.5 C (97.7 F) 09/13/2021 4:04 PM EDT Respiratory Rate - - Oxygen Saturation 96% 12/13/2024 1:33 PM EDT Inhaled Oxygen Concentration - - Weight 70.8 kg (156 lb) 12/13/2024 1:33 PM EDT Height 168.9 cm (5' 6.5 ) 12/13/2024 1:33 PM EDT Body Mass Index 24.8 12/13/2024 1:33 PM EDT Plan of Treatment Upcoming Encounters Date Type Department Care Team (Late st Contact Info) Description 06/13/2025 1:00 PM EDT Office Visit [facility] [address] [place] [address] [address] Floor, [address] [place], [place] [id number] Lilian Valdivia, RAFA 22 [facility], [address] [id number] miguel Health Maintenance Due Date Last Done Comments Adult Td,Tdap Booster 1955 HEPATITIS C SCREENING 1972 HEPATITIS A VACCINES (1 of 2 - Risk 2-dose series) 1973 COLOGUARD 06/05/1999 COLONOSCOPY 06/05/1999 COLORECTAL CANCER SCREENING 06/05/1999 FIT TEST 06/05/1999 FOBT 06/05/1999 SIGMOIDOSCOPY 06/05/1999 VIRTUAL COLONOSCOPY 06/05/1999 RSV VACCINE (1 - Risk 50-74 years 1-dose series) 2004 ZOSTER VACCINES (1 of 2) 2004 PNEUMOCOCCAL VACCINES (50+ years) (2 of 2 - PCV) 01/27/2018 01/27/2017 ABDOMINAL AORTIC ANEURYSM (AAA) SCREENING 06/05/2019 DEPRESSION SCREENING 09/10/2022 09/10/2021 CREATININE LEVEL 03/18/2024 03/18/2023, 03/2021, 12/05/2020, Additional history exists POTASSIUM LEVEL 03/18/2024 03/18/2023, 07/0 03/2021, 12/05/2020, Additional history exists INFLUENZA VACCINE (#1) 2024 01/27/2017 COVID-19 VACCINE ( season) 2024 07/06/2020, 06/07/2020 BLOOD PRESSURE 06/12/2025 12/13/2024 SMOKING Hx and SMOKELESS TOBACCO SCREENING 12/13/2025 12/13/2024 LIPID PANEL 03/18/2028 03/18/2023 HIB VACCINES Aged Out No longer eligi ble based on patient's age to complete this topic MENINGOCOCCAL VACCINES (ACWY) Aged Out No longer eligible based on patient's age to complete this topic MENINGOCOCCAL VACCINES (B) Aged Out N o longer eligible based on patient's age to complete this topic Medical Devices Not on file Procedures Procedure Name Priority Date/Time Associated Diagnosis Comments LIPID PANEL Routine 03/18/2023 10:24 AM EST Benign essential hypertension BASIC METABOLIC PANEL (BMP) Routine 03/18/2023 10:24 AM EST Benign essential hypertension from Last 3 Months or Most Recently Relevant to Health Maintenance Results * (ABNORMAL) Lipid panel (03/18/2023 10:24 AM EST) HDL 59 mg/dL [facility] Comment: Interpretation <40 mg/dL: Low HDL cholesterol (major risk factor for CHD) Greater than or equal to 60 mg/dL: High HDL cholesterol ( negative risk factor for CHD) HDL - cholesterol is affected by a number of factors, e.g. smoking, excerise, hormones, sex and age. CHOLESTEROL 152 0 - 240 mg/dL [facility] TRIGLYCERIDES 105 30 - 160 mg/dL [facility] LDL 72 50 - 129 mg/dL [facility] Comment: LDL levels in terms of risk for coronary heart disease: <100 mg/dL: Optimal 100-129 mg/dL: Near or above optimal 130-159 mg/dL: Borderline high 160-189 mg/dL: High >190 mg/dL: Very High CARDIAC RISK RATIO 2.6(L) 3.4 - 5.0 [facility] Blood 03/18/2023 10:2 4 AM EST 03/18/2023 10:27 AM EST us Lilian Valdivia DNP LAB BLOOD BKR ORDERABLES F inal Result [facility] [address], [place] [id number] * (ABNORMAL) Basic metabolic panel (03/18/2023 10:24 AM EST) SODIUM 141 133 - 146 mmol/L [facility] CHLORIDE 103 96 - 108 mmol/L [facility] POTASSIUM 4.7 3.3 - 5.1 mmol/L [facility] CO2 28 21 - 35 mmol/L [facility] BUN 21(H) 6 - 19 mg/dL [facility] CREATININE 1.20 0.5 - 1.5 mg/dL [facility] GLUCOSE 115(H) 70 - 99 mg/dL [facility] CALCIUM 9.3 8.4 - 10.3 mg/dL [facility] EGFR 66 >59 mL/min/1.7 3m2 [facility] Comment:Estimated glomerular filtration rate calculated using the CKD-EPI refit equation. ANION GAP 15 10 - 20 mmol/L [facility] Blood 03/18/2023 10:2 4 AM EST 03/18/2023 10:27 AM EST us Lilian Peterson Shea DNP LAB BLOOD BKR ORDERABLES F inal Result [facility] [address] [place] [address] from Last 3 Months or Most Recently Relevant to Health Maintenance Insurance [facility] MEDICARE PART A & B [place] [employer] SUPP[place] PART [place] & B [employer] MEDEX SUPP[place]MENT [place] MED[place] A & B [facility] MEDICARE PART [facility] & B [facility] PART [facility] B [employer] MEDEX SUPPLEMENT [facility] MEDICARE PART A & B [place] PART [place] & B [employer] MEDEX SUPPLEMENT [facility] & B [employer] MEDEX SUPPLEMENT [facility] MEDICARE PART A & B [employer]EX SUPPLEMENT Care Teams Pound Keeper Relationship Specialty Start Date End Date Brody Donohue MD [address] [place] [address] [place] [address] PCP - General Internal Medicine 03/26/23 Additional Source Comments The information contained in this document represents components of the legal health record. It is not the complete legal health record.[facility]
--- OUTSIDE RECORDS SUMMARY | 2025-01-25 12:01 | XMS_ITS | Encounter Summary ---
Author Organization [facility] Address [address] [place] [id number] Care Team Providers Care Nutrition Aide Name Role Phone Unavailable Primary Care Provider Unavailabl e Reason for Referral * Imaging (Routine) - New Request Specialty Diagnoses / Procedures Referred By Contact Referred To Contact Diagnostic Radiology Procedures MRI Abdomen with and without IV Contrast Transplantation & Immunology at [address] [place] [address] [address] [place] [address] Phone: tel: fax: Referral ID Status Reason Start Date Expiration Date V isits Requested Visits Authorized [id number] New Request 11/17/2024 11/17/2025 1 1 Encounter Details Date Type Department Care Team (Late st Contact Info) Description 11/17/2024 Scanned Document Transplantation & Immunology at [address] [place] [address] Daisy Ryan . Social History Tobacco Use [...] Visit [facility] at [address] [facility] [address] [facility] 4th [place] [address] Bryon Mayorga MD [address] [facility] [address] [place] [address] documented as of this encounter Procedures Procedure Name Priority Date/Time Associated Diagnosis Comments LAB SCAN Routine 11/11/2024 2:11 PM EDT MRI ABDOMEN W WO IV CONTRAST Routine 05/07/2024 2:13 PM EST documented in this encounter Results * Lab Scan (11/11/2024 2:11 PM EDT) us Historical Provider LAB BLOOD ORDERABLES Final R esult * MRI Abdomen with and without IV Contrast (05/07/2024 2:13 PM EST) Anatomical Region Laterality Modality Abdomen, RCC Abdomen/Pelvis Magn etic Resonance us Historical Provider IMG MRI ORDERABLES Final Res ult documented in this encounter Visit Diagnoses Not on filedocumented in this encounter
[2025-01-25 12:51] LABS: MANUAL DIFF FLAG NO
[2025-01-25 13:07] LABS: Hematocrit 41.0 % (42.0-52.0); Hemoglobin 13.6 g/dl (14.0-18.0); Imm Gran Abs Auto 0.03 X10*3/uL (0.00-0.03); Imm Gran Pct Auto 0.4 % (0.0-0.4); Lymphocytes Absolute Auto 2.1 X10*3/uL (1.2-4.9); Mean Corpuscular HGB Conc 33.2 g/dl (31.0-36.0); Mean Corpuscular Hemoglobin 31.2 pg (27.0-33.0); Mean Corpuscular Volume 94.0 fL (80.0-98.0); NRBC Abs Auto 0.000 X10*3/uL (0.0-0.012); NRBC Pct Auto 0.0 /100WBC (0.0-0.2); Platelet Count 310 X10*3/uL (160-400); Red Blood Count 4.36 X10*6/uL (4.60-5.80); White Blood Count 8.1 X10*3/uL (4.8-10.8)
[2025-01-25 13:33] LABS: Alanine Aminotransferase 36 U/L (0-40); Albumin Level 3.8 g/dL (3.5-5.0); Alkaline Phosphatase 89 U/L (39-117); Anion Gap 11 (12-20); Aspartate Amino Transferase 28 U/L (5-37); Blood Urea Nitrogen 19 mg/dL (9-16); Calcium 9.0 mg/dL (8.4-10.2); Carbon Dioxide 29 mmol/L (22-29); Chloride 105 mmol/L (96-108); Cholesterol 147 mg/dL (<200); Estimated Glomerular Filt Rate 49; HDL Cholesterol 49 mg/dL (>40); Potassium 4.1 mmol/L (3.3-5.1); Sodium 141 mmol/L (135-145); Total Protein 6.7 g/dL (6.5-8.0); Triglycerides 90 mg/dL (<150)
[2025-01-25 13:42] LABS: Appearance Urine Clear; Glucose Urine UA Negative (Negative); PH 7.0 (5.0-9.0); Specific Gravity - Urine 1.010 (1.005-1.025)
== END 2025-01-25 10:26 | disposition home or self-care (01) ==
LOC: HO.HMGCLDS 10:25
PROVIDERS: PCP Internal Medicine; Visit Provider Internal Medicine
DX: R30.0 Dysuria (principal); E83.01 Wilson's disease; E78.00 Pure hypercholesterolemia, unspecified; D64.9 Anemia, unspecified; R73.9 Hyperglycemia, unspecified
CPT/HCPCS: 36415; 80053; 80061; 81003; 82306; 82390; 82525; 83036; 84443; 85025

== ENCOUNTER 2025-02-01 14:16 | Outpatient (AMB) | payer MEDICARE, MEDICAID, SELFPAY ==
[2025-02-01 14:19] VITALS: BP 124/66; PULSE 91; O2SAT 93; BMI 23.9
--- NOTE | 2025-02-01 14:19 | A.OFFPC_ITS ---
Vital Signs 02/01/25 14:19 Height 5 ft 8 in Weight 157 lb 2 oz BMI 23.9 BP 124/66 Blood Pressure Location Lt brachial Position Sitting Pulse 91 Pulse Source Pulse Oximeter Pulse Oximetry (%) 93 Oxygen Delivery Method Room Air Intake Visit Reasons: 4mth f/u Nuclear Plant Instrument Technician Required: No Accompanied by: Self / Same As Patient Allergies duloxetine (From Cymbalta) Allergy (Unknown, Verified 02/01/25 14:52) increased hot flashes and leg cramps clavulanic acid (Augmentin) Adverse Reaction (Unknown, Verified 02/01/25 14:52) upset stomach gabapentin Adverse Reaction (Unknown, Verified 02/01/25 14:52) bilateral eye pains Medication List - Last Reconciled 02/01/25 by Brody Donohue MD albuterol sulfate 0.63 mg (3 mL) inhalation QID PRN albuterol sulfate 90 mcg/actuation (Ventolin HFA) 2 puffs PO Q6H PRN lorazepam 1 mg PO TID PRN 30 days losartan 50 mg PO BID mometasone-formoterol 200-5 mcg/actuation (Dulera) 2 puffs inhalation BID 30 days multivitamin (Daily Multi-Vitamin tablet) 1 tab PO DAILY penicillamine 250 mg PO BID 90 days pyridoxine (vitamin B6) 25 mg PO DAILY tapentadol (Nucynta) 100 mg PO Q6H PRN 15 days tiotropium bromide 2.5 mcg/actuation (Spiriva Respimat) 2 puffs inhalation QAM tizanidine 4 mg PO Q8H PRN 10 days Tobacco use date assessed: 02/01/25 Fall risk assessment: No Falls in past year Last assessed Fall Risk: 02/01/25 Dental Screening Dental Screen Date: 02/01/25 Did you have a dental visit in the last 12 months?: Yes Did you have a dental problem in the last 6 months where you did not have access to dental care?: No Was dental information given to patient?: Patient has dentist HPI 4mth f/u HPI Details Patient comes in today for his follow up visit States that he feels okay He denies any headaches or dizziness Denies any chest pains, no increased SOB No nausea/vomiting, no abdominal pain No change in bowel habits noted States that his chronic low back pain and joint pains remain adequately controlled on his current Rx - will need his Nucynta Rx refilled He had his follow up labs done last week - to discuss his results [facility] Medical History COPD exacerbation Bronchitis Cough Benign essential hypertension Urinary frequency Anxiety Pancreatic cyst GERD without esophagitis Primary osteoarthritis involving multiple joints Lumbar degenerative disc disease Tai's disease COPD (chronic obstructive pulmonary disease) Surgical History Hx of colonoscopy History of total left hip arthroplasty (~02/25/22) H/O right knee surgery History of arthroscopy of left knee History of right hip replacement History of tonsillectomy and adenoidectomy H/O hernia repair H/O nasal polypectomy History of cholecystectomy Family History Father No problems noted. Mother No problems noted. Social History Housing: House Alcohol intake: never Patient Tobacco Use Status: Former Tobacco user e-Cigarette/Vaping Use: Never Used Second Hand Smoke Exposure: No service: Yes ([employer]) Current occupational status: retired Cognitive needs: No Hearing needs: Yes (hearing aide) Vision needs: Yes (Glasses) Questionnaire PHQ-9 Over the last 2 weeks, how often have you been bothered by any of the following problems? 1. Little interest or pleasure in doing things: not at all 2. Feeling down, depressed, or hopeless: not at all 3. Trouble falling or staying asleep, or sleeping too much: not at all 4. Feeling tired or having little energy: not at all 5. Poor appetite or overeating: not at all 6. Feeling bad about yourself - or that you are a failure or have let yourself or your family down: not at all 7. Trouble concentrating on things, such as reading the newspaper or watching television: not at all 8. Moving or speaking so slowly that other people could have noticed. Or the opposite - being so fidgety or restless that you have been moving around a lot more than usual: not at all 9. Thoughts that you would be better off or of hurting yourself in some way: not at all Total score: 0 Depression Screening Interpretation: Negative Depression Screening Done: Yes 74070 - PHQ-9 Billing: Yes Source: Developed by Drs. Jacinto Fields, Abbie Villanueva, Reji Xavier and colleagues, with an educational celio from [employer]. Thrive Questionnaire Date Thrive assessed: 02/01/25 I am a: Patient What is your living situation today?: I have a steady place to live Within the past 12 months, did the food you bought not last and you didn't have the money to get more?: Never true Within the past 12 months, did you worry whether your food would run out before you got money to buy more?: Never true Do you have trouble paying for medicines?: No Do you have trouble getting transportation to medical appointments?: No Do you have trouble paying your heating and electricity bill?: No Do you have trouble taking care of your child, family member or friend?: No Do you have trouble with day-to-day activities such as bathing, preparing meals, shopping, managing finances, etc.?: No Are you currently unemployed and looking for a job?: No Are you interested in more education?: No Please select the resources that you would like help with: None Currently or been in a relationship where the following occur: No concerns reported THRIVE Score: 0 AUDIT C Alcohol Use Questionnaire (AUDIT-C) 1. How often do you have a drink containing alcohol?: Never 3. How often do you have six or more drinks on one occasion?: Never Total Score: 0 Score Reviewed/Action Taken: Yes HARITHA-7 AMB Questionnaire HARITHA-7 Date HARITHA - 7 assessed: 02/01/25 Feeling nervous, anxious, or on edge: 0 = Not at all Not being able to stop or control worryin = Not at all Worrying too much about different things: 0 = Not at all Trouble relaxin = Not at all Being so restless that it is hard to sit still: 0 = Not at all Becoming easily annoyed or irritable: 0 = Not at all Feeling afraid as if something awful might happen: 0 = Not at all Total HARITHA-7 score (0-4 normal; 5-9 mild; 10-14 moderate; 15-21 severe): 0 Source: Developed by Drs. Jacinto Fields, Abbie Villanueva, Reji Xavier and colleagues, with an educational celio from [employer]. Review of Systems Const Denies chills, Denies difficulty sleeping, Reports fatigue (at times), Denies fever(s) and Denies headache(s) ENT Denies dysphagia, Denies dizziness, Denies otalgia, Denies headache(s), Denies neck pain, Denies odynophagia and Denies sore throat Card Denies chest pain, Denies irregular heart rhythm, Denies palpitations and Denies dyspnea Resp Denies chest congestion, Denies cough and Denies dyspnea GI Denies abdominal pain, Denies constipation, Denies dysphagia, Denies heartburn, Denies diarrhea, Denies nausea, Denies odynophagia and Denies vomiting Denies difficulty urinating, Denies dysuria and Denies urinary frequency Musc Reports back pain (over the lower back - chronic), Reports arthralgias (involv ing multiple joints) and Denies neck pain Skin/Breast Denies rash Neuro Denies dizziness, Denies headache(s) and Denies paresthesias Endo Reports fatigue (at times) and Denies palpitations Physical exam (Primary Care) Vital Signs: Last Vital Signs Pulse 91 02/01/25 14:19 BP 124/66 02/01/25 14:19 Pulse Ox 93 02/01/25 14:19 Oxygen Delivery Method Room Air 02/01/25 14:19 BMI result Body Mass Index 23.9 Tobacco/Smoking Status: Tobacco use Status Tobacco use date assessed 02/01/25 02/01/25 14:27 Patient Tobacco Use Status Former Tobacco user 02/01/25 14:27 e-Cigarette/Vaping Use Never Used 02/01/25 14:27 PHQ-9: PHQ-9 Score PHQ-9: Total score 0 02/01/25 14:55 Depression Screening Interpretation: Negative Thrive Assessment: Date of Thrive Assessment Date Thrive assessed 02/01/25 02/01/25 14:27 Currently or been in a relationship where the following occur: No concerns reported Const General: no acute distress and alert HENMT Ears: TM's normal bilaterally and EAC's normal Throat: Yes posterior oropharynx normal and Yes tonsils normal (no TP congestion) Neck Neck: No lymphadenopathy and Yes tender Thyroid: Thyroid normal Resp Auscultation: clear to auscultation bilaterally, no rales and no wheezes Cardio Rate: regular rate Rhythm: regular rhythm Heart sounds: no murmurs GI Palpation (GI): Soft to palpation and nontender Auscultation: normal bowel sounds General: Yes no CVA tenderness Back/Spine/Pelvis Back: no CVA tenderness Cervical Spine: Cervical spine tenderness Thoracic/Lumbar Spine: lumbar spinal tenderness Skin Rashes: no rashes Extrem General: Yes no clubbing, cyanosis or edema Results Reviewed Results Reviewed: Laboratory Tests 01/25/25 10:28 WBC 8.1 Hgb 13.6 L Hct 41.0 L Plt Count 310 Sodium 141 Potassium 4.1 Creatinine 1.42 H Estimated GFR 49 Fasting Glucose 102 H Hemoglobin A1c % 5.6 Calcium 9.0 AST 28 ALT 36 Ceruloplasmin 17 Triglycerides 90 Cholesterol 147 LDL Cholesterol, Calc 80 HDL Cholesterol 49 25-OH Vitamin D Total 42.3 TSH 1.09 Ur Specific Cory 1.010 Urine Protein Negative Urine Glucose (UA) Negative Urine Blood Negative Urine Nitrite Negative Ur Leukocyte Esterase Negative Serum Copper 67 L Coding Level of Care Code Est Pt Level 4 (57694) Diagnoses Benign essential hypertension I10 Tai's disease E83.01 Elevated LFTs R79.89 Chronic obstructive pulmonary disease, unspecified COPD type J44.9 COPD type: unspecified COPD Impaired fasting glucose R73.01 Degeneration of intervertebral disc of lumbar region with discogenic back pain M51.360 Disc-related pain type: discogenic back pain only Primary osteoarthritis involving multiple joints M89.49 GERD without esophagitis K21.9 Urinary frequency R35.0 Basal cell carcinoma (BCC) of skin of neck C44.41 Basal cell carcinoma location: neck Glaucoma, unspecified glaucoma type, unspecified laterality H40.9 Glaucoma type: unspecified Laterality: unspecified laterality Anxiety F41.9 Additional Codes PHQ-9 - 09595 - PHQ-9 Billing: Yes ([id number]) Assessment & Plan Assessment & Plan (1) Benign essential hypertension: Code(s): I10 - Essential (primary) hypertension Category: Medical Plan: Reinforced low sodium diet - goal is systolic BP of 130 to 140 mm or less Continue Losartan 50 mg BID Patient is reminded to continue monitoring his blood pressure regularly (2) 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 Melara) as scheduled Will recheck his labs in 4 months for follow up (3) Elevated LFTs: Code(s): R79.89 - Other specified abnormal findings of blood chemistry Category: Medical Plan: He is advised that his LFTs have improved on his recent labs Abdominal US done back in September 2023 revealed borderline mildly increased hepatic parenchymal heterogeneity and echogenicity could be associated with hepatocellular disease/hepatic steatosis and substantially limits visualization The gall bladder is surgically absent and the pancreas appears mildly heterogeneous and the pancreatic duct measures 0.3 cm in diameter. There is also possible trace amount of free fluid adjacent to the substantial superior aspect of the left hepatic lobe Will continue to monitor his LFTs regularly Follow up with GI (Dr. Melara) as scheduled (4) COPD (chronic obstructive pulmonary disease): Comment: CHRONIC OBSTRUCTIVE PULMONARY DISEASE, MILD TO MODERATE. SLIGHTLY IMPROVED WITH USE OF SPIRIVA RESPIMAT AND IS STABLE AT THIS TIME. I EXPLAINED TO HIM THAT SHORTNESS OF BREATH WHEN HE DOES PHYSICAL WORK IS EXPECTED AND PART OF COPD. Code(s): J44.9 - Chronic obstructive pulmonary disease, unspecified Category: Medical Qualifiers: COPD type: unspecified COPD Qualified Code(s): J44.9 - Chronic obstructive pulmonary disease, unspecified Plan: Chest CT done on 06/10/2017 showed findings consistent with pulmonary emphysema Continue Spiriva Respimat Aerosol Solution, 2.5 mcg, 2 puffs Once a day, Symbicort Aerosol, 160-4.5 MCG/ACT, 2 inhalations Twice a day and ProAir HFA Aerosol Solution, 108 (90 Base) MCG/ACT, 2 puffs four times a day NEEDED Follow up with pulmonary (Dr. Francois) as scheduled (5) Impaired fasting glucose: Code(s): R73.01 - Impaired fasting glucose Category: Medical Plan: His FBS was at 102 mg/dl but HgbA1c was normal at 5.6% Reinforced low calorie / low carb diet (6) Lumbar degenerative disc disease: Comment: Has received lumbar spine injections from [facility] in the past with little relief Code(s): M51.36 - Other intervertebral disc degeneration, lumbar region Category: Medical Qualifiers: Disc-related pain type: discogenic back pain only Qualified Code(s): M51.360 - Other intervertebral disc degeneration, lumbar region with discogenic back pain only Plan: Reinforced activity and weight lifting restrictions Continue Lidoderm Patch, 5 %, 1 patch to intact skin remove after 12 hours, Externally, Once a day as needed and Nucynta Tablet, 100 MG, 1 tablet, Orally, every 6 hrs as needed for pain, 15 days, # 60 Tablets Follow-up with [facility] (Dr. Woo) as scheduled - he has been presented with the options of a spinal cord stimulation, an intrathecal drug delivery system as well as a genicular block and radiofrequency ablation for pain relief (7) Primary osteoarthritis involving multiple joints: Code(s): M89.49 - Other hypertrophic osteoarthropathy, multiple sites Category: Medical Plan: Follow up with [facility] as scheduled (8) GERD without esophagitis: Code(s): K21.9 - Gastro-esophageal reflux disease without esophagitis Category: Medical Plan: Dietary restrictions reinforced Continue Dexilant capsules 60 mg QD (9) Urinary frequency: Code(s): R35.0 - Frequency of micturition Category: Medical Plan: His PSA was normal on his labs done a few months ago Follow up with urology as scheduled (10) Basal cell carcinoma (BCC): Code(s): C44.91 - Basal cell carcinoma of skin, unspecified Category: Medical Qualifiers: Basal cell carcinoma location: neck Qualified Code(s): C44.41 - Basal cell carcinoma of skin of scalp and neck Plan: He was supposedly informed by dermatology that the lesion they removed from the left side of his neck a few months ago was a basal cell carcinoma lesion but the margins were reportedly clear Follow up with [facility] as scheduled for further management/treatment (11) Glaucoma: Code(s): H40.9 - Unspecified glaucoma Category: Medical Qualifiers: Glaucoma type: unspecified Laterality: unspecified laterality Qualified Code(s): H40.9 - Unspecified glaucoma Plan: Follow up with ophthalmology as scheduled (12) Anxiety: Code(s): F41.9 - Anxiety disorder, unspecified Category: Medical Plan: Continue Lorazepam 1 mg TID PRN Plan Follow up in 4 months Orders: Orders Complete Blood Count Auto Diff 4 Months D64.9 - Anemia, unspecified Comprehensive [place]. Panel Fast 4 Months E78.00 - Pure hypercholesterolemia, unspecified Lipid Panel 4 Months E78.00 - Pure hypercholesterolemia, unspecified TSH reflex Free T4 4 Months E78.00 - Pure hypercholesterolemia, unspecified UA CC w/rflx Micro + Cult 4 Months R30.0 - Dysuria Copper Random Urine 4 Months E83.01 - Tai's disease Copper, serum 4 Months E83.01 - Tai's disease Ceruloplasmin 4 Months E83.01 - Tai's disease Medications: Refilled tapentadol (Nucynta) 100 mg PO Q6H PRN 60 tabs 0RF pain 15 days M89.49 - Other hypertrophic osteoarthropathy, multiple sites, M51.36 - Other intervertebral disc degeneration, lumbar region
--- OUTSIDE RECORDS SUMMARY | 2025-02-02 10:32 | XMS_ITS | Encounter Summary ---
Author Organization [facility] and [facility] Address [address] [place] [address] Care Team Providers Care Wood Scaler Name Role Phone Unavailable Primary Care Provider Unavailabl e Encounter Details Date Type Department Care Team (Late st Contact Info) Description 10/02/2023 Scanned Document [facility] [address] [place] [address] Provider, [facility] . Social History [...] EDT Office Visit Transplantation & Immunology at [address] [place] [address] Bryon Mayorga MD [address] [place] [phone] documented as of this encounter Procedures Procedure Name Priority Date/Time Associated Diagnosis Comments LAB SCAN Routine 09/09/2023 2:53 PM EDT documented in this encounter Results * Lab Scan (09/09/2023 2:53 PM EDT) us Historical Provider LAB BLOOD ORDERABLES Final R esult documented in this encounter Visit Diagnoses Not on filedocumented in this encounter
--- OUTSIDE RECORDS SUMMARY | 2025-02-02 10:32 | XMS_ITS | Encounter Summary ---
Author Organization [facility] and [facility] Address [address] [place] [address] Care Team Providers Care Fiscal Assistant Name Role Phone Unavailable Primary Care Provider Unavailabl e Reason for Referral * Imaging (Routine) - Pending Review Specialty Diagnoses / Procedures Referred By Contact Referred To Contact Diagnostic Radiology Procedures US Abdomen Complete [facility] at [address] [place] [address] Phone: tel: fax: Referral ID Status Reason Start Date Expiration Date V isits Requested Visits Authorized [id number] Pending Review 03/15/2024 03/15/2025 1 1 Encounter Details Date Type Department Care Team (Late st Contact Info) Description 03/15/2024 Scanned Document [facility] at [address] [place] [phone] Daisy Ryan . Social History Tobacco Use [...] Office Visit [facility] at [address] [place] [address] Bryon Mayorga MD [address] [place], [place] [address] [address] [place] [address] documented as of this encounter Procedures Procedure [...]
--- OUTSIDE RECORDS SUMMARY | 2025-02-02 10:33 | XMS_ITS | Clinical Summary ---
Author Organization [address] Address [address] [place] [phone] Care Team Providers Care Oxidized Finish Plater Name Role Phone Unavailable Primary Care Provider [...] EDT Office Visit [facility] at [address] [place] [address] Bryon Mayorga MD Tai's disease (Primary Dx) 11/17/2024 Scanned Document [facility] at [address] [place] [address] Provider, Historical from Last 3 Months Social [...] Office Visit [facility] at [address] [place] [address] [address] [place] [address] Bryon Mayorga MD [address] [place] [phone] Health Maintenance Due Date Last Done Comments [...] * Lab Scan (11/11/2024 2:11 PM EDT) [facility] Provider LAB BLOOD ORDERABLES Final R esult from Last 3 Months Insurance MEDICARE [facility] [id number] MEDICAID MEDICARE [facility] [id number] MEDICAID MEDICARE [facility] [id number] MEDICAID
--- OUTSIDE RECORDS SUMMARY | 2025-02-02 10:34 | XMS_ITS | Encounter Summary ---
Author Organization [facility] and [facility] Address [address] [place] [address] Care Team Providers Care Dyer And Washer Name Role Phone Unavailable Primary Care Provider Unavailabl e Encounter Details Date Type Department Care Team (Late st Contact Info) Description 09/22/2024 Scanned Document [facility] at [address] [place] [address] Provider, Historical . Social History Tobacco Use [...] Office Visit [facility] at [address] [place] [address] Bryon Mayorga MD [address] [place] [phone] documented as of this encounter Procedures Procedure Name Priority Date/Time Associated Diagnosis Comments LAB SCAN Routine 09/21/2024 8:23 AM EDT documented in this encounter Results * Lab Scan (09/21/2024 8:23 AM EDT) us Historical Provider LAB BLOOD ORDERABLES Final R esult documented in this encounter Visit Diagnoses Not on filedocumented in this encounter
--- OUTSIDE RECORDS SUMMARY | 2025-02-02 10:34 | XMS_ITS | Encounter Summary ---
Author Organization [facility] and [facility] Address [address] [place] [address] Care Team Providers Care Shipyard Laborer Name Role Phone Unavailable Primary Care Provider Unavailabl e Encounter Details Date Type Department Care Team (Late st Contact Info) Description 09/24/2024 Scanned Document [facility] at [address] [place] [address] Provider, Historical . Social History Tobacco Use [...] Office Visit [facility] at [address] [place] [address] Bryon Mayorga MD [address] [place] [phone] documented as of this encounter Procedures Procedure Name Priority Date/Time Associated Diagnosis Comments LAB SCAN Routine 09/21/2024 3:42 PM EDT documented in this encounter Results * Lab Scan (09/21/2024 3:42 PM EDT) us Historical Provider LAB BLOOD ORDERABLES Final R esult documented in this encounter Visit Diagnoses Not on filedocumented in this encounter
--- OUTSIDE RECORDS SUMMARY | 2025-02-02 10:34 | XMS_ITS | Clinical Summary ---
Author Organization [facility] Address [address] [place] [address] Care Team Providers Care Leasing Sales Consultant Name Role Phone Unavailable Primary Care Provider [...]
--- OUTSIDE RECORDS SUMMARY | 2025-02-02 10:34 | XMS_ITS | Encounter Summary ---
Author Organization [facility] Address [address] [place] [address] Care Team Providers Care Automatic Fancy Machine Operator Name Role Phone Unavailable Primary Care Provider Unavailabl e Encounter Details Date Type Department Care Team (Late st Contact Info) Description 04/03/2012 Abstract [facility] Health Information Management [address] [place] [phone] [place], Primary Care [address] [place] [address] Social History Tobacco Use Types Packs/Day Years [...] Visit [facility] [address] [place] [address] Bryon Mayorga MD [address] [place] [phone] documented as of this encounter Visit Diagnoses Not on filedocumented in this encounter
--- OUTSIDE RECORDS SUMMARY | 2025-02-02 10:35 | XMS_ITS | Patient Health Record ---
Author Organization [facility] [place] Address [address] [place] [address] Care Team Providers Care Furniture Assembler Name Role Phone Deven Donohue MDneth Primary Care Provider Chasity borja Dalia Mcclendon Unavailable [phone] Allergies Allergen (clinical drug ingredient) Drug/Non Drug [...] primary osteoarthritis of the ankle and/or foot (410271324) Primary osteoarthrit is, left ankle and foot (M19.072) Active confirmed Problem Acquired hammer toe of right foot ([id number]) Other hammer toe(s) (acquired), right foot (M20.41) Active confirmed Problem Acquired hammer toe of left foot ([id number]) Other hammer toe(s) (acquired), left foot (M20.42) Active confirmed Plan Of Treatment Pending Test Test Name Order Date [id number] Destruction, 03-3005/03/2021 [id number]-Nmhq Destruction, 03-3005/31/2021 [id number]-Aspffobq Plate 10/18/2019 [id number]-Uoijlrlv Plate 05/26/2017 31177-Abddjzcn Plate 06/19/2017 80198- Debride <25 sq cm 06/19/2017 78131 I&D ABSCESS- SIMPLE,SINGLE 020 09675, A1117-XOJNI/INJECT, JOINT/BURSA 0 05/31/2021 Insurance Providers Payer Name Payer Address Payer Phone Subscriber Number Group Number Insured Name Patient Relationship to Insured Coverage Start Date Coverage End Date [facility] [address] [place] [address] [id number] Seb Lewis Self - patient is [...]
--- OUTSIDE RECORDS SUMMARY | 2025-02-02 10:35 | XMS_ITS | Clinical Summary ---
Author Organization [employer] Address [address] [facility] 7[address] [place] [address] Care Team Providers Care Paramedic Name Role Phone Unavailable Primary Care Provider [...] of 2) 2004 COVID-19 Vaccine ( - 2024-2 6 season) 2024 Influenza Vaccine [...]
--- OUTSIDE RECORDS SUMMARY | 2025-02-02 10:36 | XMS_ITS | Encounter Summary ---
Author Organization [facility] Address [address] [place] [phone] Care Team Providers Care Ed Special Education Teacher Name Role Phone Unavailable Primary Care Provider Unavailabl e Reason for Referral * Imaging (Routine) - New Request Specialty Diagnoses / Procedures Referred By Contact Referred To Contact Diagnostic Radiology Procedures MRI Abdomen with and without IV Contrast Transplantation & Immunology at [address] [place] [address] [address] [place] [address] Phone: tel: fax: Referral ID Status Reason Start Date Expiration Date V isits Requested Visits Authorized [id number] New Request 11/17/2024 11/17/2025 1 1 Encounter Details Date Type Department Care Team (Late st Contact Info) Description 11/17/2024 Scanned Document Transplantation & Immunology at [address] [place] [address] Daisy Ryan . Social History Tobacco Use [...] Visit [facility] at [address] [facility] [address] [facility] 4th [place] [address] Bryon aMyorga MD 800 [facility] 4 [place] [address] documented as of this encounter Procedures [...]
--- OUTSIDE RECORDS SUMMARY | 2025-02-02 10:36 | XMS_ITS | Patient Health Record ---
Author Organization [facility] Address [address] [place] [address] Care Team Providers Care Bar Porter Name Role Phone Charanjit MONROE, [place] Primary Care Provider Juan Kraus Jr Unavailable Allergies Allergen (clinical drug ingredient) Drug/Non Drug Allergy documented on EMR Reaction Allergy Type Onset Date Status ciprofloxacin Cipro sensitivity to stomach Drug Allergy Active Non-steroidal anti-inflammatory agent (FN) NSAIDs sensitvity to stomach Drug Allergy Active Results Component Value Reference Range Flag Notes Complete Blood Count Auto Di ff Reviewed date:05/11/2024 08:33:02 PM Interpretation: Performing Lab:[facility], [address] [place] [phone] Notes/Report: White Blood Count 6.2 4.8-10.8 X10*3/uL N Red Blood Count 4.62 4.60-5.80 X10*6/uL N Hemoglobin 14.4 14.0-18.0 g/dl N Hematocrit 43.4 42.0-52.0 % N Mean Corpuscular Volume 93.9 80.0-98.0 fL N Mean Corpuscular Hemoglobin 31.2 27.0-33.0 pg N Mean Corpuscular HGB Conc 33.2 31.0-36.0 g/dl N Red Cell Distribution Width 13.2 11.0-16.0 % N Platelet Count 262 160-400 X10*3/uL N Mean Platelet Volume 9.5 9.4-12.4 fL N Neutrophils Percent Auto 60.5 45-73 % N Imm Gran Pct Auto 0.3 0.0-0.4 % N Lymphocytes Percent Auto 29.0 20-40 % N Monocytes Percent Auto 8.8 2-11 % N Eosinophils Percent Auto 1.4 0-4 % N Basophils Percent Auto 0.0 0-2 % N NRBC Pct Auto 0.0 0.0-0.2 /100WBC N Neutrophils Absolute Auto 3.8 2.0-8.3 x10*3/uL N Imm Gran Abs Auto 0.02 0.00-0.03 X10*3/uL N Lymphocytes Absolute Auto 1.8 1.2-4.9 X10*3/uL N Monocytes Absolute Auto 0.6 0.1-1.2 X10*3/uL N Eosinophils Absolute Auto 0.1 0.0-0.4 X10*3/uL N Basophils Absolute Auto 0.0 0.0-0.2 X10*3/uL N NRBC Abs Auto 0.000 0.0-0.012 X10*3/uL N Comprehensive [place]. Panel Fa st Reviewed date:05/11/2024 08:33:33 PM Interpretation: Performing Lab:[facility], [address] [place] [phone] Notes/Report: Sodium 142 135-145 mmol/L N Potassium 4.4 3.3-5.1 mmol/L N Chloride 108 96-108 mmol/L N Carbon Dioxide 27 22-29 mmol/L N Anion Gap 11 12-20 L Blood Urea Nitrogen 22 9-16 mg/dL H Creatinine 1.33 0.5-1.4 mg/dL N Estimated Glomerular Filt Rate 53 Chronic Kidney Disease: Estimated GFR < 60 mL/min/1.73m2 Severe Kidney Disease: Estimated GFR < 15 mL/min/1.73m2 Glucose Fasting 101 60-99 mg/dL H A fasting glucose from 100-125 mg/dl is considered impaired (pre-diabetes). Calcium 9.2 8.4-10.2 mg/dL N Bilirubin Total 0.7 0.0-1.0 mg/dL N Aspartate Amino Transferase 42 5-37 U/L H Alanine Aminotransferase 64 0-40 U/L H Total Protein 7.2 6.5-8.0 g/dL N Albumin Level 3.7 3.5-5.0 g/dL N Alkaline Phosphatase 101 39-117 U/L N Liver Panel Reviewed date:05/11/2024 08:33:19 PM Interpretation: Performing Lab:[facility], [address] [place] [phone] Notes/Report: Bilirubin Direct 0.2 0.0-0.5 mg/dL N Lipid Panel Reviewed date:05/11/2024 08:33:10 PM Interpretation: Performing Lab:[facility], [address] [place] [phone] Notes/Report: Triglycerides 91 <150 mg/dL Desirable Triglyceride: [...] Pattern Reviewed date:05/26/2024 11:10:55 PM Interpretation: Performing Lab:[facility], [address] [place] [phone] Notes/Report: Anti Nuclear Antibody Screen NEGATIVE NEGATIVE N SAMANTHA IFA is a first line screen [...] AC-0: Negative International Consensus on SAMANTHA Patterns (https://doi.org/10.151 5/bmlx-9362-8312) For additional information, please refer to http://education.[employer]/faq/FAQ1 77 (This link is being provided for informational/ educational purposes only.) THIS TEST WAS PERFORMED AT: [facility] [address] [place] [phone] PAT STILES MD Anti Nuclear Antibody Titer TNP Anti Nuclear Antibody Pattern TNP SAMANTHA Titer 2 TNP SAMANTHA Pattern 2 TNP SAMANTHA Titer 3 TNP SAMANTHA Pattern 3 TNP Mitochondrial Antibody Reviewed date:05/26/2024 04:43:55 PM Interpretation: Performing Lab:[facility], [address] [place] [phone] Notes/Report: Mitochondrial Antibodies NEGATIVE NEGATIVE N THIS TEST WAS PERFORMED AT: [facility] [address] [place] [phone] PAT STILES MD Mitochondrial Ab Titer TNP Smooth Muscle Antibody Reviewed date:05/26/2024 04:43:43 PM Interpretation: Performing Lab:[facility], [address] [place] [phone] Notes/Report: Smooth Muscle Antibody <20 <20 U [...] type 1. THIS TEST WAS PERFORMED AT: [facility] [employer] SAVANNA MORRISON MD,PHD Hepatitis A,B,C Profile Reviewed date:05/11/2024 08:33:43 PM Interpretation: Performing Lab:[facility], [address] [place] [phone] Notes/Report: Hepatitis A Antibody IgM Nonreactive Nonreactive IgM antibodies to HAV not detected; does not exclude early acute or recovered HAV infection. Hepatitis B Surface Antibody NONREACTIVE Nonreactive Nonreactive: < 8 .00 mIU/mL Hepatitis B Core Antibody Nonreactive Nonreactive Hepatitis C Antibody Nonreactive Nonreactive Antibodies to HCV not detected; does not exclude early acute HCV infection. Hepatitis B Surface Antigen Negative Negative Reason For Referral No Information Medications Medication SIG (Take, Route, Frequency, Duration) Notes Start Date End Date Status Cuprimine 250 MG Capsule 1 capsule on an empty stomach Orally Once a day; Duration: 30 day(s) Active Vitamin B6 50 MG Tablet 1 tablet Orally; Duration: 30 day(s) Active Ventolin HFA 108 (90 Base) MCG/ACT Aerosol Solution 1 puff as needed Inhalation every 4 hrs Active Albuterol Sulfate HFA 108 (90 Base) MCG/ACT Aerosol Solution INHALE 2 PUFFS INTO THE LUNGS EVERY 6 HOURS NEEDED FOR SHORTNESS OF BREATH OR WHEEZING. Inhalation; Duration: 25 as needed Active LORazepam 1 MG Tablet Oral; Duration: 30 as needed Active Losartan Potassium 100 MG Tablet 1 tablet Orally Once a day Active Nucynta 100 MG Tablet Oral; Duration: 15 Active Immunizations Vaccine Route Administration Date Status Comme nts Influenza Unknown 09/20/2021 Refused Influenza Unknown 04/26/2024 Refused Social History Tobacco Use: Social History Observation Description Date Details (start date - stop date) Never Smoker NA - NA Social History Drugs/Alcohol: Social Info Question Answer Notes Alcohol Screen Did you have a drink containing alcohol in the past year? 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 polyps (K31.7) Active confirmed Problem Pancreatic cyst (78371643) Pancreatic cyst (K86.2) Active confirmed Problem Gastritis (6828129) Gastritis (K29.70) Active confirmed Problem Altered bowel function (41748003) Change in bowel function (R19.8) Active confirmed Problem 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 Vital Signs Temperature 97.9 degrees Fahrenheit 04/26/2024 Blood pressure diastolic 00 mm Hg 04/26/2024 Height 66 in 04/26/2024 Blood pressure systolic 000 mm Hg 04/26/2024 Weight 160 lbs 04/26/2024 BMI 25.82 kg/m2 04/26/2024 Encounters Encounter Location Date Provider Diagnosis [facility] [address] [place] [address] 04/26/2024 Juan Melara Jr Pancreatic cyst K86.2 ; Elevated LFTs R79.89 ; Change in bowel function R19.8 and 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 [facility] [address] [place], [place] [address], [place] [address] 04/26/2024 Juan Melara Jr [facility] [address] [place] [address] 05/11/2024 Juan Melara Jr Elevated liver enzymes R74.8 [facility] [address] [place], [place] [address], [place] [address] 05/12/2024 Juan Melara Jr [facility] [address] [place] [address] [address] 05/27/2024 Juan Melara Jr [facility] [address] [place], [place] [address], [place] [address] 10/11/2024 Juan Melara Jr Assessments Encounter Date Diagnosis [...] COLONOSCOPY 09/20/2021 Next Appt Details Provider Name:Juan Johnson Neno hickman Jr, 04/28/2025 01:15:00 PM, [address], [address], [place], [address], Insurance Providers Payer Name Payer Address Payer Phone Subscriber Number Group Number Insured Name Patient Relationship to Insured Coverage Start Date Coverage End Date MEDICARE OF [place] [address] [place] [address] [id number] [place] Self - patient is the insured MED[employer] ATT[employer] CLAIMS [address] [place] [address] [phone] [id number] [place] Self - patient is the insured MEDICAID OF [place] [address] [place] [address] [phone] [id number] [place] Self - patient is the [...]
--- OUTSIDE RECORDS SUMMARY | 2025-02-02 10:36 | XMS_ITS | Clinical Summary ---
Author Organization [facility] Address [address] [place] [address] Phone Care Team Providers Care Rotary Bar Operator Name Role Phone Brody Donohue MD Primary Care Provider [phone] Allergies Active Allergy Reactions Criticality Noted Date [...] by mouth 2 (two) times a day. 2 Active DULERA 200-5 mcg/actuation HFAA Inhale [...] Not on O2. Sees Dr Francois at [facility]. Assessment & Plan (12/13/2024 2:01 PM EDT): Has known COPD and is chronically short of breath however that is chronic and ongoing. He does follow at [facility] for this. He does not use oxygen. [...] Description 12/13/2024 1:30 PM EDT Office Visit [facility] [address], [address] [place] [address] Lilian Valdivia DNP Benign essential hypertension (Primary Dx) 11/16/2024 Refill [facility] [address], [address] [place] [address] Chiara Alexandra MA Medication Refill from Last [...] Description 06/13/2025 1:00 PM EDT Office Visit [facility] [address] [place] [address] [address]rd Floor, [address] [place] [address] Lilian Valdivia, RAFA 22 [facility], [address] [phone] miguel Health Maintenance Due Date Last Done [...] (03/18/2023 10:24 AM EST) HDL 59 mg/dL [facility] Comment: Interpretation <40 mg/dL: Low HDL cholesterol (major risk factor for CHD) Greater than or equal to 60 mg/dL: High HDL cholesterol ( negative risk factor for CHD) HDL - cholesterol is affected by a number of factors, e.g. smoking, excerise, hormones, sex and age. CHOLESTEROL 152 0 - 240 mg/dL [facility] TRIGLYCERIDES 105 30 - 160 mg/dL [facility] LDL 72 50 - 129 mg/dL [facility] Comment: LDL levels in terms of risk for coronary heart disease: <100 mg/dL: Optimal 100-129 mg/dL: Near or above optimal 130-159 mg/dL: Borderline high 160-189 mg/dL: High >190 mg/dL: Very High CARDIAC RISK RATIO 2.6(L) 3.4 - 5.0 [facility] Blood 03/18/2023 10:2 4 AM EST 03/18/2023 10:27 AM EST us Lilian Valdivia DNP LAB BLOOD BKR ORDERABLES F inal Result [facility] [address] [place], [place] [phone] * (ABNORMAL) Basic metabolic panel (03/18/2023 10:24 AM EST) SODIUM 141 133 - 146 mmol/L [facility] CHLORIDE 103 96 - 108 mmol/L [facility] POTASSIUM 4.7 3.3 - 5.1 mmol/L [facility] CO2 28 21 - 35 mmol/L [facility] BUN 21(H) 6 - 19 mg/dL [facility] CREATININE 1.20 0.5 - 1.5 mg/dL [facility] GLUCOSE 115(H) 70 - 99 mg/dL [facility] CALCIUM 9.3 8.4 - 10.3 mg/dL [facility] EGFR 66 >59 mL/min/1.7 3m2 [facility] Comment:Estimated glomerular filtration rate calculated using the CKD-EPI refit equation. ANION GAP 15 10 - 20 mmol/L [facility] Blood 03/18/2023 10:2 4 AM EST 03/18/2023 10:27 AM EST us Lilian Schneideroux DNP LAB BLOOD BKR ORDERABLES F inal Result [facility] [address] [place] [address] from Last 3 Months or Most Recently Relevant to Health Maintenance Insurance [facility] MEDICARE PART A & B [facility] MEDEX SUPPLEMENT [place] MEDICARE PART A & B [employer] MEDEX SUPPLEMENT [place] MEDIC[place] PART A & [facility] B [employer] MEDEX SUPPLEMENT [facility] MEDIC[facility] PART A & B [place] MEDICARE PART A & B [employer] [facility]EX SUPPLEMENT [facility] & B [facility] MEDEX SUPPLEMENT [facility] MEDICARE PART A & B [employer] MEDEX SUPPLEMENT Care Teams Rotary Bar Operator Relationship Specialty Start Date End Date Brody Donohue MD [address] [place] [address] Dr Zamudio [address] [place] [address], [place] [address] PCP - General Internal Medicine 03/26/23 Additional Source Comments The information contained in this document represents components of the legal health record. It is not the complete legal health record.[facility]
== END 2025-02-01 15:11 | disposition home or self-care (01) ==
LOC: HO.HMCH 14:17
PROVIDERS: PCP Internal Medicine; Visit Provider Internal Medicine
DX: I10 Essential (primary) hypertension (principal); E83.01 Wilson's disease; R79.89 Other specified abnormal findings of blood chemistry; J44.9 Chronic obstructive pulmonary disease, unspecified; R73.01 Impaired fasting glucose; M51.360 Other intervertebral disc degeneration, lumbar region with discogenic back pain only; M89.49 Other hypertrophic osteoarthropathy, multiple sites; K21.9 Gastro-esophageal reflux disease without esophagitis; R35.0 Frequency of micturition; C44.41 Basal cell carcinoma of skin of scalp and neck; H40.9 Unspecified glaucoma; F41.9 Anxiety disorder, unspecified

== ENCOUNTER → 2025-02-01 14:16 | Outpatient (BNVA) | payer MEDICARE, MEDICAID, SELFPAY | PROVIDERS: PCP Internal Medicine; Visit Provider Internal Medicine | DX: I10 Essential (primary) hypertension (principal); E83.01 Wilson's disease; R79.89 Other specified abnormal findings of blood chemistry; R73.01 Impaired fasting glucose; J44.9 Chronic obstructive pulmonary disease, unspecified; M51.360 Other intervertebral disc degeneration, lumbar region with discogenic back pain only; M89.49 Other hypertrophic osteoarthropathy, multiple sites; K21.9 Gastro-esophageal reflux disease without esophagitis; R35.0 Frequency of micturition; C44.41 Basal cell carcinoma of skin of scalp and neck; H40.9 Unspecified glaucoma; F41.9 Anxiety disorder, unspecified | CPT/HCPCS: 96127; 99212 ==